=== PATIENT | female | born 1955 | race Caucasian/White ===

== ENCOUNTER 2022-01-01 12:28 | Emergency (ER) | payer BC, SELFPAY ==
[2022-01-01] VITALS (7 sets, daily range): BP systolic 96–123; BP diastolic 46–67; PULSE 62–87; RESP 16–20; TEMP 36.2–36.6; O2SAT 92–96; BMI 31.9
--- NOTE | 2022-01-01 13:24 | ED.GENADULT ---
HPI - General Adult General Time Seen by Provider: 13:15 Date Seen: 01/01/22 Chief complaint: Arrhythmia/Palpitations Stated complaint: Heart issues Time Seen by Provider: 01/01/22 12:40 Source: patient and RN notes reviewed Mode of arrival: ambulatory Limitations: no limitations History of Present Illness HPI narrative: Patient is a very pleasant 66-year-old female coming in with concern of underlying aneurysm with new shortness of breath. On Saturday she just started to become quite winded. They went to take pictures and they had to come pick her up with a 4 edmonds if she could not even get up a hill she was so winded. She states it felt like her heart would be real fast and then almost stop. When asked her if it felt like it paused she very well endorsed that. She had COVID in September for the 2nd time, mild illness as she is vaccinated. No associated cough or cold symptoms. She is worried if she does have an underlying aneurysm. Prior to going in and seen her I did see that she has a known fusiform thoracic aneurysm, we had seen it on imaging in 2012. She does not think she has had imaging for some time now, feels that it may be got behind during COVID. She does not have any chest pain. She notes with activity it feels her pulse does go up some. She states she is only on metoprolol and then a water pill. No new cough or cold symptoms. No calf pain, no edema. She has had no trauma, no recent surgeries, no travel, no known ill contacts. She was sent over from clinic. Related Data Home Medications Medication Instructions Recorded Confirmed aspirin 81 mg tablet,delayed 81 mg PO DAILY 01/01/22 01/01/22 release (Adult Aspirin Regimen) calcium carbonate 600 mg calcium 600 mg PO DAILY 01/01/22 01/01/22 (1,500 mg) tablet (Calcium) cholecalciferol (vitamin D3) 25 25 mcg PO BID 01/01/22 01/01/22 mcg (1,000 unit) capsule cyanocobalamin (vitamin B-12) 1,000 mcg PO DAILY 01/01/22 01/01/22 1,000 mcg capsule flaxseed oil 1,000 mg capsule 1,000 mg PO BID 01/01/22 01/01/22 gabapentin 300 mg capsule mg 01/01/22 hydrochlorothiazide 25 mg tablet mg 01/01/22 ipratropium bromide 21 mcg (0.03 2 spray intranasal TID 01/01/22 01/01/22 %) nasal spray metoprolol succinate 25 mg mg PO 01/01/22 tablet,extended release 24 hr potassium 99 mg tablet mg 01/01/22 sertraline 50 mg tablet 50 mg PO DAILY 01/01/22 01/01/22 Allergies Allergy/AdvReac Type Severity Reaction Status Date / Time naproxen [From Aleve] Allergy Severe Anaphylaxis Verified 01/01/22 12:58 bupropion [From Wellbutrin] Allergy Mild Unknown Verified 01/01/22 12:58 Review of Systems Status of ROS: Reports: 10 or more systems reviewed and unremarkable except as noted in History and below [facility] Medical History (Updated 01/01/22 @ 18:43 by Shakira Dewey MD) Thoracic aortic aneurysm without rupture Social History Smoking Status: Former smoker Do you use any of these nicotine containing products: None Second hand tobacco smoke exposure: No How often do you have a drink containing alcohol: never AUDIT-C Alcohol total score: 0 Non-prescribed substance use: denies use Exam Const: Vital Signs, click to edit/add: Vital Signs - 24 hr 01/01/22 12:44 01/01/22 13:00 01/01/22 13:00 Temperature 97.8 F Pulse Rate [Left P ulse Oximeter] 75 76 Respiratory Rate 16 16 Blood Pressure [Le ft Upper Arm] 98/46 L Blood Pressure [Ri ght Upper Arm] 96/50 L 98/46 L Pulse Oximetry 94 94 95 Oxygen Delivery Me thod Room Air Room Air 01/01/22 13:30 01/01/22 14:00 Temperature Pulse Rate [Left P ulse Oximeter] 87 69 Respiratory Rate 16 18 Blood Pressure [Le ft Upper Arm] 120/65 118/66 Blood Pressure [Ri ght Upper Arm] Pulse Oximetry 96 92 Oxygen Delivery Me thod Room Air Room Air Documenting provider has reviewed patient's vital signs: yes Common normals: no apparent distress, oriented x3, no limitations, healthy appearing, alert and well nourished General appearance: cooperative, comfortable and well kempt Nutritional appearance: overweight HENMT: Common normals: normocephalic, head/scalp atraumatic, hearing grossly normal bilaterally, external nose normal, nasal mucous membranes and turbinates normal, moist oral mucous membranes, oropharynx normal, dentition normal and gingiva normal Head and scalp: normocephalic and atraumatic Nose: external nose normal and nasal mucous membranes and turbinates normal Eye: Common normals: PERRL, EOMs intact bilaterally, conjunctivae normal and no scleral icterus Conjunctiva: conjunctiva(e) normal Pupil: PERRL Neck & C-Spine: Common normals: full ROM, no lymphadenopathy, supple, no meningeal signs, no JVD and thyroid normal Thyroid: thyroid normal Lymph: Lymphatic: no lymphadenopathy noted and no lymphedema noted Chest: Common normals: palpation of chest normal Resp: Common normals: normal respiratory effort, no retractions, no use of accessory muscles and clear to auscultation bilaterally Auscultation: clear to auscultation bilaterally Cardio: Common normals: no JVD, regular rate, regular rhythm, S1 normal heart sound, S2 normal heart sound, no gallops, no clicks, no murmurs, no rub and peripheral pulses 2+ throughout Rate: regular rate Rhythm: regular rhythm Heart sounds: S1 normal and S2 normal Peripheral pulses: pulses 2+ throughout GI: Common normals: Normal to inspection, nondistended, normoactive bowel sounds present, soft to palpation, non-tender, no hepatosplenomegaly and no masses Palpation: soft and no hepatosplenomegaly Extremity: Common normals: normal to inspection, full ROM, normal capillary refill, no joint enlargement, no clubbing, cyanosis or edema, no calf tenderness and no pedal edema Neuro: Common normals: oriented x3 and moves all extremities Sensorium/orientation: alert Meningeal signs: no meningeal signs Speech: speech normal Gait (neuro): normal gait Psych: Appearance: well kempt Course Course Hospital Course: We will have her on cardiac monitoring and pulse oximetry, obtain EKG. We will most certainly needs some imaging and I will need to figure out if we need to consider doing PET imaging versus the dissection/aneurysm protocol. We will await the D-dimer. I did look in her old records and her blood pressures have been more in the 120s in prior years. The lowest systolic I had seen prior was 102. She does not seem symptomatic but reviewed with them that lower blood pressures tend to go with presentation of pulmonary emboli. People who have dissections with a low blood pressure are usually quite ill and in critical shape. Reviewed with her that typically dissections are seen with hypertension. There can be other pathology causing shortness of breath including cardiac such as ischemia. Does not appear to be an arrhythmia at this time but will have her on monitoring. Infectious etiology such as pneumonia could also be a consideration. Reevaluation(s) Reevaluation #1: Reviewed with patient that her hemoglobin is currently 9.4. The last hemoglobin in the [facility] records is from 2009 and was 15.2. She is not been having any heartburn, no blood in stools, no dark tarry stools. She states her colonoscopies are up-to-date. No postmenopausal bleeding. Her D-dimer is elevated. We will be proceeding with chest CT PE protocol. She understands that this is not a dedicated imaging of the known aneurysm. We will also carried imaging through the abdomen pelvis given the undocumented anemia. Blood pressures come up a bit without any intervention. Time: 14:46 Reevaluation #2: Have sat down with patient's family and her and went over the results. The CT had many incidental findings but nothing acute. Would appear that she still maybe has some changes from her prior COVID, no active COVID as her antigen is negative. Her anemia needs further workup. I would recommend EGD and colonoscopy, peripheral smear and have written it down for her. At this point, I do not think I would have her start iron as she really I believe has to be off that for 1 week prior to having scopes done. Hopefully she can get in and have this done quickly. She plans on doing it through her clinic. I have offered here but she has declined. For the shortness of breath she was feeling, coronary calcifications seen incidentally on her CT, do recommend considering an echo and once the anemia is worked up considering further cardiac workup/cardiac stress testing versus coronary CTA, cardiology can further advise. The radiologist did not comment on her thoracic aneurysm, will contact them to see if they can compare the size. Again, this was not a dedicated study and she may need this done in the need to discuss that with her primary. Time: 18:19 Vital Signs Vital signs: Initial Vital Signs Temperature 97.8 F 01/01/22 12:44 Temperature Source Temporal Artery Scan 01/01/22 12:44 Pulse Rate 75 10/03/22 12:44 Respiratory Rate 16 01/01/22 12:44 Blood Pressure 96/50 L 01/01/22 12:44 Blood Pressure Mean 65 01/01/22 12:44 Blood Pressure Position Supine 01/01/22 12:44 Pulse Oximetry 94 01/01/22 12:44 Oxygen Delivery Method 01/01/22 12:44 Vital Signs Temperature 97.8 F 01/01/22 12:44 Pulse Rate 75 01/01/22 12:44 Respiratory Rate 16 01/01/22 12:44 Blood Pressure 96/50 L 01/01/22 12:44 Pulse Oximetry 94 01/01/22 12:44 Oxygen Delivery Method 01/01/22 12:44 Temperature 97.8 F 01/01/22 12:44 Pulse Rate 69 01/01/22 14:00 Respiratory Rate 18 01/01/22 14:00 Blood Pressure 118/66 01/01/22 14:00 Pulse Oximetry 92 01/01/22 14:00 Oxygen Delivery Method 01/01/22 14:00 Medical Decision Making Lab Data Lab results reviewed: Yes I reviewed the patient's lab results Labs: Lab Results 01/01/22 01/01/22 01/01/22 Range/Units 13:05 13:05 13:05 WBC 6.27 (4.50-11.00) K/uL RBC 3.57 L (4.00-5.20) m/uL Hgb 9.4 L (12.0-16.0) gm/dL Hct 30.0 L (33.0-51.0) % MCV 84 (80-100) fL MCH 26 (26-34) pg MCHC 31 L (32-36) gm/dL RDW Coeff of Susana 17.2 H (11.5-15.5) % Plt Count 258 (140-440) K/uL Neut % (Auto) 56.6 (42.0-72.0) % Lymph % (Auto) 33.5 (20-44) % Shackelford % (Auto) 6.7 (0.0-11.0) % Eos % (Auto) 2.4 (0.0-7.0) % Baso % (Auto) 0.6 (0.0-3.0) % Neut # (Auto) 3.55 (1.7-7.0) K/uL Lymph # (Auto) 2.10 (0.90-2.90) K/uL Shackelford # (Auto) 0.40 (0.00-0.90) K/UL Eos # (Auto) 0.15 (0.00-0.50) K/uL Baso # (Auto) 0.04 (0.00-0.30) K/uL Abs Immat Gran (auto) 0.01 (0.00-0.30) K/uL Absolute Retic 0.07 (0.03-0.08) # Percent Retic 1.9 (0.5-2.0) % Immature Retic Fraction 22.9 H (3.0-15.9) % Retic Hgb Equivalent 23.1 L (29.0-35.0) pg D-Dimer Quant (PE/DVT) 0.81 H (0.00-0.50) ug/ml VBG pH (7.32-7.43) VBG pCO2 (40-50) mmHG VBG pO2 (25-47) mmHG VBG HCO3 (21-28) mmol/L Sodium 135 (135-149) mmol/L Potassium 3.5 L (3.6-5.1) mmol/L Chloride 96 (96-114) mmol/L Carbon Dioxide 28 (20-32) mmol/L BUN 21 (7-30) mg/dL Creatinine 1.1 (0.5-1.5) mg/dL Estimated Creat Clear 42.18 Estimated GFR 56 ml/min Glucose 146 H (60-115) mg/dL Lactate (0.5-1.9) mmol/L Calcium 10.9 H (8.4-10.6) mg/dL Magnesium 1.4 L (1.5-2.6) mg/dL Iron (37-170) ug/dL TIBC (265-497) ug/dL % Saturation (20-50) % Ferritin (11.1-264.0) ng/mL Total Bilirubin 0.4 (0.1-1.5) mg/dL AST 38 H (12-35) U/L ALT 25 (4-35) U/L Alkaline Phosphatase 94 (40-150) U/L C-Reactive Protein < 0.5 L (0.5-1.0) mg/dL NT-Pro-B Natriuret Pep 82 (0-125) PG/mL Total Protein 7.3 (6.0-8.3) g/dL Albumin 4.5 (3.3-5.0) g/dL SARS-CoV-2 Ag (Rapid) (Negative) POC Troponin I (0.01-0.04) ng/ml 01/01/22 01/01/22 01/01/22 Range/Units 13:05 13:05 13:05 WBC (4.50-11.00) K/uL RBC (4.00-5.20) m/uL Hgb (12.0-16.0) gm/dL Hct (33.0-51.0) % MCV (80-100) fL MCH (26-34) pg MCHC (32-36) gm/dL RDW Coeff of Susana (11.5-15.5) % Plt Count (140-440) K/uL Neut % (Auto) (42.0-72.0) % Lymph % (Auto) (20-44) % Shackelford % (Auto) (0.0-11.0) % Eos % (Auto) (0.0-7.0) % Baso % (Auto) (0.0-3.0) % Neut # (Auto) (1.7-7.0) K/uL Lymph # (Auto) (0.90-2.90) K/uL Shackelford # (Auto) (0.00-0.90) K/UL Eos # (Auto) (0.00-0.50) K/uL Baso # (Auto) (0.00-0.30) K/uL Abs Immat Gran (auto) (0.00-0.30) K/uL Absolute Retic (0.03-0.08) # Percent Retic (0.5-2.0) % Immature Retic Fraction (3.0-15.9) % Retic Hgb Equivalent (29.0-35.0) pg D-Dimer Quant (PE/DVT) (0.00-0.50) ug/ml VBG pH 7.404 (7.32-7.43) VBG pCO2 50 (40-50) mmHG VBG pO2 28.5 (25-47) mmHG VBG HCO3 31 H (21-28) mmol/L Sodium (135-149) mmol/L Potassium (3.6-5.1) mmol/L Chloride (96-114) mmol/L Carbon Dioxide (20-32) mmol/L BUN (7-30) mg/dL Creatinine (0.5-1.5) mg/dL Estimated Creat Clear Estimated GFR ml/min Glucose (60-115) mg/dL Lactate 1.6 (0.5-1.9) mmol/L Calcium (8.4-10.6) mg/dL Magnesium Cancelled (1.5-2.6) mg/dL Iron (37-170) ug/dL TIBC (265-497) ug/dL % Saturation (20-50) % Ferritin (11.1-264.0) ng/mL Total Bilirubin (0.1-1.5) mg/dL AST (12-35) U/L ALT (4-35) U/L Alkaline Phosphatase (40-150) U/L C-Reactive Protein (0.5-1.0) mg/dL NT-Pro-B Natriuret Pep Cancelled (0-125) PG/mL Total Protein (6.0-8.3) g/dL Albumin (3.3-5.0) g/dL SARS-CoV-2 Ag (Rapid) (Negative) POC Troponin I 0.00 L (0.01-0.04) ng/ml 01/01/22 01/01/22 01/01/22 Range/Units 13:05 13:05 13:31 WBC (4.50-11.00) K/uL RBC (4.00-5.20) m/uL Hgb (12.0-16.0) gm/dL Hct (33.0-51.0) % MCV (80-100) fL MCH (26-34) pg MCHC (32-36) gm/dL RDW Coeff of Susana (11.5-15.5) % Plt Count (140-440) K/uL Neut % (Auto) (42.0-72.0) % Lymph % (Auto) (20-44) % Shackelford % (Auto) (0.0-11.0) % Eos % (Auto) (0.0-7.0) % Baso % (Auto) (0.0-3.0) % Neut # (Auto) (1.7-7.0) K/uL Lymph # (Auto) (0.90-2.90) K/uL Shackelford # (Auto) (0.00-0.90) K/UL Eos # (Auto) (0.00-0.50) K/uL Baso # (Auto) (0.00-0.30) K/uL Abs Immat Gran (auto) (0.00-0.30) K/uL Absolute Retic (0.03-0.08) # Percent Retic (0.5-2.0) % Immature Retic Fraction (3.0-15.9) % Retic Hgb Equivalent (29.0-35.0) pg D-Dimer Quant (PE/DVT) (0.00-0.50) ug/ml VBG pH (7.32-7.43) VBG pCO2 (40-50) mmHG VBG pO2 (25-47) mmHG VBG HCO3 (21-28) mmol/L Sodium (135-149) mmol/L Potassium (3.6-5.1) mmol/L Chloride (96-114) mmol/L Carbon Dioxide (20-32) mmol/L BUN (7-30) mg/dL Creatinine (0.5-1.5) mg/dL Estimated Creat Clear Estimated GFR ml/min Glucose (60-115) mg/dL Lactate (0.5-1.9) mmol/L Calcium (8.4-10.6) mg/dL Magnesium (1.5-2.6) mg/dL Iron 47 (37-170) ug/dL TIBC 540 H (265-497) ug/dL % Saturation 9 L (20-50) % Ferritin 9.2 L (11.1-264.0) ng/mL Total Bilirubin (0.1-1.5) mg/dL AST (12-35) U/L ALT (4-35) U/L Alkaline Phosphatase (40-150) U/L C-Reactive Protein (0.5-1.0) mg/dL NT-Pro-B Natriuret Pep (0-125) PG/mL Total Protein (6.0-8.3) g/dL Albumin (3.3-5.0) g/dL SARS-CoV-2 Ag (Rapid) Negative (Negative) POC Troponin I (0.01-0.04) ng/ml Imaging Data CT Chest/Ab/Pelvis: Attestation: I have reviewed the pertinent imaging results. Radiologist's impression: Patient: KARLA STEVENS Facility:?[facility] Patient ID:?[id number] Site Patient ID:?[id number]. Site :?[id number] Study:?CT Chest/Abd/Pelvis PE W/ISOVUE 370 95CC-01/01/2022 4:25:46 PM Ordering Physician:Juli Rosenberg Final Report: INDICATION: Shortness of breath, dyspnea on exertion, elevated D-dimer. Anemia. TECHNIQUE: CT PE chest, CT abdomen and pelvis acquired with 95 mL Isovue 370 contrast. COMPARISON: PET-CT dated 09/29/2012, CT chest dated 09/14/2012. FINDINGS: CHEST: Lungs and pleura: Few scattered subpleural reticulation/ground-glass opacities predominantly in the bilateral lower lobes and right middle lobe, which may reflect focal subpleural scarring versus infectious process including COVID pneumonia. No large focal consolidation. Few punctate subpleural pulmonary nodules, majority of which appear stable and are likely infectious/inflammatory in etiology. Heart and vessels: No cardiomegaly, no pericardial effusion. Atherosclerotic coronary artery calcifications. No filling defects identified within the main, lobar, and contrast opacified portions of the segmental pulmonary arteries. Thyroid and lower neck: No suspicious thyroid nodule. Mediastinum/cresencio: There is a stable 1.5 x 2.0 cm lymph node or nodule in the anterior upper mediastinum (Series 6, image 46), likely benign given long-term stability. No new lymphadenopathy. Chest wall: No axillary lymphadenopathy. ABDOMEN/PELVIS: Liver: Too small to characterize hypodense hepatic lesions, likely benign in the absence of a known malignancy. 1.6 cm hypervascular lesion in segment 6/7 (series 10, image 38), favored to reflect a hemangioma. Gallbladder and bile ducts: No calcified gallstones. Trace intrahepatic biliary ductal dilation. Common bile duct is within normal limits, with no choledocholithiasis identified. Pancreas: Unremarkable. Spleen: Unremarkable. Adrenal glands: Unremarkable. Kidneys: Kidneys enhance symmetrically, without hydronephrosis. Simple appearing 3.5 cm left renal cyst. Too small to characterize hypodense right renal lesion noted. Retroperitoneum: No lymphadenopathy. Bowel and mesentery: Bowel is not obstructed. Scattered colonic diverticulosis, without evidence of acute diverticulitis. No significant ascites. No pneumoperitoneum. Bladder: Mild circumferential wall thickening and pericystic inflammatory changes. Reproductive organs: Unremarkable. Pelvic lymph nodes: No lymphadenopathy. Vessels: Atherosclerotic calcifications. Prominent left periuterine vessels, nonspecific, can be seen in setting of pelvic congestion syndrome. Abdominal wall: No acute abdominal wall abnormality. Bones: Multilevel degenerative changes of the spine. Bones are diffusely osteopenic. IMPRESSION: 1. Few scattered subpleural reticulation/ground-glass opacities throughout the lungs, which may reflect focal subpleural scarring versus infectious process such as COVID pneumonia. No evidence of pulmonary infarct. 2. No evidence of acute pulmonary embolus. 3. Stable 1.5 x 2.0 cm lymph node or nodule in the anterior upper mediastinum, likely benign. 4. 1.6 cm hypervascular lesion in segment 6/7 of the liver, favored to reflect a hemangioma. This could be further evaluated with liver MRI on a nonemergent basis. 5. Trace intrahepatic biliary duct dilation, without cholelithiasis or choledocholithiasis identified. Recommend correlation with serum alkaline phosphatase. 6. Mild circumferential wall thickening of the urinary bladder, and pericystic inflammatory changes, concerning for cystitis. Recommend correlation with urinalysis. 7. Additional incidental findings as above. Please note that all CT scans at this facility use dose modulation, iterative reconstruction, and/or weight-based dosing when appropriate to reduce radiation dose to as low as reasonably achievable. Dictated by Ole Mulligan MD @ 01/01/2022 5:55:10 PM (Electronic Signature) ECG Data Attestation: I personally reviewed and interpreted this ECG as follows: (Normal sinus rhythm, 79 beats per minute. Poor R-wave progression in the anterior precordial leads. No acute ischemia, QT corrected 440 milliseconds) Prior ECG tracings: not available for review Critical Care Time Critical Care Time Critical Care Time: No Discharge Plan Discharge Clinical Impression: Aneurysm of thoracic aorta, JACOBSON (dyspnea on exertion), Anemia Condition: Stable Instructions: Thoracic Aortic Aneurysm (ED), Dyspnea (ED), Anemia (ED) Additional Instructions: You need to follow up in clinic as soon as possible, would prefer within days rather than weeks. Need your anemia further worked up, recommend getting a peripheral smear, having EGD and colonoscopy ordered. You can discuss supplementation with your primary care provider about iron but would hold off in preparation for colonoscopy at this point. For the incidental coronary calcifications seen on the CT, considering your dyspnea on exertion which could be contributed by the low hemoglobin, would consider an echo at some point if you have ongoing symptoms. The coronary calcifications could be further looked at with a coronary CTA, stress testing down the road once the anemia is settled, cardiology evaluation/referral could be considered as well if your primary care provider feels warranted. The thoracic aneurysm will need updated image Juma if I a am not able to get this adequately reviewed based off your CT scan tonight. In the interim, if you notice edis bleeding from the intestines, have severe abdominal pain, have any significant worsening of your shortness of breath, develops any chest pain, do need to return to the ER for further evaluation. Would not stress yourself with activity, light activity to not induce any difficulty breathing. Activity Level: Activity as Tolerated Prescriptions: No Action gabapentin 300 mg capsule Label Comments: TAKE 1 CAPSULE BY MOUTH TWICE DAILY hydrochlorothiazide 25 mg tablet Label Comments: TAKE 1 TABLET BY MOUTH EVERY DAY metoprolol succinate 25 mg tablet extended release 24 hr PO Label Comments: TAKE 1 TABLET BY MOUTH EVERY DAY aspirin [Adult Aspirin Regimen] 81 mg tablet,delayed release (DR/EC) 81 mg PO DAILY calcium carbonate [Calcium 600] 600 mg calcium (1,500 mg) tablet 600 mg PO DAILY cholecalciferol (vitamin D3) 25 mcg (1,000 unit) capsule 25 mcg PO BID cyanocobalamin (vitamin B-12) 1,000 mcg capsule 1,000 mcg PO DAILY flaxseed oil 1,000 mg capsule 1,000 mg PO BID ipratropium bromide 21 mcg (0.03 %) spray,non-aerosol 2 spray intranasal TID Rx Instructions: administer into each nostril potassium 99 mg tablet sertraline 50 mg tablet 50 mg PO DAILY Follow Up/Referrals: Cookie Deras MD [Primary Care Provider] - Stand Alone Forms: [employer] Info Instructions
[2022-01-01 13:30] LABS: HCO3 VBG 31 mmol/L (21-28); Lactate* 1.6 mmol/L (0.5-1.9); PCO2 VBG 50 mmHG (40-50); PO2 VBG 28.5 mmHG (25-47); pH VBG 7.404 (7.32-7.43)
[2022-01-01 13:50] LABS: Basophils Absolute Auto 0.04 K/uL (0.00-0.30); Basophils Percent Auto 0.6 % (0.0-3.0); Eosinophils Absolute Auto 0.15 K/uL (0.00-0.50); Eosinophils Percent Auto 2.4 % (0.0-7.0); Hemoglobin* 9.4 gm/dL (12.0-16.0); Immature Granulocytes Abs Auto 0.01 K/uL (0.00-0.30); Lymphocytes Percent Auto 33.5 % (20-44); Mean Corpuscular HGB Conc 31 gm/dL (32-36); Mean Corpuscular Hemoglobin 26 pg (26-34); Mean Corpuscular Volume 84 fL (80-100); Monocytes Percent Auto 6.7 % (0.0-11.0); Neutrophils Absolute Auto 3.55 K/uL (1.7-7.0); Neutrophils Percent Auto 56.6 % (42.0-72.0); Platelet Count* 258 K/uL (140-440); RDW Coefficient of Variation % 17.2 % (11.5-15.5); Red Blood Count 3.57 m/uL (4.00-5.20); White Blood Count* 6.27 K/uL (4.50-11.00)
[2022-01-01 13:56] LABS: Slide Review Reflex No
[2022-01-01 14:09] LABS: Albumin* 4.5 g/dL (3.3-5.0); Chloride* 96 mmol/L (96-114); Potassium* 3.5 mmol/L (3.6-5.1); Sodium* 135 mmol/L (135-149)
[2022-01-01 14:11] LABS: Bilirubin Total* 0.4 mg/dL (0.1-1.5); Creatinine* 1.1 mg/dL (0.5-1.5); Est. Creatinine Clearance* 42.18; Estimated Glomerular Filt Rate 56 ml/min
[2022-01-01 14:12] LABS: Alanine Aminotransferase* 25 U/L (4-35); Alkaline Phosphatase* 94 U/L (40-150); Aspartate Amino Transferase* 38 U/L (12-35); Blood Urea Nitrogen* 21 mg/dL (7-30); Carbon Dioxide* 28 mmol/L (20-32); Total Protein* 7.3 g/dL (6.0-8.3)
[2022-01-01 14:13] LABS: Calcium* 10.9 mg/dL (8.4-10.6); Glucose* 146 mg/dL (60-115); Magnesium* 1.4 mg/dL (1.5-2.6)
[2022-01-01 14:20] LABS: D Dimer Quantitative* 0.81 ug/ml (0.00-0.50)
[2022-01-01 14:21] LABS: NT Pro B Type NatriureticPept* 82 PG/mL (0-125)
[2022-01-01 14:31] LABS: C Reactive Protein* < 0.5 mg/dL (0.5-1.0)
--- NOTE | 2022-01-01 14:43 | CRLHL7_ITS ---
For Patients: As a result of the Century Cures Act, medical imaging exams and procedure reports are released immediately into your electronic medical record. You may view this report before your referring provider. If you have questions, please contact your health care provider. INDICATION: Shortness of breath, dyspnea on exertion, elevated D-dimer. Anemia. TECHNIQUE: CT PE chest, CT abdomen and pelvis acquired with 95 mL Isovue 370 contrast. COMPARISON: PET-CT dated 09/29/2012, CT chest dated 09/14/2012. FINDINGS: CHEST: Lungs and pleura: Few scattered subpleural reticulation/ground-glass opacities predominantly in the bilateral lower lobes and right middle lobe, which may reflect focal subpleural scarring versus infectious process including COVID pneumonia. No large focal consolidation. Few punctate subpleural pulmonary nodules, majority of which appear stable and are likely infectious/inflammatory in etiology. Heart and vessels: No cardiomegaly, no pericardial effusion. Atherosclerotic coronary artery calcifications. No filling defects identified within the main, lobar, and contrast opacified portions of the segmental pulmonary arteries. Thyroid and lower neck: No suspicious thyroid nodule. Mediastinum/cresencio: There is a stable 1.5 x 2.0 cm lymph node or nodule in the anterior upper mediastinum (Series 6, image 46), likely benign given long-term stability. No new lymphadenopathy. Chest wall: No axillary lymphadenopathy. ABDOMEN/PELVIS: Liver: Too small to characterize hypodense hepatic lesions, likely benign in the absence of a known malignancy. 1.6 cm hypervascular lesion in segment 6/7 (series 10, image 38), favored to reflect a hemangioma. Gallbladder and bile ducts: No calcified gallstones. Trace intrahepatic biliary ductal dilation. Common bile duct is within normal limits, with no choledocholithiasis identified. Pancreas: Unremarkable. Spleen: Unremarkable. Adrenal glands: Unremarkable. Kidneys: Kidneys enhance symmetrically, without hydronephrosis. Simple appearing 3.5 cm left renal cyst. Too small to characterize hypodense right renal lesion noted. Retroperitoneum: No lymphadenopathy. Bowel and mesentery: Bowel is not obstructed. Scattered colonic diverticulosis, without evidence of acute diverticulitis. No significant ascites. No pneumoperitoneum. Bladder: Mild circumferential wall thickening and pericystic inflammatory changes. Reproductive organs: Unremarkable. Pelvic lymph nodes: No lymphadenopathy. Vessels: Atherosclerotic calcifications. Prominent left periuterine vessels, nonspecific, can be seen in setting of pelvic congestion syndrome. Abdominal wall: No acute abdominal wall abnormality. Bones: Multilevel degenerative changes of the spine. Bones are diffusely osteopenic. IMPRESSION: 1. Few scattered subpleural reticulation/ground-glass opacities throughout the lungs, which may reflect focal subpleural scarring versus infectious process such as COVID pneumonia. No evidence of pulmonary infarct. 2. No evidence of acute pulmonary embolus. 3. Stable 1.5 x 2.0 cm lymph node or nodule in the anterior upper mediastinum, likely benign. 4. 1.6 cm hypervascular lesion in segment 6/7 of the liver, favored to reflect a hemangioma. This could be further evaluated with liver MRI on a nonemergent basis. 5. Trace intrahepatic biliary duct dilation, without cholelithiasis or choledocholithiasis identified. Recommend correlation with serum alkaline phosphatase. 6. Mild circumferential wall thickening of the urinary bladder, and pericystic inflammatory changes, concerning for cystitis. Recommend correlation with urinalysis. 7. Additional incidental findings as above. Please note that all CT scans at this facility use dose modulation, iterative reconstruction, and/or weight-based dosing when appropriate to reduce radiation dose to as low as reasonably achievable. Dictated by Ole Mulligan MD @ 01/01/2022 5:55:10 PM (Electronically Signed)
[2022-01-01 15:07] LABS: SARS Antigen* Negative (Negative)
[2022-01-01 15:37] LABS: Immature Reticulocyte Fraction 22.9 % (3.0-15.9); Reticulocyte Hemoglobin Equivi 23.1 pg (29.0-35.0); Reticulocyte Percent 1.9 % (0.5-2.0); Reticulocytes Absolute 0.07 # (0.03-0.08)
[2022-01-01 15:47] LABS: Iron* 47 ug/dL (37-170)
[2022-01-01 15:56] LABS: Percent Iron Saturation 9 % (20-50); Total Iron Binding Capacity 540 ug/dL (265-497)
[2022-01-01 16:22] LABS: Ferritin* 9.2 ng/mL (11.1-264.0)
== END 2022-01-01 19:05 | disposition home or self-care (01) ==
PROVIDERS: Emergency Provider Family Medicine; PCP Family Medicine
DX: I71.20 Thoracic aortic aneurysm, without rupture, unspecified (principal); R06.00 Dyspnea, unspecified; D64.9 Anemia, unspecified
CPT/HCPCS: 36415; 71260; 74177; 80053; 82728; 82803; 83540; 83550; 83605; 83735; 83880; 84484; 85025; 85045; 85379; 86140; 87426; 93005; 94761; 99284; Q9967

== ENCOUNTER 2022-01-08 09:13 | Outpatient (CLI) | payer BC, SELFPAY ==
--- NOTE | 2022-01-08 10:26 | W.ANESCHARGE ---
Anesthesia Charges Start Date/Time Anesthesia Start Date: 01/08/22 Anesthesia Start Time: 10:00 Stop Date/Time Anesthesia Stop Date: 01/08/22 Anesthesia Stop Time: 10:25 Summary Emergency: No
--- NOTE | 2022-01-08 10:29 | W.ANESCHARGE ---
Anesthesia Charges Start Date/Time Anesthesia Start Date: 01/08/22 Anesthesia Start Time: 10:00 Stop Date/Time Anesthesia Stop Date: 01/08/22 Anesthesia Stop Time: 10:25 Summary Emergency: No
== END 2022-01-08 09:14 | disposition home or self-care (01) ==
LOC: OP CLINIC 09:14
PROVIDERS: PCP Family Medicine; Visit Provider Internal Medicine Gastroenterology
DX: D50.9 Iron deficiency anemia, unspecified (principal); K92.2 Gastrointestinal hemorrhage, unspecified; K31.89 Other diseases of stomach and duodenum
CPT/HCPCS: 00731; 43239; 88305

== ENCOUNTER 2022-07-15 09:45 | Inpatient (IN) | payer BC, MEDICARE, SELFPAY ==
[2022-07-15] VITALS (21 sets, daily range): BP systolic 112–146; BP diastolic 59–80; PULSE 65–77; RESP 18; TEMP 36.2–36.7; O2SAT 87–95; BMI 28.3; BMI 31.5
--- NOTE | 2022-07-15 11:48 | CRLHL7_ITS ---
For Patients: As a result of the Century Cures Act, medical imaging exams and procedure reports are released immediately into your electronic medical record. You may view this report before your referring provider. If you have questions, please contact your health care provider. Indication: Chest pain Technique: Portable chest Comparison: No comparison Findings: Low lung volumes. Mildly enlarged cardiac silhouette. No acute airspace or interstitial process. No effusion or pneumothorax. Impression: No acute pulmonary findings. Dictated by Carito Yeager MD @ 07/15/2022 1:50:45 PM (Electronically Signed)
[2022-07-15] MEDS: 0.9 % SODIUM CHLORIDE 1000 ml 1,000 ML IV ×2 (12:18→13:34)
[2022-07-15 12:29] LABS: Troponin, Point-of-Care* 0.01 ng/ml (0.01-0.04)
[2022-07-15] MEDS: MORPHINE 4 MG/ML INJ IVP (12:29)
[2022-07-15 12:34] LABS: Ionized Calcium* 1.78 mmol/L (1.11-1.30)
[2022-07-15 12:35] LABS: Basophils Absolute Auto 0.02 K/uL (0.00-0.30); Basophils Percent Auto 0.2 % (0.0-3.0); Eosinophils Absolute Auto 0.16 K/uL (0.00-0.50); Eosinophils Percent Auto 1.9 % (0.0-7.0); Hematocrit 27.5 % (33.0-51.0); Hemoglobin* 9.2 gm/dL (12.0-16.0); Immature Granulocytes Abs Auto 0.02 K/uL (0.00-0.30); Immature Granulocytes Pct Auto 0.2 %; Lymphocytes Absolute Auto 2.04 K/uL (0.90-2.90); Lymphocytes Percent Auto 24.1 % (20-44); Mean Corpuscular HGB Conc 34 gm/dL (32-36); Mean Corpuscular Hemoglobin 31 pg (26-34); Mean Corpuscular Volume 91 fL (80-100); Monocytes Percent Auto 6.6 % (0.0-11.0); Neutrophils Absolute Auto 5.65 K/uL (1.7-7.0); Platelet Count* 258 K/uL (140-440); RDW Coefficient of Variation % 14.3 % (11.5-15.5); Red Blood Count 3.02 m/uL (4.00-5.20); White Blood Count* 8.45 K/uL (4.50-11.00)
[2022-07-15 12:46] LABS: Slide Review Reflex No
[2022-07-15 12:49] LABS: Chloride* 95 mmol/L (96-114); Potassium* 3.5 mmol/L (3.6-5.1); Sodium* 134 mmol/L (135-149)
[2022-07-15 12:52] LABS: Blood Urea Nitrogen* 22 mg/dL (7-30); Carbon Dioxide* 32 mmol/L (20-32); Creatinine* 1.3 mg/dL (0.5-1.5); Est. Creatinine Clearance* 35.69; Estimated Glomerular Filt Rate 46 ml/min
[2022-07-15 12:53] LABS: Glucose* 99 mg/dL (60-115)
[2022-07-15 12:54] LABS: D Dimer Quantitative* 0.84 ug/ml (0.00-0.50)
[2022-07-15 12:55] LABS: C Reactive Protein* 0.6 mg/dL (0.5-1.0)
[2022-07-15 13:04] LABS: Calcium* 14.6 mg/dL (8.4-10.6)
[2022-07-15 13:21] LABS: Appearance Urine Clear (Clear); Bilirubin Urine Negative (Negative); Blood Urine Negative (Negative); Color Urine Yellow (Yellow); Glucose Urine Negative (Negative); Ketones Urine Negative (Negative); Leukocyte Esterase Urine Negative (Negative); Nitrite Urine Negative (Negative); Protein Urine 2+ (Negative); Specific Gravity Urine 1.015 (1.000-1.030); Urobilinogen Urine 0.2 (0.2-1.0); pH Urine 6.5 (5.0-8.5)
[2022-07-15] MEDS: FUROSEMIDE 10 MG/ML inj 40 MG IVP (13:35)
[2022-07-15 13:37] LABS: RBC Urine 0-2 (0-2)
[2022-07-15 13:38] LABS: Bacteria Urine Moderate; Squamous Epithelial Cell Urine Few (None-Few)
--- NOTE | 2022-07-15 14:04 | ED_ITS ---
HPI - General Adult General Date Seen: 07/15/22 Chief complaint: Back Injury/Pain Stated complaint: Pain control Time Seen by Provider: 07/15/22 10:52 Source: patient and family Mode of arrival: ambulatory Limitations: no limitations History of Present Illness HPI narrative: Patient is a 66-year-old female who has been struggling with hypercalcemia for the past few months, she has a history of compression fractures of her thoracic spine, and wears a TLSO. She was in the [facility], recently with hypercalcemia she was diuresed, at that point and sent home. She saw her primary here in the last week, and was found to have elevated calcium, she has had increased pain from her fractures in the last 2-3 days, and thinks this is related to her hypercalcemia she comes in with her family, she also group report some fatigue and weakness associated with this she has had no fevers or chills or sweats no recent or falls that she knows about, initial compression fractures with thought to be due to episodes of vomiting. She has been worked up at the [facility], with a resection of a thyoma. Followed by [facility] team also. Related Data Home Medications Medication Instructions Recorded Confirmed aspirin 81 mg tablet,delayed 81 mg PO DAILY 01/01/22 07/15/22 release (Adult Aspirin Regimen) calcium carbonate 600 mg calcium 600 mg PO DAILY 01/01/22 07/15/22 (1,500 mg) tablet (Calcium) cholecalciferol (vitamin D3) 25 25 mcg PO BID 01/01/22 07/15/22 mcg (1,000 unit) capsule cyanocobalamin (vitamin B-12) 1,000 mcg PO DAILY 01/01/22 07/15/22 1,000 mcg capsule flaxseed oil 1,000 mg capsule 1,000 mg PO BID 01/01/22 07/15/22 gabapentin 300 mg capsule 300 mg PO DAILY 01/01/22 07/15/22 hydrochlorothiazide 25 mg tablet 25 mg PO DAILY 01/01/22 07/15/22 ipratropium bromide 21 mcg (0.03 2 spray intranasal TID 01/01/22 01/01/22 %) nasal spray metoprolol succinate 25 mg 25 mg PO 01/01/22 tablet,extended release 24 hr potassium 99 mg tablet mg 01/01/22 sertraline 50 mg tablet 50 mg PO DAILY 01/01/22 07/15/22 lorazepam 0.5 mg tablet 0.5 mg PO DAILY PRN 07/15/22 07/15/22 methocarbamol 500 mg tablet mg PO 07/15/22 oxycodone 5 mg tablet PO 07/15/22 tramadol 50 mg tablet 50 mg PO Q6H PRN 07/15/22 07/15/22 Allergies Allergy/AdvReac Type Severity Reaction Status Date / Time naproxen [From Aleve] Allergy Severe Anaphylaxis Verified 01/01/22 12:58 bupropion [From Wellbutrin] Allergy Mild Unknown Verified 01/01/22 12:58 Review of Systems Status of ROS: Reports: 10 or more systems reviewed and unremarkable except as noted in History and below [facility] Medical History Thoracic aortic aneurysm without rupture ?I71.20 - Thoracic aortic aneurysm, without rupture, unspecified (ICD-10) Social History Smoking Status: Former smoker Do you use any of these nicotine containing products: None Second hand tobacco smoke exposure: No How often do you have a drink containing alcohol: never AUDIT-C Alcohol total score: 0 Non-prescribed substance use: denies use Exam Narrative: Exam Narrative: Patient is seen and stabilization room 2 she is pleasant alert she is seen with the 2 family members present, her pupils are equal round reactive to light there is no scleral icterus redness TMs are normal oropharynx normal neck is supple, thyroid is normal midline, not enlarged, but no tenderness, cranial nerves 3-12 are normal, chest is clear bilaterally with no wheezing crackles noted heart sounds are normal, her abdomen is soft there is no guarding no organomegaly she has pot belly, she is wearing her TLSO. Her extremities are all normal she moves extremities independently and well, there is no tremors, no weakness noted she is symmetrically strong, with no evidence of abnormality hydration status seems normal. Const: Vital Signs, click to edit/add: Vital Signs - 24 hr 07/15/22 09:58 07/15/22 12:29 07/15/22 12:30 Temperature 97.2 F L Pulse Rate 70 70 Pulse Rate [Right Pulse Oximeter] 77 Respiratory Rate 18 Blood Pressure 144/68 H Blood Pressure [Ri ght Upper Arm] 117/80 Pulse Oximetry 92 89 91 Oxygen Delivery Me thod Room Air 07/15/22 12:32 07/15/22 12:55 07/15/22 13:02 Temperature Pulse Rate 69 68 67 Pulse Rate [Right Pulse Oximeter] Respiratory Rate Blood Pressure 137/65 137/68 Blood Pressure [Ri ght Upper Arm] Pulse Oximetry 87 L 93 92 Oxygen Delivery Me thod 07/15/22 13:03 07/15/22 13:15 07/15/22 13:30 Temperature Pulse Rate 67 70 70 Pulse Rate [Right Pulse Oximeter] Respiratory Rate Blood Pressure Blood Pressure [Ri ght Upper Arm] Pulse Oximetry 92 93 91 Oxygen Delivery Me thod 07/15/22 13:32 07/15/22 13:45 07/15/22 14:00 Temperature Pulse Rate 70 68 68 Pulse Rate [Right Pulse Oximeter] Respiratory Rate Blood Pressure 146/74 H Blood Pressure [Ri ght Upper Arm] Pulse Oximetry 92 89 92 Oxygen Delivery Me thod 07/15/22 14:02 Temperature Pulse Rate 67 Pulse Rate [Right Pulse Oximeter] Respiratory Rate Blood Pressure 134/66 Blood Pressure [Ri ght Upper Arm] Pulse Oximetry 91 Oxygen Delivery Me thod Documenting provider has reviewed patient's vital signs: yes Course Course Hospital Course: Patient is seen and assessed, we started a fluid bolus, once her laboratory work came back we give her 2nd fluid bolus, of normal saline, for 2 L total I gave her some Lasix also, to help her hypercalcemia, I discussed the case with the hospitalist Dr. Coles. He agreed to admit the patient with the above diagnosis. For ongoing care and treatment. Vital Signs Vital signs: Initial Vital Signs Temperature 97.2 F L 07/15/22 09:58 Temperature Source Temporal Artery Scan 07/15/22 09:58 Pulse Rate 77 07/15/22 09:58 Respiratory Rate 18 07/15/22 09:58 Blood Pressure 117/80 07/15/22 09:58 Blood Pressure Mean 92 07/15/22 09:58 Blood Pressure Position Sitting 07/15/22 09:58 Pulse Oximetry 92 07/15/22 09:58 Oxygen Delivery Method Room Air 07/15/22 09:58 Vital Signs Temperature 97.2 F L 07/15/22 09:58 Pulse Rate 77 07/15/22 09:58 Respiratory Rate 18 07/15/22 09:58 Blood Pressure 117/80 07/15/22 09:58 Pulse Oximetry 92 07/15/22 09:58 Oxygen Delivery Method Room Air 07/15/22 09:58 Temperature 97.2 F L 07/15/22 09:58 Pulse Rate 67 07/15/22 14:02 Respiratory Rate 18 07/15/22 09:58 Blood Pressure 134/66 07/15/22 14:02 Pulse Oximetry 91 07/15/22 14:02 Oxygen Delivery Method Room Air 07/15/22 09:58 Medical Decision Making MDM Narrative Medical decision making narrative: Life-threatening differential diagnosis considered include stroke, coronary artery disease, pneumonia, and heart failure. Other differential diagnosis include but are not limited to electrolyte imbalances, anemia, medication reactions, and urinary tract infection Medical Records Medical records reviewed: Yes I reviewed the patient's medical records Medical records narrative: Some medical records from her [facility] chart are noted Lab Data Lab results reviewed: Yes I reviewed the patient's lab results Labs: Lab Results 07/15/22 07/15/22 07/15/22 Range/Units 11:50 12:20 12:40 WBC 8.45 (4.50-11.00) K/uL RBC 3.02 L (4.00-5.20) m/uL Hgb 9.2 L (12.0-16.0) gm/dL Hct 27.5 L (33.0-51.0) % MCV 91 (80-100) fL MCH 31 (26-34) pg MCHC 34 (32-36) gm/dL RDW Coeff of Susana 14.3 (11.5-15.5) % Plt Count 258 (140-440) K/uL Neut % (Auto) 67.0 (42.0-72.0) % Lymph % (Auto) 24.1 (20-44) % [place] % (Auto) 6.6 (0.0-11.0) % Eos % (Auto) 1.9 (0.0-7.0) % Baso % (Auto) 0.2 (0.0-3.0) % Neut # (Auto) 5.65 (1.7-7.0) K/uL Lymph # (Auto) 2.04 (0.90-2.90) K/uL [place] # (Auto) 0.60 (0.00-0.90) K/UL Eos # (Auto) 0.16 (0.00-0.50) K/uL Baso # (Auto) 0.02 (0.00-0.30) K/uL D-Dimer Quant (PE/DVT) 0.84 H (0.00-0.50) ug/ml Sodium 134 L (135-149) mmol/L Potassium 3.5 L (3.6-5.1) mmol/L Chloride 95 L (96-114) mmol/L Carbon Dioxide 32 (20-32) mmol/L BUN 22 (7-30) mg/dL Creatinine 1.3 (0.5-1.5) mg/dL Estimated Creat Clear 35.69 Estimated GFR 46 ml/min Glucose 99 (60-115) mg/dL Calcium 14.6 H* (8.4-10.6) mg/dL Ionized Calcium Dom 1.78 H (1.11-1.30) mmol/L C-Reactive Protein 0.6 (0.5-1.0) mg/dL Urine Color Yellow (Yellow) Urine Appearance Clear (Clear) Urine pH 6.5 (5.0-8.5) Ur Specific Tower 1.015 (1.000-1.030) Urine Protein 2+ A (Negative) Urine Glucose (UA) Negative (Negative) Urine Ketones Negative (Negative) Urine Blood Negative (Negative) Urine Nitrite Negative (Negative) Urine Bilirubin Negative (Negative) Urine Urobilinogen 0.2 (0.2-1.0) Ur Leukocyte Esterase Negative (Negative) Urine RBC 0-2 (0-2) Urine WBC 2-5 (0-5) Ur Squamous Epith Cells Few (None-Few) Urine Bacteria Moderate A (None) SARS-CoV-2 (PCR) (Negative) POC Troponin I 0.01 (0.01-0.04) ng/ml 07/15/22 Range/Units 13:39 WBC (4.50-11.00) K/uL RBC (4.00-5.20) m/uL Hgb (12.0-16.0) gm/dL Hct (33.0-51.0) % MCV (80-100) fL MCH (26-34) pg MCHC (32-36) gm/dL RDW Coeff of Susana (11.5-15.5) % Plt Count (140-440) K/uL Neut % (Auto) (42.0-72.0) % Lymph % (Auto) (20-44) % [place] % (Auto) (0.0-11.0) % Eos % (Auto) (0.0-7.0) % Baso % (Auto) (0.0-3.0) % Neut # (Auto) (1.7-7.0) K/uL Lymph # (Auto) (0.90-2.90) K/uL [place] # (Auto) (0.00-0.90) K/UL Eos # (Auto) (0.00-0.50) K/uL Baso # (Auto) (0.00-0.30) K/uL D-Dimer Quant (PE/DVT) (0.00-0.50) ug/ml Sodium (135-149) mmol/L Potassium (3.6-5.1) mmol/L Chloride (96-114) mmol/L Carbon Dioxide (20-32) mmol/L BUN (7-30) mg/dL Creatinine (0.5-1.5) mg/dL Estimated Creat Clear Estimated GFR ml/min Glucose (60-115) mg/dL Calcium (8.4-10.6) mg/dL Ionized Calcium Dom (1.11-1.30) mmol/L C-Reactive Protein (0.5-1.0) mg/dL Urine Color (Yellow) Urine Appearance (Clear) Urine pH (5.0-8.5) Ur Specific Tower (1.000-1.030) Urine Protein (Negative) Urine Glucose (UA) (Negative) Urine Ketones (Negative) Urine Blood (Negative) Urine Nitrite (Negative) Urine Bilirubin (Negative) Urine Urobilinogen (0.2-1.0) Ur Leukocyte Esterase (Negative) Urine RBC (0-2) Urine WBC (0-5) Ur Squamous Epith Cells (None-Few) Urine Bacteria (None) SARS-CoV-2 (PCR) Negative SARS-CoV-2 (Negative) POC Troponin I (0.01-0.04) ng/ml Imaging Data Chest x-ray: My impression: No acute findings Radiologist's impression: Patient: KARLA STEVENS Facility: [facility] Site . Site : [id number] Study: XRay Chest Portable 1v-07/15/2022 1:06:26 PM Ordering Physician: Neno Campoverde Final Report: Indication: Chest pain Technique: Portable chest Comparison: No comparison Findings: Low lung volumes. Mildly enlarged cardiac silhouette. No acute airspace or interstitial process. No effusion or pneumothorax. Impression: No acute pulmonary findings. Dictated by Carito Yeager MD @ 07/15/2022 1:50:45 PM (Electronic Signature) ECG Data Attestation: I personally reviewed and interpreted this ECG as follows: Interpretation: EKG shows normal sinus rhythm, no acute ST wave changes, ventricular rate is 69, QRS 80, QT QTC and HI intervals are normal Discharge Plan Discharge Clinical Impression: Encounter for chronic pain management, Compression fx, thoracic spine, Hypercalcemia Patient Disposition: Admitted As Inpatient Condition: Stable Prescriptions: No Action gabapentin 300 mg capsule 300 mg PO DAILY Patient Comments: TAKE 1 CAPSULE BY MOUTH TWICE DAILY hydrochlorothiazide 25 mg tablet 25 mg PO DAILY Patient Comments: TAKE 1 TABLET BY MOUTH EVERY DAY metoprolol succinate 25 mg tablet extended release 24 hr 25 mg PO Patient Comments: TAKE 1 TABLET BY MOUTH EVERY DAY aspirin [Adult Aspirin Regimen] 81 mg tablet,delayed release (DR/EC) 81 mg PO DAILY calcium carbonate [Calcium 600] 600 mg calcium (1,500 mg) tablet 600 mg PO DAILY cholecalciferol (vitamin D3) 25 mcg (1,000 unit) capsule 25 mcg PO BID cyanocobalamin (vitamin B-12) 1,000 mcg capsule 1,000 mcg PO DAILY flaxseed oil 1,000 mg capsule 1,000 mg PO BID ipratropium bromide 21 mcg (0.03 %) spray,non-aerosol 2 spray intranasal TID Rx Instructions: administer into each nostril potassium 99 mg tablet sertraline 50 mg tablet 50 mg PO DAILY methocarbamol 500 mg tablet PO tramadol 50 mg tablet 50 mg PO Q6H PRN oxycodone 5 mg tablet PO lorazepam 0.5 mg tablet 0.5 mg PO DAILY PRN Follow Up/Referrals: Cookie Deras MD [Primary Care Provider] -
--- NOTE | 2022-07-15 14:04 | W.PC.EDHO ---
Primary Language: Bengali Preferred Language: Orientation Status: [x] Alert & Oriented [] Slight Confusion [] Known Dx Dementia Transfers By: [x] Assist of 1 [] Assist of 2 [] Lift Active Medications Generic Name Dose Route Start Last Admin Trade Name Freq PRN Reason Stop Dose Admin Sodium Chloride 1,000 mls @ 1,000 mls/hr 07/15/22 13:30 07/15/22 13:34 0.9 % Sodium Chloride 1000 Ml IV 07/15/22 14:29 1,000 mls/hr .Q1H TRUE Administration Discontinued Medications Generic Name Dose Route Start Last Admin Trade Name Freq PRN Reason Stop Dose Admin Furosemide 40 mg 07/15/22 13:25 07/15/22 13:35 Furosemide 10 Mg/Ml Inj IVP 07/15/22 13:26 40 mg ONCE ONE Administration Sodium Chloride 1,000 mls @ 1,000 mls/hr 07/15/22 12:00 07/15/22 13:28 0.9 % Sodium Chloride 1000 Ml IV 07/15/22 12:59 Infused .Q1H TRUE Infusion Morphine Sulfate 4 mg 07/15/22 12:21 07/15/22 12:29 Morphine 4 Mg/Ml Inj IVP 07/15/22 12:22 4 mg ONCE ONE Administration Description of Symptoms ED Triage Present Problem history of compression fractures. last Description hospitalized in May at [facility] for pain control and calcium levels. states her pain is bad again and is wondering if her calcium levels are too high again Female History Patient No Pain Pain Description [Posterior Radiating Back] Pain Intensity [Posterior Back 9 ] Pain Intensity 0 Pain Intensity 9 Pain Scale Used [Posterior Numeric (1 - 10) Back] Pain Scale Used Numeric (1 - 10) Pain Scale Used Numeric (1 - 10) IV Insertion/Site Date of IV Line Insertion [ 07/15/22 Antecubital] Oxygen Administration Pulse Oximetry 91 Pulse Oximetry 92 Pulse Oximetry 89 Pulse Oximetry 92 Pulse Oximetry 91 Pulse Oximetry 93 Pulse Oximetry 92 Pulse Oximetry 92 Pulse Oximetry 93 Pulse Oximetry 87 Pulse Oximetry 91 Pulse Oximetry 89 Pulse Oximetry 92 Oxygen Delivery Method Room Air Cardiac Monitoring EKG Method 12 Lead
[2022-07-15 14:24] LABS: SARS PCR* Negative SARS-CoV-2 (Negative)
--- NOTE | 2022-07-15 14:30 | ED.NURSE ---
Pt voided ~650mLs into commode. Noted output in I&Os.
[2022-07-15] MEDS: MORPHINE 2 MG/ML inj 4 MG IVP (15:44)
[2022-07-15] MEDS: OXYCODONE 5 MG TABLET PO ×2 (15:57→20:14)
--- NOTE | 2022-07-15 16:32 | P.IMHP_ITS ---
Hospitalist- H&P: HPI History of Present Illness Time Seen by Provider: 16:15 Date Seen: 07/15/22 Chief complaint: Pain control Narrative: Cecy Pina is a 66 year old female Review of Systems Status of ROS: Reports: 10 or more systems reviewed and unremarkable except as noted in History and below [facility] Medical History (Updated 07/15/22 @ 21:22 by Alice Dalton MD) Adenomatous colon polyp ?D12.6 - Benign neoplasm of colon, unspecified (ICD-10) Alcohol use disorder in remission ?F10.91 - Alcohol use, unspecified, in remission (ICD-10) Allergic rhinitis ?J30.9 - Allergic rhinitis, unspecified (ICD-10) Anemia ?D64.9 - Anemia, unspecified (ICD-10) Carpal tunnel syndrome, bilateral ?G56.03 - Carpal tunnel syndrome, bilateral upper limbs (ICD-10) Compression fracture of L1 lumbar vertebra (~06/19/22) ?S32.010A - Wedge compression fracture of first lumbar vertebra, initial encounter for closed fracture (ICD-10) Compression fracture of L2 (~06/19/22) ?S32.020A - Wedge compression fracture of second lumbar vertebra, initial encounter for closed fracture (ICD-10) Compression fracture of L4 vertebra (~06/19/22) ?S32.040A - Wedge compression fracture of fourth lumbar vertebra, initial encounter for closed fracture (ICD-10) Compression fracture of T11 vertebra (~06/19/22) ?S22.080A - Wedge compression fracture of T11-T12 vertebra, initial encounter for closed fracture (ICD-10) Compression fracture of T12 vertebra (~06/19/22) ?S22.080A - Wedge compression fracture of T11-T12 vertebra, initial encounter for closed fracture (ICD-10) Depression with anxiety ?F41.8 - Other specified anxiety disorders (ICD-10) Essential hypertension ?I10 - Essential (primary) hypertension (ICD-10) Hypercalcemia ?E83.52 - Hypercalcemia (ICD-10) Osteoarthritis ?M19.90 - Unspecified osteoarthritis, unspecified site (ICD-10) Polyp of duodenum ?K31.7 - Polyp of stomach and duodenum (ICD-10) Primary osteoarthritis of right knee ?M17.11 - Unilateral primary osteoarthritis, right knee (ICD-10) Pulmonary nodule ?R91.1 - Solitary pulmonary nodule (ICD-10) Shingles ?B02.9 - Zoster without complications (ICD-10) Sleep apnea ?G47.30 - Sleep apnea, unspecified (ICD-10) Thoracic aortic aneurysm without rupture ?I71.20 - Thoracic aortic aneurysm, without rupture, unspecified (ICD-10) Trigger finger of right thumb ?M65.311 - Trigger thumb, right thumb (ICD-10) Surgical History (Updated 07/15/22 @ 18:04 by Alice Dalton MD) H/O colonoscopy ?Z98.890 - Other specified postprocedural states (ICD-10) H/O esophagogastroduodenoscopy (~01/11/22) ?Z98.890 - Other specified postprocedural states (ICD-10) History of intestinal surgery ?Z98.890 - Other specified postprocedural states (ICD-10) History of refractive surgery ?Z98.890 - Other specified postprocedural states (ICD-10) History of thoracic surgery (~05/28/22) ?Z98.890 - Other specified postprocedural states (ICD-10) Hx of appendectomy ?Z90.49 - Acquired absence of other specified parts of digestive tract (ICD- 10) S/P carpal tunnel release (~09/20/21) ?Z98.890 - Other specified postprocedural states (ICD-10) Family History (Updated 07/15/22 @ 16:05 by Alice Dalton MD) Mother Colon cancer Heart disease Sister Pancreatic cancer Heart disease High blood pressure Father Prostate cancer Brother Diabetes Daughter Meningioma Social History Highest level of school completed/degree received: some college, no degree Smoking Status: Former smoker Do you use any of these nicotine containing products: None Second hand tobacco smoke exposure: No How often do you have a drink containing alcohol: never AUDIT-C Alcohol total score: 0 Non-prescribed substance use: denies use Caffeine: Yes service: No Meds Home Medications and Allergies Home Medications Medication Instructions Recorded Confirmed Type aspirin 81 mg tablet,delayed 81 mg PO DAILY 01/01/22 07/15/22 History release (Adult Aspirin Regimen) gabapentin 300 mg capsule 300 mg PO BID 01/01/22 07/15/22 History hydrochlorothiazide 25 mg tablet 25 mg PO DAILY 01/01/22 07/15/22 History metoprolol succinate 25 mg 25 mg PO DAILY 01/01/22 07/15/22 History tablet,extended release 24 hr sertraline 50 mg tablet 50 mg PO DAILY 01/01/22 07/15/22 History acetaminophen 500 mg tablet 1,000 mg PO Q6H PRN 07/15/22 07/15/22 History (Acetaminophen Extra Strength) calcitonin (salmon) 200 1 spray intranasal (ALT) DAILY 07/15/22 07/15/22 History unit/actuation nasal spray lidocaine 4 % topical patch 1 patch topical DAILY 07/15/22 07/15/22 History lorazepam 0.5 mg tablet 0.5 mg PO DAILY PRN 07/15/22 07/15/22 History methocarbamol 500 mg tablet 250 mg PO Q6H 07/15/22 07/15/22 History methyl salicylate 15 %-menthol 10 1 applic topical TID 07/15/22 07/15/22 History % topical cream oxycodone 5 mg tablet 5 mg PO Q4H PRN 07/15/22 07/15/22 History polyethylene glycol 3350 17 17 g PO DAILY PRN 07/15/22 07/15/22 History gram/dose oral powder tramadol 50 mg tablet 50 mg PO Q6H PRN 07/15/22 07/15/22 History Allergies Allergy/AdvReac Type Severity Reaction Status Date / Time naproxen [From Aleve] Allergy Severe Anaphylaxis Verified 01/01/22 12:58 bupropion [From Wellbutrin] Allergy Mild Unknown Verified 01/01/22 12:58 Exam Narrative: Exam Narrative: General: [No acute distress.] [Awake alert oriented x3.] HEENT: [Normocephalic atraumatic], [pupils equally round and reactive to light and accommodation]. Oropharynx [clear]. Mucous membranes are [moist]. [No cervical lymphadenopathy, thyromegaly or carotid bruits]. No JVD. Cardiovascular: [Regular rate and rhythm]. [No murmurs, gallops, or rubs]. Chest: No increased work of breathing. [Clear to auscultation bilaterally. No crackles or wheezes]. Abdomen: Bowel sounds [present]. [Soft, nondistended, nontender.] [No hepatosplenomegaly or masses]. Extremities: [No] edema, [no cyanosis or clubbing]. Skin: [No jaundice,] [no pallor,] [no rashes]. Neuro: [Grossly intact. No focal deficits]. Const: Vital Signs, click to edit/add: Vital Signs - 24 hr 07/15/22 09:58 07/15/22 12:29 07/15/22 12:30 Temperature 97.2 F L Pulse Rate 70 70 Pulse Rate [Right Pulse Oximeter] 77 Respiratory Rate 18 Blood Pressure 144/68 H Blood Pressure [Ri ght Upper Arm] 117/80 Pulse Oximetry 92 89 91 [facility] 07/15/22 12:32 07/15/22 12:55 07/15/22 13:02 Temperature Pulse Rate 69 68 67 Pulse Rate [Right Pulse Oximeter] Respiratory Rate Blood Pressure 137/65 137/68 Blood Pressure [Ri ght Upper Arm] Pulse Oximetry 87 L 93 92 [facility] 07/15/22 13:03 07/15/22 13:15 07/15/22 13:30 Temperature Pulse Rate 67 70 70 Pulse Rate [Right Pulse Oximeter] Respiratory Rate Blood Pressure Blood Pressure [Ri ght Upper Arm] Pulse Oximetry 92 93 91 [facility] 07/15/22 13:32 07/15/22 13:45 07/15/22 14:00 Temperature Pulse Rate 70 68 68 Pulse Rate [Right Pulse Oximeter] Respiratory Rate Blood Pressure 146/74 H Blood Pressure [Ri ght Upper Arm] Pulse Oximetry 92 89 92 [facility] 07/15/22 14:02 07/15/22 14:03 07/15/22 14:28 Temperature Pulse Rate 67 67 70 Pulse Rate [Right Pulse Oximeter] Respiratory Rate Blood Pressure 134/66 Blood Pressure [Ri ght Upper Arm] Pulse Oximetry 91 91 94 [facility] 07/15/22 14:30 07/15/22 14:33 Temperature Pulse Rate 66 65 Pulse Rate [Right Pulse Oximeter] Respiratory Rate Blood Pressure 138/72 Blood Pressure [Ri ght Upper Arm] Pulse Oximetry 93 94 [facility] Hospitalist - H&P: Result Labs Labs: Short CBC 07/15/22 Range/Units 12:20 WBC 8.45 (4.50-11.00) K/uL Hgb 9.2 L (12.0-16.0) gm/dL Hct 27.5 L (33.0-51.0) % Plt Count 258 (140-440) K/uL BMP 07/15/22 12:20 Sodium 134 L Potassium 3.5 L Chloride 95 L Carbon Dioxide 32 BUN 22 Creatinine 1.3 Glucose 99 Calcium 14.6 H* Urine 07/15/22 Range/Units 12:40 Urine Color Yellow (Yellow) Urine Appearance Clear (Clear) Urine pH 6.5 (5.0-8.5) Ur Specific Curtis 1.015 (1.000-1.030) Urine Protein 2+ A (Negative) Urine Glucose (UA) Negative (Negative) Ordering Physician: Gilles Lazcano M.D. Date of Service: 07/15/22 Procedure(s): XR chest 1V portable Accession Number(s): [id number] cc: Cookie Deras M.D.; Gilles Lazcano M.D.~ For Patients: As a result of the Century Cures Act, medical imaging exams and procedure reports are released immediately into your electronic medical record. You may view this report before your referring provider. If you have questions, please contact your health care provider. Indication: Chest pain Technique: Portable chest Comparison: No comparison Findings: Low lung volumes. Mildly enlarged cardiac silhouette. No acute airspace or interstitial process. No effusion or pneumothorax. Impression: No acute pulmonary findings. Dictated by Carito Yeager MD @ 07/15/2022 1:50:45 PM (Electronically Signed) Assessment and Plan Assessment and plan (1) Hypercalcemia: Problem comment: Diagnosis: Recurrent, severe associated with 5 recent spontaneous vertebral fractures. Was recently treated at [facility] for same. Unknown which medications were given while she was there. She has been taking calcitonin nasal spray since then. Lab w/u done at [facility] over the past month shows low PTH, PTHrP <2, and low 25-hydroxyvitamin D. Therefore this is not primary hyperparathyroidism, less likely lymphoma or granulomatous disease or vitamin D toxicity. Most likely diagnosis is Multiple Myeloma. I have ordered SPEP, UPEP and serum FLC assay. Treatment: Give 4mg IV zoledronic acid, 300 units calcitonin subcut and NS @ 200 cc/h to try to achieve UO of 100-150 cc/h. Monitor I/Os. Status: Acute (2) Compression fx, thoracic spine: Problem comment: Start oxycodone po prn for pain. Consult PT/OT. Consult SW as she may need home services upon discharge. Status: Acute (3) Anemia: Problem comment: Normocytic, stable. Likely related to cause of hypercalcemia (suspect MM). Status: Acute (4) Sleep apnea: Problem comment: AHI-21 09/24/2007 wears mouth guard Status: Acute (5) Essential hypertension: Problem comment: Stop HCTZ due to hypercalcemia. Continue other home meds. Status: Acute Assessment and Plan: VTE prophylaxis: Low-dose nightly enoxaparin.
[2022-07-15] MEDS: CALCITONIN,SALMON,SYNTHETIC 200 UNIT/ML inj 300 UNIT SUBCUT (17:19)
[2022-07-15] MEDS: 0.9 % SODIUM CHLORIDE 1000 ml 1,000 ML 200 ML IV ×2 (17:20→23:28)
--- NOTE | 2022-07-15 19:30 | PC.NURSE ---
Nursing Care Hours: [id number] Pt this shift arrived from ED on stretcher. Unable to get standing scale weight d/t pain with standing. Per pt, bed scale weight not accurate. Reported to NOC nurse for new weight in morning once pain controlled. Tele shows NSR. VSS. Pain 5/10 with rest, 10/10 with movement. Appetite poor, 25% of meal eaten. Voiding large amounts with BSC. IV patent. Alert and oriented. Family at bedside.
[2022-07-15] MEDS: ACETAMINOPHEN 500 MG TABLET 1000 MG PO (20:14)
[2022-07-15] MEDS: GABAPENTIN 300 MG CAPSULE PO (20:14)
[2022-07-15] MEDS: ENOXAPARIN 40 MG/0.4 ML INJ SUBCUT (20:15)
[2022-07-15] MEDS: LORazepam 0.5 MG TABLET PO (22:23)
[2022-07-16] MEDS: OXYCODONE 5 MG TABLET PO ×8 (00:13→20:51)
[2022-07-16] MEDS: 0.9 % SODIUM CHLORIDE 1000 ml 1,000 ML 200 ML IV ×4 (04:27→20:58)
[2022-07-16 04:28] VITALS: BP 125/58; PULSE 71; RESP 18; TEMP 36.7; O2SAT 91
--- NOTE | 2022-07-16 06:12 | PC.NURSE ---
[id number]: Patient pleasant and cooperative. 10/10 back pain w/movement, 5/10 at rest. PRN Oxycodone administered for relief. Pivot to [facility]. Declined ice and AquaK pad.
[2022-07-16 07:00] VITALS: BP 128/65; PULSE 77; RESP 18; TEMP 36.9; O2SAT 94
[2022-07-16] MEDS: ACETAMINOPHEN 500 MG TABLET 1000 MG PO ×2 (08:25→16:19)
[2022-07-16] MEDS: METOPROLOL SUCCINATE (XL) 25 MG TAB PO (08:44)
[2022-07-16] MEDS: GABAPENTIN 300 MG CAPSULE PO ×2 (08:44→20:51)
[2022-07-16] MEDS: SERTRALINE 50 MG TABLET PO (08:45)
[2022-07-16] MEDS: LIDOCAINE 5% PATCH 1 PATCH TRANSDERMA (08:45)
[2022-07-16] MEDS: ASPIRIN 81 MG TABLET EC PO (08:45)
[2022-07-16] MEDS: CALCITONIN SALMON NASAL SPRAY 200 UNIT 1 SPRAY NOSTRIL-B (09:33)
[2022-07-16] MEDS: HYDROmorphone 0.5 mg/0.5 ml inj IVP ×2 (11:34→18:34)
[2022-07-16] MEDS: SODIUM CHLORIDE 0.9 % (FLUSH) 10 ML SYRINGE 5 ML IVF ×2 (11:35→18:34)
[2022-07-16 11:36] LABS: Chloride* 105 mmol/L (96-114); Potassium* 3.4 mmol/L (3.6-5.1); Sodium* 139 mmol/L (135-149)
[2022-07-16 11:39] LABS: Blood Urea Nitrogen* 14 mg/dL (7-30); Carbon Dioxide* 30 mmol/L (20-32); Est. Creatinine Clearance* 44.36; Estimated Glomerular Filt Rate 63 ml/min; Glucose* 94 mg/dL (60-115)
[2022-07-16 11:40] LABS: Calcium* 10.7 mg/dL (8.4-10.6)
[2022-07-16] MEDS: ONDANSETRON ODT 4 MG TAB PO ×2 (11:58→17:47)
[2022-07-16 12:03] VITALS: BP 90/49; PULSE 76; RESP 16; TEMP 36.7; O2SAT 92
[2022-07-16] MEDS: polyethylene glycoL 3350 17 GM PACK 25.5 GM PO (12:24)
--- NOTE | 2022-07-16 13:08 | PM.IMPN1 ---
Progress Note: A&P Assessment and plan (1) Hypercalcemia: Problem details: Diagnosis: Recurrent, severe associated with 5 recent spontaneous vertebral fractures. Was recently treated at [facility] for same. Unknown which medications were given while she was there. She has been taking calcitonin nasal spray since then. Lab w/u done at [facility] over the past month shows low PTH, PTHrP <2, and low 25-hydroxyvitamin D. Therefore this is not primary hyperparathyroidism, less likely lymphoma or granulomatous disease or vitamin D toxicity. Most likely diagnosis is Multiple Myeloma. I have ordered SPEP, UPEP and serum FLC assay. Treatment: Give 4mg IV zoledronic acid, 300 units calcitonin subcut and NS @ 200 cc/h to try to achieve UO of 100-150 cc/h. Monitor I/Os. Status: Acute (2) Compression fx, thoracic spine: Problem details: Start oxycodone po prn for pain. Consult PT/OT. Consult SW as she may need home services upon discharge. Increased oxycodone for pain control and Miralax for potential constipation. Status: Acute (3) Encounter for chronic pain management: Problem details: They report her pain has flared up with her elevated Calcium. Her compression fracture pain was partially controlled with Tramadol Status: Acute (4) Anemia: Problem details: Normocytic, stable. Likely related to cause of hypercalcemia (suspect MM). Status: Acute (5) Essential hypertension: Problem details: Stop HCTZ due to hypercalcemia. Continue other home meds. Blood pressure still well controlled. Status: Acute Time Spent With Patient Total time spent: 45 minutes Subjective Time Seen by Provider: 13:08 Date Seen: 07/16/22 Interval history: Subjective: Adalgisa reports that she is in a lot of pain today. She has not been wearing her TLSO brace continue like she is supposed to. Her spine surgeon told her she can take it off when she is lying still in bed at night only. She has had off a lot more than that and currently has an off in the middle of the day. I strongly encouraged her to remain in her TLSO brace to help with pain control and also fracture healing. Her daughter Fidelia reports that she thinks she is in a lot of pain because her calcium is up. Last time her calcium was up she was in lot of pain. They would like her to have some IV pain medicines to take. I informed them that I would prefer we mainly stick with oral pain medicines because it would transition better after managing her pain at home which hopefully will be the case in the next day or so. Her urine output has been good she had 500 mL out in the most recent shift that is recorded in the nursing records. Her calcium on admission was very high and she has had low or normal parathyroid hormone testing recently. This suggests that her hypercalcemia may be due to cancer. Possibly multiple myeloma. She did report that if she is diagnosed with cancer that she would like to see [facility]. Exam Const: Vital Signs, click to edit/add: Vital Signs - 24 hr 07/15/22 13:15 07/15/22 13:30 07/15/22 13:32 Temperature Pulse Rate 70 70 70 Pulse Rate [Left P ulse Oximeter] Respiratory Rate Blood Pressure 146/74 H Blood Pressure [Le ft Arm] Pulse Oximetry 93 91 92 Oxygen Delivery Me thod 07/15/22 13:45 07/15/22 14:00 07/15/22 14:02 Temperature Pulse Rate 68 68 67 Pulse Rate [Left P ulse Oximeter] Respiratory Rate Blood Pressure 134/66 Blood Pressure [Le ft Arm] Pulse Oximetry 89 92 91 Oxygen Delivery Me thod 07/15/22 14:03 07/15/22 14:28 07/15/22 14:30 Temperature Pulse Rate 67 70 66 Pulse Rate [Left P ulse Oximeter] Respiratory Rate Blood Pressure Blood Pressure [Le ft Arm] Pulse Oximetry 91 94 93 Oxygen Delivery Me thod 07/15/22 14:33 07/15/22 14:53 07/15/22 16:12 Temperature Pulse Rate 65 Pulse Rate [Left P ulse Oximeter] Respiratory Rate 18 Blood Pressure 138/72 Blood Pressure [Le ft Arm] Pulse Oximetry 94 94 95 Oxygen Delivery Me thod Room Air 07/15/22 19:53 07/15/22 22:27 07/16/22 04:28 Temperature 97.8 F 98.1 F 98.1 F Pulse Rate Pulse Rate [Left P ulse Oximeter] 67 74 71 Respiratory Rate 18 18 18 Blood Pressure Blood Pressure [Le ft Arm] 112/74 113/59 L 125/58 L Pulse Oximetry 94 90 91 Oxygen Delivery Me thod Room Air Room Air Room Air 07/16/22 07:00 07/16/22 07:00 07/16/22 12:03 Temperature 98.5 F 98.1 F Pulse Rate Pulse Rate [Left P ulse Oximeter] 77 77 76 Respiratory Rate 18 18 16 Blood Pressure Blood Pressure [Le ft Arm] 128/65 90/49 L Pulse Oximetry 94 92 Oxygen Delivery Me thod Room Air Room Air HEENT is within normal limits. Cardiovascular regular rate and rhythm. Lungs clear to auscultation bilaterally. Abdomen positive bowel sounds soft nontender. There is exquisite tenderness over her back. Labs Labs: Laboratory Results - last 24 hr 07/15/22 07/15/22 07/16/22 12:40 13:39 11:00 Sodium 139 Potassium 3.4 L Chloride 105 Carbon Dioxide 30 BUN 14 Creatinine 1.0 Estimated Creat Clear 44.36 Estimated GFR 63 Glucose 94 Calcium 10.7 H Urine Color Yellow Urine Appearance Clear Urine pH 6.5 Ur Specific Wolsey 1.015 Urine Protein 2+ A Urine Glucose (UA) Negative Urine Ketones Negative Urine Blood Negative Urine Nitrite Negative Urine Bilirubin Negative Urine Urobilinogen 0.2 Ur Leukocyte Esterase Negative Urine RBC 0-2 Urine WBC 2-5 Ur Squamous Epith Cells Few Urine Bacteria Moderate A SARS-CoV-2 (PCR) Negative SARS-CoV-2 Imaging Chest x-ray: Radiologist's impression: Indication: ?Chest pain Technique: ?Portable chest Comparison: ?No comparison Findings: ?Low lung volumes. Mildly enlarged cardiac silhouette. No acute airspace or interstitial process. No effusion or pneumothorax. Impression: ?No acute pulmonary findings. Dictated by Carito Yeager MD @ 07/15/2022 1:50:45 PM (Electronically Signed)
--- NOTE | 2022-07-16 13:36 | REH.PT ---
PT eval & treat orders received, chart reviewed. Pt declined Eval X 2 secondary to back pain. Would like PT to try her again tomorrow.
[2022-07-16 15:00] VITALS: BP 104/46; PULSE 83; RESP 12; TEMP 36.8; O2SAT 90
--- NOTE | 2022-07-16 15:49 | REH.OT ---
Attempted OT eval 2X today. Pt. refused both times d/t pain.
[2022-07-16 16:12] VITALS: O2SAT 90
--- NOTE | 2022-07-16 19:30 | PC.NURSE ---
End of Shift: Patient pleasant and cooperative. Patient vitally stable, lungs clear, BS WNL, IV running NS at 200. Patient has rated pain at most 10/10, oxycodone give x6 this shift and dilauded 0.5 given x2, along with prn tylenol. Patient has lidocaine patch on right lower back. Patient SBA with walker. Patient is urinating but does not have much of an appetite, zophran given x2 for nausea. Patient has back brace applied but does no always wear or use it appropriatly.
[2022-07-16 19:40] VITALS: BP 105/69; PULSE 82; RESP 16; TEMP 36.8; O2SAT 92
[2022-07-16] MEDS: ENOXAPARIN 40 MG/0.4 ML INJ SUBCUT (20:51)
--- NOTE | 2022-07-16 22:41 | PC.NURSE ---
Pt calm and cooperative during shift. Pt is assist of 1-2 with walker. Pt uses bedside commode. Pt has had pain ranging from 4-5 see EMAR for intervention. Pt had low oxygen saturations at beginning of shift (19-23) chief underwriter obtained oxygen order Pt has been tolerating well with 1 Liter and has maintained in low 90's.
[2022-07-17] VITALS (13 sets, daily range): BP systolic 88–112; BP diastolic 41–67; PULSE 73–88; RESP 16–20; TEMP 36.8–39.2; O2SAT 90–95
[2022-07-17] MEDS: OXYCODONE 5 MG TABLET PO ×8 (00:41→21:12)
[2022-07-17] MEDS: ACETAMINOPHEN 500 MG TABLET 1000 MG PO ×4 (00:42→20:32)
[2022-07-17] MEDS: 0.9 % SODIUM CHLORIDE 1000 ml 1,000 ML 200 ML IV ×3 (01:25→11:39)
--- NOTE | 2022-07-17 06:35 | PC.NURSE ---
Shift note 23-07: Pt up to BSC w/ SBA, states able to move a little bit easier this am. Rating back pain 8-10, taking PRN Oxycodone/muscle relaxer/Tylenol, wears a back brace, was actually able to rest for a 4 hour straight period. 24 hour urine on ice in BR, due to complete @ 1130.
[2022-07-17 07:11] LABS: Chloride* 107 mmol/L (96-114)
[2022-07-17 07:12] LABS: Sodium* 137 mmol/L (135-149)
[2022-07-17 07:14] LABS: Creatinine* 0.9 mg/dL (0.5-1.5); Est. Creatinine Clearance* 44.36; Estimated Glomerular Filt Rate 71 ml/min
[2022-07-17 07:15] LABS: Blood Urea Nitrogen* 8 mg/dL (7-30); Calcium* 9.6 mg/dL (8.4-10.6); Carbon Dioxide* 27 mmol/L (20-32); Glucose* 86 mg/dL (60-115)
[2022-07-17] MEDS: ONDANSETRON ODT 4 MG TAB PO (08:22)
[2022-07-17] MEDS: polyethylene glycoL 3350 17 GM PACK 25.5 GM PO (09:22)
[2022-07-17] MEDS: LIDOCAINE 5% PATCH 1 PATCH TRANSDERMA (09:23)
[2022-07-17] MEDS: CALCITONIN SALMON NASAL SPRAY 200 UNIT 1 SPRAY NOSTRIL-B (09:23)
[2022-07-17] MEDS: SERTRALINE 50 MG TABLET PO (09:23)
[2022-07-17] MEDS: ASPIRIN 81 MG TABLET EC PO (09:23)
[2022-07-17] MEDS: METOPROLOL SUCCINATE (XL) 25 MG TAB PO (09:23)
[2022-07-17] MEDS: GABAPENTIN 300 MG CAPSULE PO ×2 (09:23→19:59)
[2022-07-17] MEDS: HYDROmorphone 0.5 mg/0.5 ml inj IVP ×2 (09:35→19:59)
--- NOTE | 2022-07-17 11:07 | CRLHL7_ITS ---
For Patients: As a result of the Cures Act, medical imaging exams and procedure reports are released immediately into your electronic medical record. You may view this report before your referring provider. If you have questions, please contact your health care provider. INDICATION: Right rib pain, evaluate for rib fracture. TECHNIQUE: Chest 1 view(s), two views of the right ribs. COMPARISON: Chest radiograph dated 07/15/2022. FINDINGS: Cardiomediastinal silhouette and pulmonary vasculature are normal. Streaky left basilar opacities, likely atelectasis. No focal consolidation. No significant pleural effusion, no pneumothorax. No acute displaced right rib fracture identified. IMPRESSION: 1. No acute displaced right rib fracture identified. 2. Streaky left basilar opacities, likely atelectasis. No focal consolidation. Dictated by Ole Mulligan MD @ 07/17/2022 3:23:48 PM (Electronically Signed)
--- NOTE | 2022-07-17 11:15 | NUTR.NU ---
RDN with nutrition screen related to diet education for diabetes and low sodium. Patient has a history of CHF and new dx of DMT2, diet controlled. RDN visited with patient whom reported her diet has been going well at home. She declined diet education at this time. RDN encouraged patient to let staff know if she has any questions or would like diet education before discharge. RDN will continue to monitor.
--- NOTE | 2022-07-17 12:39 | P.IMPN_ITS ---
Progress Note: A&P Assessment and plan (1) Compression fx, thoracic spine: Problem details: Start oxycodone po prn for pain. Consult PT/OT. Consult SW as she may need home services upon discharge. Increased oxycodone for pain control and Miralax for potential constipation. OxyContin 10 mg every 12 hours was started today for better around the clock pain control. If she does not turn around soon she may need go to snf facility. Status: Acute (2) Encounter for chronic pain management: Problem details: They report her pain has flared up with her elevated Calcium. Her compression f racture pain was partially controlled with Tramadol. BusPar her pain is not coming down with getting her calcium under control. Status: Acute (3) Hypercalcemia: Problem details: Diagnosis: Recurrent, severe associated with 5 recent spontaneous vertebral fractures. Was recently treated at [facility] for same. Unknown which medications were given while she was there. She has been taking calcitonin nasal spray since then. Lab w/u done at [facility] over the past month shows low PTH, PTHrP <2, and low 25-hydroxyvitamin D. Therefore this is not primary hyperparathyroidism, less likely lymphoma or granulomatous disease or vitamin D toxicity. Most likely diagnosis is Multiple Myeloma. I have ordered SPEP, UPEP and serum FLC assay. Treatment: Gave 4mg IV zoledronic acid, 300 units calcitonin subcut and NS @ 200 cc/h to try to achieve UO of 100-150 cc/h. Monitor I/Os. Calcium is now in the normal range she has good brisk urine output and her renal function is normal. Will discontinue IV fluids. Status: Acute (4) Anemia: Problem details: Normocytic, stable. Likely related to cause of hypercalcemia (suspect MM). Status: Acute (5) Essential hypertension: Problem details: Stop HCTZ due to hypercalcemia. Continue other home meds. Blood pressure still well controlled. Status: Acute (6) Hypokalemia: Problem details: The hypokalemia is likely due to her brisk hydration because of her zoledronic acid. Will replace her potassium and follow her labs. We have saline locked her IV fluid. Status: Acute Time Spent With Patient Total time spent: 50 minutes over half that time was spent counseling coordinating care. Subjective Time Seen by Provider: 12:39 Date Seen: 07/17/22 Interval history: Subjective: Adalgisa continues to have problems with pain control with both her compression fractures and now some right-sided posterior rib pain that is relatively new here just the last few days. She has not had any trauma to that area that they know of her compression fractures occurred with just vomiting. She has pain with moving. She is now wearing her TLSO brace. Exam Const: Vital Signs, click to edit/add: Vital Signs - 24 hr 07/16/22 15:00 07/16/22 15:00 07/16/22 16:12 Temperature 98.2 F Pulse Rate [Left P ulse Oximeter] 83 83 Respiratory Rate 12 12 Blood Pressure [Le ft Arm] 104/46 L Pulse Oximetry 90 90 Oxygen Delivery Me thod Room Air Oxygen Flow Rate 07/16/22 19:40 07/17/22 00:30 07/17/22 00:30 Temperature 98.3 F Pulse Rate [Left P ulse Oximeter] 82 Respiratory Rate 16 18 18 Blood Pressure [Le ft Arm] 105/69 Pulse Oximetry 92 92 Oxygen Delivery Me thod Room Air Room Air Nasal Can nula Oxygen Flow Rate 1 07/17/22 00:30 07/17/22 03:00 07/17/22 07:00 Temperature 98.4 F Pulse Rate [Left P ulse Oximeter] 82 80 74 Respiratory Rate 18 16 20 Blood Pressure [Le ft Arm] 111/67 Pulse Oximetry 92 94 Oxygen Delivery Me thod Room Air Nasal Can nula Nasal Cannula Oxygen Flow Rate 1 1 07/17/22 07:00 07/17/22 07:00 Temperature 98.3 F Pulse Rate [Left P ulse Oximeter] 74 Respiratory Rate 20 20 Blood Pressure [Le ft Arm] 112/62 Pulse Oximetry 93 93 Oxygen Delivery Me thod Nasal Cannula Nasal Cannula Oxygen Flow Rate 1 1 Cardiovascular regular rate and rhythm. Lungs clear to auscultation bilaterally. There is some tenderness over her right posterior ribs but no step-offs. Abdomen positive bowel sounds soft nontender. Extremities she moves all extremities equally there is no significant edema. Labs Labs: Laboratory Results - last 24 hr 07/15/22 07/17/22 12:10 06:33 Sodium 137 Potassium 3.0 L Chloride 107 Carbon Dioxide 27 BUN 8 Creatinine 0.9 Estimated Creat Clear 44.36 Estimated GFR 71 Glucose 86 Calcium 9.6 Prot Electrophor EER Cancelled Albumin % (PEP) Cancelled Ser Monoclonl Protein Cancelled Serum PEP Cancelled [id number] MICHAEL Cancelled [id number] MICHAEL Cancelled Beta-Globulins (MICHAEL) Cancelled Gamma Globulins (MICHAEL) Cancelled Serum MICHAEL Interpret Cancelled Free Convent LC, Quant Cancelled Free Lambda LC, Quant Cancelled Free Convent/Lambda Ratio Cancelled
[2022-07-17] MEDS: OXYCODONE (CR) 10 MG TAB.ER.12H PO ×2 (13:01→23:40)
[2022-07-17] MEDS: POTASSIUM BICARB 25 MEQ EFFERVESCENT TAB PO (13:02)
--- NOTE | 2022-07-17 15:23 | PC.SOCIAL ---
Discharge planning: Attempted to meet with pt but she was asleep. Dtr, Fidelia, met with case management social worker and stated that she and her brother are planning to provide any needed assistance at pt's home for her at discharge. They are not interested in a jail stay. Dtr is aware case management social worker is available to assist with placement or resources if these plans change.
[2022-07-17 16:54] LABS: Basophils Percent Auto 1.2 % (0.0-3.0); Eosinophils Percent Auto 1.4 % (0.0-7.0); Hematocrit 21.2 % (33.0-51.0); Immature Granulocytes Pct Auto 0.3 %; Immature Reticulocyte Fraction 12.8 % (3.0-15.9); Lymphocytes Percent Auto 26.1 % (20-44); Mean Corpuscular HGB Conc 33 gm/dL (32-36); Mean Corpuscular Hemoglobin 31 pg (26-34); Mean Corpuscular Volume 95 fL (80-100); Monocytes Percent Auto 8.1 % (0.0-11.0); Neutrophils Percent Auto 62.9 % (42.0-72.0); Platelet Count* 169 K/uL (140-440); RDW Coefficient of Variation % 14.8 % (11.5-15.5); Red Blood Count 2.24 m/uL (4.00-5.20); Reticulocyte Hemoglobin Equivi 27.1 pg (29.0-35.0); Reticulocyte Percent 1.4 % (0.5-2.0); Reticulocytes Absolute 0.03 # (0.03-0.08); White Blood Count* 3.45 K/uL (4.50-11.00)
[2022-07-17 16:59] LABS: Hemoglobin* 6.9 gm/dL (12.0-16.0)
[2022-07-17 17:56] LABS: Hemoglobin* 6.7 gm/dL (12.0-16.0)
--- NOTE | 2022-07-17 19:11 | CRLHL7_ITS ---
For Patients: As a result of the Cures Act, medical imaging exams and procedure reports are released immediately into your electronic medical record. You may view this report before your referring provider. If you have questions, please contact your health care provider. HISTORY: Fever. COMPARISON: 07/15/2022. FINDINGS: Portable frontal view of the chest. Expiratory film. No evidence for pneumonia. Heart size and pulmonary vascularity are within normal for technique. No pleural effusion. Dictated by Magui Munguia MD @ 07/17/2022 9:05:25 PM (Electronically Signed)
--- NOTE | 2022-07-17 19:37 | PC.NURSE ---
Nursing Care Hours: [id number] Pt this shift calm and cooperative, alert and oriented. C/o pain 7-10/10, located in mid back and new site of pain R lateral chest. Treated per eMAR. Chest x-ray done, see note. Pt encouraged to take deep breaths as tolerated, focusing on when pain medication takes effect, to avoid complications. Skin pale. Requiring 1.5L O2 NC to keep sats above 88%. No BM. Up to BSC with assist of adult children. Department Head and PT witnessed transfers, controlled and tolerated by pt. 24 urine collection finished and delivered to lab this morning. Pt has low appetite and not eating. Was able to eat 75% of small salad for dinner. Sat at edge of bed to look out window.
[2022-07-17 19:58] LABS: Lactate* 0.8 mmol/L (0.5-1.9)
[2022-07-17] MEDS: SODIUM CHLORIDE 0.9 % (FLUSH) 10 ML SYRINGE 5 ML IVF (19:59)
[2022-07-17 20:36] LABS: Appearance Urine Cloudy (Clear); Bilirubin Urine Negative (Negative); Blood Urine Trace-intact (Negative); Color Urine Yellow (Yellow); Glucose Urine Negative (Negative); Ketones Urine Negative (Negative); Leukocyte Esterase Urine Trace (Negative); Nitrite Urine Negative (Negative); Protein Urine 2+ (Negative); Specific Gravity Urine 1.015 (1.000-1.030); Urobilinogen Urine 0.2 (0.2-1.0); pH Urine 5.5 (5.0-8.5)
[2022-07-17 20:58] LABS: Bacteria Urine Few; RBC Urine 0-2 (0-2); Squamous Epithelial Cell Urine Few (None-Few); WBC Urine 0-2 (0-5)
--- NOTE | 2022-07-17 22:37 | PM.IMPN1 ---
Progress Note: A&P Assessment and plan (1) Fever: Problem details: Blood cultures x2 drawn, lactate within normal limits. WBCs low. Check procalcitonin. Overall picture is concerning. I am going to start her on ceftriaxone. Monitor overnight. If she does well, is afebrile after tonight, and nothing is found, ceftriaxone can be discontinued. May need to consider MRI back to look for abscess. Status: Acute (2) Anemia: Problem details: Normocytic, stable. Likely related to cause of hypercalcemia (suspect MM). Stop enoxaparin for VTE prophylaxis. I discussed the risks and benefits of blood products with the patient and her daughter. The risks include transmission of blood borne illnesses including HIV and hepatitis. Additionally the risks include blood reaction or allergic reaction. They both agree to her getting blood. Give 1 unit and recheck hemoglobin in the morning. Status: Acute Subjective Time Seen by Provider: 18:15 Date Seen: 07/17/22 Interval history: Adalgisa feels better today. Her daughter was there with her and they both note that her pain was better today. For unclear reasons the blood that was drawn early this morning resulted this afternoon with a hemoglobin of 6.9. I repeated the draw and her hemoglobin was 6.7. She is feeling a little fatigue today. Additionally after I was in there, and before she got a blood transfusion, her temperature spiked to 102. Exam Const: Vital Signs, click to edit/add: Vital Signs - 24 hr 07/17/22 00:30 07/17/22 00:30 07/17/22 00:30 Temperature 98.4 F Pulse Rate Pulse Rate [Left P ulse Oximeter] 82 Respiratory Rate 18 18 18 Blood Pressure Blood Pressure [Le ft Arm] 111/67 Blood Pressure [Ri ght Arm] Pulse Oximetry 92 92 Oxygen Delivery Me thod Room Air Nasal Can nula Room Air Nasal Can nula Oxygen Flow Rate 1 1 07/17/22 03:00 07/17/22 07:00 07/17/22 07:00 Temperature Pulse Rate Pulse Rate [Left P ulse Oximeter] 80 74 Respiratory Rate 16 20 20 Blood Pressure Blood Pressure [Le ft Arm] Blood Pressure [Ri ght Arm] Pulse Oximetry 94 93 Oxygen Delivery Me thod Nasal Cannula Nasal Cannula Oxygen Flow Rate 1 1 07/17/22 07:00 07/17/22 11:00 07/17/22 15:00 Temperature 98.3 F Pulse Rate Pulse Rate [Left P ulse Oximeter] 74 87 76 Respiratory Rate 20 18 18 Blood Pressure Blood Pressure [Le ft Arm] 112/62 108/63 Blood Pressure [Ri ght Arm] Pulse Oximetry 93 90 Oxygen Delivery Me thod Nasal Cannula Nasal Cannula Oxygen Flow Rate 1 1 07/17/22 15:00 07/17/22 15:00 07/17/22 16:00 Temperature Pulse Rate Pulse Rate [Left P ulse Oximeter] 76 Respiratory Rate 18 18 Blood Pressure Blood Pressure [Le ft Arm] Blood Pressure [Ri ght Arm] 106/63 Pulse Oximetry 93 93 93 Oxygen Delivery Me thod Nasal Cannula Nasal Cannula Oxygen Flow Rate 1.5 1.5 07/17/22 20:32 07/17/22 19:00 07/17/22 21:33 Temperature 102.6 F H 102.6 F H 100.8 F H Pulse Rate 83 Pulse Rate [Left P ulse Oximeter] 88 Respiratory Rate 18 18 Blood Pressure 102/54 L Blood Pressure [Le ft Arm] Blood Pressure [Ri ght Arm] 95/59 L Pulse Oximetry 91 90 Oxygen Delivery Me thod Nasal Cannula Oxygen Flow Rate 2 07/17/22 21:53 Temperature 99.5 F Pulse Rate 77 Pulse Rate [Left P ulse Oximeter] Respiratory Rate 18 Blood Pressure 105/46 L Blood Pressure [Le ft Arm] Blood Pressure [Ri ght Arm] Pulse Oximetry 95 Oxygen Delivery Me thod Oxygen Flow Rate Labs Labs: Laboratory Results - last 24 hr 07/17/22 07/17/22 07/17/22 06:33 17:12 17:21 WBC 3.45 L RBC 2.24 L Hgb 6.9 L* 6.7 L* Hct 21.2 L MCV 95 MCH 31 MCHC 33 RDW Coeff of Susana 14.8 Plt Count 169 Neut % (Auto) 62.9 Lymph % (Auto) 26.1 [place] % (Auto) 8.1 Eos % (Auto) 1.4 Baso % (Auto) 1.2 Neut # (Auto) 2.20 Lymph # (Auto) 0.90 [place] # (Auto) 0.30 Eos # (Auto) 0.00 Baso # (Auto) 0.00 Absolute Retic 0.03 Percent Retic 1.4 Immature Retic Fraction 12.8 Retic Hgb Equivalent 27.1 L Sodium 137 Potassium 3.0 L Chloride 107 Carbon Dioxide 27 BUN 8 Creatinine 0.9 Estimated Creat Clear 44.36 Estimated GFR 71 Glucose 86 Lactate Calcium 9.6 Urine Color Urine Appearance Urine pH Ur Specific Rowe Urine Protein Urine Glucose (UA) Urine Ketones Urine Blood Urine Nitrite Urine Bilirubin Urine Urobilinogen Ur Leukocyte Esterase Urine RBC Urine WBC Ur Squamous Epith Cells Urine Bacteria Blood Type O Positive Antibody Screen NEGATIVE Crossmatch ([facility]) See Detail 07/17/22 07/17/22 19:11 19:51 WBC RBC Hgb Hct MCV MCH MCHC RDW Coeff of Susana Plt Count Neut % (Auto) Lymph % (Auto) [place] % (Auto) Eos % (Auto) Baso % (Auto) Neut # (Auto) Lymph # (Auto) [place] # (Auto) Eos # (Auto) Baso # (Auto) Absolute Retic Percent Retic Immature Retic Fraction Retic Hgb Equivalent Sodium Potassium Chloride Carbon Dioxide BUN Creatinine Estimated Creat Clear Estimated GFR Glucose Lactate 0.8 Calcium Urine Color Yellow Urine Appearance Cloudy A Urine pH 5.5 Ur Specific Rowe 1.015 Urine Protein 2+ A Urine Glucose (UA) Negative Urine Ketones Negative Urine Blood Trace-intact A Urine Nitrite Negative Urine Bilirubin Negative Urine Urobilinogen 0.2 Ur Leukocyte Esterase Trace A Urine RBC 0-2 Urine WBC 0-2 Ur Squamous Epith Cells Few Urine Bacteria Few A Blood Type Antibody Screen Crossmatch ([facility]) Ordering Physician: Alice Dalton M.D. Date of Service: 07/17/22 Procedure(s): XR chest 1V portable Accession Number(s): [id number] cc: Alice Dalton M.D.; Cookie Deras M.D.~ For Patients: As a result of the Century Cures Act, medical imaging exams and procedure reports are released immediately into your electronic medical record. You may view this report before your referring provider. If you have questions, please contact your health care provider. HISTORY: Fever. COMPARISON: 07/15/2022. FINDINGS: Portable frontal view of the chest. Expiratory film. No evidence for pneumonia. Heart size and pulmonary vascularity are within normal for technique. No pleural effusion. Dictated by Magui Munguia MD @ 07/17/2022 9:05:25 PM (Electronically Signed)
[2022-07-17 23:14] LABS: Procalcitonin* 0.09 ng/mL (<0.50)
[2022-07-17] MEDS: cefTRIAXone 1 GM in 0.9 % SODIUM CHLORIDE Mini-bag 100 ML IVPB (23:39)
--- NOTE | 2022-07-18 | CRLHL7_ITS ---
For Patients: As a result of the Century Cures Act, medical imaging exams and procedure reports are released immediately into your electronic medical record. You may view this report before your referring provider. If you have questions, please contact your health care provider. INDICATION: Evaluate for cancer, bone lesion or PE TECHNIQUE: CT chest PE, abdomen and pelvis acquired with 95 milliliters of Isovue 370 contrast administered intravenously. COMPARISON: CT scan of the chest, abdomen and pelvis 01/01/2022 FINDINGS: CHEST: Cardiovascular structures: Mild cardiomegaly. Mild coronary artery and aortic calcification. No thoracic aortic aneurysm or dissection. No sign of pulmonary embolism. Mediastinum and cresencio: No mass or adenopathy. Lungs and pleura: Bilateral lower lobe atelectasis/consolidation. Small bilateral pleural effusions. Diffuse bronchial wall thickening. No pulmonary mass. Chest wall and axilla: No mass or adenopathy. Bones: Degenerative spondylosis throughout the thoracic spine. Anterior wedge fracture deformities of the superior endplates of T11 and T12, new. Diffuse mottled appearance of the bones throughout the thoracic spine and thorax. Old incompletely healed fracture of the left 4th rib and new incompletely healed nondisplaced fracture of the left 5th rib. ABDOMEN AND PELVIS: Liver: Right hepatic lobe hemangioma, unchanged. Minimal intrahepatic duct dilatation, slightly more prominent. Gallbladder and bile ducts: Status post cholecystectomy. Mild dilatation of the common bile duct, likely secondary to the post cholecystectomy state. Correlate with signs and symptoms of biliary obstruction. Pancreas: Unremarkable. Spleen: Unremarkable. Adrenal glands: Unremarkable. Kidneys: Stable left renal cyst. The kidneys are otherwise unremarkable. No hydronephrosis. GI tract: The stomach, small bowel and colon are unremarkable. Vascular structures: Moderate atherosclerosis of the abdominal aorta and branch vessels. No aneurysm. Lymph nodes: Unremarkable. Miscellaneous: Unremarkable. No free air or significant free fluid. Pelvic Organs: Unremarkable. Bones: Superior endplate compression deformities of T11, T12, L1, L2, L3 and L4, new. There is diffuse osteopenia and diffuse mottled appearance to throughout the visualized bones. There are numerous tiny lucent/lytic lesions scattered throughout the right and left iliac bones. IMPRESSION: 1. No pulmonary arterial embolism. 2. Bilateral lower lobe atelectasis/consolidation and bilateral pleural effusions. 3. Diffuse osteopenia and mottled appearance throughout the axial skeleton with numerous lucent/lytic lesions within the pelvis and multiple fractures within the lower thoracic and lumbar spine. Differential diagnosis includes metastatic disease, myeloma as well as other malignancy such as lymphoma and leukemia. Please note that all CT scans at this facility use dose modulation, iterative reconstruction, and/or weight-based dosing when appropriate to reduce radiation dose to as low as reasonably achievable. Dictated by Vel Suresh MD @ 07/18/2022 3:34:43 PM (Electronically Signed)
[2022-07-18 00:45] VITALS: BP 111/58; PULSE 77; RESP 18; TEMP 36.9; O2SAT 96
[2022-07-18] MEDS: ACETAMINOPHEN 500 MG TABLET 1000 MG PO ×2 (02:48→23:57)
[2022-07-18] MEDS: LORazepam 0.5 MG TABLET PO ×2 (02:49→11:01)
[2022-07-18] MEDS: OXYCODONE 5 MG TABLET PO ×8 (02:49→19:42)
[2022-07-18 03:00] VITALS: BP 138/88; PULSE 81; RESP 18; TEMP 37.3; O2SAT 94
[2022-07-18] MEDS: HYDROmorphone 0.5 mg/0.5 ml inj IVP ×6 (04:13→22:49)
--- NOTE | 2022-07-18 06:43 | PC.NURSE ---
19-07: pleasant and cooperative. A x 2 to pivot to BSC, tolerating fair. Rating pain 7-12/10, see eMAR, offered minimal relief. Pt states the pain comes and goes like a rollercoaster. Lidocaine patch removed from lower back. 1 unit blood given. BPs were soft, MD aware, new IV site obtained, will cont to monitor, last BP 138/88. Fever came down to 99.2, prn Tylenol given x 2. Highest temp 102.6 oral. Pt remains on 2L O2, sats in mid 90s, on RA pt desats to mid 70s, encouraging deep breathing exercises. PRN nasal spray ordered for dry nares from [place]. Standing order senna placed, no BM since 07/13.
[2022-07-18 06:49] LABS: Basophils Percent Auto 0.5 % (0.0-3.0); Eosinophils Percent Auto 1.4 % (0.0-7.0); Hematocrit 25.8 % (33.0-51.0); Hemoglobin* 8.6 gm/dL (12.0-16.0); Immature Granulocytes Pct Auto 0.7 %; Lymphocytes Percent Auto 26.1 % (20-44); Mean Corpuscular HGB Conc 33 gm/dL (32-36); Mean Corpuscular Hemoglobin 31 pg (26-34); Mean Corpuscular Volume 93 fL (80-100); Monocytes Percent Auto 9.4 % (0.0-11.0); Neutrophils Percent Auto 61.9 % (42.0-72.0); Platelet Count* 164 K/uL (140-440); RDW Coefficient of Variation % 15.1 % (11.5-15.5); Red Blood Count 2.77 m/uL (4.00-5.20); White Blood Count* 4.37 K/uL (4.50-11.00)
[2022-07-18 07:04] LABS: Slide Review Reflex No
[2022-07-18 07:09] LABS: Chloride* 104 mmol/L (96-114); Potassium* 3.2 mmol/L (3.6-5.1); Sodium* 136 mmol/L (135-149)
[2022-07-18 07:11] LABS: Creatinine* 0.9 mg/dL (0.5-1.5); Est. Creatinine Clearance* 44.36; Estimated Glomerular Filt Rate 71 ml/min
[2022-07-18 07:13] LABS: Blood Urea Nitrogen* 9 mg/dL (7-30); Calcium* 8.6 mg/dL (8.4-10.6); Carbon Dioxide* 26 mmol/L (20-32); Glucose* 84 mg/dL (60-115)
[2022-07-18 08:30] VITALS: BP 90/64; PULSE 85; RESP 18; TEMP 36.8; O2SAT 96
[2022-07-18] MEDS: SODIUM CHLORIDE 0.9 % (FLUSH) 10 ML SYRINGE 5 ML IVF ×3 (08:32→21:35)
[2022-07-18] MEDS: SERTRALINE 50 MG TABLET PO (08:33)
[2022-07-18] MEDS: polyethylene glycoL 3350 17 GM PACK 25.5 GM PO (08:33)
[2022-07-18] MEDS: GABAPENTIN 300 MG CAPSULE PO ×2 (08:33→21:02)
[2022-07-18] MEDS: ASPIRIN 81 MG TABLET EC PO (08:33)
[2022-07-18] MEDS: CALCITONIN SALMON NASAL SPRAY 200 UNIT 1 SPRAY NOSTRIL-B (08:33)
[2022-07-18] MEDS: LIDOCAINE 5% PATCH 1 PATCH TRANSDERMA (08:34)
--- NOTE | 2022-07-18 09:49 | CRLHL7_ITS ---
For Patients: As a result of the Century Cures Act, medical imaging exams and procedure reports are released immediately into your electronic medical record. You may view this report before your referring provider. If you have questions, please contact your health care provider. INDICATION: Evaluate for abscess. TECHNIQUE: Thoracic and lumbar spine MRI with contrast. The following sequences were obtained. Sagittal T1, T2 weighted and STIR sequences. Axial T2 weighted sequences. Axial and Sagittal T1 weighted post-contrast sequences. 15 cc of Dotarem gadolinium based intravenous contrast agent was used. COMPARISON: Chest/abdomen/pelvis CT from 01/01/2022. FINDINGS: Mild straightening of the typical thoracic kyphosis. T8 inferior endplate fracture with mild vertebral body height loss and diffuse bone marrow edema. T9 superior endplate fracture with mild vertebral body height loss and mild subchondral bone marrow edema. T11 wedge compression fracture with moderate vertebral body height loss and mild subchondral bone marrow edema. T12 superior endplate fracture with moderate vertebral body height loss, diffuse bone marrow edema and retropulsion of cortex into the spinal canal. L1 superior endplate fracture with mild height loss and subchondral bone marrow edema. Slight retropulsion of posterior cortex into the spinal canal. L2 superior endplate fracture minimal vertebral body height loss. L4 superior endplate fracture with prominent Schmorl`s node deformity to the left of midline with associated mild subchondral bone marrow edema. The bone marrow is diffusely heterogenous in signal with a salt and pepper appearance. This is most prominent within the sacrum and iliac wings, former discrete low T1 signal foci are noted no cord signal abnormality. No intraspinal mass or pathologic intraspinal enhancement. Bibasilar pleural effusions and associated atelectasis. Large partially exophytic left renal cyst. No retroperitoneal mass. Thoracic spine: Moderate to advanced disc height loss, disc desiccation and endplate remodeling throughout the thoracic spine. Multilevel disc protrusions throughout the thoracic spine at T1 to through T9-10 flatten the thecal sac or at most minimally contact the cord without deforming it. At T11-12, disc and retropulsed bone very slightly flatten the ventral cord and contributes to moderate AP spinal canal stenosis. No neural foraminal stenosis. Foraminal height loss/facet arthrosis with scattered sites of low-grade thoracic neural foraminal stenosis. Lumbar spine moderate to advanced disc degeneration throughout the lumbar spine, with height loss most prominent at L2-3 on the right and L5-S1. Blunting of the interspaces at the levels where there are compression fractures. Stir hyperintensity within the discs at L2-3 and L5-S1 reflecting vacuum phenomenon and/or annular disruption. Minimal posterior bulging without high-grade spinal canal stenosis. Mild spinal canal stenosis at L2-3 and L4-5. When combined with facet arthrosis there are scattered sites of low-grade neural foraminal stenosis. IMPRESSION: 1. Active/healing compression fractures at T8, T9, T11,, T12 and L1. Moderate height loss at T11 and T12, with T12 retropulsed cortex and overlying disc protrusion contributing to moderate spinal canal stenosis. There are also more chronic appearing superior endplate fractures at L2/L4. Notably, all of these fractures are new when compared to the CT chest/abdomen/pelvis from 01/01/2022. 2. Diffuse abnormal heterogenous bone marrow signal, with salt and pepper type appearance suggestive of an infiltrative process such as multiple myeloma or lymphoma. Clinical correlation recommended. 3. Widespread thoracic and lumbar spondylosis. Besides the T11-12 level, no high-grade spinal canal stenosis or extrinsic cord deformity. Scattered sites of low-grade neural foraminal stenosis within the thoracic and lumbar spine. 4. No pathology involving these cord/conus or cauda equina nerve roots. Dictated by Phillip Haque MD @ 07/18/2022 1:41:44 PM (Electronically Signed)
--- NOTE | 2022-07-18 09:51 | CRLHL7_ITS ---
For Patients: As a result of the Cures Act, medical imaging exams and procedure reports are released immediately into your electronic medical record. You may view this report before your referring provider. If you have questions, please contact your health care provider. Dictation for this exam included within the thoracic spine MRI report from the same date. Dictated by Phillip Haque MD @ 07/18/2022 1:43:06 PM (Electronically Signed)
[2022-07-18] MEDS: OXYCODONE (CR) 10 MG TAB.ER.12H PO (11:01)
[2022-07-18 12:31] LABS: Slide Review Reflex Yes
--- NOTE | 2022-07-18 13:19 | P.IMPN_ITS ---
Progress Note: A&P Assessment and plan (1) Fever: Problem details: Blood cultures x2 drawn, lactate within normal limits. WBCs low. Procalcitonin is reassuring. Stopped the ceftriaxone due to no source of infection. Ordered a MRI back to look for abscess and/or cause of hypercalcemia. Encouraged aggressive pulmonary toilet with incentive spirometer etc.. The fever could be due to atelectasis Status: Acute (2) Hypercalcemia: Problem details: Diagnosis: Recurrent, severe associated with 5 recent spontaneous vertebral fractures. Was recently treated at [facility] for same. Unknown which medications were given while she was there. She has been taking calcitonin nasal spray since then. Lab w/u done at [facility] over the past month shows low PTH, PTHrP <2, and low 25-hydroxyvitamin D. Therefore this is not primary hyperparathyroidism, less likely lymphoma or granulomatous disease or vitamin D toxicity. Most likely diagnosis is Multiple Myeloma. I have ordered SPEP, UPEP a nd serum FLC assay. Treatment: Gave 4mg IV zoledronic acid, 300 units calcitonin subcut and NS @ 200 cc/h to try to achieve UO of 100-150 cc/h. Monitor I/Os. Calcium is now in the normal range she has good brisk urine output and her renal function is normal. Will discontinue IV fluids. Will continue to monitor calcium. We will continue the malignancy workup underway with imaging test discussed in the subjective section above. Status: Acute (3) Compression fx, thoracic spine: Problem details: On OxyContin scheduled and p.r.n. oxycodone with reasonably good pain control. Continue MiraLax. Proceeding with imaging. Status: Acute (4) Hypokalemia: Problem details: The hypokalemia is likely due to her brisk hydration because of her zoledronic acid. Will replace her potassium and follow her labs. We have saline locked her IV fluid. Scheduled potassium was ordered today will recheck labs tomorrow. Status: Acute (5) Anemia: Problem details: Normocytic, stable. Likely related to cause of hypercalcemia (suspect MM). Stop enoxaparin for VTE prophylaxis. I discussed the risks and benefits of blood products with the patient and her daughter. The risks include transmission of blood borne illnesses including HIV and hepatitis. Additionally the risks include blood reaction or allergic reaction. They both agree to her getting blood. Give 1 unit and recheck hemoglobin in the morning. Hemoglobin came up to 8.6 with a transfusion. Status: Acute (6) Essential hypertension: Problem details: Stop HCTZ due to hypercalcemia. Continue other home meds. Blood pressure still well controlled. Status: Acute (7) Encounter for chronic pain management: Problem details: They report her pain has flared up with her elevated Calcium. Her compression fracture pain was partially controlled with Tramadol. But her pain is not coming down with getting her calcium under control. They would prefer to take her home when she is stable with home care services then have her go to a [place] [facility] facility. Status: Acute Time Spent With Patient Total time spent: 55 minutes over half that time was spent in counseling and coordinating care. Subjective Time Seen by Provider: 13:19 Date Seen: 07/18/22 Interval history: Subjective Cecy had a difficult night last night she spiked a fever up to 102 and had a workup for sepsis sepsis labs including procalcitonin reassuring of she was placed on Rocephin after a normal UA and chest x-ray. She also had some confusion it sounds like her daughter reports that she saw people dancing at the foot of the bed when she was having the fever she was also found to have some profound anemia with a hemoglobin of 6.7 and was transfused 1 unit of packed red cells. The anemia may have been up in part due to hemodilution as she got a lot of IV fluids to 100 mL an hour for over 2 days because of her Zoledronate made to treat her hypercalcemia. Discussed her case with Dr. Funes of Radiology and he recommends CT of chest abdomen and pelvis (I did PE protocol due to her mildly elevated D dimer) and MRI of Thoracic and Lumbar spine. Discussed her case with Dr. Grover of Oncology and she agrees with CT of the chest abdomen and pelvis. She also recommends a PET scan if that does not reveal the cause of the probable cancer and that will have to be done as an outpatient. Review of her chart shows that she has not had a screening mammogram since 2020, this will also need to be done as an outpatient. She reports that she is feeling a little better today her pain is under better control with the long-acting oxycontin. Exam Const: Vital Signs, click to edit/add: Vital Signs - 24 hr 07/17/22 15:00 07/17/22 15:00 07/17/22 15:00 Temperature Pulse Rate Pulse Rate [Left P ulse Oximeter] 76 76 Respiratory Rate 18 18 18 Blood Pressure Blood Pressure [Ri ght Arm] 106/63 Pulse Oximetry 93 93 Oxygen Delivery Me thod Nasal Cannula Nasal Cannula Oxygen Flow Rate 1.5 1.5 07/17/22 16:00 07/17/22 20:32 07/17/22 19:00 Temperature 102.6 F H 102.6 F H Pulse Rate Pulse Rate [Left P ulse Oximeter] 88 Respiratory Rate 18 Blood Pressure Blood Pressure [Ri ght Arm] 95/59 L Pulse Oximetry 93 91 Oxygen Delivery Me thod Nasal Cannula Oxygen Flow Rate 2 07/17/22 21:33 07/17/22 21:53 07/17/22 22:38 Temperature 100.8 F H 99.5 F 99.4 F Pulse Rate 83 77 77 Pulse Rate [Left P ulse Oximeter] Respiratory Rate 18 18 18 Blood Pressure 102/54 L 105/46 L 88/41 L Blood Pressure [Ri ght Arm] Pulse Oximetry 90 95 95 Oxygen Delivery Me thod Oxygen Flow Rate 07/17/22 23:03 07/17/22 23:00 07/17/22 23:00 Temperature Pulse Rate Pulse Rate [Left P ulse Oximeter] 73 73 Respiratory Rate 18 18 18 Blood Pressure Blood Pressure [Ri ght Arm] 101/55 L Pulse Oximetry 95 95 Oxygen Delivery Me thod Nasal Cannula Nasal Cannula Oxygen Flow Rate 2 2 07/18/22 00:45 07/18/22 03:00 07/18/22 08:30 Temperature 98.5 F 99.2 F Pulse Rate 77 Pulse Rate [Left P ulse Oximeter] 81 Respiratory Rate 18 18 Blood Pressure 111/58 L Blood Pressure [Ri ght Arm] 138/88 Pulse Oximetry 96 94 96 Oxygen Delivery Me thod Nasal Cannula Oxygen Flow Rate 2 07/18/22 08:30 07/18/22 08:30 Temperature 98.2 F Pulse Rate Pulse Rate [Left P ulse Oximeter] 85 Respiratory Rate 18 Blood Pressure Blood Pressure [Ri ght Arm] 90/64 Pulse Oximetry 96 96 Oxygen Delivery Me thod Nasal Cannula Nasal Cannula Oxygen Flow Rate 2 2 Cardiovascular regular rate and rhythm. Lungs clear to auscultation bilaterally. Abdomen positive bowel sounds soft nontender. Extremity she moves all extremities equally trace peripheral edema is noted. Skin is without rashes. There is some mild tenderness over her right lower ribs posteriorly. There is no tenderness over her lumbar thoracic spine. There is also no tenderness over long bones. Documenting provider has reviewed patient's vital signs: yes Labs Labs: Laboratory Results - last 24 hr 07/17/22 07/17/22 07/17/22 06:33 17:12 17:21 WBC 3.45 L RBC 2.24 L Hgb 6.9 L* 6.7 L* Hct 21.2 L MCV 95 MCH 31 MCHC 33 RDW Coeff of Susana 14.8 Plt Count 169 Neut % (Auto) 62.9 Lymph % (Auto) 26.1 Wells % (Auto) 8.1 Eos % (Auto) 1.4 Baso % (Auto) 1.2 Neut # (Auto) 2.20 Lymph # (Auto) 0.90 Wells # (Auto) 0.30 Eos # (Auto) 0.00 Baso # (Auto) 0.00 Diff Slide Review Absolute Retic 0.03 Percent Retic 1.4 Immature Retic Fraction 12.8 Retic Hgb Equivalent 27.1 L Sodium Potassium Chloride Carbon Dioxide BUN Creatinine Estimated Creat Clear Estimated GFR Glucose Lactate Calcium C-Reactive Protein Procalcitonin Urine Color Urine Appearance Urine pH Ur Specific [place]on Urine Protein Urine Glucose (UA) Urine Ketones Urine Blood Urine Nitrite Urine Bilirubin Urine Urobilinogen Ur Leukocyte Esterase Urine RBC Urine WBC Ur Squamous Epith Cells Urine Bacteria Blood Type O Positive Antibody Screen NEGATIVE Crossmatch (AHG) See Detail 07/17/22 07/17/22 07/18/22 19:11 19:51 06:22 WBC 4.37 L RBC 2.77 L Hgb 8.6 L Hct 25.8 L MCV 93 MCH 31 MCHC 33 RDW Coeff of Susana 15.1 Plt Count 164 Neut % (Auto) 61.9 Lymph % (Auto) 26.1 Wells % (Auto) 9.4 Eos % (Auto) 1.4 Baso % (Auto) 0.5 Neut # (Auto) 2.70 Lymph # (Auto) 1.10 Wells # (Auto) 0.40 Eos # (Auto) 0.10 Baso # (Auto) 0.00 Diff Slide Review Absolute Retic Percent Retic Immature Retic Fraction Retic Hgb Equivalent Sodium 136 Potassium 3.2 L Chloride 104 Carbon Dioxide 26 BUN 9 Creatinine 0.9 Estimated Creat Clear 44.36 Estimated GFR 71 Glucose 84 Lactate 0.8 Calcium 8.6 C-Reactive Protein 1.0 Procalcitonin 0.09 Urine Color Yellow Urine Appearance Cloudy A Urine pH 5.5 Ur Specific Weston 1.015 Urine Protein 2+ A Urine Glucose (UA) Negative Urine Ketones Negative Urine Blood Trace-intact A Urine Nitrite Negative Urine Bilirubin Negative Urine Urobilinogen 0.2 Ur Leukocyte Esterase Trace A Urine RBC 0-2 Urine WBC 0-2 Ur Squamous Epith Cells Few Urine Bacteria Few A Blood Type Antibody Screen Crossmatch (AHG)
[2022-07-18] MEDS: POTASSIUM CHLORIDE 10 MEQ CAPSULE ER 20 MEQ PO ×2 (14:16→17:32)
[2022-07-18 15:00] VITALS: BP 114/77; PULSE 89; RESP 18; TEMP 37.1; O2SAT 93
--- NOTE | 2022-07-18 16:27 | W.PM.CROSSCO ---
Subjective Subjective Time Seen by Provider: 16:27 Date Seen: 07/18/22 Principal diagnosis: Probable Malignancy Interval history: Patient underwent workup for possible malignancy including CT the chest abdomen and pelvis and MRI of the thoracic and lumbar spine Objective Objective Data Details: INDICATION: Evaluate for abscess. TECHNIQUE: Thoracic and lumbar spine MRI with contrast. The following sequences were obtained. Sagittal T1, T2 weighted and STIR sequences. Axial T2 weighted sequences. Axial and Sagittal T1 weighted post-contrast sequences. 15 cc of Dotarem gadolinium based intravenous contrast agent was used. COMPARISON: Chest/abdomen/pelvis CT from 01/01/2022. FINDINGS: Mild straightening of the typical thoracic kyphosis. T8 inferior endplate fracture with mild vertebral body height loss and diffuse bone marrow edema. T9 superior endplate fracture with mild vertebral body height loss and mild subchondral bone marrow edema. T11 wedge compression fracture with moderate vertebral body height loss and mild subchondral bone marrow edema. T12 superior endplate fracture with moderate vertebral body height loss, diffuse bone marrow edema and retropulsion of cortex into the spinal canal. L1 superior endplate fracture with mild height loss and subchondral bone marrow edema. Slight retropulsion of posterior cortex into the spinal canal. L2 superior endplate fracture minimal vertebral body height loss. L4 superior endplate fracture with prominent Schmorl`s node deformity to the left of midline with associated mild subchondral bone marrow edema. The bone marrow is diffusely heterogenous in signal with a salt and pepper appearance. This is most prominent within the sacrum and iliac wings, former discrete low T1 signal foci are noted no cord signal abnormality. No intraspinal mass or pathologic intraspinal enhancement. Bibasilar pleural effusions and associated atelectasis. Large partially exophytic left renal cyst. No retroperitoneal mass. Thoracic spine: Moderate to advanced disc height loss, disc desiccation and endplate remodeling throughout the thoracic spine. Multilevel disc protrusions throughout the thoracic spine at T1 to through T9-10 flatten the thecal sac or at most minimally contact the cord without deforming it. At T11-12, disc and retropulsed bone very slightly flatten the ventral cord and contributes to moderate AP spinal canal stenosis. No neural foraminal stenosis. Foraminal height loss/facet arthrosis with scattered sites of low-grade thoracic neural foraminal stenosis. Lumbar spine moderate to advanced disc degeneration throughout the lumbar spine, with height loss most prominent at L2-3 on the right and L5-S1. Blunting of the interspaces at the levels where there are compression fractures. Stir hyperintensity within the discs at L2-3 and L5-S1 reflecting vacuum phenomenon and/or annular disruption. Minimal posterior bulging without high-grade spinal canal stenosis. Mild spinal canal stenosis at L2-3 and L4-5. When combined with facet arthrosis there are scattered sites of low-grade neural foraminal stenosis. IMPRESSION: 1. Active/healing compression fractures at T8, T9, T11,, T12 and L1. Moderate height loss at T11 and T12, with T12 retropulsed cortex and overlying disc protrusion contributing to moderate spinal canal stenosis. There are also more chronic appearing superior endplate fractures at L2/L4. Notably, all of these fractures are new when compared to the CT chest/abdomen/pelvis from 01/01/2022. 2. Diffuse abnormal heterogenous bone marrow signal, with salt and pepper type appearance suggestive of an infiltrative process such as multiple myeloma or lymphoma. Clinical correlation recommended. 3. Widespread thoracic and lumbar spondylosis. Besides the T11-12 level, no high-grade spinal canal stenosis or extrinsic cord deformity. Scattered sites of low-grade neural foraminal stenosis within the thoracic and lumbar spine. 4. No pathology involving these cord/conus or cauda equina nerve roots. Dictated by Phillip Haque MD @ 07/18/2022 1:41:44 PM INDICATION: Evaluate for cancer, bone lesion or PE TECHNIQUE: CT chest PE, abdomen and pelvis acquired with 95 milliliters of Isovue 370 contrast administered intravenously. COMPARISON: CT scan of the chest, abdomen and pelvis 01/01/2022 FINDINGS: CHEST: Cardiovascular structures: Mild cardiomegaly. Mild coronary artery and aortic calcification. No thoracic aortic aneurysm or dissection. No sign of pulmonary embolism. Mediastinum and cresencio: No mass or adenopathy.? Lungs and pleura: Bilateral lower lobe atelectasis/consolidation. Small bilateral pleural effusions. Diffuse bronchial wall thickening. No pulmonary mass. Chest wall and axilla: No mass or adenopathy.? Bones: Degenerative spondylosis throughout the thoracic spine. Anterior wedge fracture deformities of the superior endplates of T11 and T12, new. Diffuse mottled appearance of the bones throughout the thoracic spine and thorax. Old incompletely healed fracture of the left 4th rib and new incompletely healed nondisplaced fracture of the left 5th rib. ABDOMEN AND PELVIS: Liver: Right hepatic lobe hemangioma, unchanged. Minimal intrahepatic duct dilatation, slightly more prominent. Gallbladder and bile ducts: Status post cholecystectomy. Mild dilatation of the common bile duct, likely secondary to the post cholecystectomy state. Correlate with signs and symptoms of biliary obstruction. Pancreas: Unremarkable.? Spleen: Unremarkable.? Adrenal glands: Unremarkable.? Kidneys: Stable left renal cyst. The kidneys are otherwise unremarkable. No hydronephrosis. GI tract: The stomach, small bowel and colon are unremarkable. Vascular structures: Moderate atherosclerosis of the abdominal aorta and branch vessels. No aneurysm. Lymph nodes: Unremarkable.? Miscellaneous: Unremarkable.? No free air or significant free fluid.? Pelvic Organs: Unremarkable.? Bones: Superior endplate compression deformities of T11, T12, L1, L2, L3 and L4, new. There is diffuse osteopenia and diffuse mottled appearance to throughout the visualized bones. There are numerous tiny lucent/lytic lesions scattered throughout the right and left iliac bones. IMPRESSION: 1. No pulmonary arterial embolism. 2. Bilateral lower lobe atelectasis/consolidation and bilateral pleural effusions. 3. Diffuse osteopenia and mottled appearance throughout the axial skeleton with numerous lucent/lytic lesions within the pelvis and multiple fractures within the lower thoracic and lumbar spine. Differential diagnosis includes metastatic disease, myeloma as well as other malignancy such as lymphoma and leukemia. Please note that all CT scans at this facility use dose modulation, iterative reconstruction, and/or weight-based dosing when appropriate to reduce radiation dose to as low as reasonably achievable. Dictated by Vel Suresh MD @ 07/18/2022 3:34:43 PM (Electronically Signed) Assessment and Plan Assessment and plan (1) Lytic bone lesions on xray: Problem comment: will consult w radiology and oncology about proceeding with a biopsy. Status: Acute (2) Pneumonia: Status: Acute Plan Will start ceftriaxone and azithromycin. We will check a EKG to make sure that she does not have a prolonged QT interval so she can get her Zofran.
[2022-07-18] MEDS: AZITHROMYCIN 250 MG TABLET 500 MG PO (16:29)
[2022-07-18] MEDS: cefTRIAXone 1 GM in 0.9 % SODIUM CHLORIDE Mini-bag 100 ML IVPB (16:36)
[2022-07-18 19:00] VITALS: BP 125/88; PULSE 103; RESP 18; TEMP 37.1; O2SAT 93
[2022-07-18 23:00] VITALS: PULSE 99; RESP 18; TEMP 37.4; O2SAT 94
[2022-07-18] MEDS: OXYCODONE (CR) 10 MG TAB.ER.12H 20 MG PO (23:09)
--- NOTE | 2022-07-18 23:20 | PC.NURSE ---
Addendum entered by Destinee Block RN 07/18/22 23:49: Charles catheter placed at 2300, patent and draining Original Note: End of shift: pleasant and cooperative. A x 2 to pivot to C. Rating pain 7-14/10, see eMAR, patient states she is getting minimal relief from pain med. Pt states the pain comes and goes, sharp and stabbing pain in back. Lidocaine patch removed from lower back during previous shift. Patient on 2L O2, sats in mid 90s, on RA pt desats to mid 70s, encouraging deep breathing exercises.
[2022-07-19] VITALS (7 sets, daily range): BP systolic 118–122; BP diastolic 71–95; PULSE 85–96; RESP 18–20; TEMP 36.3–37.4; O2SAT 94–98; BMI 31.4
[2022-07-19] MEDS: HYDROmorphone 0.5 mg/0.5 ml inj IVP ×5 (03:04→21:02)
[2022-07-19] MEDS: SODIUM CHLORIDE 0.9 % (FLUSH) 10 ML SYRINGE 5 ML IVF ×5 (03:04→20:48)
--- NOTE | 2022-07-19 04:59 | PC.NURSE ---
[id number] Pt appears comfortable during night, able to sleep between cares. daughter at bedside, loving and supportive. Pt declining repositioning due to substantial increase in pain. PRN medications administered with some relief. wolfe in place, patent and draining.
[2022-07-19] MEDS: OXYCODONE 5 MG TABLET PO ×4 (05:50→20:48)
[2022-07-19] MEDS: ACETAMINOPHEN 500 MG TABLET 1000 MG PO ×2 (05:51→18:01)
[2022-07-19 06:55] LABS: Basophils Absolute Auto 0.03 K/uL (0.00-0.30); Basophils Percent Auto 0.6 % (0.0-3.0); Eosinophils Absolute Auto 0.04 K/uL (0.00-0.50); Eosinophils Percent Auto 0.8 % (0.0-7.0); Hemoglobin* 8.7 gm/dL (12.0-16.0); Immature Granulocytes Abs Auto 0.05 K/uL (0.00-0.30); Lymphocytes Percent Auto 29.3 % (20-44); Mean Corpuscular HGB Conc 34 gm/dL (32-36); Mean Corpuscular Hemoglobin 31 pg (26-34); Mean Corpuscular Volume 94 fL (80-100); Monocytes Percent Auto 12.8 % (0.0-11.0); Neutrophils Absolute Auto 2.65 K/uL (1.7-7.0); Neutrophils Percent Auto 55.5 % (42.0-72.0); Platelet Count* 162 K/uL (140-440); RDW Coefficient of Variation % 15.2 % (11.5-15.5); Red Blood Count 2.78 m/uL (4.00-5.20); White Blood Count* 4.78 K/uL (4.50-11.00)
[2022-07-19 06:59] LABS: Slide Review Reflex No
[2022-07-19 07:14] LABS: Chloride* 104 mmol/L (96-114); Potassium* 3.3 mmol/L (3.6-5.1); Sodium* 137 mmol/L (135-149)
[2022-07-19 07:17] LABS: Creatinine* 0.9 mg/dL (0.5-1.5); Est. Creatinine Clearance* 44.36; Estimated Glomerular Filt Rate 71 ml/min
[2022-07-19 07:18] LABS: Blood Urea Nitrogen* 9 mg/dL (7-30); Calcium* 8.4 mg/dL (8.4-10.6); Carbon Dioxide* 29 mmol/L (20-32); Glucose* 86 mg/dL (60-115)
[2022-07-19] MEDS: POTASSIUM CHLORIDE 10 MEQ CAPSULE ER 20 MEQ PO (08:33)
[2022-07-19] MEDS: CALCITONIN SALMON NASAL SPRAY 200 UNIT 1 SPRAY NOSTRIL-B (08:34)
[2022-07-19] MEDS: ASPIRIN 81 MG TABLET EC PO (08:34)
[2022-07-19] MEDS: polyethylene glycoL 3350 17 GM PACK 25.5 GM PO (08:35)
[2022-07-19] MEDS: GABAPENTIN 300 MG CAPSULE PO ×2 (08:35→20:48)
[2022-07-19] MEDS: SERTRALINE 50 MG TABLET PO (08:35)
[2022-07-19] MEDS: OXYCODONE (CR) 10 MG TAB.ER.12H 20 MG PO ×2 (11:04→22:29)
[2022-07-19] MEDS: ENOXAPARIN 40 MG/0.4 ML INJ SUBCUT (11:46)
--- NOTE | 2022-07-19 12:13 | PM.IMPN1 ---
Progress Note: A&P Assessment and plan (1) Lytic bone lesions on xray: Problem details: Will keep trying to get her transferred to [facility] for a biopsy and further care. Status: Acute (2) Pneumonia: Problem details: Continue ceftriaxone and azithromycin. Status: Acute (3) Hypokalemia: Problem details: The hypokalemia is likely due to her brisk hydration because of her zoledronic acid. Will replace her potassium and follow her labs. We have saline locked her IV fluid. Scheduled potassium was ordered today will recheck labs tomorrow. Potassium is still low today will increase scheduled potassium. Status: Acute (4) Essential hypertension: Problem details: Stop HCTZ due to hypercalcemia. Continue other home meds. Blood pressure still well controlled. Status: Acute (5) Hypercalcemia: Problem details: Diagnosis: Recurrent, severe associated with 5 recent spontaneous vertebral fractures. Was recently treated at [facility] for same. Unknown which medications were given while she was there. She has been taking calcitonin nasal spray since then. Lab w/u done at [facility] over the past month shows low PTH, PTHrP <2, and low 25-hydroxyvitamin D. Therefore this is not primary hyperparathyroidism, less likely lymphoma or granulomatous disease or vitamin D toxicity. Most likely diagnosis is Multiple Myeloma. I have ordered SPEP, UPEP and serum FLC assay. Treatment: Gave 4mg IV zoledronic acid, 300 units calcitonin subcut and NS @ 200 cc/h to try to achieve UO of 100-150 cc/h. Monitor I/Os. Calcium is now in the normal range she has good brisk urine output and her renal function is normal. Will discontinue IV fluids. Will continue to monitor calcium. We will continue the malignancy workup underway with imaging test discussed in the subjective section above. Consulted with Dr. Grover about her hypercalcemia as well and she just recommended continuing with the calcitonin and using the zoledronic acid as needed. Status: Acute (6) Compression fx, thoracic spine: Problem details: On OxyContin scheduled and p.r.n. oxycodone with reasonably good pain control. Continue MiraLax. Status: Acute (7) Encounter for chronic pain management: Problem details: They report her pain has flared up with her elevated Calcium. Her compression fracture pain was partially controlled with Tramadol. But her pain is not coming down with getting her calcium under control. They would prefer to take her home when she is stable with home care services then have her go to a assisted facility. Status: Acute (8) Weakness: Problem details: Will have her continue to work with physical therapy. Status: Acute Time Spent With Patient Total time spent: 50 minutes over half the time was spent counseling coordinating care Subjective Time Seen by Provider: 12:15 Date Seen: 07/19/22 Interval history: Adalgisa had increased pain last night and her long-acting acting OxyContin was increased in dose. She is more comfortable today. She did have a large bowel movement yesterday. Discussed her case with Dr. Funes again to see if there was any lesion that he could biopsy from her CT scan and there is not a lesion that can be biopsied in [place]. Discussed her case with Dr. Grover of Oncology and she recommended that we try to transfer Cecy to [facility] in [place] to get a definitive diagnosis and possibly initiate treatment. I then called [facility] in [place] and unfortunately do not have any beds and they advised me to call back tomorrow. Exam Const: Vital Signs, click to edit/add: Vital Signs - 24 hr 07/18/22 15:00 07/18/22 15:00 07/18/22 15:00 Temperature 98.7 F Pulse Rate [Left P ulse Oximeter] 89 89 Respiratory Rate 18 18 18 Blood Pressure [Ri t Arm] 114/77 Pulse Oximetry 93 93 Oxygen Delivery Me thod Nasal Cannula Nasal Cannula Oxygen Flow Rate 1.5 1.5 07/18/22 19:00 07/18/22 23:00 07/18/22 23:00 Temperature 98.7 F 99.4 F Pulse Rate [Left P ulse Oximeter] 103 H 99 Respiratory Rate 18 18 18 Blood Pressure [Ri ght Arm] 125/88 Pulse Oximetry 93 94 94 Oxygen Delivery Me thod Nasal Cannula Nasal Cannula Nasal Cannula Oxygen Flow Rate 1.5 2.5 2.5 07/19/22 03:00 07/19/22 07:00 07/19/22 07:00 Temperature 98.3 F 98.0 F Pulse Rate [Left P ulse Oximeter] 94 91 Respiratory Rate 18 20 Blood Pressure [Ri ght Arm] 121/74 Pulse Oximetry 96 94 94 Oxygen Delivery Me thod Nasal Cannula Nasal Cannula Nasal Cannula Oxygen Flow Rate 2.5 2 2 07/19/22 08:00 07/19/22 11:00 Temperature 98.1 F Pulse Rate [Left P ulse Oximeter] 85 Respiratory Rate 18 Blood Pressure [Ri ght Arm] 118/81 Pulse Oximetry 94 96 Oxygen Delivery Me thod Nasal Cannula Oxygen Flow Rate 2 Cardiovascular regular rate and rhythm. Lungs clear to auscultation bilaterally. Abdomen positive bowel sounds soft nontender. Extremities have no edema and no calf tenderness. Skin is warm and dry without rashes. Documenting provider has reviewed patient's vital signs: yes Labs Labs: Laboratory Results - last 24 hr 07/17/22 07/19/22 06:33 05:46 WBC 4.78 RBC 2.78 L Hgb 8.7 L Hct 26.0 L MCV 94 MCH 31 MCHC 34 RDW Coeff of Susana 15.2 Plt Count 162 Neut % (Auto) 55.5 Lymph % (Auto) 29.3 [place] % (Auto) 12.8 H Eos % (Auto) 0.8 Baso % (Auto) 0.6 Neut # (Auto) 2.65 Lymph # (Auto) 1.40 [place] # (Auto) 0.60 Eos # (Auto) 0.04 Baso # (Auto) 0.03 Diff Slide Review Peripher Smr Path Cons See Scanned Report Sodium 137 Potassium 3.3 L Chloride 104 Carbon Dioxide 29 BUN 9 Creatinine 0.9 Estimated Creat Clear 44.36 Estimated GFR 71 Glucose 86 Calcium 8.4
--- NOTE | 2022-07-19 14:15 | PC.SOCIAL ---
Discharge plan: Late entry note: On 07/18/22, met at length with multiple family members to answer questions and provide information on discharge options. Family is considering discharge to home with home care or discharge to intermediate facility. Dtr also brought up questions about hospice care. Ansered questions and provided family with resource lists. Family will be discussing options and contact director of social work with decision on plan. dental laboratory worker to follow up as needed.
--- NOTE | 2022-07-19 14:17 | PC.SOCIAL ---
Discharge plan: Met with family members regarding discharge plan. Family is requesting discharge to a senior care facility from the hospital. Their nursing home plan of being able to take pt out of a facility and home with 24 hour care after a [facility] stay at the [facility]. Family hopes pt will get stronger and be able to be cared for at home after rehab. Family requested placement in a facility in [place] as first choice, [place] as second choice and [place] as third choice. Called and faxed information to [facility] for evaluation for admit on Saturday. 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
[2022-07-19 15:02] LABS: Free Urinary Lambda Excr/Day 26.08 mg/d; Free Urine LAmbda Light Chains 10.33 mg/L (0.00-3.79); Hours Collected 24 hr; Total Volume 2525 mL
[2022-07-19 15:07] LABS: Albumin 4.16 g/dL (3.75-5.01); Alpha 1 Globulin 0.53 g/dL (0.19-0.46); Alpha 2 Globulin 1.34 g/dL (0.48-1.05); Immunofixation IFE Done; Immunoglobulin A 8 mg/dL (68-408); Immunoglobulin G 400 mg/dL (768-1632); Immunoglobulin M 55 mg/dL (35-263); Kappa/Lambda Light Chain Ratio 730.61 (0.26-1.65); Lambda Qnt Free Light Chains 8.11 mg/L (5.71-26.30); Total Protein, Serum 7.3 g/dL (6.3-8.2)
[2022-07-19] MEDS: AZITHROMYCIN 250 MG TABLET 500 MG PO (16:24)
[2022-07-19] MEDS: cefTRIAXone 1 GM in 0.9 % SODIUM CHLORIDE Mini-bag 100 ML IVPB (16:24)
[2022-07-19] MEDS: POTASSIUM CHLORIDE 10 MEQ CAPSULE ER 40 MEQ PO (18:02)
[2022-07-19] MEDS: hydrOXYzine pamoate 25 MG CAPSULE PO (18:02)
--- NOTE | 2022-07-19 19:32 | PC.NURSE ---
Patient oriented x 3, sleeping intermittently through the shift. Pain to back 7/10 at 0800, oxy 10mg given at 0815 with effective results. Lung sounds clear and bowel sounds active x 4 quadrants. Charles catheter patent, draining clear, pale yellow urine. Patient transferred with Ax 1 with gait belt into chair, tolerated sitting up for 45 minutes. IV to right hand discontinued, catheter tip intact. Appetite MD billie wrote new order for Ensure clear TID to assist with calorie intake. Pain appears to be well managed with PRN pain medications.
[2022-07-20 02:28] VITALS: PULSE 89; RESP 16; O2SAT 97
--- NOTE | 2022-07-20 05:13 | PC.NURSE ---
[id number] Pt slept well during night, pain managed with prn pain medications rating pain 3/10. family at bedside, loving and supportive. wolfe patent and draining. Pt tolerated repositioning fair x1 this shift.
[2022-07-20] MEDS: HYDROmorphone 0.5 mg/0.5 ml inj IVP ×4 (06:20→12:28)
[2022-07-20] MEDS: SODIUM CHLORIDE 0.9 % (FLUSH) 10 ML SYRINGE 5 ML IVF ×4 (06:21→10:56)
[2022-07-20 07:00] VITALS: BP 129/75; PULSE 82; RESP 16; TEMP 36.6; O2SAT 97
[2022-07-20 08:00] VITALS: O2SAT 97
[2022-07-20 08:18] LABS: Blood Urea Nitrogen* 8 mg/dL (7-30); Calcium* 7.9 mg/dL (8.4-10.6); Carbon Dioxide* 33 mmol/L (20-32); Chloride* 106 mmol/L (96-114); Creatinine* 0.8 mg/dL (0.5-1.5); Est. Creatinine Clearance* 44.36; Estimated Glomerular Filt Rate 82 ml/min; Potassium* 3.7 mmol/L (3.6-5.1); Sodium* 140 mmol/L (135-149)
[2022-07-20 08:19] LABS: Glucose* 96 mg/dL (60-115)
[2022-07-20 08:20] LABS: Hematocrit 25.6 % (33.0-51.0); Hemoglobin* 8.3 gm/dL (12.0-16.0); Lymphocytes Percent Auto 33.3 % (20-44); Mean Corpuscular HGB Conc 32 gm/dL (32-36); Mean Corpuscular Hemoglobin 31 pg (26-34); Mean Corpuscular Volume 94 fL (80-100); Monocytes Percent Auto 8.9 % (0.0-11.0); Neutrophils Percent Auto 54.6 % (42.0-72.0); Platelet Count* 156 K/uL (140-440); RDW Coefficient of Variation % 15.3 % (11.5-15.5); Red Blood Count 2.72 m/uL (4.00-5.20); White Blood Count* 4.38 K/uL (4.50-11.00)
[2022-07-20 08:21] LABS: Basophils Percent Auto 0.5 % (0.0-3.0); Eosinophils Percent Auto 1.8 % (0.0-7.0); Immature Granulocytes Pct Auto 0.9 %
[2022-07-20 08:22] LABS: Slide Review Reflex No
[2022-07-20] MEDS: ASPIRIN 81 MG TABLET EC PO (08:31)
[2022-07-20] MEDS: METOPROLOL SUCCINATE (XL) 25 MG TAB PO (08:31)
[2022-07-20] MEDS: SERTRALINE 50 MG TABLET PO (08:31)
[2022-07-20] MEDS: GABAPENTIN 300 MG CAPSULE PO (08:31)
[2022-07-20] MEDS: POTASSIUM CHLORIDE 10 MEQ CAPSULE ER 40 MEQ PO (08:31)
[2022-07-20] MEDS: CALCITONIN SALMON NASAL SPRAY 200 UNIT 1 SPRAY NOSTRIL-B (08:31)
[2022-07-20] MEDS: ENOXAPARIN 40 MG/0.4 ML INJ SUBCUT (10:29)
[2022-07-20] MEDS: OXYCODONE (CR) 10 MG TAB.ER.12H 20 MG PO (10:29)
--- NOTE | 2022-07-20 10:43 | P.DS_ITS ---
DS: Providers Provider Time Seen by Provider: 10:44 Date Seen: 07/20/22 Date of admission: 07/15/22 16:10 Primary care physician: Cookie Deras MD Admitting Clinician: Kevin Coles MD Consults: 07/15/22 16:10 Consult to Physical Therapy [CONS] Routine Comment: Reason(s) for PT Consult:: Evaluate and Treat Any Restrictions?:: No Restrictions 07/15/22 16:12 Consult to Occupational Therapy [CONS] Routine Comment: Reason(s) for OT Consult:: Evaluate and Treat Any Restrictions?:: No Restrictions 07/15/22 18:52 Consult to Occupational Therapy [CONS] Routine Comment: Reason(s) for OT Consult:: Evaluate and Treat Any Restrictions?:: Unknown Comment: pain with movement Attending Physician on discharge: Kevin Coles MD Date of Discharge: 07/20/22 DS: Diagnosis Discharge Diagnosis (1) Lytic bone lesions on xray: Status: Acute Problem details: Adalgisa will be transferred to [facility] today for biopsy of her bone lesions. Hopefully they will be able to initiate treatment if she is diagnosed with cancer. (2) Weakness: Status: Acute Problem details: Would recommend she continue to work with physical therapy to get stronger so she can go home. (3) Hypercalcemia: Status: Acute Problem details: Diagnosis: Recurrent, severe associated with 5 recent spontaneous vertebral fractures. Was recently treated at [facility] for same. Unknown which medications were given while she was there. She has been taking calcitonin nasal spray since then. Lab w/u done at [facility] over the past month shows low PTH, PTHrP <2, and low 25-hydroxyvitamin D. Therefore this is not primary hyperparathyroidism, less likely lymphoma or granulomatous disease or vitamin D toxicity. Most likely diagnosis is Multiple Myeloma. I have ordered SPEP, UPEP and serum FLC assay. Treatment: Gave 4mg IV zoledronic acid, 300 units calcitonin subcut and NS @ 200 cc/h to try to achieve UO of 100-150 cc/h. This was initiated on Calcium is now in the normal range she has good brisk urine output and her renal function is normal. Will continue to monitor calcium. We will continue the malignancy workup underway with imaging test discussed in the subjective section above. Consulted with Dr. Grover about her hypercalcemia as well and she just recommended continuing with the calcitonin and using the zoledronic acid as needed. (4) Pneumonia: Status: Acute Problem details: She completed 3 days of Ceftriaxone and Zithromax today. It was a mild pneumonia diagnosed on CT scan. (5) Hypokalemia: Status: Acute Problem details: This has normalized. (6) Essential hypertension: Status: Acute Problem details: Stop HCTZ due to hypercalcemia. Continue other home meds. Blood pressure still well controlled. (7) Sleep apnea: Status: Acute Problem details: AHI-21 09/24/2007 wears mouth guard (8) Anemia: Status: Acute Problem details: Normocytic, stable. Likely related to cause of hypercalcemia (suspect MM). She received 1 unit of blood a few days ago and Hemoglobin came up to 8.6 with a transfusion. (9) Encounter for chronic pain management: Status: Acute Problem details: They report her pain has flared up with her elevated Calcium. Her compression fracture pain was partially controlled with Tramadol as an outpatient. During this admission we got her pain controlled with a combination of oxycontin and oxycodone. (10) Compression fx, thoracic spine: Status: Acute Problem details: On OxyContin scheduled and p.r.n. oxycodone with reasonably good pain control. Continue MiraLax. DS: Summary Hospital Course Hospital Course: Patient was admitted with hypercalcemia and bone pain. We quickly got the hypercalcemia under control with zoledronate and calcitonin. The pain control was more process but eventually got that under control with a combination of long-acting OxyContin and short-acting oxycodone. A lot of the pain was coming from her compression fractures but a fair amount of the pain which is coming from her bones is probably due to the infiltrative process. Patient was also diagnosed with pneumonia on CT scan 3 days ago and treated with Zithromax and ceftriaxone for that. Patient's anemia has been stable since she was transfused a few days ago. Her hemoglobin has been in the 8 range. Status at Discharge Cognitive/behavioral status at discharge: She is alert and oriented. Overall status at discharge: patient is not back to baseline Time Spent with Patient Time attestation: Total time spent providing and/or coordinating discharge services: Time spent: Greater than 30 minutes Specific discharge activities: She is being transferred to [facility] for bone biopsy and hopefully treatment. Exam Const: Vital Signs, click to edit/add: Vital Signs - 24 hr 07/19/22 11:00 07/19/22 15:00 07/19/22 15:00 Temperature 98.1 F 97.4 F L Pulse Rate [Left P ulse Oximeter] 85 96 Respiratory Rate 18 20 Blood Pressure [Le ft Arm] Blood Pressure [Ri ght Arm] 118/81 118/71 Pulse Oximetry 96 98 98 Oxygen Delivery Me thod Nasal Cannula Nasal Cannula Nasal Cannula Oxygen Flow Rate 2 2 2 07/19/22 19:00 07/19/22 22:46 07/19/22 22:46 Temperature 99.4 F 98.2 F Pulse Rate [Left P ulse Oximeter] 94 96 Respiratory Rate 18 18 18 Blood Pressure [Le ft Arm] 122/95 H Blood Pressure [Ri ght Arm] Pulse Oximetry 96 96 96 Oxygen Delivery Me thod Nasal Cannula Nasal Cannula Nasal Cannula Oxygen Flow Rate 2 2 2 07/20/22 02:28 07/20/22 07:00 07/20/22 07:00 Temperature 97.9 F Pulse Rate [Left P ulse Oximeter] 89 82 Respiratory Rate 16 16 Blood Pressure [Le ft Arm] Blood Pressure [Ri ght Arm] 129/75 Pulse Oximetry 97 97 97 Oxygen Delivery Me thod Nasal Cannula Nasal Cannula Nasal Cannula Oxygen Flow Rate 2 2 2 07/20/22 08:00 07/20/22 07:00 Temperature Pulse Rate [Left P ulse Oximeter] 82 Respiratory Rate 16 Blood Pressure [Le ft Arm] Blood Pressure [Ri ght Arm] Pulse Oximetry 97 Oxygen Delivery Me thod Oxygen Flow Rate Cardiovascular regular rate and rhythm. Lungs clear to auscultation bilaterally. Abdomen positive bowel sounds soft and nontender. Skin is warm and dry without rashes. Musculoskeletal she does have some tenderness over her spine and ribs. Documenting provider has reviewed patient's vital signs: yes DS: Data Data Completed and Pending Completed studies during hospitalization: SPEP Pending studies at discharge: UPEP Labs on day of discharge: Labs from last 24 hours 07/20/22 07/19/22 07/16/22 06:10 06:10 11:19 WBC 4.38 L 4.38 L RBC 2.72 L 2.72 L Hgb 8.3 L 8.3 L Hct 25.6 L 25.6 L MCV 94 94 MCH 31 31 MCHC 32 32 RDW Coeff of Susana 15.3 15.3 Plt Count 156 156 Neut % (Auto) 54.6 54.6 Lymph % (Auto) 33.3 33.3 Leslie % (Auto) 8.9 8.9 Eos % (Auto) 1.8 1.8 Baso % (Auto) 0.5 0.5 Neut # (Auto) 2.40 2.40 Lymph # (Auto) 1.50 1.50 Leslie # (Auto) 0.40 0.40 Eos # (Auto) 0.10 0.10 Baso # (Auto) 0.00 0.00 Sodium 140 140 Potassium 3.7 3.7 Chloride 106 106 Carbon Dioxide 33 H 33 H BUN 8 8 Creatinine 0.8 0.8 Estimated Creat Clear 44.36 44.36 Estimated GFR 82 82 Glucose 96 96 Calcium 7.9 L 7.9 L Serum Total Protein 7.3 Albumin (Immunoassay) 4.16 Jrvlz-1-Jtivixoml 0.53 H Mlhaj-1-Wzhjeczzp 1.34 H Beta Globulins 0.83 Gamma Globulins 0.45 L Monoclonal and FLC EER See Note Ser Monoclonl Protein Not Applicable Immunoglobulin A 8 L Immunoglobulin G 400 L Immunoglobulin M 55 Ur Collection Duration Urine Total Volume Urine Total Protein U Free [place] Light Ch U Free [place] Excretion U Free Lambda Light Ch Free Lambda Excret 24 U B-J (MICHAEL) Interp MICHAEL & SPEP Interp See Note Immunofixation Screen MICHAEL Done Tot [place]/Lambda Ratio 730.61 H Free [place] Light Chains 5925.24 H Free Lambda LC, Quant 8.11 07/16/22 10:52 WBC RBC Hgb Hct MCV MCH MCHC RDW Coeff of Susana Plt Count Neut % (Auto) Lymph % (Auto) Leslie % (Auto) Eos % (Auto) Baso % (Auto) Neut # (Auto) Lymph # (Auto) Leslie # (Auto) Eos # (Auto) Baso # (Auto) Sodium Potassium Chloride Carbon Dioxide BUN Creatinine Estimated Creat Clear Estimated GFR Glucose Calcium Serum Total Protein Albumin (Immunoassay) Udfah-8-Ikfkxpzuu Cuupi-7-Owwysiunj Beta Globulins Gamma Globulins Monoclonal and FLC EER Ser Monoclonl Protein Immunoglobulin A Immunoglobulin G Immunoglobulin M Ur Collection Duration 24 Urine Total Volume 2525 Urine Total Protein 57769 H U Free [place] Light Ch 17603.61 H U Free [place] Excretion 21003.22 U Free Lambda Light Ch 10.33 H Free Lambda Excret 24 26.08 U B-J (MICHAEL) Interp See Note MICHAEL & SPEP Interp Immunofixation Screen Tot [place]/Lambda Ratio Free [place] Light Chains Free Lambda LC, Quant Preliminary micro results at discharge 07/17/22 19:52 Blood Culture - Preliminary Blood NO GROWTH AFTER 48 HOURS 07/17/22 19:51 Blood Culture - Preliminary Blood NO GROWTH AFTER 48 HOURS Additional Comments Additional comments: All imaging is in CRL Discharge Plan Discharge Disposition: [facility] Discharge Location: [facility] Date of Admission: 07/15/22 16:10 Attending Provider on Discharge: Romie Vidales Primary Care Provider: Cookie Deras Condition: Stable Services not available here: Interventional Radiology to do a biopsy. Oncology to initiate treatment if cancer is found.
[2022-07-20] MEDS: AZITHROMYCIN 250 MG TABLET 500 MG PO (10:55)
[2022-07-20] MEDS: cefTRIAXone 1 GM in 0.9 % SODIUM CHLORIDE Mini-bag 100 ML IVPB (10:56)
[2022-07-20] MEDS: LORazepam 0.5 MG TABLET PO (12:29)
--- NOTE | 2022-07-20 12:48 | PC.NURSE ---
Transfer Note: Patient transferred to [facility] for further work up of her hypercalcemia and back pain. She currently has compression fractures of her back and is in a brace. Charles cath in place and is patent. Patient has two IV sites on the left arm which both were patent. Report given and called to notify them of when patient left our facility to the number [phone]. Family is taking all of her belongings with them.
[2022-07-21 10:35] LABS: Vitamin D, 1,25-Dihydroxy <5.0 pg/mL (19.9-79.3)
== END 2022-07-20 12:51 | disposition short-term general hospital (02) | DRG 347 ==
LOC: ED 14:31 → MEDSURG 14:44
PROVIDERS: Family Medicine; Admitting Provider Family Medicine; Emergency Provider Family Medicine; PCP Family Medicine; Visit Provider Family Medicine
DX: M48.54XA Collapsed vertebra, not elsewhere classified, thoracic region, initial encounter for fracture (principal); E87.6 Hypokalemia; J18.9 Pneumonia, unspecified organism; R53.1 Weakness; M89.9 Disorder of bone, unspecified; M89.8X8 Other specified disorders of bone, other site; E83.52 Hypercalcemia; R50.9 Fever, unspecified; D64.9 Anemia, unspecified; M54.9 Dorsalgia, unspecified; G89.29 Other chronic pain; I71.20 Thoracic aortic aneurysm, without rupture, unspecified; I10 Essential (primary) hypertension; F41.8 Other specified anxiety disorders; G47.30 Sleep apnea, unspecified; Z87.891 Personal history of nicotine dependence
CPT/HCPCS: 36415; 36430; 71045; 71101; 71260; 72157; 72158; 74177; 80048; 81001; 82330; 82652; 82784; 82945; 83520; 83605; 84145; 84155; 84156; 84157; 84165; 84484; 85018; 85025; 85045; 85379; 86140; 86334; 86335; 86850; 86900; 86901; 86922; 87040; 87070; 87086; 87186; 87635; 89051; 93005; 94761; 97161; 97165; 97530; 99284; 99285; A9270; A9575; J0630; J0696; J1170; J1650; J1940; J2270; J3489; J7030; P9016; Q9967

== ENCOUNTER 2022-07-20 12:26 | Outpatient (CLI) | payer BC, SELFPAY | END 2022-07-20 12:27 | disposition home or self-care (01) | LOC: AMB 07-21 18:04 | PROVIDERS: PCP Family Medicine; Visit Provider Family Medicine | DX: M54.9 Dorsalgia, unspecified (principal); R53.1 Weakness | CPT/HCPCS: A0425; A0426 ==

== ENCOUNTER 2022-08-12 08:08 | Observation (INO) | payer BC, SELFPAY ==
[2022-08-12] VITALS (40 sets, daily range): BP systolic 127–170; BP diastolic 71–118; PULSE 82–106; RESP 16–22; TEMP 36.1–36.8; O2SAT 87–99; BMI 30.8; BMI 30.7
--- NOTE | 2022-08-12 08:48 | CRLHL7_ITS ---
For Patients: As a result of the Cures Act, medical imaging exams and procedure reports are released immediately into your electronic medical record. You may view this report before your referring provider. If you have questions, please contact your health care provider. Indication: Right-sided rib pain Technique: Two views of the ribs. Comparison: Same day chest radiograph Findings: No pneumothorax or hemothorax. No displaced rib fracture. Heterogeneous osseous structures consistent with history of multiple myeloma. Impression: 1. No displaced rib fracture. 2. No pneumothorax or hemothorax. Dictated by Ascencion Huang MD @ 08/12/2022 10:20:18 AM (Electronically Signed)
--- NOTE | 2022-08-12 08:48 | CRLHL7_ITS ---
For Patients: As a result of the Century Cures Act, medical imaging exams and procedure reports are released immediately into your electronic medical record. You may view this report before your referring provider. If you have questions, please contact your health care provider. Indication: Multiple myeloma with increased pain Technique: Two views of the chest Comparison: Right rib radiograph on August 12, 2022. CT chest, abdomen and pelvis on July 18, 2022. chest radiograph on July 15, 2022 Findings and Impression: Lungs are clear. No pleural effusion or pneumothorax. Heart and mediastinum are stable. Aortic out is calcified, indicating atherosclerosis. No acute fracture. Heterogenous osseous structures no consistent with history of multiple myeloma. Calcification of the abdominal aorta. Cholecystectomy clips. Dictated by Ascencion Huang MD @ 08/12/2022 10:12:04 AM (Electronically Signed)
[2022-08-12] MEDS: HYDROmorphone 0.5 mg/0.5 ml inj IVP (09:14)
--- NOTE | 2022-08-12 09:24 | ED.NURSE ---
Pt O2 sats decreased to ~76% on RA shortly after dilaudid administration. Pt encouraged to take deep breaths and placed on 2L O2 NC. O2 sats up to ~95% on 2L.
--- NOTE | 2022-08-12 09:48 | ED.NURSE ---
pt c/o sudden onset of severe chest pain. Placed on manager cardiac cath, EKG done, MD notified. MD in RM to speak with pt.
[2022-08-12 10:17] LABS: Chloride* 97 mmol/L (96-114); Potassium* 3.7 mmol/L (3.6-5.1); Sodium* 133 mmol/L (135-149)
[2022-08-12 10:20] LABS: Blood Urea Nitrogen* 10 mg/dL (7-30); Calcium* 8.1 mg/dL (8.4-10.6); Carbon Dioxide* 29 mmol/L (20-32); Creatinine* 0.6 mg/dL (0.5-1.5); Estimated Glomerular Filt Rate 100 ml/min; Glucose* 88 mg/dL (60-115)
--- NOTE | 2022-08-12 10:32 | CRLHL7_ITS ---
For Patients: As a result of the Century Cures Act, medical imaging exams and procedure reports are released immediately into your electronic medical record. You may view this report before your referring provider. If you have questions, please contact your health care provider. INDICATION: Chest pain. History of multiple myeloma. Rule out pulmonary embolism. TECHNIQUE: Volumetric helical scanning of the thorax was performed during infusion of 95 cc of Isovue 370 contrast material IV, timing optimized for pulmonary arterial opacification. Coronal and sagittal reconstructions were obtained. COMPARISON: Chest/abdomen/pelvis CT of 07/18/2022. FINDINGS: The images are of acceptable quality and demonstrate uniform vascular enhancement within the pulmonary arteries. No pulmonary arterial filling defect is identified. Mild cardiomegaly is again noted. Calcified coronary arterial plaque is again demonstrated. Fusiform enlargement of the ascending aorta to 4.0 cm in diameter is again noted. The lungs are clear. There is no significant airway abnormality. Tiny pleural effusions are again demonstrated bilaterally. There is no mediastinal or hilar adenopathy. The bony structures are diffusely abnormal, consistent with known multiple myeloma. A number of healing/healed rib fractures are noted bilaterally. No obvious acute rib fracture is demonstrated. An unchanged moderate T11 compression fracture is demonstrated. Images of the upper abdomen are unremarkable. IMPRESSION: 1. Negative for pulmonary embolism. 2. Mild cardiomegaly, coronary artery disease and stable fusiform enlargement of the ascending aorta to 4.0 cm in diameter. 3. Diffusely abnormal bony structures, consistent with known multiple myeloma. Healing/healed rib fractures bilaterally. No obvious acute rib fracture demonstrated. Unchanged moderate T11 compression fracture. 4. Tiny pleural effusions bilaterally, as before. Please note that all CT scans at this facility use dose modulation, iterative reconstruction, and/or weight-based dosing when appropriate to reduce radiation dose to as low as reasonably achievable. Dictated by Kevin Sagastume MD @ 08/12/2022 11:52:30 AM (Electronically Signed)
[2022-08-12] MEDS: METHYLPREDNISOLONE SOD SUCC 62.5 MG/ML (125) 125 MG IVP (11:42)
[2022-08-12] MEDS: 0.9 % SODIUM CHLORIDE 1000 ml 1,000 ML IV (11:43)
--- NOTE | 2022-08-12 11:47 | ED.NURSE ---
Supplemental O2 HEIDI'fidencio.
--- NOTE | 2022-08-12 12:09 | ED.NURSE ---
Pt O2 continues to desat to ~80's%. notified. Supplemental O2 @2L NC restarted.
--- NOTE | 2022-08-12 12:25 | ED.NURSE ---
O2 titrated down to 1L NC.
[2022-08-12] MEDS: OXYCODONE 5 MG TABLET 10 MG PO (12:30)
--- NOTE | 2022-08-12 13:30 | ED.NURSE ---
Pt titrated down off O2 to room air.
[2022-08-12] MEDS: hydrOXYzine pamoate 25 MG CAPSULE PO (13:38)
--- NOTE | 2022-08-12 13:40 | ED.NURSE ---
Pt continues to desat to mid-low 80's% when on RA. notified. Pt placed back on 1L O2 NC.
--- NOTE | 2022-08-12 13:56 | W.PC.EDHO ---
Primary Language: Kazakh Preferred Language: Orientation Status: [x] Alert & Oriented [] Slight Confusion [] Known Dx Dementia Transfers By: [] Assist of 1 [x] Assist of 2 [] Lift Active Medications Discontinued Medications Generic Name Dose Route Start Last Admin Trade Name Isela PRN Reason Stop Dose Admin Hydromorphone HCl 0.5 mg 08/12/22 08:48 08/12/22 09:14 Hydromorphone 0.5 Mg/0.5 Ml Inj IVP 08/12/22 08:49 0.5 mg ONCE ONE Administration Hydroxyzine Pamoate 25 mg 08/12/22 13:28 08/12/22 13:38 Hydroxyzine Pamoate 25 Mg Capsule PO 08/12/22 13:29 25 mg ONCE ONE Administration Sodium Chloride 1,000 mls @ 1,000 mls/hr 08/12/22 10:45 08/12/22 13:05 0.9 % Sodium Chloride 1000 Ml IV 08/12/22 11:44 Infused .Q1H TRUE Infusion Methylprednisolone Sodium Succinate 125 mg 08/12/22 10:32 08/12/22 11:42 Methylprednisolone Sod Succ 62.5 Mg/Ml (125) IVP 08/12/22 10:33 125 mg ONCE ONE Administration Oxycodone HCl 10 mg 08/12/22 12:19 08/12/22 12:30 Oxycodone 5 Mg Tablet PO 08/12/22 12:20 10 mg ONCE ONE Administration Description of Symptoms ED Triage Present Problem Pt recent dx of multiple myeloma. Has been Description receiving radiation to spine and hips, also on chemo. Over last several days, pain no longer controlled, unable to sleep. Nausea/diarrhea as well, states she is unable to eat. Is on morphine 45mg BID and Oxycodone 10mg Q4H for baseline pain control. Does also have hx of hypercalcemia. Female History Patient Pain Pain Intensity [Back] 10 Pain Intensity 5 Pain Intensity 7 Pain Intensity 5 Pain Intensity 4 Pain Intensity 5 Pain Intensity 4 Pain Intensity 4 Pain Intensity 10 Pain Intensity 10 Pain Scale Used [Back] Numeric (1 - 10) Pain Scale Used Numeric (1 - 10) Pain Scale Used Numeric (1 - 10) Pain Scale Used Numeric (1 - 10) Pain Scale Used Numeric (1 - 10) Pain Scale Used Numeric (1 - 10) Pain Scale Used Numeric (1 - 10) Pain Scale Used Numeric (1 - 10) Pain Scale Used Numeric (1 - 10) Pain Scale Used Numeric (1 - 10) IV Insertion/Site Date of IV Line Insertion [ 08/12/22 Left Wrist] Oxygen Administration Pulse Oximetry 96 Pulse Oximetry 97 Pulse Oximetry 96 Pulse Oximetry 94 Pulse Oximetry 96 Pulse Oximetry 95 Pulse Oximetry 95 Pulse Oximetry 91 Pulse Oximetry 99 Pulse Oximetry 97 Pulse Oximetry 92 Pulse Oximetry 96 Pulse Oximetry 93 Pulse Oximetry 96 Pulse Oximetry 96 Pulse Oximetry 97 Pulse Oximetry 96 Pulse Oximetry 87 Pulse Oximetry 91 Pulse Oximetry 97 Pulse Oximetry 97 Pulse Oximetry 97 Pulse Oximetry 90 Pulse Oximetry 93 Pulse Oximetry 94 Pulse Oximetry 99 Pulse Oximetry 99 Pulse Oximetry 96 Pulse Oximetry 94 Pulse Oximetry 95 Oxygen Delivery Method Room Air Oxygen Delivery Method Room Air Oxygen Delivery Method Nasal Cannula Oxygen Delivery Method Nasal Cannula Oxygen Delivery Method Nasal Cannula Oxygen Delivery Method Nasal Cannula Oxygen Delivery Method Nasal Cannula Oxygen Delivery Method Nasal Cannula Oxygen Delivery Method Nasal Cannula Oxygen Delivery Method Nasal Cannula Oxygen Delivery Method Nasal Cannula Oxygen Delivery Method Nasal Cannula Oxygen Delivery Method Nasal Cannula Oxygen Delivery Method Nasal Cannula Oxygen Delivery Method Nasal Cannula Oxygen Delivery Method Nasal Cannula Oxygen Delivery Method Nasal Cannula Oxygen Delivery Method Nasal Cannula Oxygen Delivery Method Nasal Cannula Oxygen Delivery Method Nasal Cannula Oxygen Delivery Method Nasal Cannula Oxygen Delivery Method Nasal Cannula Oxygen Delivery Method Nasal Cannula Oxygen Delivery Method Nasal Cannula Oxygen Delivery Method Nasal Cannula Oxygen Delivery Method Nasal Cannula Oxygen Delivery Method Nasal Cannula Oxygen Delivery Method Nasal Cannula Oxygen Delivery Method Nasal Cannula Oxygen Delivery Method Nasal Cannula Oxygen Delivery Method Nasal Cannula Oxygen Delivery Method Room Air Oxygen Flow Rate 1 Oxygen Flow Rate 1 Oxygen Flow Rate 1 Oxygen Flow Rate 1 Oxygen Flow Rate 1 Oxygen Flow Rate 1 Oxygen Flow Rate 2 Oxygen Flow Rate 2 Oxygen Flow Rate 2 Oxygen Flow Rate 2 Oxygen Flow Rate 2 Oxygen Flow Rate 2 Oxygen Flow Rate 2 Oxygen Flow Rate 2 Oxygen Flow Rate 2 Oxygen Flow Rate 2 Oxygen Flow Rate 2 Oxygen Flow Rate 2 Oxygen Flow Rate 2 Oxygen Flow Rate 2 Oxygen Flow Rate 2 Oxygen Flow Rate 2 Oxygen Flow Rate 2 Oxygen Flow Rate 2 Oxygen Flow Rate 2 Oxygen Flow Rate 2 Oxygen Flow Rate 2 Oxygen Flow Rate 2 Oxygen Flow Rate 2 Cardiac Monitoring EKG Method 12 Lead EKG Method 12 Lead
--- NOTE | 2022-08-12 14:05 | ED.BACK ---
HPI - Back Pain/Injury General Chief Complaint: Back Injury/Pain Stated Complaint: Pain, nauseous Time Seen by Provider: 08/12/22 08:25 Source: patient Mode of arrival: ambulatory Limitations: no limitations History of Present Illness HPI Narrative: Patient is a very nice 66-year-old lady who presents here with right-sided back discomfort, she has no multiple myeloma has undergone radiation this week, and was on some steroids early on in the week but these of all been stopped, her pain is been very escalating over the course of the week, she finds it really hard to make any movement around. Is brought in by her family to see if there is anything else to be done, she is on cytotoxic chemotherapy for this also. Is followed by oncology. She does not have any pleuritic pain, there has been no nausea vomiting, she has been a bit sedated, but still has pain with this. Her family has done a good record of taking track of what is going on with her discomfort. And writing it down. She denies any fevers chills or sweats nausea vomiting she has been eating although less. Related Data Home Medications Medication Instructions Recorded Confirmed gabapentin 300 mg capsule 300 mg PO BID 01/01/22 08/12/22 metoprolol succinate 25 mg 25 mg PO DAILY 01/01/22 08/12/22 tablet,extended release 24 hr sertraline 50 mg tablet 50 mg PO DAILY 01/01/22 08/12/22 acetaminophen 500 mg tablet 1,000 mg PO Q6H PRN 07/15/22 08/12/22 (Acetaminophen Extra Strength) calcitonin (salmon) 200 1 spray intranasal (ALT) DAILY 07/15/22 08/12/22 unit/actuation nasal spray lidocaine 4 % topical patch 1 patch topical DAILY 07/15/22 08/02/22 methocarbamol 500 mg tablet 250 mg PO Q6H 07/15/22 08/12/22 methyl salicylate 15 %-menthol 10 1 applic topical TID 07/15/22 08/02/22 % topical cream polyethylene glycol 3350 17 17 g PO DAILY PRN 07/15/22 08/02/22 gram/dose oral powder acyclovir 400 mg tablet 400 mg PO BID 08/02/22 08/12/22 dexamethasone 20 mg tablet 40 mg PO QDAY 08/02/22 08/02/22 furosemide 20 mg tablet (Lasix) 40 mg PO QAM 08/02/22 08/12/22 lorazepam 0.5 mg tablet 0.5 mg PO QHS PRN 08/02/22 08/12/22 ondansetron HCl 4 mg tablet 4 mg PO Q6H 08/02/22 08/02/22 pantoprazole 40 mg tablet,delayed 40 mg PO QDAY 08/02/22 08/12/22 release (Protonix) sennosides 8.6 mg capsule (senna) 8.6 mg PO QDAY 08/02/22 08/12/22 sulfamethoxazole 800 1 tab PO .Sat-Sat-Sat08/02/22 08/12/22 mg-trimethoprim 160 mg tablet (Bactrim DS) allopurinol 300 mg tablet 300 mg PO DAILY 08/12/22 08/12/22 morphine 30 mg tablet,extended 45 mg PO Q12H 08/12/22 08/12/22 release oxycodone 20 mg tablet,crush 20 mg PO BID 08/12/22 08/12/22 resistant,extended release 12 hr sertraline 100 mg tablet 100 mg PO DAILY 08/12/22 08/12/22 Previous Rx's Medication Instructions Recorded calcium carbonate 600 mg-vitamin 1 cap PO DAILY #120 caps 08/02/22 D3 10 mcg (400 unit) capsule cyclophosphamide 50 mg capsule 50 mg PO QDAY #30 caps 08/02/22 oxycodone 5 mg tablet 5 mg PO Q4H PRN pain #60 tabs 08/02/22 Allergies Allergy/AdvReac Type Severity Reaction Status Date / Time naproxen [From Aleve] Allergy Severe Anaphylaxis Verified 08/02/22 09:14 bupropion [From Wellbutrin] Allergy Mild Unknown Verified 08/02/22 09:14 Review of Systems Status of ROS: Reports: 10 or more systems reviewed and unremarkable except as noted in History and below [facility] Medical History Polyp of duodenum ?K31.7 - Polyp of stomach and duodenum (ICD-10) Osteoarthritis ?M19.90 - Unspecified osteoarthritis, unspecified site (ICD-10) Compression fracture of L4 vertebra (~06/19/22) ?S32.040A - Wedge compression fracture of fourth lumbar vertebra, initial encounter for closed fracture (ICD-10) Compression fracture of L2 (~06/19/22) ?S32.020A - Wedge compression fracture of second lumbar vertebra, initial encounter for closed fracture (ICD-10) Compression fracture of T12 vertebra (~06/19/22) ?S22.080A - Wedge compression fracture of T11-T12 vertebra, initial encounter for closed fracture (ICD-10) Compression fracture of L1 lumbar vertebra (~06/19/22) ?S32.010A - Wedge compression fracture of first lumbar vertebra, initial encounter for closed fracture (ICD-10) Compression fracture of T11 vertebra (~06/19/22) ?S22.080A - Wedge compression fracture of T11-T12 vertebra, initial encounter for closed fracture (ICD-10) Primary osteoarthritis of right knee ?M17.11 - Unilateral primary osteoarthritis, right knee (ICD-10) Carpal tunnel syndrome, bilateral ?G56.03 - Carpal tunnel syndrome, bilateral upper limbs (ICD-10) Trigger finger of right thumb ?M65.311 - Trigger thumb, right thumb (ICD-10) Alcohol use disorder in remission ?F10.91 - Alcohol use, unspecified, in remission (ICD-10) Pulmonary nodule ?R91.1 - Solitary pulmonary nodule (ICD-10) Adenomatous colon polyp ?D12.6 - Benign neoplasm of colon, unspecified (ICD-10) Shingles ?B02.9 - Zoster without complications (ICD-10) Depression with anxiety ?F41.8 - Other specified anxiety disorders (ICD-10) Allergic rhinitis ?J30.9 - Allergic rhinitis, unspecified (ICD-10) Sleep apnea ?G47.30 - Sleep apnea, unspecified (ICD-10) Essential hypertension ?I10 - Essential (primary) hypertension (ICD-10) Hypercalcemia ?E83.52 - Hypercalcemia (ICD-10) Anemia ?D64.9 - Anemia, unspecified (ICD-10) Thoracic aortic aneurysm without rupture ?I71.20 - Thoracic aortic aneurysm, without rupture, unspecified (ICD-10) Surgical History History of intestinal surgery ?Z98.890 - Other specified postprocedural states (ICD-10) History of thoracic surgery (~05/28/22) ?Z98.890 - Other specified postprocedural states (ICD-10) History of refractive surgery ?Z98.890 - Other specified postprocedural states (ICD-10) H/O esophagogastroduodenoscopy (~01/11/22) ?Z98.890 - Other specified postprocedural states (ICD-10) Hx of appendectomy ?Z90.49 - Acquired absence of other specified parts of digestive tract (ICD-10) S/P carpal tunnel release (~09/20/21) ?Z98.890 - Other specified postprocedural states (ICD-10) H/O colonoscopy ?Z98.890 - Other specified postprocedural states (ICD-10) Family History Mother Colon cancer Heart disease Sister Pancreatic cancer Heart disease High blood pressure Father Prostate cancer Brother Diabetes Daughter Meningioma Social History Highest level of school completed/degree received: some college, no degree Smoking Status: Former smoker Do you use any of these nicotine containing products: None Second hand tobacco smoke exposure: No How often do you have a drink containing alcohol: never AUDIT-C Alcohol total score: 0 Non-prescribed substance use: denies use Caffeine: Yes service: No Exam Narrative: Exam Narrative: She is seen in room 3, very of sweet lady in no apparent distress she is tender to palpation over the right scapular and infra scapular area, she is not tender along the thoracic area, palpation percussion she is able to pull her hands overhead, she has good air entry bilaterally with no wheezing crackles noted heart sounds are normal her abdomen is soft there is no guarding no pedal splenomegaly. She moves all extremities independently well, there is increased edema in her lower extremities, but equal bilaterally Const: Vital Signs, click to edit/add: Vital Signs - 24 hr 08/12/22 08:17 08/12/22 09:25 08/12/22 09:26 Temperature 98.2 F Pulse Rate 87 Pulse Rate [Pulse Oximeter] 98 Respiratory Rate 16 Blood Pressure Blood Pressure [Ri ght Upper Arm] 152/100 H Pulse Oximetry 95 94 96 Oxygen Delivery Me thod Room Air Nasal Cannula Nasal Cannula Oxygen Flow Rate 2 2 08/12/22 09:30 08/12/22 09:31 08/12/22 09:42 Temperature Pulse Rate 106 H 86 Pulse Rate [Pulse Oximeter] Respiratory Rate Blood Pressure 170/106 H 159/80 H Blood Pressure [Ri ght Upper Arm] Pulse Oximetry 99 99 Oxygen Delivery Me thod Nasal Cannula Nasal Cannula Nasal Cannula Oxygen Flow Rate 2 2 2 08/12/22 09:45 08/12/22 09:54 08/12/22 10:06 Temperature Pulse Rate 83 94 Pulse Rate [Pulse Oximeter] Respiratory Rate Blood Pressure 131/101 H Blood Pressure [Ri ght Upper Arm] Pulse Oximetry 94 93 Oxygen Delivery Me thod Nasal Cannula Nasal Cannula Nasal Cannula Oxygen Flow Rate 2 2 2 08/12/22 10:09 08/12/22 10:15 08/12/22 10:25 Temperature Pulse Rate 91 90 87 Pulse Rate [Pulse Oximeter] Respiratory Rate Blood Pressure 132/118 H 127/78 Blood Pressure [Ri ght Upper Arm] Pulse Oximetry 90 97 97 Oxygen Delivery Me thod Nasal Cannula Nasal Cannula Nasal Cannula Oxygen Flow Rate 2 2 2 08/12/22 10:30 08/12/22 11:00 08/12/22 11:01 Temperature Pulse Rate 93 93 91 Pulse Rate [Pulse Oximeter] Respiratory Rate Blood Pressure 139/83 Blood Pressure [Ri ght Upper Arm] Pulse Oximetry 97 91 87 L Oxygen Delivery Me thod Nasal Cannula Nasal Cannula Nasal Cannula Oxygen Flow Rate 2 2 2 08/12/22 11:15 08/12/22 11:30 08/12/22 11:31 Temperature Pulse Rate 87 89 89 Pulse Rate [Pulse Oximeter] Respiratory Rate Blood Pressure 143/78 H Blood Pressure [Ri ght Upper Arm] Pulse Oximetry 96 97 96 Oxygen Delivery Me thod Nasal Cannula Nasal Cannula Nasal Cannula Oxygen Flow Rate 2 2 2 08/12/22 11:45 08/12/22 11:46 08/12/22 12:00 Temperature Pulse Rate 94 90 88 Pulse Rate [Pulse Oximeter] Respiratory Rate Blood Pressure 127/88 Blood Pressure [Ri ght Upper Arm] Pulse Oximetry 96 93 96 Oxygen Delivery Me thod Nasal Cannula Nasal Cannula Nasal Cannula Oxygen Flow Rate 2 2 2 08/12/22 12:01 08/12/22 12:02 08/12/22 12:15 Temperature Pulse Rate 85 89 98 Pulse Rate [Pulse Oximeter] Respiratory Rate Blood Pressure 139/71 Blood Pressure [Ri ght Upper Arm] Pulse Oximetry 92 97 99 Oxygen Delivery Me thod Nasal Cannula Nasal Cannula Nasal Cannula Oxygen Flow Rate 2 2 2 08/12/22 12:33 08/12/22 12:36 08/12/22 12:45 Temperature Pulse Rate 97 84 85 Pulse Rate [Pulse Oximeter] Respiratory Rate Blood Pressure 168/87 H Blood Pressure [Ri ght Upper Arm] Pulse Oximetry 91 95 95 Oxygen Delivery Me thod Nasal Cannula Nasal Cannula Nasal Cannula Oxygen Flow Rate 1 1 1 08/12/22 13:00 08/12/22 13:21 08/12/22 13:23 Temperature Pulse Rate 91 102 H 92 Pulse Rate [Pulse Oximeter] Respiratory Rate Blood Pressure 153/85 H Blood Pressure [Ri ght Upper Arm] Pulse Oximetry 96 94 96 Oxygen Delivery Me thod Nasal Cannula Nasal Cannula Nasal Cannula Oxygen Flow Rate 1 1 1 08/12/22 13:24 08/12/22 13:30 08/12/22 13:45 Temperature Pulse Rate 91 88 82 Pulse Rate [Pulse Oximeter] Respiratory Rate Blood Pressure Blood Pressure [Ri ght Upper Arm] Pulse Oximetry 97 96 94 Oxygen Delivery Me thod Room Air Room Air Nasal Cannula Oxygen Flow Rate 1 Course Course Hospital Course: Patient is the given some Dilaudid here, 0.5 mg, unfortunately this did cause her some chest discomfort, she became sedated with this also. I am not sure her pain improved, she took her normal I MS Contin, with with a breakthrough oxycodone. Did we gave her here. X-rays did not show any new findings suggestive of rib fracture, overt findings are noted. We did do a CT of her chest with IV contrast to rule out PE, this also was supportive of chronicity of her issues. Unfortunately we were unable to get her saturations above 90% consistently, she was in the low 80s here, and necessitated use of oxygen. At this point I would suggest that we bring her into the hospital for oxygen, along with the further treatment. I think the treatment should be at this point steroids, on top of her normal oral pain medication along with adding in some Vistaril. Which we did for her in the emergency department. I suspect that she will be able to go home tomorrow with this regime . I have explained this to the family. Patient is in agreement with hospitalization along his family. Troponins x2 are negative. I was able to secured admission for her to the hospital in our observation status with the hospitalist, Dr. Coles Vital Signs Vital signs: Initial Vital Signs Temperature 98.2 F 08/12/22 08:17 Temperature Source Temporal Artery Scan 08/12/22 08:17 Pulse Rate 98 08/12/22 08:17 Respiratory Rate 16 08/12/22 08:17 Blood Pressure 152/100 H 08/12/22 08:17 Blood Pressure Mean 117 H 08/12/22 08:17 Blood Pressure Position Sitting 08/12/22 08:17 Pulse Oximetry 95 08/12/22 08:17 Oxygen Delivery Method Room Air 08/12/22 08:17 Vital Signs Temperature 98.2 F 08/12/22 08:17 Pulse Rate 98 08/12/22 08:17 Respiratory Rate 16 08/12/22 08:17 Blood Pressure 152/100 H 08/12/22 08:17 Pulse Oximetry 95 08/12/22 08:17 Oxygen Delivery Method Room Air 08/12/22 08:17 Temperature 98.2 F 08/12/22 08:17 Pulse Rate 82 08/12/22 13:45 Respiratory Rate 16 08/12/22 08:17 Blood Pressure 153/85 H 08/12/22 13:23 Pulse Oximetry 94 08/12/22 13:45 Oxygen Delivery Method Nasal Cannula 08/12/22 13:45 Oxygen Flow Rate 1 08/12/22 13:45 MDM - Back Pain/Injury MDM Narrative Medical decision making narrative: Life-threatening differential diagnosis includes occluded COPD exacerbation, pulmonary edema, acute coronary syndromes, pulmonary embolism, pneumonia, and pneumothorax. Other differential diagnosis considerations include asthma, bronchitis as well as other etiologies Life-threatening differential diagnosis considered include: Cauda equina an epidural abscess, other differential diagnosis considered includes sprain, contusion, nerve root entrapment, radiculopathy, muscle spasm, urolithiasis, lumbar fracture, pyelonephritis, appendicitis, biliary colic, as well as other etiologies. The patient denies saddle anesthesia bowel or bladder incontinence or lower extremity weakness, recent weight loss, or history of malignancy. Medical Records Attestation: I reviewed the patient's medical records. Lab Data Attestation: I reviewed the patient's lab results. Labs: Lab Results 08/12/22 08/12/22 Range/Units 09:12 12:50 Sodium 133 L (135-149) mmol/L Potassium 3.7 (3.6-5.1) mmol/L Chloride 97 (96-114) mmol/L Carbon Dioxide 29 (20-32) mmol/L BUN 10 (7-30) mg/dL Creatinine 0.6 (0.5-1.5) mg/dL Estimated Creat Clear 46.40 Estimated GFR 100 ml/min Glucose 88 (60-115) mg/dL Calcium 8.1 L (8.4-10.6) mg/dL POC Troponin I 0.00 L (0.01-0.04) ng/ml Imaging Data CT scan - chest: Attestation: I have reviewed the pertinent imaging results. My impression: No evidence of pulmonary embolism Radiologist's impression: Patient: KARLA STEVENS Facility:?[facility] Patient ID:?[id number] Site Patient ID:?[id number]. Site :?[id number] Study:?CT Chest Angio PE W/ISOVUE 370 95CC-08/12/2022 11:01:42 AM Ordering Physician:Gibran Campoverde Final Report: INDICATION: Chest pain. History of multiple myeloma. Rule out pulmonary embolism. TECHNIQUE: Volumetric helical scanning of the thorax was performed during infusion of 95 cc of Isovue 370 contrast material IV, timing optimized for pulmonary arterial opacification. Coronal and sagittal reconstructions were obtained. COMPARISON: Chest/abdomen/pelvis CT of 07/18/2022. FINDINGS: The images are of acceptable quality and demonstrate uniform vascular enhancement within the pulmonary arteries. No pulmonary arterial filling defect is identified. Mild cardiomegaly is again noted. Calcified coronary arterial plaque is again demonstrated. Fusiform enlargement of the ascending aorta to 4.0 cm in diameter is again noted. The lungs are clear. There is no significant airway abnormality. Tiny pleural effusions are again demonstrated bilaterally. There is no mediastinal or hilar adenopathy. The bony structures are diffusely abnormal, consistent with known multiple myeloma. A number of healing/healed rib fractures are noted bilaterally. No obvious acute rib fracture is demonstrated. An unchanged moderate T11 compression fracture is demonstrated. Images of the upper abdomen are unremarkable. IMPRESSION: 1. Negative for pulmonary embolism. 2. Mild cardiomegaly, coronary artery disease and stable fusiform enlargement of the ascending aorta to 4.0 cm in diameter. 3. Diffusely abnormal bony structures, consistent with known multiple myeloma. Healing/healed rib fractures bilaterally. No obvious acute rib fracture demonstrated. Unchanged moderate T11 compression fracture. 4. Tiny pleural effusions bilaterally, as before. Please note that all CT scans at this facility use dose modulation, iterative reconstruction, and/or weight-based dosing when appropriate to reduce radiation dose to as low as reasonably achievable. Dictated by Kevin Sagastume MD @ 08/12/2022 11:52:30 AM (Electronic Signature) Patient: [facility] Facility:?[facility] Patient ID:?[id number] Site Patient ID:?[id number]. Site :?1955 Study:?XRay Chest W/ RT RIBS-08/12/2022 10:09:11 AM Ordering Physician:?Neno Campoverde Final Report: Indication: Right-sided rib pain Technique: Two views of the ribs. Comparison: Same day chest radiograph Findings: No pneumothorax or hemothorax. No displaced rib fracture. Heterogeneous osseous structures consistent with history of multiple myeloma. Impression: 1. No displaced rib fracture. 2. No pneumothorax or hemothorax. Dictated by Ascencion Huang MD @ 08/12/2022 10:20:18 AM (Electronic Signature) Patient: [facility] Facility:?[facility] Patient ID:?[id number] Site Patient ID:?[id number]. Site :?1955 Study:?XRay Chest 2 VIEW-08/12/2022 10:08:03 AM Ordering Physician:?Neno Campoverde Final Report: Indication: Multiple myeloma with increased pain Technique: Two views of the chest Comparison: Right rib radiograph on August 12, 2022. CT chest, abdomen and pelvis on July 18, 2022. chest radiograph on July 15, 2022 Findings and Impression: Lungs are clear. No pleural effusion or pneumothorax. Heart and mediastinum are stable. Aortic out is calcified, indicating atherosclerosis. No acute fracture. Heterogenous osseous structures no consistent with history of multiple myeloma. Calcification of the abdominal aorta. Cholecystectomy clips. Dictated by Ascencion Huang MD @ 08/12/2022 10:12:04 AM (Electronic Signature) ECG Data Attestation: I personally reviewed and interpreted this ECG as follows: Prior ECG tracings: available for review Interpretation: EKG done x2 shows normal sinus rhythm, with no acute changes, rhythm appears to be sinus, there is no tachycardia, some diffuse ST wave changes more prominent inferiorly are noted, No acute changes seen on a EKG to suggest ischemia. Discharge Plan Discharge Clinical Impression: Hypoxia, Pneumonia, Encounter for chronic pain management, Compression fx, thoracic spine, Multiple myeloma Patient Disposition: Admitted As Inpatient Prescriptions: No Action calcium carbonate-vitamin D3 600 mg-10 mcg (400 unit) capsule 1 cap PO DAILY Qty: 120 3RF cyclophosphamide 50 mg capsule 50 mg PO QDAY Qty: 30 1RF acyclovir 400 mg tablet 400 mg PO BID pantoprazole [Protonix] 40 mg tablet,delayed release (DR/EC) 40 mg PO QDAY furosemide [Lasix] 20 mg tablet 40 mg PO QAM senna 8.6 mg capsule 8.6 mg PO QDAY sulfamethoxazole-trimethoprim [Bactrim DS] 800-160 mg tablet 1 tab PO .Mon-Wed-FRI dexamethasone 20 mg tablet 40 mg PO QDAY Patient Comments: Takes 40mg Day 1-2-3-4 of treatment every 21 days ondansetron HCl 4 mg tablet 4 mg PO Q6H oxycodone 5 mg tablet 5 mg PO Q4H PRN (Reason: pain) Qty: 60 0RF gabapentin 300 mg capsule 300 mg PO BID Patient Comments: TAKE 1 CAPSULE BY MOUTH TWICE DAILY metoprolol succinate 25 mg tablet extended release 24 hr 25 mg PO DAILY Patient Comments: TAKE 1 TABLET BY MOUTH EVERY DAY sertraline 50 mg tablet 50 mg PO DAILY methocarbamol 500 mg tablet 250 mg PO Q6H Patient Comments: PRN MUSCLE SPASM polyethylene glycol 3350 17 gram/dose powder 17 g PO DAILY PRN lidocaine 4 % adhesive patch,medicated 1 patch topical DAILY Patient Comments: ON FOR 12HRS TO MOST PAINFUL AREA Rx Instructions: may leave on for up to 12 hrs acetaminophen [Acetaminophen Extra Strength] 500 mg tablet 1,000 mg PO Q6H PRN methyl salicylate-menthol 15-10 % cream 1 applic topical TID Patient Comments: BENGAY calcitonin (salmon) 200 unit/actuation spray,non-aerosol 1 spray intranasal (ALT) DAILY lorazepam 0.5 mg tablet 0.5 mg PO QHS PRN morphine 30 mg tablet extended release 45 mg PO Q12H sertraline 100 mg tablet 100 mg PO DAILY allopurinol 300 mg tablet 300 mg PO DAILY oxycodone 20 mg tablet,oral only,ext.rel.12 hr 20 mg PO BID Follow Up/Referrals: Cookie Deras MD [Primary Care Provider] -
--- NOTE | 2022-08-12 14:25 | ED.NURSE ---
Report called to M/S RN.
--- NOTE | 2022-08-12 14:52 | PM.IMHP1 ---
Hospitalist- H&P: ZEYAD History of Present Illness Time Seen by Provider: 14:53 Date Seen: 08/12/22 Chief complaint: Pain, nauseous Narrative: This is a 66-year-old female known to me from a recent admission for hypercalcemia secondary to multiple myeloma who came in through the emergency department today for uncontrollable right-sided pain. For the last few months she has had some right-sided back and chest wall pain from multiple bony lesions and a T11 vertebral fracture. She had her 2nd round of chemotherapy 2 weeks ago and just finished steroids associated with that last week. She also had radiation last week. Since she got radiation she has been experiencing worsening pain in her right ribcage, especially at night. It is pleuritic in nature and gets worse with deep breaths or movement. She tells me a tolerable level of pain for her is about 5-6 out of 10, but in the last 2-3 nights it has been 7 to 8/10. She was too uncomfortable to sleep and is feeling exhausted this well. In the emergency department she was given oral oxycodone and some Dilaudid IV. After the Dilaudid she experienced shortness of breath and chest pain. This is similar to the experience she had with getting Dilaudid during her previous hospitalization as well. In the ER she was noted to be hypoxic for which further workup was done and she was advised admission for oxygen supplementation. At home she has been taking MS Contin twice a day, p.r.n. oxycodone, and acetaminophen. Even though the oxycodone is as needed, she ends up taking it every time she would be due for the next dose and that just barely keeps her pain at a tolerable level. Her is in the room with her during this interview and we discussed goals of care. Adalgisa is hoping to continue to undergo treatment for multiple myeloma to the [facility] and if it should become a choice between comfort and having to back off on pain medications due to the risk of respiratory depression, she said she does not want to give up yet and would rather be in pain. She also got steroids and Vistaril in the emergency department and was feeling more comfortable when she got to the floor although her pain is starting to ramp up again and she says it is now is 7/10. Additionally she notes her lower extremity edema has been somewhat worse recently although she had to stop hydrochlorothiazide due to hypercalcemia. She was placed on furosemide instead, but the dose was low at 1st and she did not have any urine output from that. This was recently increased to 40 mg a day and she now notes the increase in urine output after taking it. She has a rash on her left lateral abdomen that was noted by the radiation oncologist and was marked with a marker. She tells me that it is thought not to be related to radiation and she has been putting a little bit of Vanicream on it. The rash is starting to improve on its own. Review of Systems Status of ROS: Reports: 10 or more systems reviewed and unremarkable except as noted in History and below [facility] Medical History (Updated 08/12/22 @ 20:46 by Alice Dalton MD) Multiple myeloma ?C90.00 - Multiple myeloma not having achieved remission (ICD-10) Polyp of duodenum ?K31.7 - Polyp of stomach and duodenum (ICD-10) Osteoarthritis ?M19.90 - Unspecified osteoarthritis, unspecified site (ICD-10) Compression fracture of L4 vertebra (~06/19/22) ?S32.040A - Wedge compression fracture of fourth lumbar vertebra, initial encounter for closed fracture (ICD-10) Compression fracture of L2 (~06/19/22) ?S32.020A - Wedge compression fracture of second lumbar vertebra, initial encounter for closed fracture (ICD-10) Compression fracture of T12 vertebra (~06/19/22) ?S22.080A - Wedge compression fracture of T11-T12 vertebra, initial encounter for closed fracture (ICD-10) Compression fracture of L1 lumbar vertebra (~06/19/22) ?S32.010A - Wedge compression fracture of first lumbar vertebra, initial encounter for closed fracture (ICD-10) Compression fracture of T11 vertebra (~06/19/22) ?S22.080A - Wedge compression fracture of T11-T12 vertebra, initial encounter for closed fracture (ICD-10) Primary osteoarthritis of right knee ?M17.11 - Unilateral primary osteoarthritis, right knee (ICD-10) Carpal tunnel syndrome, bilateral ?G56.03 - Carpal tunnel syndrome, bilateral upper limbs (ICD-10) Trigger finger of right thumb ?M65.311 - Trigger thumb, right thumb (ICD-10) Alcohol use disorder in remission ?F10.91 - Alcohol use, unspecified, in remission (ICD-10) Pulmonary nodule ?R91.1 - Solitary pulmonary nodule (ICD-10) Adenomatous colon polyp ?D12.6 - Benign neoplasm of colon, unspecified (ICD-10) Shingles ?B02.9 - Zoster without complications (ICD-10) Depression with anxiety ?F41.8 - Other specified anxiety disorders (ICD-10) Allergic rhinitis ?J30.9 - Allergic rhinitis, unspecified (ICD-10) Sleep apnea ?G47.30 - Sleep apnea, unspecified (ICD-10) Essential hypertension ?I10 - Essential (primary) hypertension (ICD-10) Hypercalcemia ?E83.52 - Hypercalcemia (ICD-10) Anemia ?D64.9 - Anemia, unspecified (ICD-10) Thoracic aortic aneurysm without rupture ?I71.20 - Thoracic aortic aneurysm, without rupture, unspecified (ICD-10) Surgical History History of intestinal surgery ?Z98.890 - Other specified postprocedural states (ICD-10) History of thoracic surgery (~05/28/22) ?Z98.890 - Other specified postprocedural states (ICD-10) History of refractive surgery ?Z98.890 - Other specified postprocedural states (ICD-10) H/O esophagogastroduodenoscopy (~01/11/22) ?Z98.890 - Other specified postprocedural states (ICD-10) Hx of appendectomy ?Z90.49 - Acquired absence of other specified parts of digestive tract (ICD-10) S/P carpal tunnel release (~09/20/21) ?Z98.890 - Other specified postprocedural states (ICD-10) H/O colonoscopy ?Z98.890 - Other specified postprocedural states (ICD-10) Family History Mother Colon cancer Heart disease Sister Pancreatic cancer Heart disease High blood pressure Father Prostate cancer Brother Diabetes Daughter Meningioma Social History (Updated 08/12/22 @ 17:46 by Alice Dalton MD) Narrative: . Living with daughter, Fidelia, since diagnosis of MM. Fidelia is a nurse and is helping set up and administer Adalgisa's many medications. Highest level of school completed/degree received: some college, no degree Smoking Status: Former smoker Do you use any of these nicotine containing products: None Second hand tobacco smoke exposure: No How often do you have a drink containing alcohol: never AUDIT-C Alcohol total score: 0 Non-prescribed substance use: denies use Caffeine: Yes service: No Meds Home Medications and Allergies Home Medications Medication Instructions Recorded Confirmed Type gabapentin 300 mg capsule 300 mg PO BID 01/01/22 08/12/22 History metoprolol succinate 25 mg 25 mg PO DAILY 01/01/22 08/12/22 History tablet,extended release 24 hr sertraline 50 mg tablet 50 mg PO DAILY 01/01/22 08/12/22 History acetaminophen 500 mg tablet 1,000 mg PO TID PRN 07/15/22 08/12/22 History (Acetaminophen Extra Strength) calcitonin (salmon) 200 1 spray intranasal (ALT) DAILY 07/15/22 08/12/22 History unit/actuation nasal spray lidocaine 4 % topical patch 1 patch topical DAILY 07/15/22 08/02/22 History methocarbamol 500 mg tablet 250 mg PO TID 07/15/22 08/12/22 History methyl salicylate 15 %-menthol 10 1 applic topical TID 07/15/22 08/02/22 History % topical cream polyethylene glycol 3350 17 17 g PO DAILY 07/15/22 08/12/22 History gram/dose oral powder acyclovir 400 mg tablet 400 mg PO BID 08/02/22 08/12/22 History dexamethasone 20 mg tablet 40 mg PO DAILY 08/02/22 08/12/22 History furosemide 20 mg tablet (Lasix) 40 mg PO QAM 08/02/22 08/12/22 History lorazepam 0.5 mg tablet 0.5 mg PO QHS PRN 08/02/22 08/12/22 History ondansetron HCl 4 mg tablet 4 mg PO Q6H 08/02/22 08/02/22 History pantoprazole 40 mg tablet,delayed 40 mg PO BID 08/02/22 08/12/22 History release (Protonix) sennosides 8.6 mg capsule (senna) 8.6 mg PO QDAY 08/02/22 08/12/22 History sulfamethoxazole 800 1 tab PO MOWEFR 08/02/22 08/12/22 History mg-trimethoprim 160 mg tablet (Bactrim DS) allopurinol 300 mg tablet 300 mg PO DAILY 08/12/22 08/12/22 History cyclophosphamide 50 mg capsule 50 mg PO DAILY 08/12/22 08/12/22 History morphine 30 mg tablet,extended 45 mg PO Q12H 08/12/22 08/12/22 History release naloxone 4 mg/actuation nasal spray 1 spray intranasal .UD PRN 08/12/22 08/12/22 History oxycodone 20 mg tablet,crush 20 mg PO BID 08/12/22 08/12/22 History resistant,extended release 12 hr sertraline 100 mg tablet 100 mg PO DAILY 08/12/22 08/12/22 History Home Medication Comments: Not taking oxycodone extended release. Allergies Allergy/AdvReac Type Severity Reaction Status Date / Time naproxen [From Aleve] Allergy Severe Anaphylaxis Verified 08/02/22 09:14 bupropion [From Wellbutrin] Allergy Mild Unknown Verified 08/02/22 09:14 Exam Narrative: Exam Narrative: General: No acute distress. Awake alert oriented x3. HEENT: Normocephalic atraumatic, pupils equally round and reactive to light and accommodation. Oropharynx clear. Mucous membranes are moist. No cervical lymphadenopathy, thyromegaly or carotid bruits. No JVD. Cardiovascular: Regular rate and rhythm. No murmurs, gallops, or rubs. Chest: No increased work of breathing. Nontender to palpation of rib cage. No overlying skin changes in area of pain/right anterolateral chest. Clear to auscultation bilaterally. No crackles or wheezes. Abdomen: Bowel sounds present. Soft, nondistended, nontender. No hepatosplenomegaly or masses. Extremities: 2 to 3+ pitting edema to the knees bilaterally, no cyanosis or clubbing. Skin: Vascular-type rash on left abdomen that was previously outlined. It has not extended past pen line. No jaundice, no pallor. Neuro: Grossly intact. No focal deficits. Const: Vital Signs, click to edit/add: Vital Signs - 24 hr 08/12/22 08:17 08/12/22 09:25 08/12/22 09:26 Temperature 98.2 F Pulse Rate 87 Pulse Rate [Pulse Oximeter] 98 Respiratory Rate 16 Blood Pressure Blood Pressure [Ri ght Upper Arm] 152/100 H Pulse Oximetry 95 94 96 Oxygen Delivery Me thod Room Air Nasal Cannula Nasal Cannula Oxygen Flow Rate 2 2 08/12/22 09:30 08/12/22 09:31 08/12/22 09:42 Temperature Pulse Rate 106 H 86 Pulse Rate [Pulse Oximeter] Respiratory Rate Blood Pressure 170/106 H 159/80 H Blood Pressure [Ri ght Upper Arm] Pulse Oximetry 99 99 Oxygen Delivery Me thod Nasal Cannula Nasal Cannula Nasal Cannula Oxygen Flow Rate 2 2 2 08/12/22 09:45 08/12/22 09:54 08/12/22 10:00 Temperature Pulse Rate 83 Pulse Rate [Pulse Oximeter] Respiratory Rate Blood Pressure 131/101 H Blood Pressure [Ri ght Upper Arm] Pulse Oximetry 94 94 Oxygen Delivery Me thod Nasal Cannula Nasal Cannula Oxygen Flow Rate 2 2 08/12/22 10:06 08/12/22 10:09 08/12/22 10:15 Temperature Pulse Rate 94 91 90 Pulse Rate [Pulse Oximeter] Respiratory Rate Blood Pressure 132/118 H Blood Pressure [Ri ght Upper Arm] Pulse Oximetry 93 90 97 Oxygen Delivery Me thod Nasal Cannula Nasal Cannula Nasal Cannula Oxygen Flow Rate 2 2 2 08/12/22 10:25 08/12/22 10:30 08/12/22 11:00 Temperature Pulse Rate 87 93 93 Pulse Rate [Pulse Oximeter] Respiratory Rate Blood Pressure 127/78 Blood Pressure [Ri ght Upper Arm] Pulse Oximetry 97 97 91 Oxygen Delivery Me thod Nasal Cannula Nasal Cannula Nasal Cannula Oxygen Flow Rate 2 2 2 08/12/22 11:01 08/12/22 11:15 08/12/22 11:30 Temperature Pulse Rate 91 87 89 Pulse Rate [Pulse Oximeter] Respiratory Rate Blood Pressure 139/83 Blood Pressure [Ri ght Upper Arm] Pulse Oximetry 87 L 96 97 Oxygen Delivery Me thod Nasal Cannula Nasal Cannula Nasal Cannula Oxygen Flow Rate 2 2 2 08/12/22 11:31 08/12/22 11:45 08/12/22 11:46 Temperature Pulse Rate 89 94 90 Pulse Rate [Pulse Oximeter] Respiratory Rate Blood Pressure 143/78 H 127/88 Blood Pressure [Ri ght Upper Arm] Pulse Oximetry 96 96 93 Oxygen Delivery Me thod Nasal Cannula Nasal Cannula Nasal Cannula Oxygen Flow Rate 2 2 2 08/12/22 12:00 08/12/22 12:01 08/12/22 12:02 Temperature Pulse Rate 88 85 89 Pulse Rate [Pulse Oximeter] Respiratory Rate Blood Pressure 139/71 Blood Pressure [Ri ght Upper Arm] Pulse Oximetry 96 92 97 Oxygen Delivery Me thod Nasal Cannula Nasal Cannula Nasal Cannula Oxygen Flow Rate 2 2 2 08/12/22 12:15 08/12/22 12:33 08/12/22 12:36 Temperature Pulse Rate 98 97 84 Pulse Rate [Pulse Oximeter] Respiratory Rate Blood Pressure 168/87 H Blood Pressure [Ri ght Upper Arm] Pulse Oximetry 99 91 95 Oxygen Delivery Me thod Nasal Cannula Nasal Cannula Nasal Cannula Oxygen Flow Rate 2 1 1 08/12/22 12:45 08/12/22 13:00 08/12/22 13:21 Temperature Pulse Rate 85 91 102 H Pulse Rate [Pulse Oximeter] Respiratory Rate Blood Pressure Blood Pressure [Ri ght Upper Arm] Pulse Oximetry 95 96 94 Oxygen Delivery Me thod Nasal Cannula Nasal Cannula Nasal Cannula Oxygen Flow Rate 1 1 1 08/12/22 13:23 08/12/22 13:24 08/12/22 13:30 Temperature Pulse Rate 92 91 88 Pulse Rate [Pulse Oximeter] Respiratory Rate Blood Pressure 153/85 H Blood Pressure [Ri ght Upper Arm] Pulse Oximetry 96 97 96 Oxygen Delivery Me thod Nasal Cannula Room Air Room Air Oxygen Flow Rate 1 08/12/22 13:45 08/12/22 14:00 08/12/22 14:16 Temperature Pulse Rate 82 87 92 Pulse Rate [Pulse Oximeter] Respiratory Rate Blood Pressure Blood Pressure [Ri ght Upper Arm] Pulse Oximetry 94 95 95 Oxygen Delivery Me thod Nasal Cannula Nasal Cannula Nasal Cannula Oxygen Flow Rate 1 1 1 Documenting provider has reviewed patient's vital signs: yes Hospitalist - H&P: Result Labs Labs: BMP 08/12/22 09:12 Sodium 133 L Potassium 3.7 Chloride 97 Carbon Dioxide 29 BUN 10 Creatinine 0.6 Glucose 88 Calcium 8.1 L Ordering Physician: Gilles Lazcano M.D. Date of Service: 08/12/22 Procedure(s): XR chest 2V Accession Number(s): [id number] cc: Cookie Deras M.D.; Gilles Lazcano M.D.~ For Patients: As a result of the Cures Act, medical imaging exams and procedure reports are released immediately into your electronic medical record. You may view this report before your referring provider. If you have questions, please contact your health care provider. Indication: Multiple myeloma with increased pain Technique: Two views of the chest Comparison: Right rib radiograph on August 12, 2022. CT chest, abdomen and pelvis on July 18, 2022. chest radiograph on July 15, 2022 Findings and Impression: Lungs are clear. No pleural effusion or pneumothorax. Heart and mediastinum are stable. Aortic out is calcified, indicating atherosclerosis. No acute fracture. Heterogenous osseous structures no consistent with history of multiple myeloma. Calcification of the abdominal aorta. Cholecystectomy clips. Dictated by Ascencion Huang MD @ 08/12/2022 10:12:04 AM (Electronically Signed) Ordering Physician: Gilles Lazcano M.D. Date of Service: 08/12/22 Procedure(s): XR ribs RT 2V Accession Number(s): [id number] cc: Cookie Deras M.D.; Gilles Lazcano M.D.~ For Patients: As a result of the Cures Act, medical imaging exams and procedure reports are released immediately into your electronic medical record. You may view this report before your referring provider. If you have questions, please contact your health care provider. Indication: Right-sided rib pain Technique: Two views of the ribs. Comparison: Same day chest radiograph Findings: No pneumothorax or hemothorax. No displaced rib fracture. Heterogeneous osseous structures consistent with history of multiple myeloma. Impression: 1. No displaced rib fracture. 2. No pneumothorax or hemothorax. Dictated by Ascencion Huang MD @ 08/12/2022 10:20:18 AM (Electronically Signed) Ordering Physician: Gilles Lazcano M.D. Date of Service: 08/12/22 Procedure(s): CT angio chest PE protocol Accession Number(s): [id number] cc: Cookie Dears M.D.; Gilles Lazcano M.D.~ For Patients: As a result of the Cures Act, medical imaging exams and procedure reports are released immediately into your electronic medical record. You may view this report before your referring provider. If you have questions, please contact your health care provider. INDICATION: Chest pain. History of multiple myeloma. Rule out pulmonary embolism. TECHNIQUE: Volumetric helical scanning of the thorax was performed during infusion of 95 cc of Isovue 370 contrast material IV, timing optimized for pulmonary arterial opacification. Coronal and sagittal reconstructions were obtained. COMPARISON: Chest/abdomen/pelvis CT of 07/18/2022. FINDINGS: The images are of acceptable quality and demonstrate uniform vascular enhancement within the pulmonary arteries. No pulmonary arterial filling defect is identified. Mild cardiomegaly is again noted. Calcified coronary arterial plaque is again demonstrated. Fusiform enlargement of the ascending aorta to 4.0 cm in diameter is again noted. The lungs are clear. There is no significant airway abnormality. Tiny pleural effusions are again demonstrated bilaterally. There is no mediastinal or hilar adenopathy. The bony structures are diffusely abnormal, consistent with known multiple myeloma. A number of healing/healed rib fractures are noted bilaterally. No obvious acute rib fracture is demonstrated. An unchanged moderate T11 compression fracture is demonstrated. Images of the upper abdomen are unremarkable. IMPRESSION: 1. Negative for pulmonary embolism. 2. Mild cardiomegaly, coronary artery disease and stable fusiform enlargement of the ascending aorta to 4.0 cm in diameter. 3. Diffusely abnormal bony structures, consistent with known multiple myeloma. Healing/healed rib fractures bilaterally. No obvious acute rib fracture demonstrated. Unchanged moderate T11 compression fracture. 4. Tiny pleural effusions bilaterally, as before. Please note that all CT scans at this facility use dose modulation, iterative reconstruction, and/or weight-based dosing when appropriate to reduce radiation dose to as low as reasonably achievable. Dictated by Kevin Sagastume MD @ 08/12/2022 11:52:30 AM (Electronically Signed) 08/12/2022 1:23 p.m. EKG: Sinus rhythm with occasional premature ventricular complexes and premature atrial complexes. Heart rate 92 beats per minute. Possible left atrial enlargement. Inferior infarct, age undetermined. Possible anterolateral infarct age undetermined. With the exception of occasional premature ventricular complexes and premature atrial complexes, unchanged from prior EKG. Assessment and Plan Assessment and plan (1) Right-sided chest wall pain: Problem comment: - Suspect chest wall pain due to lytic lesions. PE ruled out by CT chest. Increase oxycodone and monitor on continuous pulse ox. Continue MS Contin at current dosing for now. Status: Acute (2) Hypoxia: Problem comment: results of CT chest, rib film, CXR, and EKG reviewed. Suspect multifactorial: high doses of narcotic medications and sleep apnea. Continue supplemental oxygen and wean as able. I discussed narcotic use, risk of respiratory depression, goals of care, and risk of use of other sedating medications with narcotics with Adalgisa and her . Status: Acute (3) Sleep apnea: Problem comment: AHI-21 09/24/2007 wears mouth guard Status: Acute (4) Plasma cell neoplasm: Problem comment: multiple myeloma, multiple lytic bony lesions, getting cycles of cytotoxic chemo and radiation Status: Chronic (5) Essential hypertension: Problem comment: Continue home meds. Status: Chronic (6) Compression fx, thoracic spine: Problem comment: On OxyContin scheduled and p.r.n. oxycodone with reasonably good pain control. Continue MiraLax. Status: Acute
[2022-08-12] MEDS: predniSONE 20 MG TABLET 40 MG PO (16:08)
[2022-08-12] MEDS: OXYCODONE 5 MG TABLET PO ×2 (16:09→20:42)
--- NOTE | 2022-08-12 18:34 | PC.NURSE ---
shift note: pt to rm via bed @ approx 1500. pt stated pain in lower back 5/. Pt denies nausea. Pt ambulated to bathroom with SBA. IV intact to lt hand.
[2022-08-12] MEDS: ACYCLOVIR 200 MG CAPSULE 400 MG PO (20:41)
[2022-08-12] MEDS: OMEPRAZOLE 20 MG CAPSULE DR 40 MG PO (20:41)
[2022-08-12] MEDS: GABAPENTIN 300 MG CAPSULE PO (20:42)
[2022-08-12] MEDS: SENNOSIDES 1 TAB TABLET PO (20:46)
[2022-08-12] MEDS: SODIUM CHLORIDE 0.9 % (FLUSH) 10 ML SYRINGE 5 ML IVF (20:47)
[2022-08-13] MEDS: OXYCODONE 5 MG TABLET PO ×3 (00:19→10:52)
[2022-08-13] MEDS: hydrOXYzine pamoate 25 MG CAPSULE PO ×2 (00:19→10:52)
[2022-08-13 04:00] VITALS: BP 146/88; PULSE 95; RESP 20; TEMP 36.7; O2SAT 95
[2022-08-13 07:03] LABS: Chloride* 97 mmol/L (96-114); Potassium* 3.1 mmol/L (3.6-5.1); Sodium* 133 mmol/L (135-149)
--- NOTE | 2022-08-13 07:03 | PC.NURSE ---
[id number]: Patient had no acute events overnight. Patient pain was well controlled. Patient slept well. slept overnight with patient. Patient with no c/o n/v. Ambulates with x1 assist.
[2022-08-13 07:06] LABS: Blood Urea Nitrogen* 11 mg/dL (7-30); Calcium* 7.6 mg/dL (8.4-10.6); Carbon Dioxide* 32 mmol/L (20-32); Creatinine* 0.6 mg/dL (0.5-1.5); Estimated Glomerular Filt Rate 100 ml/min; Glucose* 139 mg/dL (60-115)
[2022-08-13 08:00] VITALS: BP 136/81; PULSE 93; RESP 18; TEMP 36.7; O2SAT 94
[2022-08-13] MEDS: predniSONE 20 MG TABLET 40 MG PO (08:19)
[2022-08-13] MEDS: FUROSEMIDE 20 MG TABLET 40 MG PO (08:19)
[2022-08-13 09:00] VITALS: RESP 18; O2SAT 94
[2022-08-13] MEDS: GABAPENTIN 300 MG CAPSULE PO (09:18)
[2022-08-13] MEDS: METOPROLOL SUCCINATE (XL) 25 MG TAB PO (09:18)
[2022-08-13] MEDS: OMEPRAZOLE 20 MG CAPSULE DR 40 MG PO (09:18)
[2022-08-13] MEDS: ACYCLOVIR 200 MG CAPSULE 400 MG PO (09:18)
[2022-08-13] MEDS: allopurinoL 300 MG TABLET PO (09:19)
[2022-08-13] MEDS: SENNOSIDES 1 TAB TABLET PO (09:19)
[2022-08-13] MEDS: SERTRALINE 100 MG TABLET PO (09:19)
[2022-08-13] MEDS: LIDOCAINE 5% PATCH 1 PATCH TRANSDERMA (09:20)
[2022-08-13] MEDS: polyethylene glycoL 3350 17 GM PACK PO (09:21)
[2022-08-13] MEDS: SODIUM CHLORIDE 0.9 % (FLUSH) 10 ML SYRINGE 5 ML IVF (09:21)
[2022-08-13] MEDS: CALCITONIN SALMON NASAL SPRAY 200 UNIT 1 SPRAY NOSTRIL-B (10:36)
[2022-08-13 10:53] VITALS: BP 136/77; PULSE 88; RESP 18; TEMP 36.5; O2SAT 93
--- NOTE | 2022-08-13 11:23 | P.DS_ITS ---
DS: Providers Provider Date Seen: 08/13/22 Date of admission: 08/12/22 14:31 Primary care physician: Cookie Deras MD Admitting Clinician: Kevin Coles MD Attending Physician on discharge: Kristie Ellison MD [place] [facility] Date of Discharge: 08/13/22 DS: Diagnosis Discharge Diagnosis (1) Multiple myeloma: Status: Acute Problem details: -has close follow-up with Dr. Grover. Discharging on prednisone burst and taper, 40 mg p.o. q.day x5 days, 20 mg p.o. q.day x5 days, 10 mg p.o. q.day x5 days 5 mg p.o. q.day x5 days. (2) Pain crisis: Status: Acute Problem details: -keeping opioid schedule the same -adding hydroxyzine 30 minutes prior to opioid dose -discussed palliative care consult which can be arranged through heme Onc and/or radiation oncology (3) Hypoxia: Status: Acute Problem details: results of CT chest, rib film, CXR, and EKG reviewed. Suspect multifactorial: high doses of narcotic medications and sleep apnea. -resolved overnight. Patient is ambulating on room air. (4) Hypokalemia: Status: Acute Problem details: -continue to monitor. (5) Sleep apnea: Status: Acute Problem details: AHI-21 09/24/2007 wears mouth guard -discussed with primary care regarding CPAP prescription and or if a new sleep study is warranted. -continue use of aroma cotton ISP at home. DS: Summary Hospital Course Hospital Course: HOSPITALIST DISCHARGE SUMMARY ATTENDING PHYSICIAN: Kristie Ellison MD FINAL DIAGNOSIS: Pain crisis related to multiple myeloma treatment Hypoxia related to multifactorial respiratory depression and obstructive sleep apnea Obstructive sleep apnea HOSPITAL FOLLOWUP ISSUES: 1. Palliative care, pain management. We kept the opioid doses the same. We initiated a prednisone burst and taper. We added hydroxyzine 25 mg 30 minutes before opioid dosing. Education regarding pain management expectations. 2. Hypokalemia, mild to moderate. Likely related to diuretic dosing. Continue to monitor and supplement. 3. Multiple myeloma -continue current cares with treatment team 4. JAE - continue ISP, aerobika, and consider CPAP rx from PCP. REFERRALS WHILE ADMITTED: None REFERRALS AFTER DISCHARGE: None BRIEF HOSPITAL COURSE: Cecy presented in acute pain crisis related to her multiple myeloma treatment. Her home opioid plan was simply not cutting it. She was also found to be hypoxic. Treated this mild hypoxia to opioid medications and obstructive sleep apnea. We added Solu-Medrol at admission and then p.o. prednisone the day after in combination with Atarax and achieved much better pain control and prior to admission. I have advised Cecy to continue on a prednisone burst and taper until she can see her oncologist. I have advised incentive spirometry, Aerobika, hydroxyzine before opioids to help with pain management and for venting hypoxia. I have asked her to see her primary care doctor and arranges sleep study and or CPAP prescription. SUBSTANTIVE NOTATIONS ON IMAGING, LAB, MICROBIOLOGY/PATHOLOGY STUDIES: 136/77, pulse 88, resp is 18, afebrile. O2 sats are 93% on room air Sodium is 133 Potassium 3.[address] chest 1. Negative for pulmonary embolism. 2. Mild cardiomegaly, coronary artery disease and stable fusiform enlargement of the ascending aorta to 4.0 cm in diameter. 3. Diffusely abnormal bony structures, consistent with known multiple myeloma. Healing/healed rib fractures bilaterally. No obvious acute rib fracture demonstrated. Unchanged moderate T11 compression fracture. 4. Tiny pleural effusions bilaterally, as before. DISCHARGE MEDICATIONS: See Reconciled list - SIGNIFICANT CHANGES: Prednisone burst and taper Hydroxyzine Continued opioids at admission doses potassium supplement REVIEW OF SYSTEMS No new chest pain or dyspnea Pain controlled No voiding difficulties Tolerating diet challenge PHYSICAL EXAM: CONSTITUTIONAL: VITAL SIGNS: see record. HEENT: Normocephalic, atraumatic. PERRL, EOMI, conjunctivae pink, no scleral icterus. Ears and nose externally normal. Pharynx normal. NECK: No JVD. No carotid bruit, no thyromegaly, no adenopathy. CHEST: Clear to auscultation bilaterally. HEART: S1 and S2 normal. Edema ABDOMEN: Soft, nontender. Normal bowel sounds. MUSCULOSKELETAL: No gross joint deformity or swelling. NEURO: Cranial nerves intact. Grossly intact. No asymmetric findings. SKIN: No rashes, petechiae, concerning changes PSYCHIATRIC: Mood euthymic. DISPOSITION: Home with family Time spent on discharge 37 minutes. Status at Discharge Functional status at discharge: independent ambulation Overall status at discharge: patient is progressing back to baseline Time Spent with Patient Time attestation: Total time spent providing and/or coordinating discharge services: Time spent: Greater than 30 minutes Exam Const: Vital Signs, click to edit/add: Vital Signs - 24 hr 08/12/22 11:30 08/12/22 11:31 08/12/22 11:45 Temperature Pulse Rate 89 89 94 Pulse Rate [Pulse Oximeter] Pulse Rate [Right Brachial] Respiratory Rate Blood Pressure 143/78 H 127/88 Blood Pressure [Ri ght Arm] Pulse Oximetry 97 96 96 Oxygen Delivery Me thod Nasal Cannula Nasal Cannula Nasal Cannula Oxygen Flow Rate 2 2 2 08/12/22 11:46 08/12/22 12:00 08/12/22 12:01 Temperature Pulse Rate 90 88 85 Pulse Rate [Pulse Oximeter] Pulse Rate [Right Brachial] Respiratory Rate Blood Pressure 139/71 Blood Pressure [Ri ght Arm] Pulse Oximetry 93 96 92 Oxygen Delivery Me thod Nasal Cannula Nasal Cannula Nasal Cannula Oxygen Flow Rate 2 2 2 08/12/22 12:02 08/12/22 12:15 08/12/22 12:33 Temperature Pulse Rate 89 98 97 Pulse Rate [Pulse Oximeter] Pulse Rate [Right Brachial] Respiratory Rate Blood Pressure Blood Pressure [Ri ght Arm] Pulse Oximetry 97 99 91 Oxygen Delivery Me thod Nasal Cannula Nasal Cannula Nasal Cannula Oxygen Flow Rate 2 2 1 08/12/22 12:36 08/12/22 12:45 08/12/22 13:00 Temperature Pulse Rate 84 85 91 Pulse Rate [Pulse Oximeter] Pulse Rate [Right Brachial] Respiratory Rate Blood Pressure 168/87 H Blood Pressure [Ri ght Arm] Pulse Oximetry 95 95 96 Oxygen Delivery Me thod Nasal Cannula Nasal Cannula Nasal Cannula Oxygen Flow Rate 1 1 1 08/12/22 13:21 08/12/22 13:23 08/12/22 13:24 Temperature Pulse Rate 102 H 92 91 Pulse Rate [Pulse Oximeter] Pulse Rate [Right Brachial] Respiratory Rate Blood Pressure 153/85 H Blood Pressure [Ri ght Arm] Pulse Oximetry 94 96 97 Oxygen Delivery Me thod Nasal Cannula Nasal Cannula Room Air Oxygen Flow Rate 1 1 08/12/22 13:30 08/12/22 13:45 08/12/22 14:00 Temperature Pulse Rate 88 82 87 Pulse Rate [Pulse Oximeter] Pulse Rate [Right Brachial] Respiratory Rate Blood Pressure Blood Pressure [Ri ght Arm] Pulse Oximetry 96 94 95 Oxygen Delivery Me thod Room Air Nasal Cannula Nasal Cannula Oxygen Flow Rate 1 1 08/12/22 14:16 08/12/22 15:22 08/12/22 16:11 Temperature 97.8 F Pulse Rate 92 Pulse Rate [Pulse Oximeter] Pulse Rate [Right Brachial] 92 Respiratory Rate 22 Blood Pressure Blood Pressure [Ri ght Arm] 164/86 H Pulse Oximetry 95 97 91 Oxygen Delivery Me thod Nasal Cannula Room Air Oxygen Flow Rate 1 08/12/22 16:11 08/12/22 19:00 08/12/22 23:00 Temperature 97.0 F L Pulse Rate Pulse Rate [Pulse Oximeter] Pulse Rate [Right Brachial] 92 Respiratory Rate 20 20 Blood Pressure Blood Pressure [Ri ght Arm] 167/88 H Pulse Oximetry 91 95 Oxygen Delivery Me thod Room Air Nasal Cannula Oxygen Flow Rate 1 08/12/22 23:00 08/12/22 23:00 08/13/22 04:00 Temperature 98.1 F 98.1 F Pulse Rate Pulse Rate [Pulse Oximeter] Pulse Rate [Right Brachial] 97 95 Respiratory Rate 20 20 20 Blood Pressure Blood Pressure [Ri ght Arm] 155/91 H 146/88 H Pulse Oximetry 95 95 95 Oxygen Delivery Me thod Room Air Nasal Cannula Room Air Oxygen Flow Rate 1 1 08/13/22 08:00 08/13/22 09:00 08/13/22 10:53 Temperature 98.0 F 97.7 F Pulse Rate Pulse Rate [Pulse Oximeter] 88 Pulse Rate [Right Brachial] 93 Respiratory Rate 18 18 18 Blood Pressure Blood Pressure [Ri ght Arm] 136/81 136/77 Pulse Oximetry 94 94 93 Oxygen Delivery Me thod Room Air Room Air Room Air Oxygen Flow Rate DS: Data Data Completed and Pending Completed studies during hospitalization: Procedures Transfusion of Nonautologous Red Blood Cells into Peripheral Vein, Percutaneous Approach (07/15/22) Labs on day of discharge: Labs from last 24 hours 08/13/22 08/12/22 06:32 12:50 Sodium 133 L Potassium 3.1 L Chloride 97 Carbon Dioxide 32 BUN 11 Creatinine 0.6 Estimated Creat Clear 46.40 Estimated GFR 100 Glucose 139 H Calcium 7.6 L POC Troponin I 0.00 L Discharge Plan Discharge Disposition: Home w/ Parent or Adult Date of Admission: 08/12/22 14:31 Attending Provider on Discharge: Kristie Ellison Primary Care Provider: Cookie Deras Anticipated Discharge Date/Time: 08/13/22 10:29 Discharge Medications: New sertraline 100 mg Tablet 100 mg PO DAILY Qty: 30 0RF sulfamethoxazole-trimethoprim 800-160 mg Tablet 1 tab PO MOWEFR Qty: 30 0RF omeprazole 20 mg Capsule,Delayed Release(Dr/Ec) 40 mg PO BID Qty: 60 0RF acyclovir 200 mg Capsule 400 mg PO BID Qty: 60 0RF oxycodone 5 mg Tablet 5 - 10 mg PO Q4H PRN (Reason: pain) Qty: 60 0RF methocarbamol 500 mg Tablet 500 mg PO TID Qty: 30 0RF prednisone 20 mg Tablet 40 mg PO DAILYWM Qty: 17 0RF Rx Instructions: take 2 tabs (40mg) for the next five days, 1 tab (20mg) for five days, 1/2 tab (10mg) for four days, then use the other bottle of 10mg for 4 days of 1/2 tab (5mg) lidocaine 5 % Adhesive Patch,Medicated 1 patch transdermal DAILY Qty: 30 0RF gabapentin 300 mg Capsule 300 mg PO BID Qty: 60 0RF morphine 15 mg Tablet Extended Release 45 mg PO Q12H Qty: 60 0RF allopurinol 300 mg Tablet 300 mg PO DAILY Qty: 30 0RF furosemide 20 mg Tablet 40 mg PO BID@0800,1400 Qty: 120 0RF metoprolol succinate 25 mg Tablet Extended Release 24 Hr 25 mg PO DAILY Qty: 30 0RF hydroxyzine pamoate 25 mg Capsule 25 mg PO TID Qty: 90 0RF prednisone 10 mg tablet 5 mg PO DAILY Qty: 2 0RF Rx Instructions: take 1/2 tab (5mg) for four days after previous taper calcitonin (salmon) 200 unit/actuation [place],Non-Aerosol 1 spray intranasal DAILY Qty: 3.7 0RF potassium chloride 20 mEq tablet extended release 20 meq PO DAILY Qty: 30 0RF Continued acyclovir 400 mg tablet 400 mg PO BID pantoprazole [Protonix] 40 mg tablet,delayed release (DR/EC) 40 mg PO BID furosemide [Lasix] 20 mg tablet 40 mg PO QAM senna 8.6 mg capsule 8.6 mg PO QDAY sulfamethoxazole-trimethoprim [Bactrim DS] 800-160 mg tablet 1 tab PO MOWEFR oxycodone 5 mg tablet 5 mg PO Q4H PRN (Reason: pain) Qty: 60 0RF gabapentin 300 mg capsule 300 mg PO BID Patient Comments: TAKE 1 CAPSULE BY MOUTH TWICE DAILY metoprolol succinate 25 mg tablet extended release 24 hr 25 mg PO DAILY Patient Comments: TAKE 1 TABLET BY MOUTH EVERY DAY methocarbamol 500 mg tablet 250 mg PO TID Patient Comments: PRN MUSCLE SPASM polyethylene glycol 3350 17 gram/dose powder 17 g PO DAILY lidocaine 4 % adhesive patch,medicated 1 patch topical DAILY Patient Comments: ON FOR 12HRS TO MOST PAINFUL AREA Rx Instructions: may leave on for up to 12 hrs acetaminophen [Acetaminophen Extra Strength] 500 mg tablet 1,000 mg PO TID PRN methyl salicylate-menthol 15-10 % cream 1 applic topical TID Patient Comments: JAMES morphine 30 mg tablet extended release 45 mg PO Q12H sertraline 100 mg tablet 100 mg PO DAILY allopurinol 300 mg tablet 300 mg PO DAILY oxycodone 20 mg tablet,oral only,ext.rel.12 hr 20 mg PO BID naloxone 4 mg/actuation spray,non-aerosol 1 spray INTRANASAL .UD PRN Patient Comments: 1 SPRAY INTO ONE NOSTRIL FOR REVERSAL. USE 1 SPRAY IN 1 NOSTRIL. REPEAT WITH SECOND DEVICE IN OTHER NOSTRIL AFTER 2-3 MINUTES IF NO RESPONSE ondansetron HCl 4 mg tablet 4 mg PO Q6H Qty: 30 0RF lorazepam 0.5 mg tablet 0.5 mg PO QHS PRNQty: 30 0RF calcitonin (salmon) 200 unit/actuation spray,non-aerosol 1 spray intranasal (ALT) DAILY Qty: 1 0RF sertraline 50 mg tablet 50 mg PO DAILY Qty: 30 0RF Changed cyclophosphamide 50 mg capsule 50 mg PO DAILY Qty: 30 0RF Held dexamethasone 20 mg tablet 40 mg PO DAILY Hold Instructions: Resume on 08/20/22. take only as directed with next cycle. Patient Comments: Takes 40mg Day 1-2-3-4 of treatment every 21 days Discharge Orders: Discharge Order (Routine); Ordered 08/13/22 Ordered By: Kristie Ellison Patient Education: Prednisone (By mouth), Pain Management (DC), Hypoxia (GEN) Activity Level: Activity as Tolerated Discharge Diet: Regular Follow Up Appointments: Elena Grover MD [Staff Physician] - 08/14/22 (confirm that she has an appt this week with heme/onc) Cookie Deras MD [Primary Care Provider] - 08/21/22 2:40 pm ([facility] f/u on zoloft, CPAP renewal, med refills.) Forms: [facility] Info Instructions
--- NOTE | 2022-08-13 13:54 | RESP.RT ---
PEP Therapy with Aerobika to Patient and Family. Information, instruction, and demonstration on using, cleaning Aerobika. Patient return demonstration with exhalation with good chest shake. Had Patient and Family feel chest shake to help understand use of Aerobika. Both stated verbally they understood use and cleaning of Aerobika. Patient will self administer treatments, Family will encourage patient to use.
--- NOTE | 2022-08-13 18:16 | PC.NURSE ---
D/c: A&O. SBA w/ walker. VSS. Denies n/v. Complained of 5/10 pain, PRN oxycodone and Vistaril given w/ relief. IV removed w/ tip intact. D/c instructions given verbally to pt and . Written copy sent home w/ pt. All questions answered. D/c around 1400 w/ .
== END 2022-08-13 13:51 | disposition home or self-care (01) ==
LOC: ED 14:14 → MEDSURG 14:32
PROVIDERS: Family Medicine; Admitting Provider Family Medicine; Emergency Provider Family Medicine; PCP Family Medicine; Visit Provider Family Medicine
DX: C90.00 Multiple myeloma not having achieved remission (principal); R09.02 Hypoxemia; R07.89 Other chest pain; G47.33 Obstructive sleep apnea (adult) (pediatric); E87.6 Hypokalemia; J90 Pleural effusion, not elsewhere classified; S22.000A Wedge compression fracture of unspecified thoracic vertebra, initial encounter for closed fracture; I25.10 Atherosclerotic heart disease of native coronary artery without angina pectoris; I11.9 Hypertensive heart disease without heart failure; E83.52 Hypercalcemia; D49.89 Neoplasm of unspecified behavior of other specified sites; R60.0 Localized edema; M54.9 Dorsalgia, unspecified; R53.83 Other fatigue; R21 Rash and other nonspecific skin eruption; B02.9 Zoster without complications; Z79.891 Long term (current) use of opiate analgesic; Z79.899 Other long term (current) drug therapy; Z98.890 Other specified postprocedural states; Z90.49 Acquired absence of other specified parts of digestive tract; Z87.891 Personal history of nicotine dependence; Z87.81 Personal history of (healed) traumatic fracture
CPT/HCPCS: 36415; 71046; 71100; 71260; 80048; 84484; 93005; 94664; 94761; 96361; 96374; 96375; 99284; 99285; A9270; G0378; J1170; J2930; J7030; J7512; Q9967

== ENCOUNTER 2022-11-10 20:19 | Inpatient (IN) | payer MEDICARE, BC, SELFPAY ==
[2022-11-10] VITALS (23 sets, daily range): BP systolic 134–170; BP diastolic 70–112; PULSE 85–110; RESP 18–20; TEMP 37.4; O2SAT 68–97; BMI 28.3
--- NOTE | 2022-11-10 20:41 | CRLHL7_ITS ---
For Patients: As a result of the Cures Act, medical imaging exams and procedure reports are released immediately into your electronic medical record. You may view this report before your referring provider. If you have questions, please contact your health care provider. INDICATION: COVID positive, shortness of breath TECHNIQUE: CT chest pulmonary PE protocol acquired with 95 cc Isovue 370 IV contrast. COMPARISON: September 04, 2022 FINDINGS: Cardiovascular structures: Normal vascular enhancement of the pulmonary arteries, no sign of pulmonary embolism. The ascending aorta measures 4.2 cm cardiomegaly with coronary artery calcifications. Mediastinum and cresencio: No mass or adenopathy. Lungs: Clear. Pleura and pericardium: No effusions. Chest wall and axilla: No mass or adenopathy. Upper abdomen: Status post cholecystectomy. Bones: Osteopenia. There is an acute, minimally displaced fracture of the right posterior 10th rib. There are healed fractures of the right 2nd, 3rd, 6th 7th, and 8th ribs. Healed fractures of the left 4th, 5th, 7th and 8th ribs. Old compression fractures of the 7th through 9th and T11 through L1 vertebrae. IMPRESSION: No pulmonary embolism, pneumonia, or acute intrathoracic abnormality. Acute right posterior 10th rib fracture. No pneumothorax. Osteopenia. Multiple bilateral healed rib fractures. Multiple old compression fractures in the thoracic spine. Dilatation of the ascending aorta. Cardiomegaly with coronary artery disease. Status post cholecystectomy. Please note that all CT scans at this facility use dose modulation, iterative reconstruction, and/or weight-based dosing when appropriate to reduce radiation dose to as low as reasonably achievable. Dictated by Luda Bonner MD @ 11/11/2022 12:27:19 AM (Electronically Signed)
--- OUTSIDE RECORDS SUMMARY | 2022-11-10 20:52 | XMS_ITS | Continuity of Care Document ---
Author Name Unknown Organization [facility] Address [address] [place] [address] Phone Care Team Providers Care Senior Materials Planner Name Role Phone Miguel Angel Chin Unavailable Unavailable Allergies, Adverse Reactions, Alerts Substance Reaction Status Criticality PROCAINE HCL Active No Information NAPROXEN SODIUM Active No Informati on Medications Medication Instructions Dosage Effective Dates (start - stop) Status Comments lorazepam (bulk) 100 % powder - Active METOPROLOL TARTRATE (unknown strength) Not Available - Active SERTRALINE HCL (unknown strength) Not Available - Active VALACYCLOVIR HCL (unknown strength) Not Available - Active HYDROCHLOROTHIAZIDE (unknown strength) Not Available - Active MUPIROCIN (unknown strength) Not Available - Active POTASSIUM (unknown strength) Not Available - Active VITAMIN B-12 (unknown strength) Not Available - Active ATORVASTATIN CALCIUM (unknown strength) Not Available - Active COENZYME Q10 (unknown strength) Not Available - Active FLAXSEED OIL (unknown strength) Not Available - Active OMEGA-3 FISH OIL (unknown strength) Not Available - Active VITAMIN D3 (unknown strength) Not Available - Active DURLAZA (unknown strength) Not Available - Active Procedures Procedure Date Office/Outpatient Visit,New, Mod 2022 Office/Outpatient Visit,Est, Mod 2019 Office/Outpatient Visit,Est, Mod 2018 Office/Outpatient Visit,Est, Mod 2018 Office/Outpatient Visit,New, Mod 2016 Advance Directives Directive Yes / No Effective Date File Name No Information Encounters Encounter Description Practice Location Reason(s) For Visit Diagnoses Date Provider Providers Copied on Encounter Office/Outpati ent Visit,New, Mod [facility], [address], [place], [place], [id number], [place] tel:[phone] [facility] Pain in thoracic spine Atul Miguel Angel. [facility], [address], [place], [place], [id number], [place]. tel:[phone] Referring Provider: Cookie Deras [facility] [address] [facility], [place], [address]. tel:[phone] Office/Outpati ent Visit,Est, Mod [facility], [address], [place], [place], [id number], [place] tel:[phone] [facility] [place] Spinal stenosis, cervical region Atul Michelle. [facility], [address], [place], [place], [id number], [place]. tel:[phone] Referring Provider: Cookie Deras [facility] [address] [facility], [place], [address]. tel:[phone] Office/Outpati ent Visit,Est, Mod [facility], [address], [place], [place], [id number], [place] tel:[phone] [facility] [place] Spinal stenosis, cervical region Atul Michelle. [facility], [address], [place], [place], [id number], [place]. tel:[phone] Referring Provider: [facility] [address] [facility], [place], [address]. tel:[phone] Office/Outpati ent Visit,Est, Mod [facility], [address], [place], [place], [id number], [place] tel:[phone] [facility] [place] [facility] Spinal stenosis, cervical region Atul Bush [facility], [address], [place], [place], [id number], [place]. tel:[phone] Referring Provider: [facility] [address] [facility], [place], [address]. tel:[phone] Office/Outpati ent Visit,[facility], [address], [place], [place], [id number], [place] tel:[phone] [facility] [place] [facility] Spinal stenosis, cervical region Atul Michelle. [facility], [address], [place], [place], [id number], [place]. tel:[phone] Referring Provider: [facility] [address] [facility], [place], [address]. tel:[phone] [facility], [address], [place], [place], [id number], [place] tel:[phone] [facility] Spinal stenosis, cervical region Javier Hinkle. [facility], [address], [place], [address], [place]. tel:[phone] Family History Family Member Type Diagnosis Age At Onset No Information Payers Payer name Insurance type Covered green party [place] joe([place] [id number] [facility] [id number] Social History Type Description Quantity Date Captured Comments Alcohol Use Details Unknown Caffeine Use Details Unknown Tobacco Use Status Ex-cigarette smoker 023 Smoking Status Former smoker Smoking Tobacco Use Details Cigarette: No Details Available Cigarette: No Details Available Sex Female Vital Signs Date / Time: Height Weight BMI Pulse Rate Blood Pressure Temperature Respiratory Rate Body Surface Area Head Circumference Head Circ. Percentile Wt./Cesar. Percentile BMI percentile Pulse Ox Inhaled Ox 11:07 AM 63.00 in 73.482 kg (162.00 lbs) 28.7 0 kg/m eter (2) Chief Complaint And Reason For Visit No Information Reason For Referral Reason For Referral No Information History Of Present Illness Encounter Date Complaint History Of Prese nt Illness No Information Functional Status Date Functional Assessmen t No Information Instructions Date Instruction Additional Infor mation Weight Management Education Rela emil to Overweight Weight management: I nstructed to return to General Practitioner timeframe: 1 Month. Related to Overweight Assessments Type Assessment Date assessment Pain in thoracic spine 23 Patient Care Teams Name Effective Dates (start - stop) Status Members No Information
--- NOTE | 2022-11-10 20:53 | ED_ITS ---
HPI - General Adult General Date Seen: 11/10/22 Chief complaint: Shortness of Breath/Dyspnea Stated complaint: Covid+, fever Time Seen by Provider: 11/10/22 20:32 Source: patient Mode of arrival: ambulatory Limitations: no limitations History of Present Illness HPI narrative: Patient is a 66-year-old female with a history of Plasma cell myeloma presenting to the emergency department for fatigue. She has been having fatigue for the past couple days. She states her whole family has been sick at home. She tested positive today for COVID. She is here with her states they have been checking her oxygen at home and has been gradually declining and has been sitting about 85% on room air. She does not wear oxygen at home at baseline. She denies chest pain, shortness of breath, diarrhea, constipation, vision changes. Does states she has a mild headache similar to headaches he has had before. She is also states she has abdominal pain but states this is chronic is not any different than normal. Most recent round of chemotherapy was this past Saturday. Denies any fevers. Related Data Home Medications Medication Instructions Recorded Confirmed acetaminophen 500 mg tablet 1,000 mg PO TID PRN 07/15/22 11/11/22 (Acetaminophen Extra Strength) polyethylene glycol 3350 17 17 g PO DAILY 07/15/22 11/10/22 gram/dose oral powder sennosides 8.6 mg capsule (senna) 8.6 mg PO BID 08/02/22 11/10/22 naloxone 4 mg/actuation nasal spray 1 spray intranasal .UD PRN 08/12/22 11/10/22 sertraline 100 mg tablet 150 mg PO DAILY 08/12/22 11/10/22 morphine 30 mg tablet,extended 60 mg PO BID 08/14/22 11/10/22 release (MS Contin) omeprazole 40 mg capsule,delayed 40 mg PO DAILY 08/14/22 11/10/22 release aspirin 81 mg tablet,delayed 81 mg PO DAILY 09/04/22 11/10/22 release (Enteric Coated Aspirin) bortezomib 3.5 mg injection powder 2.3 mg subcut QWEEK 09/04/22 11/10/22 for solution (Velcade) calcium carbonate 600 mg-vitamin 1 tab PO BID 09/04/22 11/10/22 D3 10 mcg (400 unit) tablet ondansetron HCl 4 mg tablet 4 mg PO Q6H PRN nausea and vomiting 09/04/22 oxycodone 5 mg tablet 10 mg PO Q4H PRN pain 09/04/22 11/10/22 dexamethasone 4 mg tablet 20 mg PO QWEEK 10/03/22 11/10/22 calcium carbonate 300 mg (750 mg) 300 mg PO QID 10/23/22 11/10/22 chewable tablet (Tums) trazodone 50 mg tablet 50 mg PO QHS PRN 10/23/22 11/10/22 daratumumab 1,800 15 ml subcut Q2W 11/11/22 11/11/22 [id number] 30,000 unit/15 mL subcut soln (Darzalex Faspro) Previous Rx's Medication Instructions Recorded lorazepam 0.5 mg tablet 0.5 mg PO QHS PRN #30 tabs 08/13/22 methocarbamol 500 mg tablet 500 mg PO TID #30 tabs 08/13/22 metoprolol succinate 25 mg 25 mg PO DAILY #30 tabs 08/13/22 tablet,extended release 24 hr potassium chloride 20 mEq 20 meq PO DAILY #30 tabs 08/13/22 tablet,extended release acyclovir 400 mg tablet 400 mg PO BID #60 tabs 08/14/22 morphine 30 mg tablet,extended 30 mg PO DAILY@1200 30 days #30 09/06/22 release tabs sodium chloride 1,000 mg soluble 1,000 mg PO QDAY electrolyte 10/10/22 tablet replenishment #60 tabs cyclophosphamide 50 mg capsule 50 mg PO DAILY #30 caps 11/02/22 sulfamethoxazole 800 1 tab PO MOWEFR #30 tabs 11/02/22 mg-trimethoprim 160 mg tablet (Bactrim DS) dronabinol 5 mg capsule (Marinol) 5 mg PO BID #60 caps 11/06/22 Allergies Allergy/AdvReac Type Severity Reaction Status Date / Time naproxen [From Aleve] Allergy Severe Anaphylaxis Verified 11/11/22 05:10 bupropion [From Wellbutrin] Allergy Mild Unknown Verified 11/11/22 05:10 Review of Systems Status of ROS: Reports: 10 or more systems reviewed and unremarkable except as noted in History and below [facility] Medical History Acute respiratory failure with hypoxia ?J96.01 - Acute respiratory failure with hypoxia (ICD-10) Community acquired pneumonia ?J18.9 - Pneumonia, unspecified organism (ICD-10) Hypoxia ?R09.02 - Hypoxemia (ICD-10) Fever ?R50.9 - Fever, unspecified (ICD-10) Pain crisis ?R52 - Pain, unspecified (ICD-10) Lytic bone lesions on xray ?M89.9 - Disorder of bone, unspecified (ICD-10) Hypokalemia ?E87.6 - Hypokalemia (ICD-10) Pneumonia ?J18.9 - Pneumonia, unspecified organism (ICD-10) Multiple myeloma ?C90.00 - Multiple myeloma not having achieved remission (ICD-10) Polyp of duodenum ?K31.7 - Polyp of stomach and duodenum (ICD-10) Osteoarthritis ?M19.90 - Unspecified osteoarthritis, unspecified site (ICD-10) Compression fracture of L4 vertebra (~06/19/22) ?S32.040A - Wedge compression fracture of fourth lumbar vertebra, initial encounter for closed fracture (ICD-10) Compression fracture of L2 (~06/19/22) ?S32.020A - Wedge compression fracture of second lumbar vertebra, initial encounter for closed fracture (ICD-10) Compression fracture of T12 vertebra (~06/19/22) ?S22.080A - Wedge compression fracture of T11-T12 vertebra, initial encounter for closed fracture (ICD-10) Compression fracture of L1 lumbar vertebra (~06/19/22) ?S32.010A - Wedge compression fracture of first lumbar vertebra, initial encounter for closed fracture (ICD-10) Compression fracture of T11 vertebra (~06/19/22) ?S22.080A - Wedge compression fracture of T11-T12 vertebra, initial encounter for closed fracture (ICD-10) Primary osteoarthritis of right knee ?M17.11 - Unilateral primary osteoarthritis, right knee (ICD-10) Carpal tunnel syndrome, bilateral ?G56.03 - Carpal tunnel syndrome, bilateral upper limbs (ICD-10) Trigger finger of right thumb ?M65.311 - Trigger thumb, right thumb (ICD-10) Alcohol use disorder in remission ?F10.91 - Alcohol use, unspecified, in remission (ICD-10) Pulmonary nodule ?R91.1 - Solitary pulmonary nodule (ICD-10) Adenomatous colon polyp ?D12.6 - Benign neoplasm of colon, unspecified (ICD-10) Shingles ?B02.9 - Zoster without complications (ICD-10) Depression with anxiety ?F41.8 - Other specified anxiety disorders (ICD-10) Allergic rhinitis ?J30.9 - Allergic rhinitis, unspecified (ICD-10) Sleep apnea ?G47.30 - Sleep apnea, unspecified (ICD-10) Essential hypertension ?I10 - Essential (primary) hypertension (ICD-10) Hypercalcemia ?E83.52 - Hypercalcemia (ICD-10) Anemia ?D64.9 - Anemia, unspecified (ICD-10) Thoracic aortic aneurysm without rupture ?I71.20 - Thoracic aortic aneurysm, without rupture, unspecified (ICD-10) Surgical History History of intestinal surgery ?Z98.890 - Other specified postprocedural states (ICD-10) History of thoracic surgery (~05/28/22) ?Z98.890 - Other specified postprocedural states (ICD-10) History of refractive surgery ?Z98.890 - Other specified postprocedural states (ICD-10) H/O esophagogastroduodenoscopy (~01/11/22) ?Z98.890 - Other specified postprocedural states (ICD-10) Hx of appendectomy ?Z90.49 - Acquired absence of other specified parts of digestive tract (ICD- 10) S/P carpal tunnel release (~09/20/21) ?Z98.890 - Other specified postprocedural states (ICD-10) H/O colonoscopy ?Z98.890 - Other specified postprocedural states (ICD-10) Family History Mother Colon cancer Heart disease Sister Pancreatic cancer Heart disease High blood pressure Father Prostate cancer Brother Diabetes Daughter Meningioma Social History Narrative: . Living with daughter, Fidelia, since diagnosis of MM. Fidelia is a nurse and is helping set up and administer Adalgisa's many medications. What is your current living situation?: I presently have a place to live Problems where you live: no known problems Problems where you live details: n/a In the past 12 months, utilities in danger of being shut off: no In the past 12 mos, have been you worried that your food would run out before you had money to buy more?: never true In the past 12 mos, the food you bought just didn't last and you didn't have money to buy more?: never true Highest level of school completed/degree received: 12th grade, no diploma Smoking Status: Former smoker What tobacco products do you use: cigarettes Smoking quit date/years: >15 years ago Do you use any of these nicotine containing products: None Second hand tobacco smoke exposure: No How often do you have a drink containing alcohol: never How often do you have six or more drinks on one occasion: Never AUDIT-C Alcohol total score: 0 Non-prescribed substance use: denies use Caffeine: No How often does anyone, including family, friends and others, physically hurt you : never How often does anyone, including family, friends and others, insult or talk down to you: never How often does anyone, including family, friends and others, threaten you with harm: never How often does anyone, including family, friends and others, scream or curse at you: never service: No Exam Narrative: Exam Narrative: Const: Well-nourished, Well-developed, in mild distress Eyes: PERRL, no conjunctival injection, and symmetrical lids ENMT: Atraumatic external nose and ears. Moist mucous membranes. Neck: Symmetric, trachea midline, No thyromegaly. CVS: RRR, No murmurs or gallops. Peripheral pulses 2+ and equal in all extremities RESP: Unlabored respiratory effort. Clear to auscultation bilaterally. GI: Nontender/Nondistended, No rebound or guarding. MSK:Extremities w/o deformity, Normal Active ROM Skin: Warm, Dry. No rashes or lesions. Neuro: Normal Muscle tone, No focal neurological deficits. Psych: Awake, Alert, & Oriented x3. Appropriate mood and affect. Const: Vital Signs, click to edit/add: Vital Signs - 24 hr 11/12/22 03:00 11/12/22 07:49 11/12/22 08:00 Temperature 98.1 F 99.3 F Pulse Rate [Pulse Oximeter] 80 Respiratory Rate 18 20 20 Blood Pressure [Ri ght Arm] 143/62 H 148/77 H Pulse Oximetry 94 92 92 Oxygen Delivery Me thod Room Air Room Air Room Air Course Vital Signs Vital signs: Initial Vital Signs Pulse Oximetry 68 L 11/10/22 20:25 Oxygen Delivery Method Room Air 11/10/22 20:25 Vital Signs Pulse Oximetry 68 L 11/10/22 20:25 Oxygen Delivery Method Room Air 11/10/22 20:25 Temperature 99 F 11/12/22 11:22 Pulse Rate 71 11/12/22 11:22 Respiratory Rate 18 11/12/22 11:22 Blood Pressure 141/88 H 11/12/22 11:22 Pulse Oximetry 91 11/12/22 11:22 Oxygen Delivery Method Room Air 11/12/22 11:22 Oxygen Flow Rate 0.5 11/11/22 22:24 Medical Decision Making MDM Narrative Medical decision making narrative: Patient is a 66-year-old female with a history of plasma cell myeloma presents to the emergency department for fatigue. She has been having symptoms for the past day or 2. She states she test positive for COVID today. Denies any chest pain or shortness of breath. In triage states she was and 68% room air and face are non-rebreather and she quickly came back up to 100%. She is now on 2 L nasal cannula satting 92%. We tried to bring it down a 1 L she dropped down 89% she was put back up to 2 L. her states that she has also been dropping down to the 80s on room air at home. CBC, CMP, COVID/flu/RSV, troponin were all ordered. Lactate is 1.3. Also a CT of the chest to rule out blood clots. CBC shows no concerning abnormalities. Hemoglobin appears to be at baseline, CMP shows sodium 131 no clear concerning abnormalities. Troponin is less than 0.01. She is COVID positive. CTA results returned showing no signs of pu lmonary embolism or other signs of pneumonia. There does appear to be a right posterior 10th rib fracture and multiple old healed fractures. I asked her if she fell but but before even told her about the rib fractures she estimates she had another 1 because she gets told multiple times she has rib fractures from the multiple myeloma. Patient is still requiring oxygen to be admitted to the hospitalist service. She was accepted. They did request an ABG. Lab Data Labs: Lab Results 11/10/22 11/10/22 11/11/22 Range/Units 20:35 20:55 07:39 WBC 6.22 3.23 L (4.50-11.00) K/uL RBC 3.74 L 3.58 L (4.00-5.20) m/uL Hgb 10.2 L 9.7 L (12.0-16.0) gm/dL Hct 32.2 L 31.0 L (33.0-51.0) % MCV 86 87 (80-100) fL MCH 27 27 (26-34) pg MCHC 32 31 L (32-36) gm/dL RDW Coeff of Susana 14.1 14.3 (11.5-15.5) % Plt Count 200 117 L (140-440) K/uL Neut % (Auto) 74.4 H 81.5 H (42.0-72.0) % Lymph % (Auto) 9.6 L 10.5 L (20-44) % [place] % (Auto) 14.8 H 7.1 (0.0-11.0) % Eos % (Auto) 0.3 0.0 (0.0-7.0) % Baso % (Auto) 0.6 0.6 (0.0-3.0) % Neut # (Auto) 4.60 2.60 (1.7-7.0) K/uL Lymph # (Auto) 0.60 L 0.30 L (0.90-2.90) K/uL [place] # (Auto) 0.90 0.20 (0.00-0.90) K/UL Eos # (Auto) 0.02 0.00 (0.00-0.50) K/uL Baso # (Auto) 0.04 0.00 (0.00-0.30) K/uL Abs Immat Gran (auto) 0.02 0.00 (0.00-0.30) K/uL Imm/Tot Granulo (auto) 0.3 0.3 % Diff Slide Review Acceptable Review (Acceptable) VBG pH (7.32-7.43) VBG pCO2 (40-50) mmHG VBG pO2 (25-47) mmHG VBG HCO3 (21-28) mmol/L Sodium 131 L 134 L (135-149) mmol/L Potassium 4.1 4.0 (3.6-5.1) mmol/L Chloride 91 L 98 (96-114) mmol/L Carbon Dioxide 31 32 (20-32) mmol/L BUN 14 10 (7-30) mg/dL Creatinine 0.6 0.5 (0.5-1.5) mg/dL Estimated Creat Clear 44.36 44.36 Estimated GFR 100 104 ml/min Glucose 92 103 (60-115) mg/dL Lactate 1.3 (0.5-1.9) mmol/L Calcium 8.2 L 8.0 L (8.4-10.6) mg/dL Phosphorus (2.5-4.5) mg/dL Magnesium (1.5-2.6) mg/dL Total Bilirubin 0.2 (0.1-1.5) mg/dL AST 36 H (12-35) U/L ALT 21 (4-35) U/L Alkaline Phosphatase 77 (40-150) U/L Troponin I < 0.01 L (0.01-0.04) ng/mL C-Reactive Protein (0.5-1.0) mg/dL NT-Pro-B Natriuret Pep 646 pg/mL Total Protein 6.4 (6.0-8.3) g/dL Albumin 3.9 (3.3-5.0) g/dL SARS-CoV-2 (PCR) POSITIVE SARS-CoV-2 A (Negative) Influenza Type A (PCR) Negative PCR FLU A (Negative) Influenza Type B (PCR) Negative PCR FLU B (Negative) RSV (PCR) Negative PCR RSV (Negative) 11/12/22 Range/Units 06:43 WBC 2.80 L (4.50-11.00) K/uL RBC 3.31 L (4.00-5.20) m/uL Hgb 9.1 L (12.0-16.0) gm/dL Hct 28.7 L (33.0-51.0) % MCV 87 (80-100) fL MCH 28 (26-34) pg MCHC 32 (32-36) gm/dL RDW Coeff of Susana 14.4 (11.5-15.5) % Plt Count 149 (140-440) K/uL Neut % (Auto) 73.9 H (42.0-72.0) % Lymph % (Auto) 13.9 L (20-44) % [place] % (Auto) 10.0 (0.0-11.0) % Eos % (Auto) 0.7 (0.0-7.0) % Baso % (Auto) 1.1 (0.0-3.0) % Neut # (Auto) 2.10 (1.7-7.0) K/uL Lymph # (Auto) 0.40 L (0.90-2.90) K/uL [place] # (Auto) 0.30 (0.00-0.90) K/UL Eos # (Auto) 0.00 (0.00-0.50) K/uL Baso # (Auto) 0.00 (0.00-0.30) K/uL Abs Immat Gran (auto) 0.00 (0.00-0.30) K/uL Imm/Tot Granulo (auto) 0.4 % Diff Slide Review Acceptable Review (Acceptable) VBG pH 7.346 (7.32-7.43) VBG pCO2 54 H (40-50) mmHG VBG pO2 30.2 (25-47) mmHG VBG HCO3 30 H (21-28) mmol/L Sodium 135 (135-149) mmol/L Potassium 3.8 (3.6-5.1) mmol/L Chloride 100 (96-114) mmol/L Carbon Dioxide 30 (20-32) mmol/L BUN 8 (7-30) mg/dL Creatinine 0.5 (0.5-1.5) mg/dL Estimated Creat Clear 44.36 Estimated GFR 104 ml/min Glucose 96 (60-115) mg/dL Lactate 0.5 (0.5-1.9) mmol/L Calcium 7.5 L (8.4-10.6) mg/dL Phosphorus 2.2 L (2.5-4.5) mg/dL Magnesium 1.8 (1.5-2.6) mg/dL Total Bilirubin 0.2 (0.1-1.5) mg/dL AST 34 (12-35) U/L ALT 20 (4-35) U/L Alkaline Phosphatase 77 (40-150) U/L Troponin I (0.01-0.04) ng/mL C-Reactive Protein 0.9 (0.5-1.0) mg/dL NT-Pro-B Natriuret Pep pg/mL Total Protein 5.6 L (6.0-8.3) g/dL Albumin 3.4 (3.3-5.0) g/dL SARS-CoV-2 (PCR) (Negative) Influenza Type A (PCR) (Negative) Influenza Type B (PCR) (Negative) RSV (PCR) (Negative) Imaging Data CTA-chest: Radiologist's impression: INDICATION: COVID positive, shortness of breath TECHNIQUE: CT chest pulmonary PE protocol acquired with 95 cc Isovue 370 IV contrast. COMPARISON: September 04, 2022 FINDINGS: Cardiovascular structures: Normal vascular enhancement of the pulmonary arteries, no sign of pulmonary embolism. The ascending aorta measures 4.2 cm cardiomegaly with coronary artery calcifications. Mediastinum and cresencio: No mass or adenopathy. Lungs: Clear. Pleura and pericardium: No effusions. Chest wall and axilla: No mass or adenopathy. Upper abdomen: Status post cholecystectomy. Bones: Osteopenia. There is an acute, minimally displaced fracture of the right posterior 10th rib. There are healed fractures of the right 2nd, 3rd, 6th 7th, and 8th ribs. Healed fractures of the left 4th, 5th, 7th and 8th ribs. Old compression fractures of the 7th through 9th and T11 through L1 vertebrae. IMPRESSION: No pulmonary embolism, pneumonia, or acute intrathoracic abnormality. Acute right posterior 10th rib fracture. No pneumothorax. Osteopenia. Multiple bilateral healed rib fractures. Multiple old compression fractures in the thoracic spine. Dilatation of the ascending aorta. Cardiomegaly with coronary artery disease. Status post cholecystectomy. Please note that all CT scans at this facility use dose modulation, iterative reconstruction, and/or weight-based dosing when appropriate to reduce radiation dose to as low as reasonably achievable. Dictated by Luda Bonner MD @ 11/11/2022 12:27:19 AM ECG Data Attestation: I personally reviewed and interpreted this ECG as follows: (Shows normal sinus rhythm with a rate of 84 beats per minute, normal intervals, normal axis, no ST or T-wave abnormalities. Appears similar to previous EKGs) Prior ECG tracings: available for review Discharge Plan Discharge Clinical Impression: COVID, Hypoxia Patient Disposition: Admitted As Observation Condition: Stable Activity Level: Activity as Tolerated Discharge Diet: Regular
[2022-11-10 20:58] LABS: Lactate* 1.3 mmol/L (0.5-1.9)
[2022-11-10 21:00] LABS: Basophils Absolute Auto 0.04 K/uL (0.00-0.30); Basophils Percent Auto 0.6 % (0.0-3.0); Eosinophils Absolute Auto 0.02 K/uL (0.00-0.50); Eosinophils Percent Auto 0.3 % (0.0-7.0); Hematocrit 32.2 % (33.0-51.0); Hemoglobin* 10.2 gm/dL (12.0-16.0); Immature Granulocytes Abs Auto 0.02 K/uL (0.00-0.30); Immature Granulocytes Pct Auto 0.3 %; Lymphocytes Percent Auto 9.6 % (20-44); Mean Corpuscular HGB Conc 32 gm/dL (32-36); Mean Corpuscular Hemoglobin 27 pg (26-34); Mean Corpuscular Volume 86 fL (80-100); Monocytes Percent Auto 14.8 % (0.0-11.0); Neutrophils Percent Auto 74.4 % (42.0-72.0); RDW Coefficient of Variation % 14.1 % (11.5-15.5); Red Blood Count 3.74 m/uL (4.00-5.20); White Blood Count* 6.22 K/uL (4.50-11.00)
[2022-11-10 21:26] LABS: Platelet Count* 200 K/uL (140-440); Slide Review Reflex No
[2022-11-10 21:33] LABS: Albumin* 3.9 g/dL (3.3-5.0); Chloride* 91 mmol/L (96-114); Potassium* 4.1 mmol/L (3.6-5.1); Sodium* 131 mmol/L (135-149)
[2022-11-10 21:35] LABS: Creatinine* 0.6 mg/dL (0.5-1.5); Est. Creatinine Clearance* 44.36; Estimated Glomerular Filt Rate 100 ml/min
[2022-11-10 21:36] LABS: Alanine Aminotransferase* 21 U/L (4-35); Alkaline Phosphatase* 77 U/L (40-150); Aspartate Amino Transferase* 36 U/L (12-35); Bilirubin Total* 0.2 mg/dL (0.1-1.5); Blood Urea Nitrogen* 14 mg/dL (7-30); Carbon Dioxide* 31 mmol/L (20-32); Glucose* 92 mg/dL (60-115); Total Protein* 6.4 g/dL (6.0-8.3)
[2022-11-10 21:37] LABS: Calcium* 8.2 mg/dL (8.4-10.6)
[2022-11-10] MEDS: MORPHINE 4 MG/ML INJ IVP (21:37)
[2022-11-10] MEDS: ONDANSETRON 2 MG/ML inj 4 MG IVP (21:37)
[2022-11-10 21:51] LABS: Troponin I* < 0.01 ng/mL (0.01-0.04)
[2022-11-10 22:14] LABS: PCR FLU A Negative PCR FLU A (Negative); PCR FLU B Negative PCR FLU B (Negative); PCR RSV Negative PCR RSV (Negative)
[2022-11-10 22:15] LABS: SARS PCR* POSITIVE SARS-CoV-2 (Negative)
[2022-11-11] VITALS (15 sets, daily range): BP systolic 107–137; BP diastolic 6–78; PULSE 78–88; RESP 18–20; TEMP 36.7–37.3; O2SAT 91–97; BMI 27.8
--- NOTE | 2022-11-11 04:58 | P.IMCN_ITS ---
Date of Consult Consult date: 11/11/22 Primary Care Provider: Cookie Deras MD Consult Narrative Reason for consult: Admission support Narrative: Cecy Pina is a 66 year old female 66-year-old lady with past medical history of multiple myeloma, was brought into the emergency department with 3 days history of progressive weakness and dyspnea was noted to have hypoxia reportedly down to the 70s was initially on nonrebreather mask currently on 2 L nasal cannula. She does report a positive recent sick contact with COVID 19. Reports recent cough. She underwent an extensive evaluation in the ED with CT chest, labs and nasal swabs. Her nasal swab came back positive for COVID. Labs were essentially unremarkable except for mild hyponatremia and hypochloremia, CT chest unremarkable Review of Systems Status of ROS: Reports: 10 or more systems reviewed and unremarkable except as noted in History and below [facility] Medical History (Updated 11/11/22 @ 00:59 by Billy Gonzales, ) Acute respiratory failure with hypoxia ?J96.01 - Acute respiratory failure with hypoxia (ICD-10) Community acquired pneumonia ?J18.9 - Pneumonia, unspecified organism (ICD-10) Hypoxia ?R09.02 - Hypoxemia (ICD-10) Fever ?R50.9 - Fever, unspecified (ICD-10) Pain crisis ?R52 - Pain, unspecified (ICD-10) Lytic bone lesions on xray ?M89.9 - Disorder of bone, unspecified (ICD-10) Hypokalemia ?E87.6 - Hypokalemia (ICD-10) Pneumonia ?J18.9 - Pneumonia, unspecified organism (ICD-10) Multiple myeloma ?C90.00 - Multiple myeloma not having achieved remission (ICD-10) Polyp of duodenum ?K31.7 - Polyp of stomach and duodenum (ICD-10) Osteoarthritis ?M19.90 - Unspecified osteoarthritis, unspecified site (ICD-10) Compression fracture of L4 vertebra (~06/19/22) ?S32.040A - Wedge compression fracture of fourth lumbar vertebra, initial encounter for closed fracture (ICD-10) Compression fracture of L2 (~06/19/22) ?S32.020A - Wedge compression fracture of second lumbar vertebra, initial encounter for closed fracture (ICD-10) Compression fracture of T12 vertebra (~06/19/22) ?S22.080A - Wedge compression fracture of T11-T12 vertebra, initial encounter for closed fracture (ICD-10) Compression fracture of L1 lumbar vertebra (~06/19/22) ?S32.010A - Wedge compression fracture of first lumbar vertebra, initial encounter for closed fracture (ICD-10) Compression fracture of T11 vertebra (~06/19/22) ?S22.080A - Wedge compression fracture of T11-T12 vertebra, initial encounter for closed fracture (ICD-10) Primary osteoarthritis of right knee ?M17.11 - Unilateral primary osteoarthritis, right knee (ICD-10) Carpal tunnel syndrome, bilateral ?G56.03 - Carpal tunnel syndrome, bilateral upper limbs (ICD-10) Trigger finger of right thumb ?M65.311 - Trigger thumb, right thumb (ICD-10) Alcohol use disorder in remission ?F10.91 - Alcohol use, unspecified, in remission (ICD-10) Pulmonary nodule ?R91.1 - Solitary pulmonary nodule (ICD-10) Adenomatous colon polyp ?D12.6 - Benign neoplasm of colon, unspecified (ICD-10) Shingles ?B02.9 - Zoster without complications (ICD-10) Depression with anxiety ?F41.8 - Other specified anxiety disorders (ICD-10) Allergic rhinitis ?J30.9 - Allergic rhinitis, unspecified (ICD-10) Sleep apnea ?G47.30 - Sleep apnea, unspecified (ICD-10) Essential hypertension ?I10 - Essential (primary) hypertension (ICD-10) Hypercalcemia ?E83.52 - Hypercalcemia (ICD-10) Anemia ?D64.9 - Anemia, unspecified (ICD-10) Thoracic aortic aneurysm without rupture ?I71.20 - Thoracic aortic aneurysm, without rupture, unspecified (ICD-10) Surgical History History of intestinal surgery ?Z98.890 - Other specified postprocedural states (ICD-10) History of thoracic surgery (~05/28/22) ?Z98.890 - Other specified postprocedural states (ICD-10) History of refractive surgery ?Z98.890 - Other specified postprocedural states (ICD-10) H/O esophagogastroduodenoscopy (~01/11/22) ?Z98.890 - Other specified postprocedural states (ICD-10) Hx of appendectomy ?Z90.49 - Acquired absence of other specified parts of digestive tract (ICD- 10) S/P carpal tunnel release (~09/20/21) ?Z98.890 - Other specified postprocedural states (ICD-10) H/O colonoscopy ?Z98.890 - Other specified postprocedural states (ICD-10) Family History Mother Colon cancer Heart disease Sister Pancreatic cancer Heart disease High blood pressure Father Prostate cancer Brother Diabetes Daughter Meningioma Social History Narrative: . Living with daughter, Fidelia, since diagnosis of MM. Fidelia is a nurse and is helping set up and administer Daalgisa's many medications. What is your current living situation?: I presently have a place to live Problems where you live: no known problems Problems where you live details: n/a In the past 12 months, utilities in danger of being shut off: no In the past 12 mos, have been you worried that your food would run out before you had money to buy more?: never true In the past 12 mos, the food you bought just didn't last and you didn't have money to buy more?: never true Highest level of school completed/degree received: 12th grade, no diploma Smoking Status: Former smoker What tobacco products do you use: cigarettes Smoking quit date/years: >15 years ago Do you use any of these nicotine containing products: None Second hand tobacco smoke exposure: No How often do you have a drink containing alcohol: never How often do you have six or more drinks on one occasion: Never AUDIT-C Alcohol total score: 0 Non-prescribed substance use: denies use Caffeine: No How often does anyone, including family, friends and others, physically hurt you : never How often does anyone, including family, friends and others, insult or talk down to you: never How often does anyone, including family, friends and others, threaten you with harm: never How often does anyone, including family, friends and others, scream or curse at you: never service: No Meds Home Medications and Allergies Home Medications Medication Instructions Recorded Confirmed Type acetaminophen 500 mg tablet 1,000 mg PO TID 07/15/22 11/06/22 History (Acetaminophen Extra Strength) polyethylene glycol 3350 17 17 g PO DAILY 07/15/22 11/10/22 History gram/dose oral powder sennosides 8.6 mg capsule (senna) 8.6 mg PO BID 08/02/22 11/10/22 History naloxone 4 mg/actuation nasal spray 1 spray intranasal .UD PRN 08/12/22 11/10/22 History sertraline 100 mg tablet 150 mg PO DAILY 08/12/22 11/10/22 History morphine 30 mg tablet,extended 60 mg PO BID 08/14/22 11/10/22 History release (MS Contin) omeprazole 40 mg capsule,delayed 40 mg PO DAILY 08/14/22 11/10/22 History release aspirin 81 mg tablet,delayed 81 mg PO DAILY 09/04/22 11/10/22 History release (Enteric Coated Aspirin) bortezomib 3.5 mg injection powder 2.3 mg subcut QWEEK 09/04/22 11/10/22 History for solution (Velcade) calcium carbonate 600 mg-vitamin 1 tab PO BID 09/04/22 11/10/22 History D3 10 mcg (400 unit) tablet ondansetron HCl 4 mg tablet 4 mg PO Q6H PRN nausea and vomiting 09/04/22 11/10/22 History oxycodone 5 mg tablet 10 mg PO Q4H PRN pain 09/04/22 11/10/22 History dexamethasone 4 mg tablet 20 mg PO QWEEK 10/03/22 11/10/22 History calcium carbonate 300 mg (750 mg) 300 mg PO QID 10/23/22 11/10/22 History chewable tablet (Tums) trazodone 50 mg tablet 50 mg PO QHS PRN 10/23/22 11/10/22 History nirmatrelvir 300 mg (150 mg 0 ea PO 11/10/22 History x2)-ritonavir 100 mg tablet,dose pack (Paxlovid) Allergies Allergy/AdvReac Type Severity Reaction Status Date / Time naproxen [From Aleve] Allergy Severe Anaphylaxis Verified 11/10/22 21:23 bupropion [From Wellbutrin] Allergy Mild Unknown Verified 11/10/22 21:23 Exam Narrative: Exam Narrative: Exam (performed via interactive video with assistance of bedside nurse): General: alert, cooperative, no acute distress HEENT: Pupils reported ERRL, oral mucosa pink and moist without erythema Lungs: clear to auscultation bilaterally without crackle or wheeze CV: regular rate and rhythm without loud murmur rub or gallop Abd: bowel sounds present, denies tenderness and does not exhibit signs of pain with palpation done by bedside nurse Ext: no pitting edema noted Skin: no rashes, bruises or lesions appreciated on gross visualization of exposed skin Neuro: alert, oriented x 3. CN III -VII, XI, XII grossly intact, moves all extremities without any significant focal deficit appreciated by nurse Const: Vital Signs, click to edit/add: Vital Signs - 24 hr 11/10/22 21:00 11/10/22 21:14 11/10/22 21:14 Temperature 99.4 F Pulse Rate 99 Pulse Rate [Pulse Oximeter] 101 H 103 H Respiratory Rate 18 20 Blood Pressure Blood Pressure [Ri ght Arm] Blood Pressure [Ri ght Upper Arm] 168/94 H 145/109 H Pulse Oximetry 89 68 L 93 Oxygen Delivery Me thod Nasal Cannula Room Air Oxygen Flow Rate 1 11/10/22 21:15 11/10/22 21:18 11/10/22 21:19 Temperature Pulse Rate 101 H 101 H 98 Pulse Rate [Pulse Oximeter] Respiratory Rate Blood Pressure 166/85 H Blood Pressure [Ri ght Arm] Blood Pressure [Ri ght Upper Arm] Pulse Oximetry 93 94 94 Oxygen Delivery Me thod Nasal Cannula Nasal Cannula Oxygen Flow Rate 2 2 11/10/22 21:25 11/10/22 21:30 11/10/22 21:32 Temperature Pulse Rate 110 H 106 H Pulse Rate [Pulse Oximeter] 104 H Respiratory Rate 20 Blood Pressure 170/90 H Blood Pressure [Ri ght Arm] Blood Pressure [Ri ght Upper Arm] 166/85 H Pulse Oximetry 95 94 93 Oxygen Delivery Me thod Nasal Cannula Nasal Cannula Nasal Cannula Oxygen Flow Rate 2 2 2 11/10/22 21:45 11/10/22 22:00 11/10/22 22:02 Temperature Pulse Rate 101 H 91 89 Pulse Rate [Pulse Oximeter] Respiratory Rate Blood Pressure 142/70 H Blood Pressure [Ri ght Arm] Blood Pressure [Ri ght Upper Arm] Pulse Oximetry 94 94 95 Oxygen Delivery Me thod Nasal Cannula Nasal Cannula Nasal Cannula Oxygen Flow Rate 2 2 2 11/10/22 22:03 11/10/22 22:15 11/10/22 22:41 Temperature Pulse Rate 92 99 101 H Pulse Rate [Pulse Oximeter] Respiratory Rate Blood Pressure Blood Pressure [Ri ght Arm] Blood Pressure [Ri ght Upper Arm] Pulse Oximetry 95 95 92 Oxygen Delivery Me thod Nasal Cannula Nasal Cannula Nasal Cannula Oxygen Flow Rate 2 2 2 11/10/22 22:53 11/10/22 23:00 11/10/22 23:02 Temperature Pulse Rate 101 H 92 90 Pulse Rate [Pulse Oximeter] Respiratory Rate Blood Pressure 142/71 H Blood Pressure [Ri ght Arm] Blood Pressure [Ri ght Upper Arm] Pulse Oximetry 97 95 97 Oxygen Delivery Me thod Nasal Cannula Nasal Cannula Nasal Cannula Oxygen Flow Rate 2 2 2 11/10/22 23:15 11/10/22 23:30 11/10/22 23:32 Temperature Pulse Rate 88 89 89 Pulse Rate [Pulse Oximeter] Respiratory Rate Blood Pressure 134/112 H Blood Pressure [Ri ght Arm] Blood Pressure [Ri ght Upper Arm] Pulse Oximetry 94 95 93 Oxygen Delivery Me thod Nasal Cannula Nasal Cannula Nasal Cannula Oxygen Flow Rate 2 2 2 11/10/22 23:33 11/10/22 23:45 11/11/22 00:00 Temperature Pulse Rate 86 85 82 Pulse Rate [Pulse Oximeter] Respiratory Rate Blood Pressure Blood Pressure [Ri ght Arm] Blood Pressure [Ri ght Upper Arm] Pulse Oximetry 94 95 95 Oxygen Delivery Me thod Nasal Cannula Nasal Cannula Nasal Cannula Oxygen Flow Rate 2 2 2 11/11/22 00:01 11/11/22 00:15 11/11/22 00:30 Temperature Pulse Rate 84 86 88 Pulse Rate [Pulse Oximeter] Respiratory Rate Blood Pressure 137/78 Blood Pressure [Ri ght Arm] Blood Pressure [Ri ght Upper Arm] Pulse Oximetry 95 95 94 Oxygen Delivery Me thod Nasal Cannula Nasal Cannula Nasal Cannula Oxygen Flow Rate 2 2 2 11/11/22 00:32 11/11/22 00:33 11/11/22 00:45 Temperature Pulse Rate 84 83 82 Pulse Rate [Pulse Oximeter] Respiratory Rate Blood Pressure 132/72 Blood Pressure [Ri ght Arm] Blood Pressure [Ri ght Upper Arm] Pulse Oximetry 92 94 92 Oxygen Delivery Me thod Nasal Cannula Nasal Cannula Nasal Cannula Oxygen Flow Rate 2 2 2 11/11/22 02:00 11/11/22 04:39 Temperature 99.1 F Pulse Rate Pulse Rate [Pulse Oximeter] 83 Respiratory Rate 20 20 Blood Pressure Blood Pressure [Ri ght Arm] 137/63 Blood Pressure [Ri ght Upper Arm] Pulse Oximetry 97 97 Oxygen Delivery Me thod Nasal Cannula Nasal Cannula Oxygen Flow Rate 2 2 Labs Labs: Short CBC 11/10/22 Range/Units 20:35 WBC 6.22 (4.50-11.00) K/uL Hgb 10.2 L (12.0-16.0) gm/dL Hct 32.2 L (33.0-51.0) % Plt Count 200 (140-440) K/uL BMP 11/10/22 20:35 Sodium 131 L Potassium 4.1 Chloride 91 L Carbon Dioxide 31 BUN 14 Creatinine 0.6 Glucose 92 Calcium 8.2 L Cardiac Enzymes 11/10/22 Range/Units 20:35 Troponin I < 0.01 L (0.01-0.04) ng/mL Liver Function 11/10/22 Range/Units 20:35 Total Bilirubin 0.2 (0.1-1.5) mg/dL AST 36 H (12-35) U/L ALT 21 (4-35) U/L Alkaline Phosphatase 77 (40-150) U/L Albumin 3.9 (3.3-5.0) g/dL Assessment and Plan Assessment and plan (1) Hypoxia: Status: Acute (2) COVID: Status: Acute (3) Fatigue: Status: Acute (4) Plasma cell neoplasm: Problem comment: multiple myeloma, multiple lytic bony lesions, getting cycles of cytotoxic chemo. Radiation completed Status: Chronic Plan 1. Acute hypoxic respiratory failure: very likely secondary to hypoventilation from narcotic pain medications although denies abuse or overdose (on Morphine long and short acting along with Oxy), CT chest is negative for PE, on my pe rsonal review her lung parenchyma is unremarkable without any significant signs of covid related inflammation. Doubt she has COVID-related hypoxia. We will obtain an ABG to assess if this is a true hypoxia or component of hypercapnia, check NT proBNP, wean oxygen for saturation goal 88 to 92%. 2. COVID-19 infection: Start remdesivir, Decadron, airborne precaution 3. Hyponatremia: Secondary to hypovolemia, start NS at 100 cc/h, monitor sodium levels 4. History of Multiple Myloma: Hold cyclophosphamide in a setting of infection . 5. Chronic pain: restartin SR morphine and holding short acting, can use oxycodone only instead for breakthrough pain. Needs med reconciliation. Prophylaxis: Heparin SQ Code Status: full Thank you for including [facility] Hospitalist in the patients care. This service is available for further assistance as requested by your care team by calling [phone].
[2022-11-11] MEDS: 0.9 % SODIUM CHLORIDE 1000 ml 1,000 ML 75 ML IV ×2 (06:27→20:24)
[2022-11-11] MEDS: HEPARIN 5,000 UNIT/0.5 ML INJ 5000 UNIT SUBCUT ×2 (06:28→18:50)
--- NOTE | 2022-11-11 07:34 | PC.NURSE ---
pt to floor at 0140 accompanied by Alfredo. Indep ambulation. pleasant and cooperative. no c/o pain.
[2022-11-11 07:56] LABS: Basophils Percent Auto 0.6 % (0.0-3.0); Hemoglobin* 9.7 gm/dL (12.0-16.0); Immature Granulocytes Pct Auto 0.3 %; Lymphocytes Percent Auto 10.5 % (20-44); Mean Corpuscular HGB Conc 31 gm/dL (32-36); Mean Corpuscular Hemoglobin 27 pg (26-34); Mean Corpuscular Volume 87 fL (80-100); Monocytes Percent Auto 7.1 % (0.0-11.0); Neutrophils Percent Auto 81.5 % (42.0-72.0); Platelet Count* 117 K/uL (140-440); RDW Coefficient of Variation % 14.3 % (11.5-15.5); Red Blood Count 3.58 m/uL (4.00-5.20); White Blood Count* 3.23 K/uL (4.50-11.00)
[2022-11-11 08:08] LABS: Chloride* 98 mmol/L (96-114); Sodium* 134 mmol/L (135-149)
[2022-11-11 08:11] LABS: Blood Urea Nitrogen* 10 mg/dL (7-30); Carbon Dioxide* 32 mmol/L (20-32); Creatinine* 0.5 mg/dL (0.5-1.5); Est. Creatinine Clearance* 44.36; Estimated Glomerular Filt Rate 104 ml/min; Glucose* 103 mg/dL (60-115)
[2022-11-11 08:12] LABS: Slide Review Reflex Yes
[2022-11-11 08:15] LABS: Slide Review Acceptable Review (Acceptable)
[2022-11-11 08:26] LABS: NT Pro B Type NatriureticPept* 646 pg/mL
[2022-11-11] MEDS: OXYCODONE 5 MG TABLET 10 MG PO ×2 (08:30→14:12)
[2022-11-11] MEDS: ACYCLOVIR 200 MG CAPSULE 400 MG PO ×2 (09:32→20:25)
[2022-11-11] MEDS: METOPROLOL SUCCINATE (XL) 25 MG TAB PO (09:33)
[2022-11-11] MEDS: MORPHINE 30 MG TABLET.ER 60 MG PO ×2 (09:33→20:24)
[2022-11-11] MEDS: ASPIRIN 81 MG TABLET EC PO (09:33)
[2022-11-11] MEDS: SERTRALINE 100 MG TABLET 150 MG PO (09:34)
[2022-11-11] MEDS: ACETAMINOPHEN 325 MG TABLET 650 MG PO (12:26)
--- NOTE | 2022-11-11 17:27 | P.IMHP_ITS ---
Hospitalist- H&P: HPI History of Present Illness Time Seen by Provider: 12:30 Date Seen: 11/11/22 Chief complaint: Covid+, fever Narrative: Cecy Pina is a 66 year old woman who presents with 3 days of increasing weakness and cough. On presentation is found to be tachypneic and hypoxic with saturations in the 70s initially. In the process of receiving treatments for multiple myeloma. As such has been living with her daughter and son-in-law in [place]. Son-in-law recently was found to be COVID positive. Daughter immediately moved her back to her home. Within a few days the patient developed symptoms as specified in then tested positive and then was brought in because her symptoms seem to evolving progress. Since then the patient's has developed COVID, and the patient's daughter has also developed COVID. Feeling better now that she is in the hospital receiving oxygen supplementation in the remdesivir has been started. Was also started on dexamethasone. CT scan of chest does not demonstrate pulmonary embolism nor does not demonstrate COVID pneumonia. Review of Systems Status of ROS: Reports: 10 or more systems reviewed and unremarkable except as noted in History and below [facility] Medical History Acute respiratory failure with hypoxia ?J96.01 - Acute respiratory failure with hypoxia (ICD-10) Community acquired pneumonia ?J18.9 - Pneumonia, unspecified organism (ICD-10) Hypoxia ?R09.02 - Hypoxemia (ICD-10) Fever ?R50.9 - Fever, unspecified (ICD-10) Pain crisis ?R52 - Pain, unspecified (ICD-10) Lytic bone lesions on xray ?M89.9 - Disorder of bone, unspecified (ICD-10) Hypokalemia ?E87.6 - Hypokalemia (ICD-10) Pneumonia ?J18.9 - Pneumonia, unspecified organism (ICD-10) Multiple myeloma ?C90.00 - Multiple myeloma not having achieved remission (ICD-10) Polyp of duodenum ?K31.7 - Polyp of stomach and duodenum (ICD-10) Osteoarthritis ?M19.90 - Unspecified osteoarthritis, unspecified site (ICD-10) Compression fracture of L4 vertebra (~06/19/22) ?S32.040A - Wedge compression fracture of fourth lumbar vertebra, initial encounter for closed fracture (ICD-10) Compression fracture of L2 (~06/19/22) ?S32.020A - Wedge compression fracture of second lumbar vertebra, initial encounter for closed fracture (ICD-10) Compression fracture of T12 vertebra (~06/19/22) ?S22.080A - Wedge compression fracture of T11-T12 vertebra, initial encounter for closed fracture (ICD-10) Compression fracture of L1 lumbar vertebra (~06/19/22) ?S32.010A - Wedge compression fracture of first lumbar vertebra, initial encounter for closed fracture (ICD-10) Compression fracture of T11 vertebra (~06/19/22) ?S22.080A - Wedge compression fracture of T11-T12 vertebra, initial encounter for closed fracture (ICD-10) Primary osteoarthritis of right knee ?M17.11 - Unilateral primary osteoarthritis, right knee (ICD-10) Carpal tunnel syndrome, bilateral ?G56.03 - Carpal tunnel syndrome, bilateral upper limbs (ICD-10) Trigger finger of right thumb ?M65.311 - Trigger thumb, right thumb (ICD-10) Alcohol use disorder in remission ?F10.91 - Alcohol use, unspecified, in remission (ICD-10) Pulmonary nodule ?R91.1 - Solitary pulmonary nodule (ICD-10) Adenomatous colon polyp ?D12.6 - Benign neoplasm of colon, unspecified (ICD-10) Shingles ?B02.9 - Zoster without complications (ICD-10) Depression with anxiety ?F41.8 - Other specified anxiety disorders (ICD-10) Allergic rhinitis ?J30.9 - Allergic rhinitis, unspecified (ICD-10) Sleep apnea ?G47.30 - Sleep apnea, unspecified (ICD-10) Essential hypertension ?I10 - Essential (primary) hypertension (ICD-10) Hypercalcemia ?E83.52 - Hypercalcemia (ICD-10) Anemia ?D64.9 - Anemia, unspecified (ICD-10) Thoracic aortic aneurysm without rupture ?I71.20 - Thoracic aortic aneurysm, without rupture, unspecified (ICD-10) Surgical History History of intestinal surgery ?Z98.890 - Other specified postprocedural states (ICD-10) History of thoracic surgery (~05/28/22) ?Z98.890 - Other specified postprocedural states (ICD-10) History of refractive surgery ?Z98.890 - Other specified postprocedural states (ICD-10) H/O esophagogastroduodenoscopy (~01/11/22) ?Z98.890 - Other specified postprocedural states (ICD-10) Hx of appendectomy ?Z90.49 - Acquired absence of other specified parts of digestive tract (ICD- 10) S/P carpal tunnel release (~09/20/21) ?Z98.890 - Other specified postprocedural states (ICD-10) H/O colonoscopy ?Z98.890 - Other specified postprocedural states (ICD-10) Family History Mother Colon cancer Heart disease Sister Pancreatic cancer Heart disease High blood pressure Father Prostate cancer Brother Diabetes Daughter Meningioma Social History Narrative: . Living with daughter, Fidelia, since diagnosis of MM. Fidelia is a nurse and is helping set up and administer Adalgisa's many medications. What is your current living situation?: I presently have a place to live Problems where you live: no known problems Problems where you live details: n/a In the past 12 months, utilities in danger of being shut off: no In the past 12 mos, have been you worried that your food would run out before you had money to buy more?: never true In the past 12 mos, the food you bought just didn't last and you didn't have money to buy more?: never true Highest level of school completed/degree received: 12th grade, no diploma Smoking Status: Former smoker What tobacco products do you use: cigarettes Smoking quit date/years: >15 years ago Do you use any of these nicotine containing products: None Second hand tobacco smoke exposure: No How often do you have a drink containing alcohol: never How often do you have six or more drinks on one occasion: Never AUDIT-C Alcohol total score: 0 Non-prescribed substance use: denies use Caffeine: No How often does anyone, including family, friends and others, physically hurt you : never How often does anyone, including family, friends and others, insult or talk down to you: never How often does anyone, including family, friends and others, threaten you with harm: never How often does anyone, including family, friends and others, scream or curse at you: never service: No Meds Home Medications and Allergies Home Medications Medication Instructions Recorded Confirmed Type acetaminophen 500 mg tablet 1,000 mg PO TID PRN 07/15/22 11/11/22 History (Acetaminophen Extra Strength) polyethylene glycol 3350 17 17 g PO DAILY 07/15/22 11/10/22 History gram/dose oral powder sennosides 8.6 mg capsule (senna) 8.6 mg PO BID 08/02/22 11/10/22 History naloxone 4 mg/actuation nasal spray 1 spray intranasal .UD PRN 08/12/22 11/10/22 History sertraline 100 mg tablet 150 mg PO DAILY 08/12/22 11/10/22 History morphine 30 mg tablet,extended 60 mg PO BID 08/14/22 11/10/22 History release (MS Contin) omeprazole 40 mg capsule,delayed 40 mg PO DAILY 08/14/22 11/10/22 History release aspirin 81 mg tablet,delayed 81 mg PO DAILY 09/04/22 11/10/22 History release (Enteric Coated Aspirin) bortezomib 3.5 mg injection powder 2.3 mg subcut QWEEK 09/04/22 11/10/22 History for solution (Velcade) calcium carbonate 600 mg-vitamin 1 tab PO BID 09/04/22 11/10/22 History D3 10 mcg (400 unit) tablet ondansetron HCl 4 mg tablet 4 mg PO Q6H PRN nausea and vomiting 09/04/22 11/10/22 History oxycodone 5 mg tablet 10 mg PO Q4H PRN pain 09/04/22 11/10/22 History dexamethasone 4 mg tablet 20 mg PO QWEEK 10/03/22 11/10/22 History calcium carbonate 300 mg (750 mg) 300 mg PO QID 10/23/22 11/10/22 History chewable tablet (Tums) trazodone 50 mg tablet 50 mg PO QHS PRN 10/23/22 11/10/22 History nirmatrelvir 300 mg (150 mg 3 ea PO BID 11/10/22 11/11/22 History x2)-ritonavir 100 mg tablet,dose pack (Paxlovid) daratumumab 1,800 15 ml subcut Q2W 11/11/22 11/11/22 History zp-fhqpaxtlhbndx-odxa 30,000 unit/15 mL subcut soln (Darzalex Faspro) Allergies Allergy/AdvReac Type Severity Reaction Status Date / Time naproxen [From Aleve] Allergy Severe Anaphylaxis Verified 11/11/22 05:10 bupropion [From Wellbutrin] Allergy Mild Unknown Verified 11/11/22 05:10 Exam Narrative: Exam Narrative: Examined the patient in her hospital room. Appears comfortable and in no acute distress with oxygen via nasal cannula at 0.5 liters/minute, saturations low to mid 90s. Alert, oriented to self, place, time, situation. Friendly, articulate, cooperative. Mood and affect are congruent. Tympanic membranes are normal. Midline nasal septum. Buccal mucosa is moist. No icterus or conjunctival injection. Pupils equally round and reactive to light and accommodation. Extraocular muscles are intact. Neck is supple. Midline trachea. No JVD or hepatojugular reflux. No carotid bruits. No head or neck lymphadenopathy. Lungs are clear to auscultation without wheezing, rhonchi, or rales. No CVA tenderness. Heart tones with regular rhythm, normal S1-S2, without murmur, gallop, or rub. Abdomen with active bowel sounds, soft, nontender. No organomegaly masses. No rebound or guarding. Extremities without edema. Independent in all transfers, station, and gait. No focal motor neurologic deficits. Skin is warm, dry, intact. Const: Vital Signs, click to edit/add: Vital Signs - 24 hr 11/10/22 20:25 11/10/22 21:00 11/10/22 21:14 Temperature 99.4 F Pulse Rate Pulse Rate [Pulse Oximeter] 101 H 103 H Respiratory Rate 18 20 Blood Pressure Blood Pressure [Ri ght Arm] Blood Pressure [Ri ght Upper Arm] 168/94 H 145/109 H Pulse Oximetry 68 L 89 68 L Oxygen Delivery Me thod Room Air Nasal Cannula Room Air Oxygen Flow Rate 1 11/10/22 21:14 11/10/22 21:15 11/10/22 21:18 Temperature Pulse Rate 99 101 H 101 H Pulse Rate [Pulse Oximeter] Respiratory Rate Blood Pressure 166/85 H Blood Pressure [Ri ght Arm] Blood Pressure [Ri ght Upper Arm] Pulse Oximetry 93 93 94 Oxygen Delivery Me thod Nasal Cannula Oxygen Flow Rate 2 11/10/22 21:19 11/10/22 21:25 11/10/22 21:30 Temperature Pulse Rate 98 110 H Pulse Rate [Pulse Oximeter] 104 H Respiratory Rate 20 Blood Pressure Blood Pressure [Ri ght Arm] Blood Pressure [Ri ght Upper Arm] 166/85 H Pulse Oximetry 94 95 94 Oxygen Delivery Me thod Nasal Cannula Nasal Cannula Nasal Cannula Oxygen Flow Rate 2 2 2 11/10/22 21:32 11/10/22 21:45 11/10/22 22:00 Temperature Pulse Rate 106 H 101 H 91 Pulse Rate [Pulse Oximeter] Respiratory Rate Blood Pressure 170/90 H Blood Pressure [Ri ght Arm] Blood Pressure [Ri ght Upper Arm] Pulse Oximetry 93 94 94 Oxygen Delivery Me thod Nasal Cannula Nasal Cannula Nasal Cannula Oxygen Flow Rate 2 2 2 11/10/22 22:02 11/10/22 22:03 11/10/22 22:15 Temperature Pulse Rate 89 92 99 Pulse Rate [Pulse Oximeter] Respiratory Rate Blood Pressure 142/70 H Blood Pressure [Ri ght Arm] Blood Pressure [Ri ght Upper Arm] Pulse Oximetry 95 95 95 Oxygen Delivery Me thod Nasal Cannula Nasal Cannula Nasal Cannula Oxygen Flow Rate 2 2 2 11/10/22 22:41 11/10/22 22:53 11/10/22 23:00 Temperature Pulse Rate 101 H 101 H 92 Pulse Rate [Pulse Oximeter] Respiratory Rate Blood Pressure Blood Pressure [Ri ght Arm] Blood Pressure [Ri ght Upper Arm] Pulse Oximetry 92 97 95 Oxygen Delivery Me thod Nasal Cannula Nasal Cannula Nasal Cannula Oxygen Flow Rate 2 2 2 11/10/22 23:02 11/10/22 23:15 11/10/22 23:30 Temperature Pulse Rate 90 88 89 Pulse Rate [Pulse Oximeter] Respiratory Rate Blood Pressure 142/71 H Blood Pressure [Ri ght Arm] Blood Pressure [Ri ght Upper Arm] Pulse Oximetry 97 94 95 Oxygen Delivery Me thod Nasal Cannula Nasal Cannula Nasal Cannula Oxygen Flow Rate 2 2 2 11/10/22 23:32 11/10/22 23:33 11/10/22 23:45 Temperature Pulse Rate 89 86 85 Pulse Rate [Pulse Oximeter] Respiratory Rate Blood Pressure 134/112 H Blood Pressure [Ri ght Arm] Blood Pressure [Ri ght Upper Arm] Pulse Oximetry 93 94 95 Oxygen Delivery Me thod Nasal Cannula Nasal Cannula Nasal Cannula Oxygen Flow Rate 2 2 2 11/11/22 00:00 11/11/22 00:01 11/11/22 00:15 Temperature Pulse Rate 82 84 86 Pulse Rate [Pulse Oximeter] Respiratory Rate Blood Pressure 137/78 Blood Pressure [Ri ght Arm] Blood Pressure [Ri ght Upper Arm] Pulse Oximetry 95 95 95 Oxygen Delivery Me thod Nasal Cannula Nasal Cannula Nasal Cannula Oxygen Flow Rate 2 2 2 11/11/22 00:30 11/11/22 00:32 11/11/22 00:33 Temperature Pulse Rate 88 84 83 Pulse Rate [Pulse Oximeter] Respiratory Rate Blood Pressure 132/72 Blood Pressure [Ri ght Arm] Blood Pressure [Ri ght Upper Arm] Pulse Oximetry 94 92 94 Oxygen Delivery Me thod Nasal Cannula Nasal Cannula Nasal Cannula Oxygen Flow Rate 2 2 2 11/11/22 00:45 11/11/22 02:00 11/11/22 04:39 Temperature 99.1 F Pulse Rate 82 Pulse Rate [Pulse Oximeter] 83 Respiratory Rate 20 20 Blood Pressure Blood Pressure [Ri ght Arm] 137/63 Blood Pressure [Ri ght Upper Arm] Pulse Oximetry 92 97 97 Oxygen Delivery Me thod Nasal Cannula Nasal Cannula Nasal Cannula Oxygen Flow Rate 2 2 2 11/11/22 07:00 11/11/22 07:00 11/11/22 07:00 Temperature 98.1 F Pulse Rate Pulse Rate [Pulse Oximeter] 78 Respiratory Rate 18 18 18 Blood Pressure Blood Pressure [Ri ght Arm] 125/71 Blood Pressure [Ri ght Upper Arm] Pulse Oximetry 93 93 Oxygen Delivery Me thod Nasal Cannula Nasal Cannula Oxygen Flow Rate 0.5 0.5 11/11/22 15:00 11/11/22 15:00 Temperature Pulse Rate Pulse Rate [Pulse Oximeter] 78 Respiratory Rate 20 20 Blood Pressure Blood Pressure [Ri ght Arm] Blood Pressure [Ri ght Upper Arm] Pulse Oximetry 92 Oxygen Delivery Me thod Nasal Cannula Oxygen Flow Rate 0.5 Documenting provider has reviewed patient's vital signs: yes Hospitalist - H&P: Result Labs Labs: Short CBC 11/10/22 11/11/22 Range/Units 20:35 07:39 WBC 6.22 3.23 L (4.50-11.00) K/uL Hgb 10.2 L 9.7 L (12.0-16.0) gm/dL Hct 32.2 L 31.0 L (33.0-51.0) % Plt Count 200 117 L (140-440) K/uL BMP 11/10/22 11/11/22 20:35 07:39 Sodium 131 L 134 L Potassium 4.1 4.0 Chloride 91 L 98 Carbon Dioxide 31 32 BUN 14 10 Creatinine 0.6 0.5 Glucose 92 103 Calcium 8.2 L 8.0 L Cardiac Enzymes 11/10/22 Range/Units 20:35 Troponin I < 0.01 L (0.01-0.04) ng/mL Liver Function 11/10/22 Range/Units 20:35 Total Bilirubin 0.2 (0.1-1.5) mg/dL AST 36 H (12-35) U/L ALT 21 (4-35) U/L Alkaline Phosphatase 77 (40-150) U/L Albumin 3.9 (3.3-5.0) g/dL Imaging CT scan - chest: Attestation: I have reviewed the pertinent imaging results. Radiologist's impression: IMPRESSION: No pulmonary embolism, pneumonia, or acute intrathoracic abnormality. Acute right posterior 10th rib fracture. No pneumothorax. Osteopenia. Multiple bilateral healed rib fractures. Multiple old compression fractures in the thoracic spine. Dilatation of the ascending aorta. Cardiomegaly with coronary artery disease. Status post cholecystectomy. Assessment and Plan Assessment and plan (1) COVID: Status: Acute (2) Hypoxia: Status: Acute (3) Multiple myeloma: Status: Acute (4) Plasma cell neoplasm: Problem comment: multiple myeloma, multiple lytic bony lesions, getting cycles of cytotoxic chemo. Radiation completed Status: Chronic (5) Essential hypertension: Status: Chronic (6) Sleep apnea: Problem comment: AHI-21 09/24/2007 wears mouth guard -discussed with primary care regarding CPAP prescription and or if a new sleep study is warranted. -continue use of aroma cotton ISP at home. Status: Acute (7) Pancytopenia: Status: Acute (8) Cancer related pain: Status: Acute Plan 1. Continue with remdesivir as presently instituted. 2. Continue with dexamethasone for now even though she does not have COVID pneumonia. 3. Continue with other supportive efforts. 4. Reviewed impression with patient. Answered her questions. She is agreeable.
--- NOTE | 2022-11-11 20:17 | PC.NURSE ---
Nursing Care Hours: [id number] Pt this shift calm and cooperative with cares. Independent in room unless needing help with IV and O2 tubing. VSS with 0.5L NC. Attempted RA but spO2 dropped to low 80's. No cough, denies SOB or chest pain. Using IS up to 1500. Pain in R side ribs rated 4-5/10, treated per eMAR. Showered today with assist in set up. Eating about 50% of meals which pt states is her normal.
[2022-11-11] MEDS: TRAZODONE HCL 50 MG TABLET PO (20:43)
[2022-11-12] MEDS: ACETAMINOPHEN 325 MG TABLET 650 MG PO (01:44)
[2022-11-12] MEDS: OXYCODONE 5 MG TABLET 10 MG PO ×2 (01:44→07:47)
[2022-11-12 03:00] VITALS: BP 143/62; PULSE 80; RESP 18; TEMP 36.7; O2SAT 94
[2022-11-12] MEDS: dexAMETHasone 4 MG/ML VIAL 6 MG IV (04:27)
[2022-11-12] MEDS: HEPARIN 5,000 UNIT/0.5 ML INJ 5000 UNIT SUBCUT (05:42)
--- NOTE | 2022-11-12 06:43 | PC.NURSE ---
19-: pleasant and cooperative. Indep in room. C/o pain in her right rib, active ice applied, prn meds given ? see eMar. Titrated pt to RA, O2 sats maintaining in the low 90s, encouraging IS use. LS Clear, dim in RLL.
[2022-11-12 06:58] LABS: HCO3 VBG 30 mmol/L (21-28); Lactate* 0.5 mmol/L (0.5-1.9); PCO2 VBG 54 mmHG (40-50); PO2 VBG 30.2 mmHG (25-47); pH VBG 7.346 (7.32-7.43)
[2022-11-12 07:01] LABS: Basophils Percent Auto 1.1 % (0.0-3.0); Eosinophils Percent Auto 0.7 % (0.0-7.0); Hematocrit 28.7 % (33.0-51.0); Hemoglobin* 9.1 gm/dL (12.0-16.0); Immature Granulocytes Pct Auto 0.4 %; Lymphocytes Percent Auto 13.9 % (20-44); Mean Corpuscular HGB Conc 32 gm/dL (32-36); Mean Corpuscular Hemoglobin 28 pg (26-34); Mean Corpuscular Volume 87 fL (80-100); Neutrophils Percent Auto 73.9 % (42.0-72.0); Platelet Count* 149 K/uL (140-440); RDW Coefficient of Variation % 14.4 % (11.5-15.5); Red Blood Count 3.31 m/uL (4.00-5.20)
[2022-11-12 07:08] LABS: Albumin* 3.4 g/dL (3.3-5.0); Chloride* 100 mmol/L (96-114); Sodium* 135 mmol/L (135-149)
[2022-11-12 07:09] LABS: Potassium* 3.8 mmol/L (3.6-5.1)
[2022-11-12 07:10] LABS: Creatinine* 0.5 mg/dL (0.5-1.5); Est. Creatinine Clearance* 44.36; Estimated Glomerular Filt Rate 104 ml/min
[2022-11-12 07:11] LABS: Alanine Aminotransferase* 20 U/L (4-35); Alkaline Phosphatase* 77 U/L (40-150); Aspartate Amino Transferase* 34 U/L (12-35); Bilirubin Total* 0.2 mg/dL (0.1-1.5); Blood Urea Nitrogen* 8 mg/dL (7-30); Carbon Dioxide* 30 mmol/L (20-32); Glucose* 96 mg/dL (60-115); Total Protein* 5.6 g/dL (6.0-8.3)
[2022-11-12 07:12] LABS: Calcium* 7.5 mg/dL (8.4-10.6); Magnesium* 1.8 mg/dL (1.5-2.6); Phosphorus* 2.2 mg/dL (2.5-4.5)
[2022-11-12 07:14] LABS: C Reactive Protein* 0.9 mg/dL (0.5-1.0)
[2022-11-12 07:35] LABS: Slide Review Reflex Yes
[2022-11-12] MEDS: OMEPRAZOLE 20 MG CAPSULE DR 40 MG PO (07:46)
[2022-11-12 07:49] VITALS: BP 148/77; RESP 20; TEMP 37.4; O2SAT 92
[2022-11-12 07:59] LABS: Slide Review Acceptable Review (Acceptable)
[2022-11-12 08:00] VITALS: RESP 20; O2SAT 92
[2022-11-12] MEDS: SERTRALINE 100 MG TABLET 150 MG PO (08:20)
[2022-11-12] MEDS: ASPIRIN 81 MG TABLET EC PO (08:20)
[2022-11-12] MEDS: ACYCLOVIR 200 MG CAPSULE 400 MG PO (08:20)
[2022-11-12] MEDS: METOPROLOL SUCCINATE (XL) 25 MG TAB PO (08:21)
[2022-11-12] MEDS: ONDANSETRON ODT 4 MG TAB PO (08:50)
[2022-11-12 09:12] VITALS: BMI 27.8
[2022-11-12] MEDS: 0.9 % SODIUM CHLORIDE 1000 ml 1,000 ML 75 ML IV (09:28)
[2022-11-12] MEDS: MORPHINE 30 MG TABLET.ER 60 MG PO (09:28)
[2022-11-12 11:22] VITALS: BP 141/88; PULSE 71; RESP 18; TEMP 37.2; O2SAT 91
--- NOTE | 2022-11-12 16:08 | PC.NURSE ---
Discharge: Patient vitals stable and WNL, continues to maintain o2 sat >90% on RA. Up independently in room, tolerating regular diet well. Patient informed to call oncology following discharge today to inform them of medication changes so that she knows when to restart medications that have been held here. IV removed with catheter intact. patient discharged via wheelchair, met at entrance to bring home.
--- NOTE | 2022-11-20 11:04 | P.DS_ITS ---
DS: Providers Provider Time Seen by Provider: 10:00 Date Seen: 11/12/22 Date of admission: 11/12/22 09:02 Primary care physician: Cookie Deras MD Admitting Clinician: Billy Gonzales DO Attending Physician on discharge: Fernando Mike MD Date of Discharge: 11/12/22 DS: Diagnosis Discharge Diagnosis (1) COVID: Status: Acute (2) Hypoxia: Status: Acute (3) Pancytopenia: Status: Acute (4) Fatigue: Status: Acute (5) Cancer related pain: Status: Acute (6) Hyponatremia: Status: Acute (7) Multiple myeloma: Status: Acute (8) Essential hypertension: Status: Chronic (9) Sleep apnea: Status: Acute Problem details: AHI-21 09/24/2007 wears mouth guard -discussed with primary care regarding CPAP prescription and or if a new sleep study is warranted. -continue use of aroma cotton ISP at home. DS: Summary Hospital Course Hospital Course: Cecy Pina is a 66 year old woman who presents with 3 days of increasing weakness and cough. On presentation is found to be tachypneic and hypoxic with saturations in the 70s initially. In the process of receiving treatments for multiple myeloma. As such has been living with her daughter and son-in-law in [place]. Son-in-law recently was found to be COVID positive. Daughter immediately moved her back to her home. Within a few days the patient developed symptoms as specified in then tested positive and then was brought in because her symptoms seem to evolving progress. Since then the patient's has developed COVID, and the patient's daughter has also developed COVID. In-hospital she received oxygen supplementation for short period of time, was started on dexamethasone, and received a total of [address] scan of the chest obtained did not demonstrating pulmonary embolism nor COVID pneumonia or infiltrate. On date of discharge she had been off of supplemental oxygen and on room air only for greater than 24 hours maintaining oxygen saturations greater than 90%. Status at Discharge Functional status at discharge: independent ambulation Overall status at discharge: patient is back to baseline Time Spent with Patient Time attestation: Total time spent providing and/or coordinating discharge services: Time spent: Less than 30 minutes Exam Narrative: Exam Narrative: Examined the patient in her hospital room. Appears comfortable and in no acute distress with oxygen via nasal cannula at 0.5 liters/minute, saturations low to mid 90s. Alert, oriented to self, place, time, situation. Friendly, articulate, cooperative. Mood and affect are congruent. Tympanic membranes are normal. Midline nasal septum. Buccal mucosa is moist. No icterus or conjunctival injection. Pupils equally round and reactive to light and accommodation. Extraocular muscles are intact. Neck is supple. Midline trachea. No JVD or hepatojugular reflux. No carotid bruits. No head or neck lymphadenopathy. Lungs are clear to auscultation without wheezing, rhonchi, or rales. No CVA tenderness. Heart tones with regular rhythm, normal S1-S2, without murmur, gallop, or rub. Abdomen with active bowel sounds, soft, nontender. No organomegaly masses. No rebound or guarding. Extremities without edema. Independent in all transfers, station, and gait. No focal motor neurologic deficits. Skin is warm, dry, intact. DS: Data Data Completed and Pending Completed studies during hospitalization: Procedures Introduction of Other Gas into Respiratory Tract, Via Natural or Artificial Opening (09/04/22) Transfusion of Nonautologous Red Blood Cells into Peripheral Vein, Percutaneous Approach (07/15/22) Imaging CT scan - chest: Attestation: I have reviewed the pertinent imaging results. Radiologist's impression: CT scan of chest with PE protocol: IMPRESSION: No pulmonary embolism, pneumonia, or acute intrathoracic abnormality. Acute right posterior 10th rib fracture. No pneumothorax. Osteopenia. Multiple bilateral healed rib fractures. Multiple old compression fractures in the thoracic spine. Dilatation of the ascending aorta. Cardiomegaly with coronary artery disease. Status post cholecystectomy. Discharge Plan Discharge Disposition: Home, Self-Care Date of Admission: 11/12/22 09:02 Attending Provider on Discharge: Fernando Mike Primary Care Provider: Cookie Deras Condition: Stable Anticipated Discharge Date/Time: 11/12/22 14:30 Discharge Medications: Continued omeprazole 40 mg capsule,delayed release(DR/EC) 40 mg PO DAILY morphine [MS Contin] 30 mg tablet extended release 60 mg PO BID acyclovir 400 mg tablet 400 mg PO BID Qty: 60 4RF sodium chloride 1,000 mg tablet,soluble 1,000 mg PO QDAY Qty: 60 0RF senna 8.6 mg capsule 8.6 mg PO BID dronabinol [Marinol] 5 mg capsule 5 mg PO BID Qty: 60 0RF Rx Instructions: administer before lunch and evening meal/dinner dexamethasone 4 mg tablet 20 mg PO QWEEK Rx Instructions: Bring with you to each weekly darzalex treatment. Take with food as directed by nursing at the infusion center. calcium carbonate [Tums] 300 mg (750 mg) tablet,chewable 300 mg PO QID trazodone 50 mg tablet 50 mg PO QHS PRN polyethylene glycol 3350 17 gram/dose powder 17 g PO DAILY acetaminophen [Acetaminophen Extra Strength] 500 mg tablet 1,000 mg PO TID PRN sertraline 100 mg tablet 150 mg PO DAILY naloxone 4 mg/actuation spray,non-aerosol 1 spray INTRANASAL .UD PRN Patient Comments: 1 SPRAY INTO ONE NOSTRIL FOR REVERSAL. USE 1 SPRAY IN 1 NOSTRIL. REPEAT WITH SECOND DEVICE IN OTHER NOSTRIL AFTER 2-3 MINUTES IF NO RESPONSE methocarbamol 500 mg Tablet 500 mg PO TID Qty: 30 0RF metoprolol succinate 25 mg Tablet Extended Release 24 Hr 25 mg PO DAILY Qty: 30 0RF lorazepam 0.5 mg tablet 0.5 mg PO QHS PRNQty: 30 0RF potassium chloride 20 mEq tablet extended release 20 meq PO DAILY Qty: 30 0RF Hold Instructions: Doctor's Order Patient Comments: Per Christina Ewing APRN; no longer needed. 09/25/22. Per pt on 10/03/2022, taking daily. calcium carbonate-vitamin D3 600 mg-10 mcg (400 unit) tablet 1 tab PO BID ondansetron HCl 4 mg tablet 4 mg PO Q6H PRN (Reason: nausea and vomiting) aspirin [Enteric Coated Aspirin] 81 mg tablet,delayed release (DR/EC) 81 mg PO DAILY oxycodone 5 mg Tablet 10 mg PO Q4H PRN (Reason: pain) morphine 30 mg Tablet Extended Release 30 mg PO DAILY@1200 30 Days Qty: 30 0RF sulfamethoxazole-trimethoprim [Bactrim DS] 800-160 mg tablet 1 tab PO MOWEFR Qty: 30 1RF Rx Instructions: Take 1 tablet Saturday, Saturday and Saturday, every week. Held Darzalex Faspro 1,800 mg-30,000 unit/15 mL solution 15 ml subcut Q2W Hold Instructions: Resume on 11/19/22. Confer with your cat tender/oncologist regarding when to start this medication again bortezomib [Velcade] 3.5 mg recon soln 2.3 mg subcut QWEEK Hold Instructions: Resume on 11/19/22. Confer with your cat tender/oncologist regarding when to start this medication again cyclophosphamide 50 mg capsule 50 mg PO DAILY Qty: 30 1RF Hold Instructions: Resume on 11/19/22. Confer with your cat tender/oncologist regarding when to start this medication again Discontinued Paxlovid 300 mg (150 mg x 2)-100 mg tablets,dose pack 3 ea PO BID Discharge Orders: Discharge Order (Routine); Ordered 11/12/22 Ordered By: Fernando Mike Patient Education: Flu Shot (Vaccine) for Adults (DC), COVID-19 (Coronavirus Disease 2019) (DC), COVID-19 and Chronic Health Conditions (DC), COVID-19: Slow the Coronavirus Spread (DC), Face Coverings (Masks) and COVID-19 (DC), Social Distancing Guidelines for COVID-19 (DC) Additional Instructions: 1. Notify your hematology/oncology team of your current diagnosis and how your medications for treatment of multiple myeloma are on hold for now, except you are still taking the dexamethasone once weekly. Ask when they want to see you again and when they recommend you restart your treatment. 2. Isolate until midnight on 11/16/2022. Activity Level: Activity as Tolerated Discharge Diet: Regular Follow Up Appointments: Cookie Deras MD [Primary Care Provider] - Forms: [employer] Info Instructions
== END 2022-11-12 15:14 | disposition home or self-care (01) | DRG 178 ==
LOC: ED 11-11 00:59 → MEDSURG 11-11 04:38
PROVIDERS: Hospitalist; Admitting Provider Internal Medicine; Emergency Provider Student in an Organized Health Care Education/Training Program; PCP Family Medicine; Visit Provider Student in an Organized Health Care Education/Training Program
DX: U07.1 COVID-19 (principal); C90.00 Multiple myeloma not having achieved remission; E87.1 Hypo-osmolality and hyponatremia; D61.818 Other pancytopenia; R09.02 Hypoxemia; G89.3 Neoplasm related pain (acute) (chronic); G47.30 Sleep apnea, unspecified; I10 Essential (primary) hypertension; F10.91 Alcohol use, unspecified, in remission; F41.8 Other specified anxiety disorders
CPT/HCPCS: 36415; 36600; 71275; 80048; 80053; 82803; 83605; 83735; 83880; 84100; 84484; 85025; 86140; 87040; 87631; 93005; 94761; 99283; 99285; A9270; G0378; J1100; J1644; J2270; J2405; J7030; J7050; Q9967

== ENCOUNTER 2022-12-19 09:00 | Outpatient (RCR) | payer BC, SELFPAY ==
--- NOTE | 2022-07-30 13:43 | URNOTE ---
Request received for authorization for?Bortezomib (Velcade) ([id number]). Prior authorization is not required per [employer] Ref #[id number] from 08/02/22 to 08/02/2023.
[2022-08-02 09:06] LABS: Basophils Absolute Auto 0.02 K/uL (0.00-0.30); Basophils Percent Auto 0.3 % (0.0-3.0); Eosinophils Absolute Auto 0.41 K/uL (0.00-0.50); Eosinophils Percent Auto 5.5 % (0.0-7.0); Hematocrit 28.2 % (33.0-51.0); Immature Granulocytes Abs Auto 0.05 K/uL (0.00-0.30); Immature Granulocytes Pct Auto 0.7 %; Lymphocytes Percent Auto 11.6 % (20-44); Mean Corpuscular HGB Conc 32 gm/dL (32-36); Mean Corpuscular Hemoglobin 30 pg (26-34); Mean Corpuscular Volume 94 fL (80-100); Neutrophils Absolute Auto 5.28 K/uL (1.7-7.0); Neutrophils Percent Auto 70.9 % (42.0-72.0); Platelet Count* 131 K/uL (140-440); RDW Coefficient of Variation % 16.5 % (11.5-15.5); Red Blood Count 2.99 m/uL (4.00-5.20); White Blood Count* 7.44 K/uL (4.50-11.00)
[2022-08-02 09:13] LABS: Slide Review Reflex No
[2022-08-02 09:28] LABS: Albumin* 3.5 g/dL (3.3-5.0); Chloride* 107 mmol/L (96-114); Potassium* 4.2 mmol/L (3.6-5.1); Sodium* 139 mmol/L (135-149)
[2022-08-02 09:30] LABS: Aspartate Amino Transferase* 17 U/L (12-35); Bilirubin Total* 0.3 mg/dL (0.1-1.5); Carbon Dioxide* 26 mmol/L (20-32); Creatinine* 0.8 mg/dL (0.5-1.5); Est. Creatinine Clearance* 44.36; Estimated Glomerular Filt Rate 82 ml/min; Total Protein* 5.9 g/dL (6.0-8.3)
[2022-08-02 09:31] LABS: Alanine Aminotransferase* 16 U/L (4-35); Alkaline Phosphatase* 78 U/L (40-150); Blood Urea Nitrogen* 12 mg/dL (7-30); Calcium* 7.8 mg/dL (8.4-10.6); Glucose* 94 mg/dL (60-115)
[2022-08-02] MEDS: BORTEZOMIB SUBQ 2.5 mg/ml SUBCUT (11:56)
--- NOTE | 2022-08-03 11:05 | ONC.NURNOTE ---
Order clarification: The orders that we received from [facility] was that patient was getting velcade days 04/04/11/13.? The velcade is ordered weekly here.? Looking through HemOnc and Clinical Pharmacology, it appears?that it can be given either way.? If we are giving days 04/04/11/09, she would be due for cycle 2 on 08/17 with weekly velcade as discussed, but the order panels show 08/31/2022.?
[2022-08-06 14:32] LABS: Basophils Absolute Auto 0.01 K/uL (0.00-0.30); Basophils Percent Auto 0.1 % (0.0-3.0); Eosinophils Absolute Auto 0.02 K/uL (0.00-0.50); Eosinophils Percent Auto 0.2 % (0.0-7.0); Hematocrit 30.1 % (33.0-51.0); Hemoglobin* 9.8 gm/dL (12.0-16.0); Immature Granulocytes Abs Auto 0.07 K/uL (0.00-0.30); Immature Granulocytes Pct Auto 0.9 %; Lymphocytes Percent Auto 9.2 % (20-44); Mean Corpuscular HGB Conc 33 gm/dL (32-36); Mean Corpuscular Hemoglobin 31 pg (26-34); Mean Corpuscular Volume 95 fL (80-100); Monocytes Percent Auto 13.8 % (0.0-11.0); Neutrophils Percent Auto 75.8 % (42.0-72.0); Platelet Count* 108 K/uL (140-440); RDW Coefficient of Variation % 16.4 % (11.5-15.5); Red Blood Count 3.18 m/uL (4.00-5.20); White Blood Count* 8.03 K/uL (4.50-11.00)
[2022-08-06 14:34] LABS: Albumin* 3.7 g/dL (3.3-5.0); Chloride* 103 mmol/L (96-114)
[2022-08-06 14:35] LABS: Potassium* 4.2 mmol/L (3.6-5.1); Sodium* 136 mmol/L (135-149)
[2022-08-06 14:37] LABS: Alkaline Phosphatase* 93 U/L (40-150); Aspartate Amino Transferase* 17 U/L (12-35); Bilirubin Total* 0.4 mg/dL (0.1-1.5); Blood Urea Nitrogen* 22 mg/dL (7-30); Carbon Dioxide* 25 mmol/L (20-32); Creatinine* 0.8 mg/dL (0.5-1.5); Est. Creatinine Clearance* 44.36; Estimated Glomerular Filt Rate 82 ml/min; Total Protein* 6.1 g/dL (6.0-8.3)
[2022-08-06 14:38] LABS: Alanine Aminotransferase* 18 U/L (4-35); Calcium* 8.3 mg/dL (8.4-10.6); Glucose* 98 mg/dL (60-115)
[2022-08-06 14:55] LABS: Slide Review Reflex No
[2022-08-06] MEDS: BORTEZOMIB SUBQ 2.5 mg/ml SUBCUT (15:39)
[2022-08-21 10:20] VITALS: BP 120/76; PULSE 77; RESP 16; TEMP 36.4; O2SAT 93
[2022-08-21 10:34] LABS: Eosinophils Percent Auto 0.7 % (0.0-7.0); Hematocrit 28.6 % (33.0-51.0); Immature Granulocytes Pct Auto 0.3 %; Lymphocytes Percent Auto 6.1 % (20-44); Mean Corpuscular HGB Conc 32 gm/dL (32-36); Mean Corpuscular Hemoglobin 30 pg (26-34); Mean Corpuscular Volume 97 fL (80-100); Monocytes Percent Auto 12.8 % (0.0-11.0); Neutrophils Percent Auto 79.1 % (42.0-72.0); Platelet Count* 198 K/uL (140-440); RDW Coefficient of Variation % 15.9 % (11.5-15.5); Red Blood Count 2.96 m/uL (4.00-5.20); White Blood Count* 2.96 K/uL (4.50-11.00)
[2022-08-21 10:37] LABS: Slide Review Reflex No
[2022-08-21 10:44] LABS: Albumin* 3.8 g/dL (3.3-5.0); Chloride* 100 mmol/L (96-114)
[2022-08-21 10:45] LABS: Potassium* 3.8 mmol/L (3.6-5.1); Sodium* 137 mmol/L (135-149)
[2022-08-21 10:47] LABS: Aspartate Amino Transferase* 19 U/L (12-35); Bilirubin Total* 0.5 mg/dL (0.1-1.5); Carbon Dioxide* 30 mmol/L (20-32); Creatinine* 0.6 mg/dL (0.5-1.5); Est. Creatinine Clearance* 44.36; Estimated Glomerular Filt Rate 100 ml/min; Total Protein* 5.9 g/dL (6.0-8.3)
[2022-08-21 10:48] LABS: Alanine Aminotransferase* 17 U/L (4-35); Alkaline Phosphatase* 147 U/L (40-150); Blood Urea Nitrogen* 12 mg/dL (7-30); Calcium* 8.1 mg/dL (8.4-10.6); Glucose* 102 mg/dL (60-115)
[2022-08-21] MEDS: BORTEZOMIB SUBQ 2.5 mg/ml 2.3 MG SUBCUT (11:33)
--- NOTE | 2022-08-21 12:18 | ONC.NURNOTE ---
FMLA FORMS for daughter and were completed by chief underwriter and signed by Dr Grover copy in charts original to patient
--- NOTE | 2022-08-21 13:44 | ONC.NURNOTE ---
Adalgisa was admitted lately for uncontrolled back pain. she received a steroid bolus and is on a oral taper down of steroids. she has a apt today with for increase in her pain medications. also Palative care referal will be done. Christina Ewing APRN talked with pts primary regarding above. right now pt is taking ms contin 60 bid and oxydcodone 10mg every 4 hrs and needing better pain control. daughter here and supportive. daughter on FMLA
[2022-08-28 10:14] LABS: Basophils Percent Auto 0.8 % (0.0-3.0); Eosinophils Percent Auto 1.1 % (0.0-7.0); Hematocrit 29.5 % (33.0-51.0); Hemoglobin* 9.2 gm/dL (12.0-16.0); Immature Granulocytes Pct Auto 0.5 %; Lymphocytes Percent Auto 6.8 % (20-44); Mean Corpuscular HGB Conc 31 gm/dL (32-36); Mean Corpuscular Hemoglobin 31 pg (26-34); Mean Corpuscular Volume 98 fL (80-100); Monocytes Percent Auto 17.4 % (0.0-11.0); Neutrophils Percent Auto 73.4 % (42.0-72.0); Platelet Count* 157 K/uL (140-440); RDW Coefficient of Variation % 15.8 % (11.5-15.5)
[2022-08-28 10:19] LABS: Slide Review Reflex No
[2022-08-28 10:26] LABS: Albumin* 3.6 g/dL (3.3-5.0); Chloride* 99 mmol/L (96-114)
[2022-08-28 10:27] LABS: Potassium* 4.5 mmol/L (3.6-5.1); Sodium* 137 mmol/L (135-149)
[2022-08-28 10:29] LABS: Alkaline Phosphatase* 150 U/L (40-150); Aspartate Amino Transferase* 25 U/L (12-35); Bilirubin Total* 0.4 mg/dL (0.1-1.5); Blood Urea Nitrogen* 16 mg/dL (7-30); Carbon Dioxide* 34 mmol/L (20-32); Creatinine* 0.7 mg/dL (0.5-1.5); Est. Creatinine Clearance* 44.36; Estimated Glomerular Filt Rate 96 ml/min; Glucose* 107 mg/dL (60-115); Total Protein* 5.9 g/dL (6.0-8.3)
[2022-08-28 10:30] LABS: Alanine Aminotransferase* 21 U/L (4-35); Calcium* 8.4 mg/dL (8.4-10.6)
[2022-08-28 10:48] VITALS: BP 98/63; PULSE 88; RESP 16; TEMP 35.7; O2SAT 95
[2022-08-28] MEDS: BORTEZOMIB SUBQ 2.5 mg/ml 2.3 MG SUBCUT (11:17)
[2022-09-10 14:04] LABS: Basophils Absolute Auto 0.02 K/uL (0.00-0.30); Basophils Percent Auto 0.4 % (0.0-3.0); Eosinophils Absolute Auto 0.03 K/uL (0.00-0.50); Eosinophils Percent Auto 0.6 % (0.0-7.0); Hematocrit 29.2 % (33.0-51.0); Hemoglobin* 9.3 gm/dL (12.0-16.0); Immature Granulocytes Abs Auto 0.01 K/uL (0.00-0.30); Immature Granulocytes Pct Auto 0.2 %; Lymphocytes Percent Auto 13.3 % (20-44); Mean Corpuscular HGB Conc 32 gm/dL (32-36); Mean Corpuscular Hemoglobin 31 pg (26-34); Mean Corpuscular Volume 96 fL (80-100); Monocytes Percent Auto 13.7 % (0.0-11.0); Neutrophils Absolute Auto 3.58 K/uL (1.7-7.0); Neutrophils Percent Auto 71.8 % (42.0-72.0); Platelet Count* 282 K/uL (140-440); RDW Coefficient of Variation % 15.7 % (11.5-15.5); Red Blood Count 3.05 m/uL (4.00-5.20); White Blood Count* 4.98 K/uL (4.50-11.00)
[2022-09-10 14:08] LABS: Slide Review Reflex No
[2022-09-10 15:01] LABS: Albumin* 3.4 g/dL (3.3-5.0); Chloride* 101 mmol/L (96-114); Potassium* 4.3 mmol/L (3.6-5.1); Sodium* 135 mmol/L (135-149)
[2022-09-10 15:03] LABS: Creatinine* 0.6 mg/dL (0.5-1.5); Est. Creatinine Clearance* 44.36; Estimated Glomerular Filt Rate 100 ml/min
[2022-09-10 15:04] LABS: Alanine Aminotransferase* 18 U/L (4-35); Alkaline Phosphatase* 187 U/L (40-150); Aspartate Amino Transferase* 35 U/L (12-35); Bilirubin Total* 0.4 mg/dL (0.1-1.5); Blood Urea Nitrogen* 10 mg/dL (7-30); Calcium* 8.7 mg/dL (8.4-10.6); Carbon Dioxide* 29 mmol/L (20-32); Glucose* 112 mg/dL (60-115); Total Protein* 5.5 g/dL (6.0-8.3)
[2022-09-10] MEDS: BORTEZOMIB SUBQ 2.5 mg/ml 2.3 MG SUBCUT (15:42)
--- NOTE | 2022-09-11 12:57 | ONC.NURNOTE ---
Pt scheduled to see [facility] Dr. Victor on October 11 at 10am [facility] 10th floor. Referral for auto SCT Transplant/bone marrow transplant.
--- NOTE | 2022-09-11 13:09 | URNOTE ---
Request received for authorization for?Darzalex Faspro ([id number]).?Prior authorization is not required?per [facility] Ref #[id number] from 09/18/2022 to 09/18/2023.
--- NOTE | 2022-09-14 13:28 | URNOTE ---
REceived request for prior auth for Zometa ([id number]). Per [employer], prior auth is not required. Ref #[id number]
[2022-09-18 10:47] LABS: Basophils Absolute Auto 0.03 K/uL (0.00-0.30); Basophils Percent Auto 0.6 % (0.0-3.0); Eosinophils Absolute Auto 0.08 K/uL (0.00-0.50); Eosinophils Percent Auto 1.5 % (0.0-7.0); Hematocrit 31.4 % (33.0-51.0); Hemoglobin* 9.9 gm/dL (12.0-16.0); Immature Granulocytes Abs Auto 0.03 K/uL (0.00-0.30); Immature Granulocytes Pct Auto 0.6 %; Lymphocytes Percent Auto 15.9 % (20-44); Mean Corpuscular HGB Conc 32 gm/dL (32-36); Mean Corpuscular Hemoglobin 31 pg (26-34); Mean Corpuscular Volume 98 fL (80-100); Monocytes Percent Auto 15.9 % (0.0-11.0); Neutrophils Absolute Auto 3.41 K/uL (1.7-7.0); Neutrophils Percent Auto 65.5 % (42.0-72.0); Platelet Count* 227 K/uL (140-440); RDW Coefficient of Variation % 15.6 % (11.5-15.5); Red Blood Count 3.22 m/uL (4.00-5.20); White Blood Count* 5.21 K/uL (4.50-11.00)
[2022-09-18 10:52] LABS: Slide Review Reflex No
[2022-09-18 10:54] VITALS: BP 105/70; PULSE 77; RESP 16; TEMP 36.4; O2SAT 94
[2022-09-18 11:01] LABS: Albumin* 3.9 g/dL (3.3-5.0); Chloride* 100 mmol/L (96-114); Potassium* 4.6 mmol/L (3.6-5.1); Sodium* 133 mmol/L (135-149)
[2022-09-18 11:03] LABS: Creatinine* 0.7 mg/dL (0.5-1.5); Est. Creatinine Clearance* 44.36; Estimated Glomerular Filt Rate 96 ml/min
[2022-09-18 11:04] LABS: Alanine Aminotransferase* 23 U/L (4-35); Alkaline Phosphatase* 157 U/L (40-150); Aspartate Amino Transferase* 40 U/L (12-35); Bilirubin Total* 0.5 mg/dL (0.1-1.5); Blood Urea Nitrogen* 10 mg/dL (7-30); Calcium* 8.7 mg/dL (8.4-10.6); Carbon Dioxide* 32 mmol/L (20-32); Glucose* 92 mg/dL (60-115); Total Protein* 6.3 g/dL (6.0-8.3)
[2022-09-18] MEDS: ACETAMINOPHEN 325 MG TABLET 650 MG PO (11:49)
[2022-09-18] MEDS: dexAMETHasone 20 MG in 0.9 % SODIUM CHLORIDE 100 ml 100 ML 408 MG IVPB (12:02)
[2022-09-18] MEDS: diphenhydrAMINE 50 MG in 0.9 % SODIUM CHLORIDE 100 ml 100 ML 404 MG IVPB (12:21)
[2022-09-18] MEDS: ZOLEDRONIC ACID 4 MG in 0.9 % SODIUM CHLORIDE 100 ml 100 ML 420 MG IVPB (12:41)
[2022-09-18] MEDS: DARATUMUMAB-HYALURONIDASE-FIHJ 15 ML SUBCUT (13:38)
[2022-09-18] MEDS: BORTEZOMIB SUBQ 2.5 mg/ml 2.3 MG SUBCUT (13:39)
--- NOTE | 2022-09-18 15:40 | ONC.NURNOTE ---
Reviewed treatment schedule, and new medication Darzalex with daughter and Adalgisa questions addressed and consent signed handouts given reviewed after hours management and triage in ER if fever over 100.4
[2022-09-25 10:17] LABS: Basophils Absolute Auto 0.03 K/uL (0.00-0.30); Basophils Percent Auto 0.6 % (0.0-3.0); Eosinophils Absolute Auto 0.09 K/uL (0.00-0.50); Eosinophils Percent Auto 1.7 % (0.0-7.0); Hematocrit 31.4 % (33.0-51.0); Immature Granulocytes Abs Auto 0.01 K/uL (0.00-0.30); Immature Granulocytes Pct Auto 0.2 %; Lymphocytes Percent Auto 11.9 % (20-44); Mean Corpuscular HGB Conc 32 gm/dL (32-36); Mean Corpuscular Hemoglobin 30 pg (26-34); Mean Corpuscular Volume 95 fL (80-100); Monocytes Percent Auto 8.7 % (0.0-11.0); Neutrophils Percent Auto 76.9 % (42.0-72.0); Platelet Count* 146 K/uL (140-440); RDW Coefficient of Variation % 14.7 % (11.5-15.5); Red Blood Count 3.29 m/uL (4.00-5.20); White Blood Count* 5.39 K/uL (4.50-11.00)
[2022-09-25 10:20] LABS: Slide Review Reflex No
[2022-09-25 10:31] LABS: Albumin* 3.8 g/dL (3.3-5.0); Chloride* 96 mmol/L (96-114); Potassium* 5.1 mmol/L (3.6-5.1); Sodium* 132 mmol/L (135-149)
[2022-09-25 10:33] LABS: Creatinine* 0.7 mg/dL (0.5-1.5); Est. Creatinine Clearance* 44.36; Estimated Glomerular Filt Rate 96 ml/min
[2022-09-25 10:34] LABS: Alanine Aminotransferase* 25 U/L (4-35); Alkaline Phosphatase* 152 U/L (40-150); Aspartate Amino Transferase* 36 U/L (12-35); Bilirubin Total* 0.3 mg/dL (0.1-1.5); Blood Urea Nitrogen* 10 mg/dL (7-30); Calcium* 8.6 mg/dL (8.4-10.6); Carbon Dioxide* 30 mmol/L (20-32); Glucose* 132 mg/dL (60-115); Total Protein* 6.1 g/dL (6.0-8.3)
[2022-09-25] MEDS: ACETAMINOPHEN 325 MG TABLET 650 MG PO (11:06)
[2022-09-25] MEDS: diphenhydrAMINE 50 MG in 0.9 % SODIUM CHLORIDE 100 ml 100 ML 404 MG IVPB (11:34)
[2022-09-25] MEDS: dexAMETHasone 20 MG in 0.9 % SODIUM CHLORIDE 100 ml 100 ML 408 MG IVPB (11:53)
[2022-09-25 11:56] VITALS: BP 105/60; PULSE 72; RESP 18; TEMP 36.8; O2SAT 94
[2022-09-25] MEDS: DARATUMUMAB-HYALURONIDASE-FIHJ 15 ML SUBCUT (13:06)
[2022-09-25] MEDS: BORTEZOMIB SUBQ 2.5 mg/ml 2.3 MG SUBCUT (13:06)
--- NOTE | 2022-09-25 13:50 | ONC.NURNOTE ---
Pt tolerated 1st Darzalex shot well; monitored x 30 min following shot; no adverse effects after injection or at home this last week. Gave Darzalex FasPro #2 today; monitored 30 min post injections, no adverse effects or concerns.
--- NOTE | 2022-09-25 14:47 | ONC.NURNOTE ---
K level 5.1 today; last 2 weeks 4.3, 4.6. Pt takes 20 meq KCl daily at home for previous hypokalemia. Per Christina Ewing APRN, pt to stop taking KCl; will continue to monitor with treatment labs.
[2022-10-03 10:42] LABS: Basophils Absolute Auto 0.04 K/uL (0.00-0.30); Basophils Percent Auto 0.7 % (0.0-3.0); Eosinophils Absolute Auto 0.11 K/uL (0.00-0.50); Eosinophils Percent Auto 2.1 % (0.0-7.0); Hematocrit 28.8 % (33.0-51.0); Hemoglobin* 9.3 gm/dL (12.0-16.0); Immature Granulocytes Abs Auto 0.01 K/uL (0.00-0.30); Immature Granulocytes Pct Auto 0.2 %; Lymphocytes Percent Auto 10.5 % (20-44); Mean Corpuscular HGB Conc 32 gm/dL (32-36); Mean Corpuscular Hemoglobin 30 pg (26-34); Mean Corpuscular Volume 94 fL (80-100); Monocytes Percent Auto 6.9 % (0.0-11.0); Neutrophils Percent Auto 79.6 % (42.0-72.0); Platelet Count* 176 K/uL (140-440); RDW Coefficient of Variation % 14.2 % (11.5-15.5); Red Blood Count 3.08 m/uL (4.00-5.20); White Blood Count* 5.35 K/uL (4.50-11.00)
[2022-10-03 10:45] LABS: Slide Review Reflex No
[2022-10-03 10:51] VITALS: BP 118/69; PULSE 74; RESP 16; TEMP 36; O2SAT 97
[2022-10-03 11:05] LABS: Albumin* 3.6 g/dL (3.3-5.0); Chloride* 96 mmol/L (96-114)
[2022-10-03 11:06] LABS: Potassium* 4.4 mmol/L (3.6-5.1); Sodium* 130 mmol/L (135-149)
[2022-10-03 11:08] LABS: Alanine Aminotransferase* 23 U/L (4-35); Alkaline Phosphatase* 119 U/L (40-150); Aspartate Amino Transferase* 33 U/L (12-35); Bilirubin Total* 0.3 mg/dL (0.1-1.5); Blood Urea Nitrogen* 8 mg/dL (7-30); Carbon Dioxide* 30 mmol/L (20-32); Creatinine* 0.5 mg/dL (0.5-1.5); Est. Creatinine Clearance* 44.36; Estimated Glomerular Filt Rate 104 ml/min; Total Protein* 5.8 g/dL (6.0-8.3)
[2022-10-03 11:09] LABS: Calcium* 8.3 mg/dL (8.4-10.6); Glucose* 106 mg/dL (60-115); Magnesium* 1.8 mg/dL (1.5-2.6)
[2022-10-03] MEDS: ACETAMINOPHEN 325 MG TABLET 650 MG PO (11:50)
[2022-10-03] MEDS: diphenhydrAMINE 25 MG CAPSULE 50 MG PO (11:50)
[2022-10-03] MEDS: dexAMETHasone 4 MG TABLET 20 MG PO (11:50)
[2022-10-03] MEDS: DARATUMUMAB-HYALURONIDASE-FIHJ 15 ML SUBCUT (13:11)
[2022-10-03] MEDS: BORTEZOMIB SUBQ 2.5 mg/ml 2.3 MG SUBCUT (13:12)
[2022-10-10 09:39] LABS: Basophils Absolute Auto 0.04 K/uL (0.00-0.30); Basophils Percent Auto 0.7 % (0.0-3.0); Eosinophils Absolute Auto 0.16 K/uL (0.00-0.50); Eosinophils Percent Auto 2.7 % (0.0-7.0); Hematocrit 29.7 % (33.0-51.0); Hemoglobin* 9.4 gm/dL (12.0-16.0); Immature Granulocytes Abs Auto 0.01 K/uL (0.00-0.30); Immature Granulocytes Pct Auto 0.2 %; Lymphocytes Percent Auto 13.1 % (20-44); Mean Corpuscular HGB Conc 32 gm/dL (32-36); Mean Corpuscular Hemoglobin 29 pg (26-34); Mean Corpuscular Volume 93 fL (80-100); Neutrophils Percent Auto 75.3 % (42.0-72.0); Platelet Count* 156 K/uL (140-440); RDW Coefficient of Variation % 13.7 % (11.5-15.5); Red Blood Count 3.21 m/uL (4.00-5.20)
[2022-10-10 09:51] LABS: Albumin* 3.5 g/dL (3.3-5.0); Chloride* 92 mmol/L (96-114); Sodium* 129 mmol/L (135-149)
[2022-10-10 09:52] LABS: Potassium* 4.3 mmol/L (3.6-5.1)
[2022-10-10 09:53] LABS: Slide Review Reflex No
[2022-10-10 09:54] LABS: Alanine Aminotransferase* 26 U/L (4-35); Alkaline Phosphatase* 116 U/L (40-150); Aspartate Amino Transferase* 38 U/L (12-35); Bilirubin Total* 0.2 mg/dL (0.1-1.5); Blood Urea Nitrogen* 11 mg/dL (7-30); Carbon Dioxide* 32 mmol/L (20-32); Creatinine* 0.6 mg/dL (0.5-1.5); Est. Creatinine Clearance* 44.36; Estimated Glomerular Filt Rate 100 ml/min; Glucose* 91 mg/dL (60-115); Total Protein* 5.6 g/dL (6.0-8.3)
[2022-10-10 09:55] LABS: Calcium* 8.4 mg/dL (8.4-10.6)
[2022-10-10 12:08] VITALS: TEMP 36.7
[2022-10-10] MEDS: ACETAMINOPHEN 325 MG TABLET 650 MG PO (12:08)
[2022-10-10] MEDS: diphenhydrAMINE 25 MG CAPSULE 50 MG PO (12:10)
[2022-10-10] MEDS: dexAMETHasone 4 MG TABLET 20 MG PO (12:11)
[2022-10-10] MEDS: BORTEZOMIB SUBQ 2.5 mg/ml 2.3 MG SUBCUT (12:57)
[2022-10-10] MEDS: DARATUMUMAB-HYALURONIDASE-FIHJ 15 ML SUBCUT (12:58)
[2022-10-16 11:39] LABS: Basophils Absolute Auto 0.01 K/uL (0.00-0.30); Basophils Percent Auto 0.2 % (0.0-3.0); Eosinophils Absolute Auto 0.04 K/uL (0.00-0.50); Eosinophils Percent Auto 0.8 % (0.0-7.0); Hemoglobin* 9.9 gm/dL (12.0-16.0); Immature Granulocytes Abs Auto 0.01 K/uL (0.00-0.30); Immature Granulocytes Pct Auto 0.2 %; Lymphocytes Percent Auto 16.9 % (20-44); Mean Corpuscular HGB Conc 32 gm/dL (32-36); Mean Corpuscular Hemoglobin 29 pg (26-34); Mean Corpuscular Volume 91 fL (80-100); Monocytes Percent Auto 8.1 % (0.0-11.0); Neutrophils Percent Auto 73.8 % (42.0-72.0); Platelet Count* 142 K/uL (140-440); RDW Coefficient of Variation % 13.6 % (11.5-15.5); White Blood Count* 4.84 K/uL (4.50-11.00)
[2022-10-16 11:48] LABS: Slide Review Reflex No
[2022-10-16 11:53] LABS: Chloride* 97 mmol/L (96-114)
[2022-10-16 11:54] LABS: Albumin* 3.5 g/dL (3.3-5.0); Potassium* 3.7 mmol/L (3.6-5.1); Sodium* 132 mmol/L (135-149)
[2022-10-16 11:56] LABS: Bilirubin Total* 0.3 mg/dL (0.1-1.5); Carbon Dioxide* 33 mmol/L (20-32); Creatinine* 0.5 mg/dL (0.5-1.5); Est. Creatinine Clearance* 44.36; Estimated Glomerular Filt Rate 104 ml/min
[2022-10-16 11:57] LABS: Alanine Aminotransferase* 22 U/L (4-35); Alkaline Phosphatase* 115 U/L (40-150); Aspartate Amino Transferase* 33 U/L (12-35); Blood Urea Nitrogen* 6 mg/dL (7-30); Calcium* 7.8 mg/dL (8.4-10.6); Glucose* 100 mg/dL (60-115); Total Protein* 5.7 g/dL (6.0-8.3)
[2022-10-16 12:07] VITALS: BP 137/81; PULSE 86; RESP 16; TEMP 36.8; O2SAT 96
[2022-10-23 11:46] LABS: Basophils Percent Auto 1.3 % (0.0-3.0); Eosinophils Percent Auto 1.8 % (0.0-7.0); Hematocrit 30.7 % (33.0-51.0); Hemoglobin* 9.5 gm/dL (12.0-16.0); Lymphocytes Percent Auto 29.3 % (20-44); Mean Corpuscular HGB Conc 31 gm/dL (32-36); Mean Corpuscular Hemoglobin 28 pg (26-34); Mean Corpuscular Volume 91 fL (80-100); Neutrophils Percent Auto 57.6 % (42.0-72.0); Platelet Count* 198 K/uL (140-440); RDW Coefficient of Variation % 13.6 % (11.5-15.5); Red Blood Count 3.37 m/uL (4.00-5.20)
[2022-10-23 11:51] LABS: Slide Review Reflex No
[2022-10-23 12:12] LABS: Albumin* 3.5 g/dL (3.3-5.0); Chloride* 95 mmol/L (96-114); Potassium* 4.2 mmol/L (3.6-5.1); Sodium* 132 mmol/L (135-149)
[2022-10-23 12:14] LABS: Bilirubin Total* 0.2 mg/dL (0.1-1.5); Creatinine* 0.6 mg/dL (0.5-1.5); Est. Creatinine Clearance* 44.36; Estimated Glomerular Filt Rate 100 ml/min
[2022-10-23 12:15] LABS: Alanine Aminotransferase* 20 U/L (4-35); Alkaline Phosphatase* 101 U/L (40-150); Aspartate Amino Transferase* 37 U/L (12-35); Blood Urea Nitrogen* 10 mg/dL (7-30); Calcium* 8.9 mg/dL (8.4-10.6); Carbon Dioxide* 34 mmol/L (20-32); Glucose* 94 mg/dL (60-115); Total Protein* 5.8 g/dL (6.0-8.3)
[2022-10-23] MEDS: diphenhydrAMINE 25 MG CAPSULE 50 MG PO (12:26)
[2022-10-23] MEDS: ACETAMINOPHEN 325 MG TABLET 650 MG PO (12:26)
[2022-10-23 12:43] VITALS: BP 110/70; PULSE 79; RESP 16; TEMP 36.7; O2SAT 94
[2022-10-23] MEDS: ZOLEDRONIC ACID 4 MG in 0.9 % SODIUM CHLORIDE 100 ml 100 ML 420 MG IVPB (13:21)
[2022-10-23] MEDS: DARATUMUMAB-HYALURONIDASE-FIHJ 15 ML SUBCUT (13:59)
[2022-10-23] MEDS: BORTEZOMIB SUBQ 2.5 mg/ml 2.3 MG SUBCUT (14:00)
[2022-10-30 10:16] LABS: Basophils Percent Auto 0.6 % (0.0-3.0); Eosinophils Percent Auto 2.6 % (0.0-7.0); Hematocrit 30.8 % (33.0-51.0); Hemoglobin* 9.5 gm/dL (12.0-16.0); Lymphocytes Percent Auto 41.1 % (20-44); Mean Corpuscular HGB Conc 31 gm/dL (32-36); Mean Corpuscular Hemoglobin 28 pg (26-34); Mean Corpuscular Volume 90 fL (80-100); Monocytes Percent Auto 16.3 % (0.0-11.0); Neutrophils Percent Auto 39.4 % (42.0-72.0); Platelet Count* 181 K/uL (140-440); RDW Coefficient of Variation % 13.8 % (11.5-15.5); Red Blood Count 3.42 m/uL (4.00-5.20)
[2022-10-30 10:17] LABS: Slide Review Reflex No
[2022-10-30 10:28] VITALS: BP 146/82; PULSE 77; RESP 16; TEMP 36.4; O2SAT 96
[2022-10-30 10:34] LABS: Albumin* 3.6 g/dL (3.3-5.0); Chloride* 100 mmol/L (96-114); Potassium* 4.1 mmol/L (3.6-5.1); Sodium* 135 mmol/L (135-149)
[2022-10-30 10:37] LABS: Alanine Aminotransferase* 20 U/L (4-35); Alkaline Phosphatase* 94 U/L (40-150); Aspartate Amino Transferase* 37 U/L (12-35); Bilirubin Total* 0.2 mg/dL (0.1-1.5); Blood Urea Nitrogen* 7 mg/dL (7-30); Carbon Dioxide* 31 mmol/L (20-32); Creatinine* 0.5 mg/dL (0.5-1.5); Est. Creatinine Clearance* 44.36; Estimated Glomerular Filt Rate 104 ml/min; Glucose* 91 mg/dL (60-115); Total Protein* 5.9 g/dL (6.0-8.3)
[2022-10-30 10:38] LABS: Calcium* 8.3 mg/dL (8.4-10.6)
[2022-10-30] MEDS: diphenhydrAMINE 25 MG CAPSULE 50 MG PO (10:46)
[2022-10-30] MEDS: ACETAMINOPHEN 325 MG TABLET 650 MG PO (10:46)
[2022-10-30] MEDS: BORTEZOMIB SUBQ 2.5 mg/ml 2.3 MG SUBCUT (12:26)
[2022-10-30] MEDS: DARATUMUMAB-HYALURONIDASE-FIHJ 15 ML SUBCUT (12:26)
[2022-11-01 21:45] LABS: Albumin 3.43 g/dL (3.75-5.01); Alpha 1 Globulin 0.38 g/dL (0.19-0.46); Alpha 2 Globulin 0.81 g/dL (0.48-1.05); Immunofixation IFE Done; Immunoglobulin A 4 mg/dL (68-408); Immunoglobulin G 297 mg/dL (768-1632); Immunoglobulin M 17 mg/dL (35-263); Kappa Qnt Free Light Chains 9.46 mg/L (3.30-19.40); Kappa/Lambda Light Chain Ratio 2.79 (0.26-1.65); Lambda Qnt Free Light Chains 3.39 mg/L (5.71-26.30); Monoclonal Protein 0.13 g/dL; Total Protein, Serum 5.6 g/dL (6.3-8.2)
[2022-11-04 09:03] LABS: Free Urinary Kappa Excret/Day 1.93 mg/d; Free Urine Kappa Light Chains 0.69 mg/L (0.00-32.90); Free Urine LAmbda Light Chains <0.74 mg/L (0.00-3.79); Hours Collected 24 hr; Total Volume 2800 mL
[2022-11-06 13:29] LABS: Basophils Absolute Auto 0.03 K/uL (0.00-0.30); Basophils Percent Auto 0.6 % (0.0-3.0); Eosinophils Absolute Auto 0.06 K/uL (0.00-0.50); Eosinophils Percent Auto 1.1 % (0.0-7.0); Hematocrit 32.2 % (33.0-51.0); Hemoglobin* 10.1 gm/dL (12.0-16.0); Immature Granulocytes Abs Auto 0.01 K/uL (0.00-0.30); Immature Granulocytes Pct Auto 0.2 %; Lymphocytes Percent Auto 16.2 % (20-44); Mean Corpuscular HGB Conc 31 gm/dL (32-36); Mean Corpuscular Hemoglobin 27 pg (26-34); Mean Corpuscular Volume 87 fL (80-100); Monocytes Percent Auto 11.2 % (0.0-11.0); Neutrophils Absolute Auto 3.81 K/uL (1.7-7.0); Neutrophils Percent Auto 70.7 % (42.0-72.0); Platelet Count* 173 K/uL (140-440); RDW Coefficient of Variation % 13.8 % (11.5-15.5); Red Blood Count 3.69 m/uL (4.00-5.20); White Blood Count* 5.38 K/uL (4.50-11.00)
[2022-11-06 13:33] LABS: Slide Review Reflex No
[2022-11-06 14:04] LABS: Albumin* 3.7 g/dL (3.3-5.0); Chloride* 98 mmol/L (96-114); Sodium* 134 mmol/L (135-149)
[2022-11-06 14:05] LABS: Potassium* 3.9 mmol/L (3.6-5.1)
[2022-11-06 14:07] LABS: Alanine Aminotransferase* 20 U/L (4-35); Alkaline Phosphatase* 85 U/L (40-150); Aspartate Amino Transferase* 35 U/L (12-35); Bilirubin Total* 0.2 mg/dL (0.1-1.5); Blood Urea Nitrogen* 11 mg/dL (7-30); Carbon Dioxide* 32 mmol/L (20-32); Creatinine* 0.6 mg/dL (0.5-1.5); Est. Creatinine Clearance* 44.36; Estimated Glomerular Filt Rate 100 ml/min; Glucose* 97 mg/dL (60-115); Total Protein* 6.1 g/dL (6.0-8.3)
[2022-11-06 14:08] LABS: Calcium* 8.6 mg/dL (8.4-10.6)
[2022-11-06] MEDS: ACETAMINOPHEN 325 MG TABLET 650 MG PO (14:40)
[2022-11-06] MEDS: diphenhydrAMINE 25 MG CAPSULE 50 MG PO (14:40)
[2022-11-06] MEDS: BORTEZOMIB SUBQ 2.5 mg/ml 2.3 MG SUBCUT (15:33)
[2022-11-06] MEDS: DARATUMUMAB-HYALURONIDASE-FIHJ 15 ML SUBCUT (15:33)
--- NOTE | 2022-11-16 15:41 | ONC.NURNOTE ---
Addendum entered by Luda Esqueda RN 11/22/22 09:42: Patient called to see how she is feeling, her answered the phone and stated that she is currently sleeping after having a rough day yesterday. Extreme fatigue noted. Hydraulic Rock Drill Operator asked about cough and fever, and he stated that he doesn't recall a lot of coughing and gave the following VS: 99.2 91% 74 119/65 Patient was scheduled to see ADVERTISING SALES CONSULTANT prior to getting injections restarted next week. Addendum entered by Luda Esqueda RN 11/21/22 09:01: Hydraulic Rock Drill Operator called patient following direction from Infection Prevention: Cecy Pina-? Symptom onset 11/09/2022.? With the provider approval of returning, that is appropriate at 10 days, was cleared on 11/19/2022,? as long as symptoms are improved and no fever.? ?Studies have shown that dexamethasone has improved COVID symptoms in patients and decreased viral replication.? Patient notes that her temperature yesterday was 99.1. Looking back in her chart, patient runs in the high 98 - low 99 range. Patient continues to have a productive cough, with dark yellow/green phlem. She continues to feel week, but this is improving. She is working on increasing her activity very slowly. Patient symptoms are not clear to nursing on safety for return for chemotherapy. Nursing to discuss with Dr. Gutierrez when she returns for best plan for patient. Original Note: Patient was noted to have tested positive for COVID earlier this week. Patient ended up getting admitted. Hydraulic Rock Drill Operator was going through next week and saw patient on the schedule for chemo injection. Talking with ADVERTISING SALES CONSULTANT, the following was advised: 1. Hold dexamethasone, along with revlamid. 2. Do not come into clinic next week until patient has heard back from [facility] with plan. 3. Nursing to discuss with Dr. Gutierrez plan for restarting plan. 4. Nursing to call patient on afternoon with the plan. Patient does note that she is feeling better. Continues to have low grade fever, this morning was 99+.
[2022-11-27 12:59] LABS: Chloride* 101 mmol/L (96-114); Potassium* 4.4 mmol/L (3.6-5.1); Sodium* 137 mmol/L (135-149)
[2022-11-27 13:01] LABS: Anion Gap 6 mEq/L (7-15); Bilirubin Total* 0.4 mg/dL (0.1-1.5); Carbon Dioxide* 30 mmol/L (20-32); Creatinine* 0.6 mg/dL (0.5-1.5); Est. Creatinine Clearance* 43.77; Estimated Glomerular Filt Rate 99 ml/min
[2022-11-27 13:02] LABS: Alanine Aminotransferase* 18 U/L (4-35); Alkaline Phosphatase* 90 U/L (40-150); Aspartate Amino Transferase* 39 U/L (12-35); Blood Urea Nitrogen* 13 mg/dL (7-30); Glucose* 93 mg/dL (60-115); Total Protein* 6.5 g/dL (6.0-8.3)
[2022-11-27 14:16] LABS: Basophils Absolute Auto 0.04 K/uL (0.00-0.30); Basophils Percent Auto 0.6 % (0.0-3.0); Eosinophils Absolute Auto 0.18 K/uL (0.00-0.50); Eosinophils Percent Auto 2.8 % (0.0-7.0); Hematocrit 34.8 % (33.0-51.0); Hemoglobin* 10.6 gm/dL (12.0-16.0); Immature Granulocytes Abs Auto 0.01 K/uL (0.00-0.30); Immature Granulocytes Pct Auto 0.2 %; Lymphocytes Percent Auto 9.3 % (20-44); Mean Corpuscular HGB Conc 31 gm/dL (32-36); Mean Corpuscular Hemoglobin 26 pg (26-34); Mean Corpuscular Volume 86 fL (80-100); Monocytes Percent Auto 7.7 % (0.0-11.0); Neutrophils Percent Auto 79.4 % (42.0-72.0); Platelet Count* 246 K/uL (140-440); RDW Coefficient of Variation % 14.5 % (11.5-15.5); Red Blood Count 4.06 m/uL (4.00-5.20); White Blood Count* 6.36 K/uL (4.50-11.00)
[2022-11-27 14:19] LABS: Slide Review Reflex No
[2022-11-27 14:21] VITALS: BP 118/64; PULSE 76; RESP 16; TEMP 36.2; O2SAT 95
[2022-11-27] MEDS: diphenhydrAMINE 25 MG CAPSULE 50 MG PO (14:55)
[2022-11-27] MEDS: ACETAMINOPHEN 325 MG TABLET 650 MG PO (14:55)
[2022-11-27] MEDS: dexAMETHasone 4 MG TABLET 20 MG PO (14:56)
[2022-11-27] MEDS: DARATUMUMAB-HYALURONIDASE-FIHJ 15 ML SUBCUT (16:10)
[2022-11-27] MEDS: BORTEZOMIB SUBQ 2.5 mg/ml 2.3 MG SUBCUT (16:11)
[2022-12-04 13:00] VITALS: BP 95/55; PULSE 74; RESP 16; TEMP 36.1; O2SAT 97
[2022-12-04 13:09] LABS: Basophils Absolute Auto 0.02 K/uL (0.00-0.30); Basophils Percent Auto 0.3 % (0.0-3.0); Eosinophils Absolute Auto 0.22 K/uL (0.00-0.50); Eosinophils Percent Auto 3.7 % (0.0-7.0); Hematocrit 32.8 % (33.0-51.0); Hemoglobin* 10.1 gm/dL (12.0-16.0); Immature Granulocytes Abs Auto 0.01 K/uL (0.00-0.30); Immature Granulocytes Pct Auto 0.2 %; Mean Corpuscular HGB Conc 31 gm/dL (32-36); Mean Corpuscular Hemoglobin 26 pg (26-34); Mean Corpuscular Volume 85 fL (80-100); Monocytes Percent Auto 10.5 % (0.0-11.0); Neutrophils Percent Auto 77.3 % (42.0-72.0); Platelet Count* 190 K/uL (140-440); RDW Coefficient of Variation % 14.5 % (11.5-15.5); Red Blood Count 3.84 m/uL (4.00-5.20)
[2022-12-04 13:11] LABS: Slide Review Reflex No
[2022-12-04 13:24] LABS: Albumin* 3.6 g/dL (3.3-5.0); Chloride* 90 mmol/L (96-114)
[2022-12-04 13:25] LABS: Potassium* 4.5 mmol/L (3.6-5.1); Sodium* 132 mmol/L (135-149)
[2022-12-04 13:27] LABS: Anion Gap 5 mEq/L (7-15); Aspartate Amino Transferase* 35 U/L (12-35); Bilirubin Total* 0.2 mg/dL (0.1-1.5); Carbon Dioxide* 37 mmol/L (20-32); Creatinine* 0.6 mg/dL (0.5-1.5); Est. Creatinine Clearance* 43.77; Estimated Glomerular Filt Rate 99 ml/min
[2022-12-04 13:28] LABS: Alanine Aminotransferase* 26 U/L (4-35); Alkaline Phosphatase* 90 U/L (40-150); Blood Urea Nitrogen* 11 mg/dL (7-30); Calcium* 9.1 mg/dL (8.4-10.6); Glucose* 111 mg/dL (60-115)
[2022-12-04] MEDS: diphenhydrAMINE 25 MG CAPSULE 50 MG PO (14:25)
[2022-12-04] MEDS: ACETAMINOPHEN 325 MG TABLET 650 MG PO (14:28)
[2022-12-04] MEDS: ZOLEDRONIC ACID 4 MG in 0.9 % SODIUM CHLORIDE 100 ml 100 ML 420 MG IVPB (14:56)
[2022-12-04] MEDS: DARATUMUMAB-HYALURONIDASE-FIHJ 15 ML SUBCUT (15:04)
[2022-12-04] MEDS: BORTEZOMIB SUBQ 2.5 mg/ml 2.3 MG SUBCUT (15:07)
--- NOTE | 2022-12-04 17:13 | ONC.NURNOTE ---
Addendum entered by Alyssa Thomas RN 12/04/22 17:16: Pts sodium level 132. asymptomatic. Discussed with Christina Ewing APRN. pt to use table salt. and continue taking NA pills daily. Original Note: Discussed pts med schedule with Christina Ewing APRN and Rosalba VALENZUELA.
[2022-12-19 09:13] LABS: Basophils Percent Auto 1.5 % (0.0-3.0); Hematocrit 32.1 % (33.0-51.0); Hemoglobin* 10.2 gm/dL (12.0-16.0); Immature Granulocytes Pct Auto 1.5 %; Lymphocytes Percent Auto 9.2 % (20-44); Mean Corpuscular HGB Conc 32 gm/dL (32-36); Mean Corpuscular Hemoglobin 27 pg (26-34); Mean Corpuscular Volume 85 fL (80-100); Monocytes Percent Auto 16.2 % (0.0-11.0); Neutrophils Percent Auto 64.6 % (42.0-72.0); Platelet Count* 215 K/uL (140-440); RDW Coefficient of Variation % 15.5 % (11.5-15.5); Red Blood Count 3.79 m/uL (4.00-5.20); White Blood Count* 3.27 K/uL (4.50-11.00)
[2022-12-19 09:20] LABS: Slide Review Reflex No
[2022-12-19 09:28] LABS: Albumin* 3.9 g/dL (3.3-5.0); Chloride* 98 mmol/L (96-114); Sodium* 134 mmol/L (135-149)
[2022-12-19 09:29] LABS: Potassium* 4.5 mmol/L (3.6-5.1)
[2022-12-19 09:30] LABS: Creatinine* 0.6 mg/dL (0.5-1.5); Est. Creatinine Clearance* 43.77; Estimated Glomerular Filt Rate 99 ml/min
[2022-12-19 09:31] LABS: Alanine Aminotransferase* 24 U/L (4-35); Alkaline Phosphatase* 89 U/L (40-150); Anion Gap 5 mEq/L (7-15); Aspartate Amino Transferase* 34 U/L (12-35); Bilirubin Total* 0.4 mg/dL (0.1-1.5); Blood Urea Nitrogen* 16 mg/dL (7-30); Carbon Dioxide* 31 mmol/L (20-32); Glucose* 88 mg/dL (60-115); Total Protein* 6.5 g/dL (6.0-8.3)
[2022-12-19 09:32] LABS: Calcium* 9.4 mg/dL (8.4-10.6)
[2022-12-19] MEDS: diphenhydrAMINE 25 MG CAPSULE 50 MG PO (10:34)
[2022-12-19] MEDS: ACETAMINOPHEN 325 MG TABLET 650 MG PO (10:34)
[2022-12-19] MEDS: BORTEZOMIB SUBQ 2.5 mg/ml 2.3 MG SUBCUT (11:46)
[2022-12-19] MEDS: DARATUMUMAB-HYALURONIDASE-FIHJ 15 ML SUBCUT (11:47)
--- NOTE | 2023-01-22 13:17 | ONC.NURNOTE ---
Received call from Dr. Corby Rea in [place] stating patient unable to get transplant at this time and will hopefully get it in April. She tested positive for Hepatitis C and currently has over a 2 million viral load. She will be treated for this and no need for MM treatment or any cares from [facility] at this time.
== END 2023-01-29 23:59 | disposition home or self-care (01) ==
LOC: CCIC 09:00
PROVIDERS: Clinical Nurse Specialist; PCP Family Medicine; Referring Provider Family Medicine; Visit Provider Internal Medicine Hematology & Oncology
DX: Z51.11 Encounter for antineoplastic chemotherapy (principal); C90.00 Multiple myeloma not having achieved remission; R53.83 Other fatigue; D49.89 Neoplasm of unspecified behavior of other specified sites
CPT/HCPCS: 36415; 80053; 82784; 83520; 83735; 84155; 84156; 84165; 85025; 86334; 86335; 86850; 86900; 86901; 96360; 96374; 96376; 96401; 99202; 99205; 99211; 99212; 99215; J9144; A9270; J1100; J1200; J3489; J9041

== ENCOUNTER 2023-12-31 22:25 | Observation (INO) | payer BC, SELFPAY ==
[2023-12-31] VITALS (7 sets, daily range): BP systolic 157–195; BP diastolic 77–112; PULSE 79–92; RESP 16; TEMP 36.4; O2SAT 91–95
--- NOTE | 2023-12-31 23:02 | ED_ITS ---
HPI - General Adult General Date Seen: 12/31/23 Chief complaint: Hypertension Stated complaint: High bp, back pain Time Seen by Provider: 12/31/23 22:51 History of Present Illness HPI narrative: 68-year-old female with a complex past history including multiple previous vertebral compression fractures (T 11, T 12, L1, L2, L4), multiple myeloma (on chemo, history of radiation treatment), depression/anxiety, hypertension (had been on long-term metoprolol 25 mg b.i.d.. Had worsening hypertension last spring after bone marrow transplant so was started on amlodipine. Amlodipine was decreased from 10 mg down to 2.5 mg daily a couple of month ago. Over the past month she has had increasing blood pressure in the outpatient setting sore doctors now have her on 5 mg of amlodipine per day), history of alcohol abuse in remission, colon polyps, history of anemia, thoracic aortic aneurysm. Per oncology note 12/24, she is due to start her next cycle of Revlimid this week. Per notes, She was developing a headaches, sinus drainage , sore throat on the 24 of December. History from the patient, and her and daughter confirms that she has been sick with sore throat and cough since last week. She had negative at home COVID testing. Her overall she feels like that is stable or perhaps getting better. She was not able to do her chemo treatment last week because of her symptoms and because her blood pressure was elevated and the oncology clinic. Blood pressure was 163/79. She has been home since then. She is taking her usual meds. Tonight at about 8:00 p.m. she was watching TV when she began to feel unwell. Sounds like symptoms started with nausea and then some left upper chest pain. Sometimes the pain is pleuritic but mostly it is in her left chest. The pain does not radiate through to her back or down to her arm. No associated abdominal pain. No recent leg swelling. No recent travel or immobilization. Also around that time she developed a throbbing left-sided headache. No blurry vision. No focal numbness or weakness in her arms or legs. No associated neck pain. She has been nauseous with several episodes of retching. She has had a few small volume nonbloody, nonbilious emesis. Related Data Home Medications ?Medication ?Instructions ?Recorded ?Confirmed acetaminophen 500 mg tablet 1,000 mg PO BID 07/15/22 12/25/23 (Acetaminophen Extra Strength) naloxone 4 mg/actuation nasal spray 1 spray intranasal .UD PRN 08/12/22 12/25/23 aspirin 81 mg tablet,delayed 81 mg PO DAILY 09/04/22 12/25/23 release (Enteric Coated Aspirin) bortezomib 3.5 mg injection powder 2.3 mg subcut QWEEK 09/04/22 12/25/23 for solution (Velcade) oxycodone 5 mg tablet 10 mg PO Q4H PRN pain 09/04/22 12/25/23 trazodone 50 mg tablet 50 mg PO QHS PRN 10/23/22 12/25/23 amlodipine 5 mg tablet 5 mg PO QDAY 07/24/23 12/31/23 metoprolol tartrate 25 mg tablet 25 mg PO BID 07/24/23 12/25/23 morphine 30 mg tablet,extended 30 mg PO BID 07/24/23 12/25/23 release polyethylene glycol 3350 17 17 g PO DAILY PRN 07/24/23 12/25/23 gram/dose oral powder prochlorperazine maleate 10 mg 10 mg PO Q6H PRN 07/24/23 12/25/23 tablet (Compazine) sennosides 8.6 mg capsule (senna) 8.6 mg PO BID PRN 07/24/23 12/25/23 sertraline 100 mg tablet 200 mg PO DAILY 07/24/23 12/25/23 lenalidomide 10 mg capsule 10 mg PO .COMPLEX 08/01/23 12/25/23 olanzapine 2.5 mg tablet 2.5 mg PO QHS 10/30/23 12/25/23 Previous Rx's ?Medication ?Instructions ?Recorded lorazepam 0.5 mg tablet 0.5 mg PO QHS PRN #30 tabs 08/13/22 acyclovir 400 mg tablet 400 mg PO BID #60 tabs 08/14/22 Allergies Allergy/AdvReac Type Severity Reaction Status Date / Time naproxen [From Aleve] Allergy Severe Anaphylaxis Verified 12/31/23 22:35 bupropion [From Wellbutrin] Allergy Mild Unknown Verified 12/31/23 22:35 duloxetine Allergy Unknown tremmors Verified 12/31/23 22:35 [facility] Medical History (Updated 01/01/24 @ 01:26 by Angus Capone MD) Hypokalemia ?E87.6 - Hypokalemia (ICD-10) Hypogammaglobulinaemia, unspecified ?D80.1 - Nonfamilial hypogammaglobulinemia (ICD-10) Plasma cell neoplasm ?D49.89 - Neoplasm of unspecified behavior of other specified sites (ICD-10) Acute respiratory failure with hypoxia ?J96.01 - Acute respiratory failure with hypoxia (ICD-10) Community acquired pneumonia ?J18.9 - Pneumonia, unspecified organism (ICD-10) Hypoxia ?R09.02 - Hypoxemia (ICD-10) Fever ?R50.9 - Fever, unspecified (ICD-10) Pain crisis ?R52 - Pain, unspecified (ICD-10) Lytic bone lesions on xray ?M89.9 - Disorder of bone, unspecified (ICD-10) Pneumonia ?J18.9 - Pneumonia, unspecified organism (ICD-10) Multiple myeloma ?C90.00 - Multiple myeloma not having achieved remission (ICD-10) Polyp of duodenum ?K31.7 - Polyp of stomach and duodenum (ICD-10) Osteoarthritis ?M19.90 - Unspecified osteoarthritis, unspecified site (ICD-10) Compression fracture of L4 vertebra (~06/19/22) ?S32.040A - Wedge compression fracture of fourth lumbar vertebra, initial encounter for closed fracture (ICD-10) Compression fracture of L2 (~06/19/22) ?S32.020A - Wedge compression fracture of second lumbar vertebra, initial encounter for closed fracture (ICD-10) Compression fracture of T12 vertebra (~06/19/22) ?S22.080A - Wedge compression fracture of T11-T12 vertebra, initial encounter for closed fracture (ICD-10) Compression fracture of L1 lumbar vertebra (~06/19/22) ?S32.010A - Wedge compression fracture of first lumbar vertebra, initial encounter for closed fracture (ICD-10) Compression fracture of T11 vertebra (~06/19/22) ?S22.080A - Wedge compression fracture of T11-T12 vertebra, initial encounter for closed fracture (ICD-10) Primary osteoarthritis of right knee ?M17.11 - Unilateral primary osteoarthritis, right knee (ICD-10) Carpal tunnel syndrome, bilateral ?G56.03 - Carpal tunnel syndrome, bilateral upper limbs (ICD-10) Trigger finger of right thumb ?M65.311 - Trigger thumb, right thumb (ICD-10) Alcohol use disorder in remission ?F10.91 - Alcohol use, unspecified, in remission (ICD-10) Pulmonary nodule ?R91.1 - Solitary pulmonary nodule (ICD-10) Adenomatous colon polyp ?D12.6 - Benign neoplasm of colon, unspecified (ICD-10) Shingles ?B02.9 - Zoster without complications (ICD-10) Depression with anxiety ?F41.8 - Other specified anxiety disorders (ICD-10) Allergic rhinitis ?J30.9 - Allergic rhinitis, unspecified (ICD-10) Sleep apnea ?G47.30 - Sleep apnea, unspecified (ICD-10) Essential hypertension ?I10 - Essential (primary) hypertension (ICD-10) Hypercalcemia ?E83.52 - Hypercalcemia (ICD-10) Anemia ?D64.9 - Anemia, unspecified (ICD-10) Thoracic aortic aneurysm without rupture ?I71.20 - Thoracic aortic aneurysm, without rupture, unspecified (ICD-10) Surgical History History of intestinal surgery ?Z98.890 - Other specified postprocedural states (ICD-10) History of thoracic surgery (~05/28/22) ?Z98.890 - Other specified postprocedural states (ICD-10) History of refractive surgery ?Z98.890 - Other specified postprocedural states (ICD-10) H/O esophagogastroduodenoscopy (~01/11/22) ?Z98.890 - Other specified postprocedural states (ICD-10) Hx of appendectomy ?Z90.49 - Acquired absence of other specified parts of digestive tract (ICD- 10) S/P carpal tunnel release (~09/20/21) ?Z98.890 - Other specified postprocedural states (ICD-10) H/O colonoscopy ?Z98.890 - Other specified postprocedural states (ICD-10) Family History Mother Colon cancer Heart disease Sister Pancreatic cancer Heart disease High blood pressure Father Prostate cancer Brother Diabetes Daughter Meningioma Social History Narrative: . Living with daughter, Fidelia, since diagnosis of MM. Fidelia is a nurse and is helping set up and administer Adalgisa's many medications. What is your current living situation?: I presently have a place to live Problems where you live: no known problems Problems where you live details: n/a In the past 12 months, utilities in danger of being shut off: no In past 12 months, lack of transportation kept you from medical appts, meetings, work, or getting things needed for daily living: no In the past 12 mos, have been you worried that your food would run out before you had money to buy more?: never true In the past 12 mos, the food you bought just didn't last and you didn't have money to buy more?: never true Highest level of school completed/degree received: 12th grade, no diploma Smoking Status: Former smoker What tobacco products do you use: cigarettes Smoking quit date/years: >15 years ago Do you use any of these nicotine containing products: None Second hand tobacco smoke exposure: No How often do you have a drink containing alcohol: never How often do you have six or more drinks on one occasion: Never AUDIT-C Alcohol total score: 0 Non-prescribed substance use: denies use Caffeine: No How often does anyone, including family, friends and others, physically hurt you : never How often does anyone, including family, friends and others, insult or talk down to you: never How often does anyone, including family, friends and others, threaten you with harm: never How often does anyone, including family, friends and others, scream or curse at you: never service: No Exam Narrative: Exam Narrative: Constitutional: Appears well-developed and well-nourished. Alert. Conversant but somewhat 10 gentle historian. Perhaps mildly anxious. She is nauseous and holding an emesis bag. Overall polite. Interacts supportively with her daughter and .. HENT: Head: Atraumatic. Nose: Nose normal. Mouth/Throat: Oral mucosa is clear and moist. no trismus. Pharynx normal. Tonsils symmetric. No tonsillar enlargement, erythema, or exudate. Eyes: Conjunctivae normal. EOM normal. Pupils equal, round, and reactive to light. No scleral icterus. Neck: Normal range of motion. Neck supple. No tracheal deviation present. No JVD Cardiovascular: Normal rate, regular rhythm. No gallop. No friction rub. No murmur heard. Symmetric radial and PT artery pulses Pulmonary/Chest: Effort normal. She has occasional nonproductive cough. No stridor. No respiratory distress. No wheezes. No rales. No rhonchi . No tenderness. Abdominal: Soft. Bowel sounds normal. No distension. No mass. No tenderness. No rebound. No guarding. Musculoskeletal: RUE: Normal range of motion. No tenderness. No deformity LUE: Normal range of motion. No tenderness. No deformity RLE: Normal range of motion. No edema. No tenderness. No deformity LLE: Normal range of motion. No edema. No tenderness. No deformity Neurological: Alert and oriented to person, place, and time. Normal strength. CN II-VII intact. No sensory deficit. GCS eye subscore is 4. GCS verbal subscore is 5. GCS motor subscore is 6. Normal coordination Skin: Skin is warm and dry. No rash noted. No pallor. Normal capillary refill. Psychiatric: Normal mood. Perhaps mildly anxious. Overall polite. Const: Vital Signs, click to edit/add: Vital Signs - 24 hr 12/31/23 22:44 12/31/23 22:44 12/31/23 22:45 Temperature 97.6 F Pulse Rate 83 79 Pulse Rate [Pulse Oximeter] 92 Respiratory Rate 16 Blood Pressure 167/85 H Blood Pressure [Ri ght Upper Arm] 195/77 H Pulse Oximetry 94 92 91 [facility] 12/31/23 23:00 12/31/23 23:02 12/31/23 23:35 Temperature Pulse Rate 80 82 87 Pulse Rate [Pulse Oximeter] Respiratory Rate Blood Pressure 157/81 H 194/112 H Blood Pressure [Ri ght Upper Arm] Pulse Oximetry 94 95 93 Oxygen Delivery Ma thod 12/31/23 23:37 12/31/23 23:38 01/01/24 00:02 Temperature Pulse Rate 90 Pulse Rate [Pulse Oximeter] Respiratory Rate Blood Pressure 180/90 H Blood Pressure [Ri ght Upper Arm] Pulse Oximetry 92 93 [facility] 01/01/24 00:34 01/01/24 00:37 01/01/24 01:00 Temperature Pulse Rate 98 84 Pulse Rate [Pulse Oximeter] Respiratory Rate Blood Pressure 188/94 H Blood Pressure [Ri ght Upper Arm] Pulse Oximetry 94 89 Oxygen Delivery Me thod Course Course ED Course: Recheck-blood pressure had come down to about 160/90. Now coming back up again and is back to 190/77. Chest pain somewhat improved after fentanyl. Still has headache. Nausea. Reevaluation(s) Reevaluation #1: Recheck-now resting in bed. Blood pressure still 168/88. Oxygen sat about 90% on room air while sleeping. Comes up to than 92% when awake. Arouses to voice. Says her headache is largely improved but not resolved. Nausea improved but not resolved. Chest pain is resolved. Vital Signs Vital signs: Initial Vital Signs Temperature 97.6 F 12/31/23 22:44 Temperature Source Temporal Artery Scan 12/31/23 22:44 Pulse Rate 83 12/31/23 22:44 Pulse Rhythm Regular 12/31/23 22:44 Pulse Strength 3+ Normal 12/31/23 22:44 Respiratory Rate 16 12/31/23 22:44 Blood Pressure 167/85 H 12/31/23 22:44 Blood Pressure Mean 112 H 12/31/23 22:44 Blood Pressure Position Sitting 12/31/23 22:44 Pulse Oximetry 94 12/31/23 22:44 Oxygen Delivery Method Room Air 12/31/23 22:44 Vital Signs Temperature 97.6 F 12/31/23 22:44 Pulse Rate 83 12/31/23 22:44 Respiratory Rate 16 12/31/23 22:44 Blood Pressure 167/85 H 12/31/23 22:44 Pulse Oximetry 94 12/31/23 22:44 Oxygen Delivery Method Room Air 12/31/23 22:44 Temperature 97.6 F 12/31/23 22:44 Pulse Rate 84 01/01/24 01:00 Respiratory Rate 16 12/31/23 22:44 Blood Pressure 188/94 H 01/01/24 00:34 Pulse Oximetry 89 01/01/24 01:00 Oxygen Delivery Method Room Air 12/31/23 22:44 Medications Administered Medications: Discontinued Medications Generic Name Dose Route Start Last Admin Trade Name Freq PRN Reason Stop Dose Admin Amlodipine Besylate 10 mg 01/01/24 00:39 01/01/24 00:49 Amlodipine 10 Mg Tablet PO 01/01/24 00:40 10 mg ONCE ONE Administration Aspirin 162 mg 01/01/24 00:38 01/01/24 00:49 Aspirin 81 Mg Tab.Chew PO 01/01/24 00:39 162 mg ONCE ONE Administration Diphenhydramine HCl 12.5 mg 01/01/24 00:33 01/01/24 00:50 Diphenhydramine 50 Mg/Ml Inj IVP 01/01/24 00:34 12.5 mg ONCE ONE Administration Fentanyl 50 mcg 12/31/23 23:30 12/31/23 23:50 Fentanyl 100 Mcg/2 Ml Inj IVP 12/31/23 23:31 50 mcg ONCE ONE Administration Sodium Chloride 500 mls @ 500 mls/hr 12/31/23 23:30 12/31/23 23:50 0.9 % Sodium Chloride 500 Ml IV 01/01/24 00:29 500 mls/hr .Q1H ONE Administration Metoclopramide HCl 10 mg 01/01/24 00:33 01/01/24 00:53 Metoclopramide Hcl 5 Mg/Ml Inj IVP 01/01/24 00:34 10 mg ONCE ONE Administration Prochlorperazine 10 mg 12/31/23 23:30 12/31/23 23:50 Prochlorperazine 5 Mg/Ml Vial IV 12/31/23 23:31 10 mg ONCE ONE Administration Medical Decision Making MDM Narrative Medical decision making narrative: 68-year-old female with a complex past history presenting to the ER tonight with left upper chest pain, nausea and vomiting, also left-sided headache associated with elevated blood pressure readings. Symptoms began while she was watching TV at about 8:00 p.m. [facility]. In terms of her chest pain she does have a history of prolonged QT in the past, apparently related to fluconazole treatment. QT is 430 on her EKG tonight. No evidence of palpitations, torsades, syncope or other cardiac dysrhythmia. We considered possible ACS, however workup with EKG and initial troponin is negative. Given time since onset of symptoms I do think she needs repeat troponin testing. EKG shows no evidence for pericarditis. Clinical presentation not suggestive of myocarditis. Chest CT shows no evidence for pneumonia, pneumothorax, pulmonary edema, pleural effusion, rib fracture, cardiomegaly. Since the patient does have active malignancy, would be at risk for PE. CT PA shows no acute PE or other findings in the lungs such as pneumonia, pneumothorax, pleural effusion, rib fracture or other radiographic explanation for her chest pain. She does have a aortic aneurysm with calcification in the wall as well as calcifications in her coronary arteries. She does have a known history of a previous aortic aneurysm. The patient has no ripping or tearing pain through to the back and has symmetric pulses on exam, no other acute neuro findings so I doubt aortic dissection. Although the CT scan is protocol to look for PE, no obvious abnormality of the aortic arch on the chest CT. At this point I think the risk of contrast nephropathy associated with repeat dye load would outweigh the benefit of a dedicated aortic chest CT. No wheezing or bronchospasm to suggest COPD/asthma. No signs of chest wall cellulitis, shingles. She does have some mild tenderness of the left upper chest wall but no bruising or redness there. Unclear for chest pain is musculoskeletal but she has no history of chest wall injury. She also has hypertension. Presenting blood pressure was 195/77. After meds to treat her headache and chest pain blood pressure came down to about 168/98. Blood pressure did come down temporarily after fentanyl and Compazine. However has gone back up to 180/90. We did order her home blood pressure med, with an extra dose of amlodipine here in the ER tonight. Labs show normal kidney function. Initial troponin negative. BNP marginally abnormal, but no CT evidence for pulmonary edema or CHF. With her cough, consider infectious etiologies. COVID/influenza PCR is negative. Discussed with our overnight hospitalist, Dr. Page at 1:25 a.m.. He accepts her for admission. Lab Data Labs: Lab Results 12/31/23 12/31/23 Range/Units 23:15 23:47 WBC 4.49 L (4.50-11.00) K/uL RBC 3.80 L (4.00-5.20) m/uL Hgb 12.3 (12.0-16.0) gm/dL Hct 35.2 (33.0-51.0) % MCV 93 (80-100) fL MCH 32 (26-34) pg MCHC 35 (32-36) gm/dL RDW Coeff of Susana 14.2 (11.5-15.5) % Plt Count 121 L (140-440) K/uL Neut % (Auto) 71.7 (42.0-72.0) % Lymph % (Auto) 20.5 (20-44) % Taney % (Auto) 6.2 (0.0-11.0) % Eos % (Auto) 0.9 (0.0-7.0) % Baso % (Auto) 0.7 (0.0-3.0) % Neut # (Auto) 3.20 (1.7-7.0) K/uL Lymph # (Auto) 0.90 (0.90-2.90) K/uL Taney # (Auto) 0.30 (0.00-0.90) K/UL Eos # (Auto) 0.00 (0.00-0.50) K/uL Baso # (Auto) 0.00 (0.00-0.30) K/uL Abs Immat Gran (auto) 0.00 (0.00-0.30) K/uL Imm/Tot Granulo (auto) 0.0 % Sodium 137 (135-149) mmol/L Potassium 3.5 L (3.6-5.1) mmol/L Chloride 102 (96-114) mmol/L Carbon Dioxide 29 (20-32) mmol/L Anion Gap 6 L (7-15) mEq/L BUN 11 (7-30) mg/dL Creatinine 0.5 (0.5-1.5) mg/dL Estimated GFR 103 ml/min Glucose 130 H (60-115) mg/dL Calcium 9.2 (8.4-10.6) mg/dL NT-Pro-B Natriuret Pep 621 pg/mL SARS-CoV-2 (PCR) Negative SARS-CoV-2 (Negative) Influenza Type A (PCR) Negative PCR FLU A (Negative) Influenza Type B (PCR) Negative PCR FLU B (Negative) POC Troponin I 0.01 (0.01-0.04) ng/ml Imaging Data CT scan - chest: Attestation: I have reviewed the pertinent imaging results. Radiologist's impression: Findings: Pulmonary arteries: No pulmonary embolism appreciated. Lungs: No consolidation. No effusion. No pneumothorax. Areas of atelectasis and/or scarring are noted. Mediastinum: No acute abnormality appreciated. Ascending aorta measures 4.2 centimeters, not significantly changed from prior examination. Calcified atherosclerotic plaque of the coronary arteries and aorta. Lymph nodes: Mild prominence of mediastinal nodes is similar to prior examination with no overt lymphadenopathy appreciated. Upper abdomen: No acute abnormality appreciated. Soft tissues: No acute abnormality appreciated. Bones: No acute abnormality appreciated. Multiple chronic thoracolumbar compression fractures are noted. Impression: Chronic findings as above with no acute abnormality appreciated. ECG Data Attestation: I personally reviewed and interpreted this ECG as follows: Interpretation: Normal sinus rhythm Rate: 82 UT: 192 QRS axis: Normal axis. ST segment/T wave: Nonspecific T-wave flattening lead 3, AVF . No ST segment elevation or depression. QTc: 502. QT 430 Compared to EKG from 11/11/22 no change Discharge Plan Discharge Clinical Impression: Chest pain, Hypertension, Nausea & vomiting, Headache Prescriptions: No Action acyclovir 400 mg tablet 400 mg PO BID Qty: 60 4RF olanzapine 2.5 mg tablet 2.5 mg PO QHS senna 8.6 mg capsule 8.6 mg PO BID PRN metoprolol tartrate 25 mg tablet 25 mg PO BID amlodipine 5 mg tablet 5 mg PO QDAY morphine 30 mg tablet extended release 30 mg PO BID prochlorperazine maleate [Compazine] 10 mg tablet 10 mg PO Q6H PRN trazodone 50 mg tablet 50 mg PO QHS PRN lenalidomide 10 mg capsule 10 mg PO .COMPLEX Patient Comments: starting 08/08/2023 Rx Instructions: 10 mg orally 21 days on, 7 days off, every 28 days; swallow whole with glass of water; do not open, crush, chew , break, or dissolve acetaminophen [Acetaminophen Extra Strength] 500 mg tablet 1,000 mg PO BID polyethylene glycol 3350 17 gram/dose powder 17 g PO DAILY PRN naloxone 4 mg/actuation spray,non-aerosol 1 spray INTRANASAL .UD PRN Patient Comments: 1 SPRAY INTO ONE NOSTRIL FOR REVERSAL. USE 1 SPRAY IN 1 NOSTRIL. REPEAT WITH SECOND DEVICE IN OTHER NOSTRIL AFTER 2-3 MINUTES IF NO RESPONSE lorazepam 0.5 mg tablet 0.5 mg PO QHS PRNQty: 30 0RF sertraline 100 mg tablet 200 mg PO DAILY aspirin [Enteric Coated Aspirin] 81 mg tablet,delayed release (/EC) 81 mg PO DAILY oxycodone 5 mg Tablet 10 mg PO Q4H PRN (Reason: pain) bortezomib [Velcade] 3.5 mg recon soln 2.3 mg subcut QWEEK Hold Instructions: Resume on 11/19/22. Confer with your senior qa tester/oncologist regarding when to start this medication again Follow Up/Referrals: Cookie Deras MD [Primary Care Provider] -
--- NOTE | 2023-12-31 23:29 | CRLHL7_ITS ---
For Patients: As a result of the Century Cures Act, medical imaging exams and procedure reports are released immediately into your electronic medical record. You may view this report before your referring provider. If you have questions, please contact your health care provider. Indication: Chest pain, nausea, history of multiple myeloma on chemotherapy Technique: CTA of the chest following 95 mL Isovue 370 IV contrast. Comparison: CTA chest performed 11/10/2022 Findings: Pulmonary arteries: No pulmonary embolism appreciated. Lungs: No consolidation. No effusion. No pneumothorax. Areas of atelectasis and/or scarring are noted. Mediastinum: No acute abnormality appreciated. Ascending aorta measures 4.2 centimeters, not significantly changed from prior examination. Calcified atherosclerotic plaque of the coronary arteries and aorta. Lymph nodes: Mild prominence of mediastinal nodes is similar to prior examination with no overt lymphadenopathy appreciated. Upper abdomen: No acute abnormality appreciated. Soft tissues: No acute abnormality appreciated. Bones: No acute abnormality appreciated. Multiple chronic thoracolumbar compression fractures are noted. Impression: Chronic findings as above with no acute abnormality appreciated. Please note that all CT scans at this facility use dose modulation, iterative reconstruction, and/or weight-based dosing when appropriate to reduce radiation dose to as low as reasonably achievable. Dictated by Abdiaziz Son MD @ 01/01/2024 1:08:50 AM (Electronically Signed)
[2023-12-31 23:30] LABS: Troponin, Point-of-Care* 0.01 ng/ml (0.01-0.04)
--- OUTSIDE RECORDS SUMMARY | 2023-12-31 23:37 | XMS_ITS | Clinical Summary ---
Author Organization [facility] Address [address] [place] [address] Care Team Providers Care Lang Path Therapist Name Role Phone Elsewhere, Pcp Primary Care Provider Unavailabl e Source Comments Patient records contain information from all sites at [facility]. For routine questions regarding patient records, call [phone] during business hours, M-F 8:00 AM - 5:00 PM Central Time. Record requests for emergency care only can be directed to [phone] at any time.[facility] Allergies Active Allergy Reactions Criticality Noted Date Comments Bupropion Other (see comments) Low 06/11/2006 intol hoffman Docusate Sodium Nausea And Vomiting 05/22/2022 Duloxetine Anxiety,Other (see comments),Hallucinations 08/23/2022 Naproxen Hives (Reselect Reaction),Hypotension (Reselect Reaction),Itching,Anaphy laxis High 08/03/2013 Ibuprofen also bothers stomach Medications Medication Sig Dispensed Refills Start Date End Date Status traZODone (DESYREL) 50 mg tablet Take 50 mg by mouth at bedtime. 05/20: patient will try using ativan at bedtime instead of trazodone to aide in nausea relief 10/04/2022 Active sertraline (ZOLOFT) 100 mg tablet Take 200 mg by mouth daily. Patient takes two 100 mg tablets daily Active LORazepam (ATIVAN) 0.5 mg tablet Take 1 tablet (0.5 mg total) by mouth 3 (three) times a day as needed for anxiety (Nausea, vomiting). 05/20: patient will try using ativan at bedtime instead of trazodone to aide in nausea relief 05/20/2023 Active acyclovir (ZOVIRAX) 400 mg tablet Take 1 tablet (400 mg total) by mouth 2 (two) times a day. 180 tablet 2 05/24/2023 Active morphine (MS CONTIN) 30 mg ER tabletIndication s:Chronic Pain/Nonacute Pain Take 1 tablet (30 mg total) by mouth every 12 (twelve) hours Indication: Chronic Pain/Nonacute Pain. 60 tablet 05/24/2023 Active Additional Information Patient taking differently:30 mg oral2 times daily, Indications: Chronic Pain/Nonacute Pain, Reported on 10/16/2023 oxyCODONE (ROXICODONE) 5 mg immediate release tabletIndication s:Chronic Pain/Nonacute Pain Take 1 tablet (5 mg total) by mouth every 4 (four) hours as needed for pain Indication: Chronic Pain/Nonacute Pain. 60 tablet 05/24/2023 Active metoprolol tartrate (LOPRESSOR) 25 mg tabletIndication s:Hypertension Essential Primary TAKE 1 TABLET(25 MG) BY MOUTH TWICE DAILY 180 tablet 3 05/29/2023 Active acetaminophen (TYLENOL) 500 mg tablet Patient reports taking 1000 mg - 500 mg - 1000 mg morning, afternoon, and nightime 06/03/2023 Active prochlorperazine (Compazine) 10 mg tablet Take 1 tablet (10 mg total) by mouth every 6 (six) hours as needed for nausea or vomiting. 30 tablet 07/08/2023 Active mirtazapine (REMERON) 15 mg tablet Take 1 tablet (15 mg total) by mouth at bedtime. 30 tablet 1 07/08/2023 Active naloxone (NARCAN) 4 mg/actuation nasal spray Administer 1 spray (4 mg total) into one nostril as needed for reversal. Use 1 spray in 1 nostril. Repeat with second device in other nostril after 2-3 minutes if no or minimal response. 07/09/2023 Active sulfamethoxazole -trimethoprim (BACTRIM) 400-80 mg per tablet take 1 tablet by mouth every day 30 tablet 1 07/20/2023 Active amLODIPine (NORVASC) 5 mg tablet Take 1 tablet by mouth daily. 07/18/2023 Active lenalidomide (REVLIMID) 10 mg capsule Take 10 mg by mouth daily. 07/29/2023 Active omeprazole (PriLOSEC) [address] capsule Take 20 mg by mouth daily. 08/20/2023 Active aspirin 81 mg chewable tablet Chew 81 mg daily. Ac tive lenalidomide (Revlimid) 10 mg capsule Take 10 mg by mouth daily. 21 days on then 7 days off- then repeat Active OLANZapine (ZyPREXA) 2.5 mg tablet Take 1 tablet (2.5 mg total) by mouth at bedtime. 30 tablet 12/11/2023 Active OLANZapine (ZyPREXA) 2.5 mg tablet Take 2.5 mg by mouth at bedtime. 12/08: documenting patient reported med Discontinue d(Reorder) Active Problems Problem Noted Date Diagnosed Date Pain Cancer Associated 09/02/2023 Nausea 09/02/2023 Hypogammaglobulinemia 07/05/2023 History Of Falling 07/04/2023 Palliative Care 06/07/2023 Bone Marrow Transplant Status 05/29/2023 Pain Chest 04/30/2023 Anemia Iron Deficiency 04/11/2023 Other Pipe Layer Current Drug Therapy 01/04/2023 Transplant Stem Cell 01/02/2023 Regurgitation Aortic Rheumatic 01/01/2023 Secondary Malignant Neoplasm Bone 08/02/2022 Multiple Myeloma Not Having Achieved Remission 0 08/02/2022 Mass Mediastinal 05/01/2022 Overview (05/01/2022): Added automatically from request for surgery [id number] Hypomagnesemia 03/28/2022 Polyp Duodenal 03/27/2022 Mass Small Bowel 02/27/2022 Overview (02/27/2022): Added automatically from request for surgery [id number] Osteoarthritis Aneurysm Thoracic Aorta Personal History Hypertension Essential Primary Depression Anxiety Apnea Sleep Obstructive Encounters Date Type Department Care Team Description 12/17/2023 Clinical Communication Section of Infectious Diseases in [place], [place] [address] [place] [address] Luis Goldman R.N. Pre-Screen Immunization 12/12/2023 Clinical Communication Division of Hematology in [place], [place] [address] [place] [address] Sharyn Rea M.D. Order Request 12/09/2023 10:30 AM CDT Telemedicine Department of Palliative Care in [place], [place] [address] [place] [phone] Ann Fernandez M.D. Pain Cancer Associated (Primary Dx); Transplant Stem Cell (HCC); Bone Marrow Transplant Status (HCC); Secondary Malignant Neoplasm Bone (HCC); Depression Anxiety; Palliative Care; Pain Back; Nausea 12/09/2023 Clinical Communication Division of Hematology in [place], [place] [address] [place] [phone] Mara Redd, R.NCody 11/27/2023 10:30 AM CDT Telemedicine Department of Palliative Care in [place], [place] [address] [place] [phone] Malina Hong M.S.Kelly., L.I.C.S.W. Palliative Care (Primary Dx); Multiple Myeloma Not Having Achieved Remission (HCC); Depression Anxiety 11/26/2023 8:00 AM CDT Clinical Communication Virtual Review in [address] [phone] Pre-visit Intake 11/20/2023 Clinical Communication Department of Palliative Care in [place], [place] [address] [place] [phone] Jazmin Canas M.D., M.S. 10/29/2023 9:30 AM CDT Telemedicine Department of Palliative Care in [address] [phone] Jazmin Canas M.D., M.S. Multiple Myeloma In Remission (HCC) (Primary Dx); Pain Back; Nausea; Palliative Care 10/16/2023 3:15 PM CDT Clinical Communication Virtual Review in [address] [phone] Pre-visit Intake 10/13/2023 Orders Only [facility], Ninth Floor [address] [place] [address] Vidhi Bennett, SOPHIE, C.N.P., D.N.P. from Last 3 Months Immunizations Name Administration Dates Next Due Influenza TIV (IM) 02/10/2010,03/05/2005 Influenza, Injectable, Quadrivalent 12/11/2018 Influenza, Seasonal, Injectable 02/10/2010,03/05 Td, (Adult) Unspecified 04/01/1997 Tdap 12/11/2018,09/12/2007 influenza vaccine QV(FLUBLOK ) (18 years or older) (PF) 02/22/2021 influenza vaccine quad (FLUZONE/FLUARIX) (6 months and older)(PF) 01/04/2017,12/22/2015,03/08/2015,2013 Family History Medical History Relation Name Comments Anxiety disorder Brother Chapin Truong Depression Brother Chapin Truong Diabetes Brother Chapin Truong Kidney disease Brother Chapin Truong Sleep apnea Brother Chapin Truong Alcohol abuse Father Garret Truong Prostate cancer Father Garret Truong Anxiety disorder Mother Annie Truong Mother Arthritis Mother Annie Truong Mother Colon cancer Mother Annie Truong Mother Depression Mother Annie Truong Mother Coronary artery disease Paternal Grandmother Halina Narayan Pancreatic cancer Sister 1 Pancreatic cancer Sister 2 Diabetes Sister 3 Valerie Truong Pancreatic cancer Sister 3 Valerie Truong Anxiety disorder Sister 4 Kerry [place] Pancreatic cancer Sister 4 Kerry [place] Chronic li fe long issues with her stomach Relation Name Status Comments Brother Chapin Truong Father Garret Truong Grandmother Alive Mother Annie Truong Mother Paternal Grandmother Halina Narayan Sister 1 Sister 2 Alive Sister 3 Valerie Dionne Sister 4 Kerry [place] Social History Tobacco Use Types Packs/Day Years Used Date Smoking Tobacco: Former Cigarettes 1 40 0 04/01/1972 - 04/01/2012 Smokeless Tobacco: Never Tobacco Cessation:Counseling Given: Not Answered Alcohol Use Standard Drinks/Week Comments Not Currently 0 (1 standard drink = 0.6 oz pur e alcohol) [facility] Utilities Answer Date Recorded In the past 12 months has e electric, gas, oil, or water company threatened to shut off services in your home? No 04/30/2023 Humiliation, Afraid, Rape, and Kick questionnair e Answer Date Recorded Within the last year, have y ou been afraid of your partner or ex-partner? No 04/30/2023 Within the last year, have y ou been humiliated or emotionally abused in other ways by your partner or ex-partner? No Within the last year, have y ou been kicked, hit, slapped, or otherwise physically hurt by your partner or ex-partner? No 04/30/2023 Within the last year, have y ou been raped or forced to have any kind of sexual activity by your partner or ex-partner? No 04/30/2023 Social Connection and Isolat ion Panel [NHANES] Answer Date Recorded In a typical week, how many times do you talk on the phone with family, friends, or neighbors? More than three times a week 01/26/2022 How often do you get togethe r with friends or relatives? Once a week 01/26/2022 How often do you attend [facility] or yarsanism services? Never 01/26/2022 Do you belong to any clubs o r organizations such as hinduism groups, unions, fraternal or athletic groups, or school groups? Yes 01/26/2022 How often do you attend meet ings of the clubs or organizations you belong to? 1 to 4 times per year 01/26/2022 Are you , , di vorced, , never , or living with a partner? 01/26/2022 AUDIT-C Answer Date Recorded Q1: How often do you have a drink containing alc ohol? Never 01/26/2022 Average Number of Drinks Not on file 022 Frequency of Binge Drinking Not on file 12/31 Overall Financial Resource Strain (CARDIA) Answe r Date Recorded How hard is it for you to pa y for the very basics like food, housing, medical care, and heating? Not very hard 03/13/2023 PHQ-2 Answer Date Recorded PHQ-2 Score 1 10/14/2022 [facility] - Occupational Stress Questionnaire Answer Date Recorded Do you feel stress - tense, restless, nervous, or anxious, or unable to sleep at night because your mind is troubled all the time - these days? To some extent 01/26/2022 Exercise Vital Sign Answer Date Recorde d On average, how many days pe r week do you engage in moderate to strenuous exercise (like a brisk walk)? 0 days 03/13/2023 On average, how many minutes do you engage in exercise at this level? 0 min 03/13/2023 Hunger Vital Sign Answer Date Recorded Within the past 12 months, y ou worried that your food would run out before you got the money to buy more. Never true 04/30/19 24 Within the past 12 months, t he food you bought just didn't last and you didn't have money to get more. Never true 04/30/2023 PRAPARE - Transportation Answer Date Re corded In the past 12 months, has l ack of transportation kept you from medical appointments or from getting medications? No 04/03 In the past 12 months, has l ack of transportation kept you from meetings, work, or from getting things needed for daily living? No 04/30/2023 Nutrition Answer Date Recorded On average, how many serving s of fruits and vegetables do you eat per day (serving size is equal to 1 cup or approximately the size of a tennis ball)? 0-2 03/13/2023 Dental Answer Date Recorded Dental: Regular Dentist Yes 01/27/20 Employment Answer Date Recorded Employment status Retired 03/13/2023 Housing Stability Answer Date Recorded What is your living situation today? I have a [facility] place to live 04/30/2023 Education Answer Date Recorded What is the highest level of school you have completed or the highest degree you have received? 12th grade 01/26/2022 Sex and Gender Information Value Date Recorded Sex Assigned at Female 01/26/2022 1:25 PM CDT Gender Identity Female 01/26/2022 1:25 PM CDT Sexual Orientation Straight 01/26/2022 1: 25 PM CDT Last Filed Vital Signs Vital Sign Reading Time Taken Comments Blood Pressure 124/87 07/31/2023 10:02 AM CDT Pulse 67 07/31/2023 10:12 AM CDT Temperature 36.8 ??C (98.2 ??F) 07/31/2023 10:13 AM C DT Respiratory Rate 15 07/31/2023 10:12 AM CDT Oxygen Saturation 93% 07/31/2023 10:07 AM CDT Inhaled Oxygen Concentration - - Weight 60.9 kg (134 lb 2.4 oz) 07/04/2023 3:18 P M CDT Height 152 cm (4' 11.84) 07/04/2023 3:18 PM CDT Body Mass Index 26.34 07/04/2023 3:18 PM CDT Plan of Treatment Upcoming Encounters Date Type Department Care Team (Late st Contact Info) Description 01/20/2024 12:30 PM CDT Appointment Clinic Admissions and Business Services in [place], [place] [address] [place] [phone] 01/20/2024 1:30 PM CDT Appointment Department of Radiology, [facility] in [place], [place] [address] [place] [phone] Jazmin Canas M.D., M.S. [address] [place] [phone] 02/12/2024 8:30 AM CLINICAL TRIALS SPECIALIST Office Visit Department of Palliative Care in [place], [place] [address] [place] [phone] Jazmin Canas M.D., M.S. [address] [place] [phone] Health Maintenance Due Date Last Done Comments Bone Density Scan (Osteoporo sis Screen) 1956 CT Colonography 1956 Cologuard 1956 Dental Prophylaxis 1956 Dilated Eye Exam 1955 Controlled Substance Agreement 08/09/2022 Controlled Substance Monitor ing (PHQ-9) 08/09/2022 Controlled Substance Monitoring 08/09/2022 PEG assessment for Opioid therapy 08/09/2022 Colonoscopy 12/24/2022 12/24/2017 Colorectal Cancer Surveillance 12/24/2022 Lung Cancer Screening 01/30/2023 01/30/2022 Depression Screening (Annual PHQ-2) 04/01/2023 Opioid Use Disorder (OUD) Screening 08/10/2023 Urinalysis 10/09/2023 04/10/2023, 12/28/2022 Generalized Anxiety (TANNER-7) 10/15/2023 10/14/2022 COVID-19 Vaccine (2023-2 5 season) 2023 02/22/2021, 07/07/2020, 06/16/2020 Influenza Vaccine (#1) 2023 , 12/11/2018, 01/04/2017, Additional history exists Lipid (Cholesterol) Screening 01/02/2024, 12/11/2018, 11/20/2017 Spirometry with DLCO or PFT 01/03/2024 01/02/2023 Vitamin D Testing 04/10/2024 04/10/2023, , 06/25/2022 Office Visit for Blood Press ure Check / Re-check 06/02/2024 06/03/2023 Opioid Risk Tool (ORT) 06/02/2024 06/03/2023 Mammogram 11/07/2024 11/08/2023, 11/08/2023 Fasting Glucose for Diabetes Screening 07/03/2026 07/04/2023, 06/03/2023, 05/29/2023, Additional history exists Fall Risk Screen (Annual) Completed 07/31/2023 Medical Devices Implanted Type Area Bilingual Operator Device Identifier Shelf Expiration Date Model / Serial / Lot Clp Hrzn Ti 6 Ryder Faust Hector - [id number] Implanted:Qty : 1 on 03/27/2022 by Radames Reynolds M.D. at [facility] Hardware e.g. pins/screws/ rods N/A: [employer] [id number] / / Clp Hrzn Ti 6 Clp Orng - [id number] Implanted:Qty : 1 on 03/27/2022 by Radames Reynolds M.D. at [facility] Hardware e.g. pins/screws/ rods N/A: [employer] [id number] / / Procedures Procedure Name Priority Date/Time Associated Diagnosis Comments GLUCOSE, FASTING, S/P Routine 07/04/2023 8:16 AM CDT Bone Marrow Transplant Status (HCC) Transplant Stem Cell (HCC) 25-HYDROXYVITAMIN D2 AND D3, S Routine 04/10/2023 10:53 AM CLINICAL TRIALS SPECIALIST Multiple Myeloma Not Having Achieved Remission (HCC) Transplant Stem Cell (HCC) URINALYSIS WITH MICROSCOPIC Routine 04/10/2023 10:53 AM CLINICAL TRIALS SPECIALIST Multiple Myeloma Not Having Achieved Remission (HCC) Transplant Stem Cell (HCC) PULMONARY FUNCTION TESTS Routine 01/02/2023 7:07 AM CDT Multiple Myeloma Not Having Achieved Remission (HCC) Transplant Stem Cell (HCC) LIPID PANEL, S Routine 01/01/2023 8:19 AM CDT Regurgitation Aortic Rheumatic CT CHEST WITH IV CONTRAST RAD - Routine (most inpatients and all outpatients) 01/30/2022 12:16 PM CDT Mass Small Bowel from Last 3 Months or Most Recently Relevant to Health Maintenance Results * Glucose, Fasting (07/04/2023 8:16 AM CDT) Pathologist [facility] Glucose, P 85 70 - 100 mg/dL 07/04/2023 8:52 AM CDT DTL Last Intake 13 hr 07/04/2023 8:37 AM CDT DTL Blood (Blood, Venous) 07/04/2023 8:16 AM CDT 07/04/2023 8:37 AM CDT Paramjit Pablo M.D. LAB BLOOD NON ADD-ON [facility] [address] [place] [address], [facility] [address] [place] [address] * 25-Hydroxyvitamin D2 and D3 (04/10/2023 10:53 AM CLINICAL TRIALS SPECIALIST) Pathologist [facility] 25-Hydroxy D2 <4.0 ng/mL 04/11/2023 9:50 PM CLINICAL TRIALS SPECIALIST [facility] 25-Hydroxy D3 38 ng/mL 04/11/2023 9:50 PM CLINICAL TRIALS SPECIALIST [facility] 25-Hydroxy D Total 38 ng/mL 2023 9:50 PM CLINICAL TRIALS SPECIALIST [facility] Comment: ----REFERENCE VALUE---- 25-HYDROXY D TOTAL (D2+D3) Optimum levels in the healthy population are 20-50, patients with bone disease may benefit from higher levels within this range. ----ADDITIONAL INFORMATION---- This test was developed and its performance characteristics determined by [facility] in a manner consistent with CLIA requirements. This test has not been cleared or approved by the U.S. Food and Drug Administration. Blood (Blood, Venous) 04/10/2023 10:53 AM CLINICAL TRIALS SPECIALIST 04/11/2023 7:11 AM CLINICAL TRIALS SPECIALIST Emily Alva APRN, C.N.P., D.N.P. L AB BLOOD ADD-ON [facility] [address] [place] [address] [facility] [address] [place] [address] [place] [address] * (ABNORMAL) Urinalysis with Microscopic: Urine, Midstream (04/10/2023 10:53 AM CLINICAL TRIALS SPECIALIST) Source Urine, Urine, Midstream 04/10/2023 11:20 AM CLINICAL TRIALS SPECIALIST DTL Color, U Yellow 04/10/2023 11:20 AM CLINICAL TRIALS SPECIALIST DTL Clarity, U Clear 04/10/2023 11:20 AM CLINICAL TRIALS SPECIALIST DTL Protein, U 6 <26 mg/dL 04/10/2023 12:18 PM CLINICAL TRIALS SPECIALIST DTL Protein/Osmol ality 0.36 <0.42 ratio 04/10/2023 12:38 PM CLINICAL TRIALS SPECIALIST DTL Predicted 24 HR Protein, U 267(H) <229 mg/24 h 04/10/2023 12:38 PM CLINICAL TRIALS SPECIALIST DTL Predicted Range 66-1081 mg/24 h 04/10/2023 12:38 PM CLINICAL TRIALS SPECIALIST DTL Urine (Urine, Midstream) 04/10/2023 10:53 AM CLINICAL TRIALS SPECIALIST 04/10/2023 11:20 AM CLINICAL TRIALS SPECIALIST Emily Alva APRN, C.N.P., D.N.P. L AB URINE ORDERABLES [facility] [address] [place] [address], [place] [facility] [address] [place] [address] * Pulmonary Function Tests (01/02/2023 7:07 AM CDT) PostFVC 2.07 L 01/02/2023 10:16 AM CDT [facility] SU[facility] PostFEV1 1.44 L 01/02/2023 10:16 AM CDT [facility] FEV1/FVC POST 69.65 % 01/02/2023 10:16 AM CDT [facility] FEF 25-75 % POST 0.78 L/s 01/02/2023 10:16 AM CDT [facility] PEF POST 5.20 L/s 01/02/2023 10:16 AM CDT [facility] PIF POST 4.08 L/s 01/02/2023 10:16 AM CDT [facility] FEF 50 % FIF 50 POST 33.35 % 01/02/2023 10:16 AM CDT [facility] FET POST 10.92 sec 01/02/2023 10:16 AM CDT [facility] TLC 4.02 L 01/02/2023 10:16 AM CDT [facility] FRCPLETH PROVBASE 2.36 L 01/02/2023 10:16 AM CDT [facility] RV 2.01 L 01/02/2023 10:16 AM CDT [facility] RV % TLC PRE 49.98 % 01/02/2023 10:16 AM CDT [facility] SUITE DLCO 10.73 ml/(min*mm Hg) 01/02/2023 10:16 AM CDT [facility] SUITE DLCOc 12.61 ml/(min*mm Hg) 01/02/2023 10:16 AM CDT [facility] HB 9.40 g(Hb)/dL 01/02/2023 10:16 AM CDT [facility] VA 3.42 L 01/02/2023 10:16 AM CDT [facility] SUITE FVC 1.87 L 01/02/2023 10:16 AM CDT [facility] FEV1 1.35 L 01/02/2023 10:16 AM CDT [facility] FEV1/FVC 72.23 % 01/02/2023 10:16 AM CDT [facility] LPE63-17% 0.79 L/s 01/02/2023 10:16 AM CDT [facility] PEF PRE 4.58 L/s 01/02/2023 10:16 AM CDT [facility] PIF PRE 3.65 L/s 01/02/2023 10:16 AM CDT [facility] FEF 50 % FIF 50 PRE 38.92 % 01/02/2023 10:16 AM CDT [facility] FET PRE 8.88 sec 01/02/2023 10:16 AM CDT [facility] SUBSTANCE POST Albuterol 01/02/2023 10:16 AM CDT [facility] 01/02/2023 7:07 AM CDT Impressions [facility] - 01/02/2023 10:16 AM CDT BMT protocol. Mild restriction. There is no significant bronchodilator response. Diffusing capacity adjusted for anemia is moderately reduced suggestive of pulmonary parenchymal endovascular abnormalities. Baseline pulse oximetry is low normal. Step exercise was not performed due to fall risk. Narrative Procedure Note Babar Deleon M.D. - 01/02/2023 IMPRESSION: BMT protocol. Mild restriction. There is no significant bronchodilatorresponse. Diffusing capacity adjusted for anemia is moderately reducedsuggestive of pulmonary parenchymal endovascular abnormalities. Baselinepulse oximetry is low normal. Step exercise was not performed due to fall risk. Trung Estes APRN, C.N.P., M.S.N. PFT ORDERABLES [facility] NA * (ABNORMAL) Lipid Panel (01/01/2023 8:19 AM CDT) Triglycerides 159(H) mg/dL 01/01/2023 9:46 AM CDT DTL Comment: ----REFERENCE VALUE---- Normal: <150 mg/dL Borderline High: 150-199 mg/dL High: 200-499 mg/dL Very High: > or =500 mg/dL Cholesterol, Total 203(H) mg/dL 2022 9:46 AM CDT DTL Comment: ----REFERENCE VALUE---- Desirable: < 200 mg/dL Borderline High: 200 - 239 mg/dL High: > or = 240 mg/dL Cholesterol, LDL, Calculated 126 mg/dL 01/01/2023 9:46 AM CDT DTL Comment: ----REFERENCE VALUE---- Desirable: <100 mg/dL Above Desirable: 100-129 mg/dL Borderline High: 130-159 mg/dL High: 160-189 mg/dL Very High: >=190 mg/dL ----ADDITIONAL INFORMATION---- LDL cholesterol calculated using the Rosario/NIH equation. Cholesterol, HDL, S 49(L) >=50 mg/dL 01/01/2023 9:46 AM CDT DTL Cholesterol, Non-HDL, Calculated 154 mg/dL 01/01/2023 9:46 AM CDT DTL Comment: ----REFERENCE VALUE---- Desirable: <130 mg/dL Above Desirable: 130-159 mg/dL Borderline High: 160-189 mg/dL High: 190-219 mg/dL Very High: > or =220 mg/dL Fasting (8 HR or more) Yes 01/01/2023 9:17 AM CDT DTL Blood (Blood, Venous) 01/01/2023 8:19 AM CDT 01/01/2023 9:17 AM CDT Jag Fernandez Jr., M.D. LAB BLOOD ADD-ON [facility] [address] [place] [address], [facility] [address] [place] [address] * CT Chest with IV Contrast (01/30/2022 12:16 PM CDT) Anatomical Region Laterality Modality Chest, Thoracic RST LOS, Tho racic ARZ LOS, Thoracic ARZ LOS, Thoracic FLA LOS N/A Computed Tomography, Compute d Tomography 01/30/2022 12:3 3 PM CDT Impressions 01/30/2022 12:32 PM CDT 1. ??22 x 15 mm anterior mediastinal nodule, diagnostic considerations for which include enlarged lymph node, thymic neoplasm, and thymic cyst. 2. ??Prominent anterior and middle diaphragmatic lymph nodes. 3. ??Indeterminate lung nodules measuring up to 4 mm. 4. ??Peripheral reticulation and groundglass opacity in the lower lungs may reflect sequela of pneumonitis or interstitial lung disease. 5. ??Ascending thoracic aorta dilated to 43 mm. Narrative 01/30/2022 12:32 PM CDT EXAM: CT CHEST WITH IV CONTRAST COMPARISON: None FINDINGS: Peripheral reticulation and groundglass opacity in the right greater than left lower lungs with regions of subpleural sparing (e.g. 3/343). 4 mm groundglass nodule left upper lobe (3/85). Other scattered nodules measure less than 3 mm, for example in the right upper lobe (3/110, 3/121) and right lower lobe (3/317). 22 x 15 mm para-aortic nodule in the anterior mediastinum (3/154). Prominent right anterior and middle diaphragmatic lymph nodes measuring up to 10 mm in short axis (3/444, 3/430). Healed rib fracture deformities. Diffusely mottled appearance of the bones, possibly related to osteopenia. Ascending thoracic aorta dilated to 43 mm. Mild coronary calcification. Procedure Note Saurav Sylvester M.D. - 01/30/2022 EXAM: CT CHEST WITH IV CONTRAST COMPARISON: None FINDINGS: Peripheral reticulation and groundglass opacity in the right greater thanleft lower lungs with regions of subpleural sparing (e.g. 3/343). 4 mm groundglass nodule leftupper lobe (3/85). Other scattered nodules measure less than 3 mm, for example in the right upperlobe (3/110, 3/121) and right lower lobe (3/317). 22 x 15 mm para-aortic nodule in the anterior mediastinum (3/154).Prominent right anterior and middle diaphragmatic lymph nodes measuring up to 10 mm in short axis(3/444, 3/430). Healed rib fracture deformities. Diffusely mottled appearance of the bones, possiblyrelated to osteopenia. Ascending thoracic aorta dilated to 43 mm. Mild coronary calcification. IMPRESSION: 1. 22 x 15 mm anterior mediastinal nodule, diagnostic considerations forwhich include enlarged lymph node, thymic neoplasm, and thymic cyst. 2. Prominent anterior and middle diaphragmatic lymph nodes. 3. Indeterminate lung nodules measuring up to 4 mm. 4. Peripheral reticulation and groundglass opacity in the lower lungs mayreflect sequela of pneumonitis or interstitial lung disease. 5. Ascending thoracic aorta dilated to 43 mm. Jonathon Mays M.D. 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 Advance Directives 03/28/2022 6:46 AM Alfredo Pratt HCPOA/ADVOCATE/AGENT/R EPRESENTATIVE/SURROGAT E * Full Code (Latest Code Status on File) Date Activated Date Inactivated Comments 04/30/2023 4:31 PM 05/07/2023 9:03 PM Question Answer Comments Full Code: Discussed * Full Code Date Activated Date Inactivated Comments 05/28/2022 1:43 PM 05/29/2022 1:20 PM Question Answer Comments Full Code: Discussed * Full Code Date Activated Date Inactivated Comments 03/27/2022 4:51 PM 04/03/2022 3:19 PM Question Answer Comments Full Code: Discussed * Full Code Date Activated Date Inactivated Comments 02/26/2022 6:10 PM 02/26/2022 9:17 PM Question Answer Comments Full Code: Not Discussed Due to: Patient does not have the capaci ty Healthcare Agents on File Name Relationship Healthcare Agent Relationship Communication Alfredo Steelecatherine Spouse Health Care Agent Fidelia Pratt Daughter First Alternate Health Care Agent [email or web address] Care Teams Lang Path Therapist Relationship Specialty Start Date End Date Elsewhere, Pcp PCP - General Internal Medicine 10/16/23
--- OUTSIDE RECORDS SUMMARY | 2023-12-31 23:37 | XMS_ITS | Continuity of Care Document ---
Author Organization [facility] Address [address] [place] [address] Phone Care Team Providers Care Pattern Worker Name Role Phone Miguel Angel Chin Unavailable [...] C, [address], [place], [place], [id number], [place] tel:[phone] [facility] Pain in thoracic spine Atul Miguel Angel. [facility], [address], [place], [place], [id number], [place]. tel:[phone] Referring Provider: Cookie Deras CatchTheEye [facility] [address] [facility], [place], [address]. tel:[phone] Office/Outpati ent Visit,Est, Mod [facility] C, [address], [place], [place], [id number], [place] tel:[phone] [facility] Spinal stenosis, cervical region Atul Michelle. [facility], [address], [place], [place], [id number], [place]. tel:[phone] Referring Provider: Cookie Deras [employer] [facility] [address] [facility], [place], [address]. tel:[phone] Office/Outpati ent Visit,Est, Mod [facility], [address], [place], [place], [id number], [place] tel:[phone] [facility] Spinal stenosis, cervical region Atul Michelle. [facility], [address], [place], [place], [id number], [place]. tel:[phone] Referring Provider: Cookie Deras [employer] [facility] [address] [facility], [place], [address]. tel:[phone] Office/Outpati ent Visit,Est, Mod [facility], [address], [place], [place], [id number], [place] tel:[phone] [facility] Spinal stenosis, cervical region Atul Bush [facility], [address], [place], [place], [id number], [place]. tel:[phone] Referring Provider: Collin ChappellPagar.me [facility] [address], [place], [address]. tel:[phone] Office/Outpati ent Visit,Nkechi Segura [facility], [address], [place], [place], [id number], [place] tel:[phone] [facility] Spinal stenosis, cervical region Atul Michelle. [facility], [address], [place], [place], [id number], [place]. tel:[phone] Referring Provider: Collin ChappellPagar.me [facility] [address], [place], [address]. tel:[phone] [facility], [address], [place], [place], [id number], [place] tel:[phone] [facility] Spinal stenosis, cervical region Javier Hinkle. [facility], [address], [place], [address], [place]. tel:[phone] Family History Family Member Type Diagnosis Age At Onset No Information Payers Payer name Insurance type Covered libertarian [place] Th[place] joe([place] [id number] [facility] [id number] Social History Type Description Quantity Date Captured [...] 73.482 kg (162.00 lbs) 28.7 0 kg/m etanil (2) Chief Complaint And Reason For Visit [...]
--- OUTSIDE RECORDS SUMMARY | 2023-12-31 23:38 | XMS_ITS | Referral Summary ---
Author Organization [facility] Address [address] [place] [address] Care Team Providers Care County Judge Name Role Phone Elsewhere, Pcp Primary Care Provider Unavailabl e Source Comments Patient records contain information from all sites at [facility]. For routine questions regarding patient records, call [phone] during business hours, M-F 8:00 AM - 5:00 PM Central Time. Record requests for emergency care only can be directed to [phone] at any time.[facility] Encounters Date Type Department Care Team Description 12/17/2023 Clinical Communication Section of Infectious Diseases in [address] [address] Luis Goldman, R.N. Pre-Screen Immunization 12/12/2023 Clinical Communication Division of Hematology in [place], [place] [address] [place] [phone] Sharyn Rea M.D. Order Request 12/09/2023 Clinical Communication Division of Hematology in [place], [place] [address] [place] [phone] Mara Redd, R.N. 12/09/2023 10:30 AM CDT Telemedicine Department of Palliative Care in [place], [place] [address] [place] [phone] Ann Fernandez M.D. Pain Cancer Associated (Primary Dx); Transplant Stem Cell (HCC); Bone Marrow Transplant Status (HCC); Secondary Malignant Neoplasm Bone (HCC); Depression Anxiety; Palliative Care; Pain Back; Nausea 11/27/2023 10:30 AM CDT Telemedicine Department of Palliative Care in [place], [place] [address] [place] [phone] Malina Hong M.S.Kelly., LNiharikaS.W. Palliative Care (Primary Dx); Multiple Myeloma Not Having Achieved Remission (HCC); Depression Anxiety 11/26/2023 8:00 AM CDT Clinical Communication Virtual Review in [place], [place] 200 [place] [address] Pre-visit Intake 11/20/2023 Clinical Communication Department of Palliative Care in [place], [place] [address] [place] [phone] Jazmin Canas M.D., M.S. 10/29/2023 9:30 AM CDT Telemedicine Department of Palliative Care in [place], [place] [address] [place] [phone] Jazmin Canas M.D., M.S. Multiple Myeloma In Remission (HCC) (Primary Dx); Pain Back; Nausea; Palliative Care 10/16/2023 3:15 PM CDT Clinical Communication Virtual Review in [address] [address] Pre-visit Intake 10/13/2023 Orders Only [facility], [facility], Ninth Floor [address] [place] [address] Vidhi Bennett, SOPHIE, C.N.P., D.N.P. from Last 3 Months Allergies Active Allergy Reactions Criticality Noted Date [...] Chest 04/30/2023 Anemia Iron Deficiency 04/11/2023 Other Senior Living Current Drug Therapy 01/04/2023 Transplant Stem Cell 01/02/2023 Regurgitation Aortic Rheumatic 01/01/2023 Secondary Malignant Neoplasm Bone 08/02/2022 Multiple Myeloma Not Having Achieved Remission 0 08/02/2022 Mass Mediastinal 05/01/2022 Overview (05/01/2022): Added automatically from request for surgery [id number] Hypomagnesemia 03/28/2022 Polyp Duodenal 03/27/2022 Mass Small Bowel 02/27/2022 Overview (02/27/2022): Added automatically from request for surgery [id number] Osteoarthritis Aneurysm Thoracic Aorta Personal History Hypertension Essential Primary Depression Anxiety Apnea Sleep Obstructive Immunizations Name Administration Dates Next Due Influenza TIV (IM) 02/10/2010,03/05/2005 Influenza, Injectable, Quadrivalent 12/11/2018 Influenza, Seasonal, Injectable 02/10/2010,03/05 Td, (Adult) Unspecified 04/01/1997 Tdap 12/11/2018,09/12/2007 influenza vaccine QV(FLUBLOK ) (18 years or older) (PF) 02/22/2021 influenza vaccine quad (FLUZONE/FLUARIX) (6 months and older)(PF) 01/04/2017,12/22/2015,03/08/2015,2013 Social History Tobacco Use Types Packs/Day Years Used Date Smoking Tobacco: Former Cigarettes 1 40 0 04/01/1972 - 04/01/2012 Smokeless Tobacco: Never Tobacco Cessation:Counseling Given: Not Answered Alcohol Use Standard Drinks/Week Comments Not Currently 0 (1 standard drink = 0.6 oz pur e alcohol) [facility] [employer] Answer Date Recorded In the past 12 months has [employer], oil, or water [employer] threatened to shut off services in your [...] week 01/26/2022 How often do you attend [facility] or confucianist services? Never 01/26/2022 Do you belong to any clubs o r organizations such as roman catholic groups, unions, fraternal or athletic groups, or [...] Answer Date Recorded PHQ-2 Score 1 10/14/2022 [facility] of Occupat ional [facility] - Occupational Stress Questionnaire Answer Date Recorded [...] your living situation today? I have a [facility] place to live 04/30/2023 Education Answer Date [...] Appointment Clinic Admissions and Business Services in [place], [place] [address] [place] [address] 01/20/2024 1:30 PM CDT Appointment Department of Radiology, [facility] in [place], [place] [address] [place] [address] Jazmin Canas M.D., M.S. [address] [place] [address] 02/12/2024 8:30 AM BOOM OPERATOR Office Visit Department of Palliative Care in [place], [place] [address] [place] [phone] Jazmin Canas M.D., M.S. [address] [place] [phone] Medical Devices Implanted Type Area Stick Puller Device Identifier Shelf Expiration Date Model / Serial / Lot Clp Hrzn Ti 6 Clp Md Hector - [id number] Implanted:Qty : 1 on 03/27/2022 by Radames Reynolds M.D. at [facility] Hardware e.g. pins/screws/ rods N/A: [employer] [id number] / / Clp Hrzn Ti 6 Clp Lg Orng - [id number] Implanted:Qty : 1 on 03/27/2022 by Radames Reynolds M.D. at [facility] Hardware e.g. pins/screws/ rods N/A: [employer] [id number] / / Procedures Procedure Name Priority Date/Time Associated Diagnosis Comments GLUCOSE, FASTING, S/P Routine 07/04/2023 8:16 AM CDT Bone Marrow Transplant Status (HCC) Transplant Stem Cell (HCC) 25-HYDROXYVITAMIN D2 AND D3, S Routine 04/10/2023 10:53 AM BOOM OPERATOR Multiple Myeloma Not Having Achieved Remission (HCC) Transplant Stem Cell (HCC) URINALYSIS WITH MICROSCOPIC Routine 04/10/2023 10:53 AM BOOM OPERATOR Multiple Myeloma Not Having Achieved Remission (HCC) [...] * Glucose, Fasting (07/04/2023 8:16 AM CDT) Glucose, P 85 70 - 100 mg/dL 07/04/2023 8:52 AM CDT DTL Last Intake 13 hr 07/04/2023 8:37 AM CDT DTL Blood (Blood, Venous) 07/04/2023 8:16 AM CDT 07/04/2023 8:37 AM CDT Paramjit Pablo M.D. LAB BLOOD NON ADD-ON Performing Organization Address City/[facility]/ZIP Co de Phone Number [facility] [address] [place] [address], [facility] [place] [address] * 25-Hydroxyvitamin D2 and D3 (04/10/2023 10:53 AM BOOM OPERATOR) 25-Hydroxy D2 <4.0 ng/mL 04/11/2023 9:50 PM BOOM OPERATOR [facility] 25-Hydroxy D3 38 ng/mL 04/11/2023 9:50 PM BOOM OPERATOR [facility] 25-Hydroxy D Total 38 ng/mL 2023 9:50 PM BOOM OPERATOR [facility] Comment: ----REFERENCE VALUE---- 25-HYDROXY D TOTAL (D2+D3) Optimum levels in the healthy population are 20-50, patients with bone disease may benefit from higher levels within this range. ----ADDITIONAL INFORMATION---- This test was developed and its performance characteristics determined by [facility] in a manner consistent with CLIA requirements. This test has not been cleared or approved by the U.S. Food and Drug Administration. Blood (Blood, Venous) 04/10/2023 10:53 AM BOOM OPERATOR 04/11/2023 7:11 AM BOOM OPERATOR Emily Alva APRN, C.N.P., D.N.P. L AB BLOOD ADD-ON [facility] [address] [place] [id number] [facility] [address] [place] [address] [place] [address] * (ABNORMAL) Urinalysis with Microscopic: Urine, Midstream (04/10/2023 10:53 AM BOOM OPERATOR) Source Urine, Urine, Midstream 04/10/2023 11:20 AM BOOM OPERATOR DTL Color, U Yellow 04/10/2023 11:20 AM BOOM OPERATOR DTL Clarity, U Clear 04/10/2023 11:20 AM BOOM OPERATOR DTL Protein, U 6 <26 mg/dL 04/10/2023 12:18 PM BOOM OPERATOR DTL Protein/Osmol ality 0.36 <0.42 ratio 04/10/2023 12:38 PM BOOM OPERATOR DTL Predicted 24 HR Protein, U 267(H) <229 mg/24 h 04/10/2023 12:38 PM BOOM OPERATOR DTL Predicted Range 66-1081 mg/24 h 04/10/2023 12:38 PM BOOM OPERATOR DTL Urine (Urine, Midstream) 04/10/2023 10:53 AM BOOM OPERATOR 04/10/2023 11:20 AM BOOM OPERATOR Emily Alva APRN C.N.P., D.N.P. L AB URINE ORDERABLES [facility] [address] [place] [address], [facility] [address] [place] [address] * Pulmonary Function Tests (01/02/2023 7:07 AM CDT) PostFVC 2.07 L 01/02/2023 10:16 AM CDT [facility] PostFEV1 1.44 L 01/02/2023 10:16 AM CDT [facility] FEV1/FVC POST 69.65 % 01/02/2023 10:16 AM CDT [facility] FEF 25-75 % POST 0.78 L/s 01/02/2023 10:16 AM CDT [facility] PEF POST 5.20 L/s 01/02/2023 10:16 AM CDT [facility] SU[facility] PIF POST 4.08 L/s 01/02/2023 10:16 AM CDT [facility] SUITE FEF 50 % FIF 50 POST 33.35 % 01/02/2023 10:16 AM CDT [facility] FET POST 10.92 sec 01/02/2023 10:16 AM CDT [facility] TLC 4.02 L 01/02/2023 10:16 AM CDT [facility] FRCPLETH PROVBASE 2.36 L 01/02/2023 10:16 AM CDT [facility] SUITE RV 2.01 L 01/02/2023 10:16 AM CDT [facility] RV % TLC PRE 49.98 % 01/02/2023 10:16 AM CDT [facility] DLCO 10.73 ml/(min*mm Hg) 01/02/2023 10:16 AM CDT [facility] SUITE DLCOc 12.61 ml/(min*mm Hg) 01/02/2023 10:16 AM CDT [facility] HB 9.40 g(Hb)/dL 01/02/2023 10:16 AM CDT [facility] VA 3.42 L 01/02/2023 10:16 AM CDT [facility] SUITE FVC 1.87 L 01/02/2023 10:16 AM CDT [facility] SUITE FEV1 1.35 L 01/02/2023 10:16 AM CDT [facility] FEV1/FVC 72.23 % 01/02/2023 10:16 AM CDT [facility] MGG05-04% 0.79 L/s 01/02/2023 10:16 AM CDT [facility] SUITE PEF PRE 4.58 L/s 01/02/2023 10:16 AM CDT [facility] SU[facility] PIF PRE 3.65 L/s 01/02/2023 10:16 AM CDT [facility] SUITE FEF 50 % FIF 50 PRE 38.92 % 01/02/2023 10:16 AM CDT [facility] FET PRE 8.88 sec 01/02/2023 10:16 AM CDT [facility] SUBSTANCE POST Albuterol 01/02/2023 10:16 AM CDT [facility] 01/02/2023 7:07 AM CDT Impressions [facility] - 01/02/2023 10:16 AM CDT BMT protocol. [...] was not performed due to fall risk. Javier Connolly APRN.N.P., M.S.N. PFT ORDERABLES [facility] NA * (ABNORMAL) Lipid Panel (01/01/2023 8:19 [...] Jag Fernandez Jr., M.D. LAB BLOOD ADD-ON [facility] [address] [place] [address], [facility] DTL [facility][note 3] [address] [place] [address] * CT Chest with IV Contrast (01/30/2022 [...] thoracic aorta dilated to 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
--- OUTSIDE RECORDS SUMMARY | 2023-12-31 23:38 | XMS_ITS | Encounter Summary ---
Author Organization [facility] Address [address] [place] [address] Care Team Providers Care General Production Manager Name Role Phone Elsewhere, Pcp Primary Care Provider Unavailabl e Encounter Details Date Type Department Care Team (Late st Contact Info) Description 10/13/2023 Orders Only [facility], Ninth Floor [address] [place] [address] Vidhi Bennett, SOPHIE, C.N.P., D.N.P. [address] [place] [phone] Social History Tobacco Use Types Packs/Day Years Used Date Smoking Tobacco: Former Cigarettes 1 40 0 04/01/1972 - 04/01/2012 Smokeless Tobacco: Never Alcohol Use Standard Drinks/Week Comments Not Currently 0 (1 standard drink = 0.6 oz pur e alcohol) [facility] Utilities Answer Date Recorded In the past [...] week 01/26/2022 How often do you attend chur ch or yarsanism services? Never 01/26/2022 Do you belong to any clubs o r organizations such as advent groups, unions, fraternal or athletic groups, or [...] Answer Date Recorded PHQ-2 Score 1 10/14/2022 [facility] - Occupational [...] your living situation today? I have a [facility] place to live 04/30/2023 Education Answer Date Recorded What is the highest level of school you have completed or the highest degree you have received? 12th grade 01/26/2022 Sex and Gender Information Value Date Recorded Sex Assigned at Female 01/26/2022 1:25 PM CDT Gender Identity Female 01/26/2022 1:25 PM CDT Sexual Orientation Straight 01/26/2022 1: 25 PM CDT documented as of this encounter Plan of Treatment Upcoming Encounters Date Type Department Care Team (Late st Contact Info) Description 01/20/2024 12:30 PM CDT Appointment Clinic Admissions and Business Services in [place], [place] [address] [place] [address] 01/20/2024 1:30 PM CDT Appointment Department of Radiology, [facility] in [place], [place] [address] [place] [address] Jazmin Canas M.D., M.S. [address] [place] [address] 02/12/2024 8:30 AM DIRECTOR WHOLESALE Office Visit Department of Palliative Care in [place], [place] [address] [place] [address] Jazmin Canas M.D., M.S. [address] [place] [address] documented as of this encounter Visit Diagnoses Not on filedocumented in this encounter Additional Health Concerns Infection Onset Date Last Indicated Resolved Time Protective Environment 03/17/2023 03/17/2023 documented as of this encounter Care Teams General Production Manager Relationship Specialty Start Date End Date Elsewhere, Pcp PCP - General Internal Medicine 10/16/23 documented as of this encounter
--- OUTSIDE RECORDS SUMMARY | 2023-12-31 23:38 | XMS_ITS | Encounter Summary ---
Author Organization [facility] Address [address] [place] [address] Care Team Providers Care Assembly Line Leader Name Role Phone Elsewhere, Pcp Primary Care Provider Unavailabl e Reason for Referral * MRI/CAT/PET Scan (Routine) - Pending Review Specialty Diagnoses / Procedures Referred By Joanne t Referred To Contact Radiology Diagnoses Multiple Myeloma Not Having Achieved Remission (HCC) Pain Back Procedures MR Lumbar Spine without and with IV Contrast Jazmin Canas M.D., M.S. [address] [place] [phone] [facility] Referral ID Status Reason Start Date Expiration Date V isits Requested Visits Authorized [id number] Pending Review 11/20/2023 11/19/2024 1 1 * MRI/CAT/PET Scan (Routine) - Pending Review Specialty Diagnoses / Procedures Referred By Joanne carbajal Referred To Contact Radiology Diagnoses Multiple Myeloma Not Having Achieved Remission (HCC) Pain Back Procedures MR Thoracic Spine without and with IV Contrast Jazmin Canas M.D., M.S. [address] [place] [phone] [facility] Referral ID Status Reason Start Date Expiration Date V isits Requested Visits Authorized [id number] Pending Review 11/20/2023 11/19/2024 1 1 Encounter Details Date Type Department Care Team (Late st Contact Info) Description 11/20/2023 Clinical Communication Department of Palliative Care in [place], [place] [address] [place] [address] Jazmin Canas M.D., M.S. [address] [place] [address] Social History Tobacco Use Types Packs/Day Years Used Date Smoking Tobacco: Former Cigarettes 1 40 0 04/01/1972 - 04/01/2012 Smokeless Tobacco: Never Alcohol Use Standard Drinks/Week Comments Not Currently 0 (1 standard drink = 0.6 oz pur e alcohol) [facility] Utilities Answer Date Recorded In the past 12 months has e [employer], gas, oil, or water [employer] threatened to shut off services in your [...] 01/26/2022 How often do you attend chur or gnosticism services? Never 01/26/2022 Do you belong to any clubs o r organizations such as jewish groups, unions, fraternal or athletic groups, or [...] Answer Date Recorded PHQ-2 Score 1 10/14/2022 [facility] of Occupat ional Health - Occupational [...] your living situation today? I have a [facility] place to live 04/30/2023 Education Answer [...] PM CDT documented as of this encounter Miscellaneous Notes * Telephone Encounter - Jazmin Canas M.D., M.S. - 11/20/2023 4:06 PM CDT Spoke with Adalgisa who was with physical therapy; per PT, her back pain extends up to T9 and below. Will obtain both thoracic and lumbar spine MRI which I discussed with Adalgisa. Orders placed. documented in this encounter Plan of Treatment Upcoming Encounters Date Type Department Care Team (Late st Contact Info) Description 01/20/2024 12:30 PM CDT Appointment Clinic Admissions and Business Services in [place], [place] [address] [place] [address] 01/20/2024 1:30 PM CDT Appointment Department of Radiology, [facility] in [place], [place] [address] [place] [address] Jazmin Canas M.D., M.S. [address] [place] [phone] 02/12/2024 8:30 AM DOG BATHER Office Visit Department of Palliative Care in [place], [place] [address] [place] [address] Jazmin Canas M.D., M.S. [address] [place] [phone] Scheduled Orders Name Type Priority Associated Diagnoses Orde r Schedule MR Thoracic Spine without and with IV Contrast Imaging RAD - Routine (most inpatients and all outpatients) Multiple Myeloma Not Having Achieved Remission (HCC) Pain Back Expected: 11/20/2023, Expires: 02/19/2025 MR Lumbar Spine without and with IV Contrast Imaging RAD - Routine (most inpatients and all outpatients) Multiple Myeloma Not Having Achieved Remission (HCC) Pain Back Expected: 11/20/2023, Expires: 02/19/2025 documented as of this encounter Visit Diagnoses Diagnosis Multiple Myeloma Not Having Achieved Remission (HCC)- Primary Pain Back documented in this encounter Additional Health Concerns Infection Onset Date Last Indicated Resolved Time Protective Environment 03/17/2023 03/17/2023 documented as of this encounter Care Teams Assembly Line Leader Relationship Specialty Start Date End Date Elsewhere, Pcp PCP - General Internal Medicine 10/16/23 documented as of this encounter
--- OUTSIDE RECORDS SUMMARY | 2023-12-31 23:38 | XMS_ITS ---
Author Organization [facility] Address [address] [place] [address] Care Team Providers Care Biometrics Instructor Name Role Phone Elsewhere, Pcp Primary Care Provider Unavailabl e Active Problems Problem Noted Date Diagnosed Date Pain Cancer Associated 09/02/2023 Nausea 09/02/2023 Hypogammaglobulinemia 07/05/2023 History Of Falling 07/04/2023 Palliative Care 06/07/2023 Bone Marrow Transplant Status 05/29/2023 Pain Chest 04/30/2023 Anemia Iron Deficiency 04/11/2023 Other Food Demonstrator Current Drug Therapy 01/04/2023 Transplant Stem Cell 01/02/2023 Regurgitation Aortic Rheumatic 01/01/2023 Secondary Malignant Neoplasm Bone 08/02/2022 Multiple Myeloma Not Having Achieved Remission 0 08/02/2022 Mass Mediastinal 05/01/2022 Overview (05/01/2022): Added automatically from request for surgery [id number] Hypomagnesemia 03/28/2022 Polyp Duodenal 03/27/2022 Mass Small Bowel 02/27/2022 Overview (02/27/2022): Added automatically from request for surgery [id number] Osteoarthritis Aneurysm Thoracic Aorta Personal History Hypertension Essential Primary Depression Anxiety Apnea Sleep Obstructive Current Oncology Plans immune globulin (IVIG)* Plan Start Date:08/02/2023 Plan Provider:Sharyn Rea M.D. Linked Problems Multiple Myeloma Not Having Achieved Remission (HCC)Transplant Stem Cell (HCC) Treatment Medications No medications scheduled. Other Current Plans Autologous Blood and Marrow Transplant* Plan Start Date:04/23/2023 Plan Provider:Vidhi Bennett APRN, C.N.P., D.N.P. Linked Problems Anemia Iron DeficiencyTransp lant Stem Cell (HCC) Treatment Medications No medications scheduled. Vascular Access Patency - Peripheral Intravenous Catheter and Rapid Infusion Catheter & Vascular Access Patency - Hemodialysis Catheter with a Tego Cap* Plan Start Date:04/11/2023 Linked Problems Anemia Iron Deficiency Treatment Medications No medications scheduled. Past Plans Apheresis Plan Name Start Date Discontinue Date Treatment Medications Discontinue Reason Plan Provider Autologous Cell Collection 04/16/2023 04/16/2023 No medications scheduled. Therapy Complete Sharyn Rea M.D. Hem/Onc Therapy Plan 1 Plan Name Start Date Discontinue Date Treatment Medications Discontinue Reason Plan Provider Peripheral Blood Stem Cell Mobilization 04/12/2023 04/16/2023 No medications scheduled. Therapy Complete Sharyn Rea M.D. Hem/Onc Therapy Plan 2 Plan Name Start Date Discontinue Date Treatment Medications Discontinue Reason Plan Provider Plerixafor (MOZOBIL) 01/04/2023 04/16/2023 No medications scheduled. Therapy Complete Sharyn Rea M.D. Infusion Therapy 1 Plan Name Start Date Discontinue Date Treatment Medications Discontinue Reason Plan Provider electrolyte administration 04/15/2023 04/15/2023 No medications scheduled. Therapy Complete Vidhi Bennett APRN, C.N.P., D.N.P. Infusion Therapy 2 Plan Name Start Date Discontinue Date Treatment Medications Discontinue Reason Plan Provider immune globulin (IVIG) 07/09/2023 08/02/2023 No medications scheduled. Unlisted Sharyn Rea M.D. immune globulin (IVIG) 07/05/2023 07/08/2023 No medications scheduled. Unlisted Sharyn Rea M.D. Radiation Treatments * Plan Last Treated On Elapsed Days Fractions Treated Prescribed Fraction Dose Prescribed Total Dose [id number] L4 08/10/2022 4 5 of 5 400 cGy 2,000 cGy [id number] 08/10/2022 4 5 of 5 400 cGy 2,000 cGy Reference Point Last Treated On Elapsed Days Session Dose Total Dose [id number] 08/10/2022 4 400 cGy 2,000 cG y [id number] 08/10/2022 4 400 cGy 2,000 cGy Cellular Therapy * Episode Name Episode Status Transplant/Infusion Date Transplant/Infusion Center Donor Information Acute GVHD Chronic GVHD Contact Auto PBSC Txp Active Day 250 (04/25/23) [facility] N/A N/A N/A Sharyn Rea M.D.No contact info * Cell Therapy Appointments (12/01/2023 - 01/31/2024) When Visit Type With Description No appointments Lifetime Dose Tracking * Chemical Lifetime Dose Automatic Entry Manual Entr y Radiation 260.3 mGy 260.3 mGy 0 mGy Fluoro Time 10.93 minutes 10.93 minutes 0 minutes
--- OUTSIDE RECORDS SUMMARY | 2023-12-31 23:38 | XMS_ITS | Encounter Summary ---
Author Organization [facility] Address [address] [place] [address] Care Team Providers Care Pharmacy Intake Technician Name Role Phone Elsewhere, Pcp Primary Care Provider Unavailabl e Encounter Details Date Type Department Care Team (Late st Contact Info) Description 12/09/2023 Clinical Communication Division of Hematology in [place], [place] [address] [place] [phone] Mara Redd, R.N. Social History Tobacco Use Types Packs/Day Years Used Date Smoking Tobacco: Former Cigarettes 1 40 0 04/01/1972 - 04/01/2012 Smokeless Tobacco: Never Alcohol Use Standard Drinks/Week Comments Not Currently 0 (1 standard drink = 0.6 oz pur e alcohol) [facility] Utilities Answer Date Recorded In the past 12 months has [facility] [employer], gas, oil, or water [employer] threatened to shut off services in your [...] How often do you attend chur or islam services? Never 01/26/2022 Do you belong to any clubs o r organizations such as latter day groups, unions, fraternal or athletic groups, or [...] Answer Date Recorded PHQ-2 Score 1 10/14/2022 [facility] Questionnaire Answer Date Recorded [...] your living situation today? I have a [facility] place to live 04/30/2023 Education Answer [...] encounter Miscellaneous Notes * Telephone Encounter - Mara Redd RCodyN. - 12/09/2023 2:12 PM CDT ----- Message from Lona Zamora sent at 12/09/2023 11:53 AM CDT ----- Regarding: FW: mutual pt ----- Message ----- From: Krystina Ch V. Sent: 12/09/2023 11:52 AM CDT To: Rst Hem Pos Subject: FW: mutual pt ----- Message ----- From: Ann Fernandez M.D. Sent: 12/09/2023 11:38 AM CDT To: Rst Txp Roch Bmt Pos Subject: mutual pt Manfred, I met with the patient virtually today in palliative Care. She had some questions about vaccinations. I see that you all sent her a wonderful chart at the end October. She may need this sent again. She also had questions about what foods she can eat again, now that she is nearly 8 months out fromtransplant. Her thought he had remembered that receiving certain vaccinations would open upher fresh/uncooked food options, but wanted to double check. I think any sort of education you can pass along would be helpful. Thanks! Ann documented in this encounter Plan of Treatment Upcoming Encounters Date Type Department Care Team (Late st Contact Info) Description 01/20/2024 12:30 PM CDT Appointment Clinic Admissions and Business Services in [place], [place] [address] [place] [phone] 01/20/2024 1:30 PM CDT Appointment Department of Radiology, [facility] in [place], [place] [address] [place] [phone] Jazmin Canas M.D., M.S. [address] [place] [phone] 02/12/2024 8:30 AM CANTEEN MANAGER Office Visit Department of Palliative Care in [place], [place] [address] [place] [phone] Jazmin Canas M.D., M.S. [address] [place] [phone] documented as of this encounter Visit Diagnoses Not on filedocumented in this encounter Additional Health Concerns Infection Onset Date Last Indicated Resolved Time Protective Environment 03/17/2023 03/17/2023 documented as of this encounter Care Teams Pharmacy Intake Technician Relationship Specialty Start Date End Date Elsewhere, Pcp PCP - General Internal Medicine 10/16/23 documented as of this encounter
--- OUTSIDE RECORDS SUMMARY | 2023-12-31 23:38 | XMS_ITS | Encounter Summary ---
Author Organization [facility] Address [address] [place] [address] Care Team Providers Care Uniform Patrol Police Officer Name Role Phone Elsewhere, Pcp Primary Care Provider Unavailabl e Reason for Visit * Reason Onset Date Comments Pre-Screen Immunization 12/17/2023 Encounter Details Date Type Department Care Team (Latest Contact Info) Description 12/17/2023 Clinical Communication Section of Infectious Diseases in [place], [place] [address] [place] [address] Luis Goldman, MarieNCody Pre-Screen Immunization Social History Tobacco Use Types Packs/Day Years Used Date Smoking Tobacco: Former Cigarettes 1 40 0 04/01/1972 - 04/01/2012 Smokeless Tobacco: Never Alcohol Use Standard Drinks/Week Comments Not Currently 0 (1 standard drink = 0.6 oz pur e alcohol) [facility] Utilities Answer Date Recorded In the past 12 months has e [employer], gas, oil, or water [employer] threatened to shut off services in your [...] often do you attend chur ch or orthodoxy services? Never 01/26/2022 Do you belong to any clubs o r organizations such as nondenominational groups, unions, fraternal or athletic groups, or [...] Answer Date Recorded PHQ-2 Score 1 10/14/2022 [facility] Occupat ionpr Health - Occupational Stress Questionnaire Answer Date [...] your living situation today? I have a [facility] place to live 04/30/2023 Education Answer [...] encounter Miscellaneous Notes * Telephone Encounter - Luis Goldman RCodyN. - 12/17/2023 9:49 AM CDT Pre-Appt Vaccine Chart Review Pt Type: Post SCT Date of Transplant 04/25/2023 Visit # 1 Pt is Immunosuppressed: Yes Vaccine Hx in Epic: Yes Titers Completed: N/A Vaccines Ordered: SCT Visit #1 Additional Vaccines Needed: RSV, COVID Missing Orders: Can order via Protocol Additional Notes: documented in this encounter Plan of Treatment Upcoming Encounters Date Type Department Care Team (Late st Contact Info) Description 01/20/2024 12:30 PM CDT Appointment Clinic Admissions and Business Services in [place], [place] [address] [place] [address] 01/20/2024 1:30 PM CDT Appointment Department of Radiology, [facility] in [place], [place] [address] [place] [address] Jazmin Canas M.D., M.S. [address] [place] [phone] 02/12/2024 8:30 AM DIRECTOR OF CARDIOLOGY SERVICE LINE Office Visit Department of Palliative Care in [place], [place] [address] [place] [address] Jazmin Canas M.D., M.S. [address] [place] [phone] documented as of this encounter Visit Diagnoses Not on filedocumented in this encounter Additional Health Concerns Infection Onset Date Last Indicated Resolved Time Protective Environment 03/17/2023 03/17/2023 documented as of this encounter Care Teams Uniform Patrol Police Officer Relationship Specialty Start Date End Date Elsewhere, Pcp PCP - General Internal Medicine 10/16/23 documented as of this encounter
--- OUTSIDE RECORDS SUMMARY | 2023-12-31 23:38 | XMS_ITS | Encounter Summary ---
Author Organization [facility] Address [address] [place] [address] Care Team Providers Care Truck Packer Name Role Phone Elsewhere, Pcp Primary Care Provider Unavailabl e Reason for Visit * Reason Onset Date Comments Pre-visit Intake 11/26/2023 Encounter Details Date Type Department Care Team (Latest Contact Info) Description 11/26/2023 8:00 AM CDT Clinical Communication Virtual Review in [place], [place] [address] [place] [address] Pre-visit Intake Social History Tobacco Use Types Packs/Day Years Used Date Smoking Tobacco: Former Cigarettes 1 40 0 04/01/1972 - 04/01/2012 Smokeless Tobacco: Never Alcohol Use Standard Drinks/Week Comments Not Currently 0 (1 standard drink = 0.6 oz pur e alcohol) [facility] Utilities Answer Date Recorded In the past 12 months has [facility] [employer], gas, oil, or water [employer] threatened to shut off services in your [...] often do you attend chur ch or mu-ism services? Never 01/26/2022 Do you belong to any clubs o r organizations such as restoration groups, unions, fraternal or athletic groups, or [...] Answer Date Recorded PHQ-2 Score 1 10/14/2022 [facility] of Occupat ional Health - Occupational [...] your living situation today? I have a [facility] place to live 04/30/2023 Education Answer [...] Appointment Clinic Admissions and Business Services in [place], [place] [address] [place] [address] 01/20/2024 1:30 PM CDT Appointment Department of Radiology, [facility] in [place], [place] [address] [place] [address] Jazmin Canas M.D., M.S. [address] [place] [phone] 02/12/2024 8:30 AM MAYONNAISE MIXER Office Visit Department of Palliative Care in [place], [place] [address] [place] [address] Jazmin Canas M.D., M.S. [address] [place] [address] documented as of this encounter Visit Diagnoses Not on filedocumented in this encounter Additional Health Concerns Infection Onset Date Last Indicated Resolved Time Protective Environment 03/17/2023 03/17/2023 documented as of this encounter Care Teams Truck Packer Relationship Specialty Start Date End Date Elsewhere, Pcp PCP - General Internal Medicine 10/16/23 documented as of this encounter
--- OUTSIDE RECORDS SUMMARY | 2023-12-31 23:38 | XMS_ITS | Encounter Summary ---
Author Organization [facility] Address [address] [place] [address] Care Team Providers Care Afternoon Nanny Name Role Phone Elsewhere, Pcp Primary Care Provider Unavailabl e Reason for Referral * Outpatient (Routine) - Pending Review Specialty Diagnoses / Procedures Referred By Joanne t Referred To Contact Palliative Medicine Ann Fernandez M.D. [address] [place] [phone] Jazmin Canas M.D., M.S. [address] [place] [phone] Referral ID Status Reason Start Date Expiration Date V isits Requested Visits Authorized [id number] Pending Review 12/09/2023 06/09/2025 1 1 Reason for Visit * Outpatient (Routine) - Pending Review Specialty Diagnoses / Procedures Referred By Contac t Referred To Contact Palliative Medicine Jazmin Canas M.D., M.S. [address] [place] [phone] [facility] Referral ID Status Reason Start Date Expiration Date V isits Requested Visits Authorized [id number] Pending Review 10/29/2023 04/29/2025 1 1 Encounter Details Date Type Department Care Team ([facility] st Contact Info) Description 12/09/2023 10:30 AM CDT Telemedicine Department of Palliative Care in [place], [place] 200 [place] [address] Ann Fernandez M.D. 200 [place] [address] Pain Cancer Associated (Primary Dx); Transplant Stem Cell (HCC); Bone Marrow Transplant Status (HCC); Secondary Malignant Neoplasm Bone (HCC); Depression Anxiety; Palliative Care; Pain Back; Nausea Social History Tobacco Use Types Packs/Day Years Used Date Smoking Tobacco: Former Cigarettes 1 40 0 04/01/1972 - 04/01/2012 Smokeless Tobacco: Never Alcohol Use Standard Drinks/Week Comments Not Currently 0 (1 standard drink = 0.6 oz pur e alcohol) [facility] Utilities Answer Date Recorded In the past 12 months has e [employer], gas, oil, or water [employer] threatened to shut off services in your [...] How often do you attend chur or sabianism services? Never 01/26/2022 Do you belong to any clubs o r organizations such as anglican groups, unions, fraternal or athletic groups, or [...] Date Recorded PHQ-2 Score 1 10/14/2022 [facility] of Occupat [facility] - Occupational Stress Questionnaire Answer Date [...] your living situation today? I have a [facility] place to live 04/30/2023 Education Answer Date Recorded What is the highest level of school you have completed or the highest degree you have received? 12th grade 01/26/2022 Sex and Gender Information Value Date Recorded Sex Assigned at Female 01/26/2022 1:25 PM CDT Gender Identity Female 01/26/2022 1:25 PM CDT Sexual Orientation Straight 01/26/2022 1: 25 PM CDT documented as of this encounter Progress Notes * Ann Fernandez M.D. 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 established patient visit Visit conducted via virtual visit. The following person/people were also present during the discussion: Patient's spouse: Alfredo, off camera and 2 dogs (Maksim and Maria De Jesus) Medical Record review was conducted prior to the virtual visit. Date of last in-person clinic visit: 06/03/23, last virtual visit 10/29/23 Interval History: Since she was last seen, she has seen our foster care social worker, Malina Hong, who has indicated that anxiety is under better control. She has been able to start olanzapine. As far as pain, she does have an upcoming MRI 12/24 here in [place] to see if she might be a candidate for vertebroplasty. She otherwise continues to have pain in her mid to low back, similar in intensity and location as prior. It is worse with activity, such as standing or walking for 5-10 minutes. If she develops worsening pain, she may rest, sit down, occasionally ice, and sometimes take an oxycodone if it is severe. She is probably taking oxycodone every 3-5 days. Does not feel like she islimited in any activities per se, though had been hopeful to go back to the [place] again. Theymay just go to see the fall colors from the car this year. They may not attempt hiking. It sounds like things are getting better. She can not walk the bigger dog, Maria De Jesus, but mainly because if she pulled on the leash, that might be dangerous for her to try to manage. She is still going to PT, once every 2 weeks. Pain may flare after this. She likes crafting and is able to do this - paint pouring, painting what her (medical billing coordinator) makes. fills in some details of her history (eg: frequency of oxycodone, vaccination recommendations). She takes olanzapine 2.5 mg at night. She had mentioned this to be beneficial. Otherwise, she is also on sertraline 200 mg, [facility] Who completed this form?: Patient No Pain = 0 and Worst Pain = 10: 7 No Fatigue = 0 and Worst Fatigue = 10: 7 No Nausea = 0 and Worst Nausea = 10: 0 No Depression = 0 and Worst Depression = 10: 7 No Anxiety = 0 and Worst Anxiety = 10: 7 No Drowsiness = 0 and Worst Drowsiness = 10 : 4 No Shortness of Breath = 0 and Worst Shortness of Breath = 10: 3 Best Appetite = 0 and Worst Appetite = 10: 5 Best Feeling of Well Being = 0 and Worst Feeling of Well Being = 10: 5 Best Sleep = 0 and Worst Sleep = 10: 4 No Financial Distress (Distress/suffering experienced secondary to financial issues) = 0 and Worst Financial Distress = 10: 0 No Spiritual Pain (Pain deep in your soul/being that is not physical) = 0 and Worst Spiritual Pain = 10: 0 OBJECTIVE PHYSICAL EXAM Physical Exam General: Alert, appropriately interactive over the phone, no acute distress Lungs: non-labored breathing pattern during conversation Psychiatric: Oriented X 3, intact recent and remote memory, judgment and insight, congruent mood and affect. 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 Doing well today. Upcoming MRI of T/L spine ordered by palliative care, to help guide if vertebroplasty (and then potential taper of opioids) might be next steps in management. Our team has thought about transitioning her care locally, though if she is still getting testing from our team and may need another touch point to discuss opioid dosing, I think it is fair for us tofollow for a bit longer. Currently, PCP is ordering her opioids. Recommendations: - Continue MSER 30 mg every 12 hours, Rx by PCP, last refill per PDMP 11/18 - Continue oxycodone 5 mg every 4 hours as needed, average use is every 3-5 days, Rx by PCP, last refill per PDMP was 11/04 and previously 08/19 - Continue olanzapine, trazodone, sertraline per PCP - No further f/u with our PC SW has been scheduled (mutual decision between pt and SW) - MRI already scheduled for 12/24 - as she may be a candidate for vertebroplasty, which may require a visit with interventional radiology and then the procedure, I have scheduled a palliative care follow-up visit in the 6-8 week range, in the hopes that we might no about vertebroplasty or even have had it completed at that time. Wemight be able to tell from there what we can do with her medications, whether it is continuing her morphine and oxycodone as is group home, considering a taper, or even considering a rotation to a different medication that might be better for long- term opioid use. These options were not specificallydiscussed with the patient, but can be as we gather more information - Next f/u with BMT is likely at 1y post transplant. She had some questions for them I will forwardon. Opioid Summary Opioid Need: This patient has a condition that necessitates treatment with an opioid for longer than 7 days. Additionally, a non-opioid alternative was not appropriate or inadequate to manage patient???s pain. We have reviewed risks, benefits and alternatives related to opioid prescribing as well as relevant mitigation strategies. Diagnosis related to controlled substance prescribing: chronic pain syndrome after MM [place] MONITORING ANALYST Review: We have reviewed the patient's record in the [place] prescription monitoring program 12/09/2023. Opioid Toxicity Review: We have reviewed the risks of opioid therapy and completed an assessment oftoxicities. Opioid Aberrant Use Concerns: None Recommended Opioid Regimen as of 12/09/2023.: as documented above Current Oral Morphine Equivalents (OME/MME): 60 OME from morphine, rare oxycodone Opioid Risk Score: Last Opioid Risk Tool charting Flowsheet Row Comprehensive Visit from 06/03/2023 in Department of Palliative Care in [place], [place] ORT Total Score (max 26) 5 Naloxone prescribed: yes Follow up visit: provider 2 months, clinic visit (pt ok w/in-person visit, has been 05/2023, since initial consult/last in person visit) I personally spent a total of 30 minutes. Consult conducted via real-time audio/video technology by Ann Fernandez M.D. in [facility] to the patient in Patient's Home Ann Fernandez M.D. documented in this encounter Plan of Treatment Upcoming Encounters Date Type Department Care Team (Late st Contact Info) Description 01/20/2024 12:30 PM CDT Appointment Clinic Admissions and Business Services in [place], [place] [address] [place] [address] 01/20/2024 1:30 PM CDT Appointment Department of Radiology, [facility] in [place], [place] [address] [place] [address] Jazmin Canas M.D., M.S. [address] [place] [phone] 02/12/2024 8:30 AM TEST CASE DEVELOPER Office Visit Department of Palliative Care in [place], [place] [address] [place] [address] Jazmin Canas M.D., M.S. [address] [place] [address] Scheduled Referrals Name Type Priority Associated Diagnoses Order Schedule Palliative Care office visit (clinic) Outpatient Referral Routine Expected: 02/10/2024, Expires: 03/09/2025 documented as of this encounter Visit Diagnoses Diagnosis Pain Cancer Associated- Primary Transplant Stem Cell (HCC) Bone Marrow Transplant Status (HCC) Secondary Malignant Neoplasm Bone (HCC) Depression Anxiety Palliative Care Pain Back Nausea documented in this encounter Additional Health Concerns Infection Onset Date Last Indicated Resolved Time Protective Environment 03/17/2023 03/17/2023 documented as of this encounter Care Teams Afternoon Nanny Relationship Specialty Start Date End Date Elsewhere, Pcp PCP - General Internal Medicine 10/16/23 documented as of this encounter
--- OUTSIDE RECORDS SUMMARY | 2023-12-31 23:38 | XMS_ITS | Encounter Summary ---
Author Organization [facility] Address [address] [place] [address] Care Team Providers Care Before School Babysitter Name Role Phone Elsewhere, Pcp Primary Care Provider Unavailabl e Reason for Referral * Outpatient (Routine) - Pending Review Specialty Diagnoses / Procedures Referred By Joanne carbaajl Referred To Contact Palliative Medicine Jazmin Canas M.D., M.S. [address] [place] [phone] [facility] Referral ID Status Reason Start Date Expiration Date V isits Requested Visits Authorized [id number] Pending Review 10/29/2023 04/29/2025 1 1 Reason for Visit * Outpatient (Routine) - Closed Specialty Diagnoses / Procedures Referred By Joanne carbajal Referred To Contact Palliative Medicine Merle Weaver B.M.B.S., B.M.B.Ch. [address] [place] [phone] [facility] Referral ID Status Reason Start Date Expiration Date Visits Re quested Visits Authorized [id number] Closed 09/02/2023 03/03/2025 1 1 Encounter Details Date Type Department Care Team (Late st Contact Info) Description 10/29/2023 9:30 AM CDT Telemedicine Department of Palliative Care in [place], [place] [address] [place] [phone] Jazmin Canas M.D., M.S. [address] [place] [address] Multiple Myeloma In Remission (HCC) (Primary Dx); Pain Back; Nausea; Palliative Care Social History Tobacco Use Types Packs/Day Years Used Date Smoking Tobacco: Former Cigarettes 1 40 0 04/01/1972 - 04/01/2012 Smokeless Tobacco: Never Alcohol Use Standard Drinks/Week Comments Not Currently 0 (1 standard drink = 0.6 oz pur e alcohol) [facility] Utilities Answer Date Recorded In the past 12 months has e [employer], gas, oil, or water company threatened to [...] often do you attend chur ch or anabaptist services? Never 01/26/2022 Do you belong to any clubs o r organizations such as sabianism groups, unions, fraternal or athletic groups, or [...] Answer Date Recorded PHQ-2 Score 1 10/14/2022 [facility] of Occupat ional Health - Occupational Stress [...] Date Recorded Dental: Regular Dentist Yes 01/27/20 22 Employment Answer Date Recorded Employment status Retired [...] as of this encounter Progress Notes * Jazmin Canas M.D., M.S. 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 established patient visit Visit conducted via virtual visit. The following person/people were also present during the discussion: daughter Fidelia Medical Record review was conducted prior to the virtual visit. Date of last in-person clinic visit: 06/03/23 Interval History: Adalgisa has had increased anxiety which her daughter notes is in the setting of moving back home as Fidelia has had to provide assistance for someone else. Adalgisa expresses concern over the cleanliness of their home as she was away for 2 months; however, when she attempts to clean, her is concerned that she is overdoing it. Fidelia shares that Adalgisa has significantly improved her strength during Adalgisa's time at her house; at the same time, Adalgisa's back pain has been worsening with increased activity/cleaning with return to her home. Of note, vertebroplasty has been mentioned as a consideration since the beginning of June pending how her back pain is doing and potential Hematology approval. Adalgisa has not started the olanzapine recommended at least visit by Dr. Weaver as she was awaiting an EKG given elevated QTc in April to >500 in the setting of SCT and multiple QTc prolonging medications. She continues to have daily nausea which Fidelia thinks is associated with anxiety. On reflection, Adalgisa thinks the nausea does correlate with anxiety. [place] Scores Who completed this form?: Patient No Pain = 0 and Worst Pain = 10: 7 No Fatigue = 0 and Worst Fatigue = 10: 5 No Nausea = 0 and Worst Nausea = 10: 2 No Depression = 0 and Worst Depression = 10: 4 No Anxiety = 0 and Worst Anxiety = 10: 4 No Drowsiness = 0 and Worst Drowsiness = 10 : 3 No Shortness of Breath = 0 and Worst Shortness of Breath = 10: 0 Best Appetite = 0 and Worst Appetite = 10: 3 Best Feeling of Well Being = 0 and Worst Feeling of Well Being = 10: 5 Best Sleep = 0 and Worst Sleep = 10: 2 No Financial Distress (Distress/suffering experienced secondary to financial issues) = 0 and Worst Financial Distress = 10: 0 No Spiritual Pain (Pain deep in your soul/being that is not physical) = 0 and Worst Spiritual Pain = 10: 0 OBJECTIVE PHYSICAL EXAM General: Alert, appropriately interactive over the phone, no acute distress Lungs: non-labored breathing pattern during conversation Psychiatric: Oriented X 3, intact recent and remote memory, judgment and insight, congruent mood and affect. 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 RECOMMENDATIONS Anxiety and Nausea: After review of her external EKG, recommended initiation of olanzapine at 2.5mgqhs with reassessment by our nurses next week and consideration for escalation to 5mg qhs. Spent time today discussing rationale for EKG with QTC prolongation in April and potential for life-threatening heart rhythm with medications. Validated the work Adalgisa has been doing conversing with her and trying to balance/accept functional limitations. - Start olanzapine 2.5mg qhs for nausea, discussed may provide anxiety benefit as on maximum recommended sertraline 200mg daily - Would recommend repeat EKG in ~2 weeks - I discussed that after initiation and adjustment of her olanzapine, since she is no longer following up here with Hematology and her PCP is prescribing her opioids, we would look at transitioning the remainder of her care to her PCP in a couple visits. She was in agreement with this plan. 2. Back Pain: Recommended discussion of potential vertebroplasty with her local Fortune Teller at herupcoming appointment next Saturday. If Hematology does approve and she is interested in this givenher ongoing pain and how it is limiting her function around their home, discussed her Fortune Teller could refer or our clinic could refer. She is interested in having this done at [place] if she decides to proceed. Would plan to have our clinic refer for this. Follow up visit: 1 month or sooner PRN I personally spent a total of 55 minutes. Consult conducted via real-time audio/video technology by Jazmin Canas M.D., M.S. in [facility] to the patient in Patient's Home Jazmin Canas M.D., M.S. documented in this encounter Plan of Treatment Upcoming Encounters Date Type Department Care Team (Late st Contact Info) Description 01/20/2024 12:30 PM CDT Appointment Clinic Admissions and Business Services in [address] [phone] 01/20/2024 1:30 PM CDT Appointment Department of Radiology, [facility] in [place], [place] [address] [place] [phone] Jazmin Canas M.D., M.S. [address] [place] [phone] 02/12/2024 8:30 AM BUILDING APPRAISER Office Visit Department of Palliative Care in [address] [phone] Jazmin Canas M.D., M.S. [address] [place] [phone] Scheduled Referrals Name Type Priority Associated Diagnoses Order Schedule Palliative Care office visit (clinic) Outpatient Referral Routine Expected: 12/03/2023, Expires: 01/28/2025 documented as of this encounter Visit Diagnoses Diagnosis Multiple Myeloma In Remission (HCC)- Primary Pain Back Nausea Palliative Care documented in this encounter Additional Health Concerns Infection Onset Date Last Indicated Resolved Time Protective Environment 03/17/2023 03/17/2023 documented as of this encounter Care Teams Before School Babysitter Relationship Specialty Start Date End Date Elsewhere, Pcp PCP - General Internal Medicine 10/16/23 documented as of this encounter
--- OUTSIDE RECORDS SUMMARY | 2023-12-31 23:38 | XMS_ITS | Encounter Summary ---
Author Organization [facility] Address [address] [place] [phone] Care Team Providers Care Head Concierge Name Role Phone None Reported, Pcp Primary Care Provider Unavail able Reason for Visit * Reason Comments Med Refill Encounter Details Date Type Department Care Team (Late st Contact Info) Description 09/11/2023 Refill [facility], Ninth Floor [address] [place] [address] Bryanna Shannon, PImelda.-C., M.S. [address] [place] [phone] Med Refill Social History Tobacco Use Types Packs/Day Years Used Date Smoking Tobacco: Former Cigarettes 1 40 0 04/01/1972 - 04/01/2012 Smokeless Tobacco: Never Alcohol Use Standard Drinks/Week Comments Not Currently 0 (1 standard drink = 0.6 oz pur e alcohol) [facility] Utilities Answer Date Recorded In the [...] often do you attend chur ch or roman catholic services? Never 01/26/2022 Do you belong to any clubs o r organizations such as restorationism groups, unions, fraternal or athletic groups, or [...] Answer Date Recorded PHQ-2 Score 1 10/14/2022 [facility] of Occupat ional Health - Occupational Stress [...] money to buy more. Never true 04/30/19 Within the past 12 months, t he [...] living situation today? I [facility] place to live 04/30/2023 Education Answer Date [...] encounter Miscellaneous Notes * Telephone Encounter - Bryanna Shannon P.A.-C., M.S. - 09/17/2023 9:[address] Rea's note on 07/04/23: Can discontinue the Bactrim after day 100 documented in this encounter Plan of Treatment Upcoming Encounters Date Type Department Care Team (Late st Contact Info) Description 01/20/2024 12:30 PM CDT Appointment Clinic Admissions and Business Services in [place], [place] [address] [place] [address] 01/20/2024 1:30 PM CDT Appointment Department of Radiology, [facility] in [place], [place] [address] [place] [address] Jazmin Canas M.D., M.S. [address] [place] [phone] 02/12/2024 8:30 AM STAFFING ASSOCIATE Office Visit Department of Palliative Care in [place], [place] [address] [place] [address] Jazmin Canas M.D., M.S. [address] [place] [phone] documented as of this encounter Visit Diagnoses Not on filedocumented in this encounter Additional Health Concerns Infection Onset Date Last Indicated Resolved Time Protective Environment 03/17/2023 03/17/2023 documented as of this encounter Care Teams Head Concierge Relationship Specialty Start Date End Date None Reported, Pcp PCP - General Family Medicine 04/15/23 10/15/23 documented as of this encounter
--- OUTSIDE RECORDS SUMMARY | 2023-12-31 23:38 | XMS_ITS ---
Author Organization [facility] Address [address] [place] [address] Care Team Providers Care Technology Applications Teacher Name Role Phone Unavailable Unavailable Unavailable Surgery Details Not on file Complications Check Surgery Details section. Procedure Estimated Blood Loss Check Surgery Details section. Procedure Findings Check Surgery Details section. Procedure Specimens Taken Check Surgery Details section.
--- OUTSIDE RECORDS SUMMARY | 2023-12-31 23:38 | XMS_ITS | Encounter Summary ---
Author Organization [facility] Address [address] [place] [address] Care Team Providers Care Optical Laboratory Mechanic Name Role Phone None Reported, Pcp Primary Care Provider Unavail able Encounter Details Date Type Department Care Team (Late st Contact Info) Description 09/10/2023 Clinical Communication Department of Palliative Care in [place], [place] [address] [place] [phone] Cary Moon R.N. [address] [place] [phone] Social History Tobacco Use Types Packs/Day Years Used Date Smoking Tobacco: Former Cigarettes 1 40 0 04/01/1972 - 04/01/2012 Smokeless Tobacco: Never Alcohol Use Standard Drinks/Week Comments Not Currently 0 (1 standard drink = 0.6 oz pur e alcohol) [facility] Utilities Answer Date Recorded In the past 12 months has [facility] [employer], gas, oil, or water [employer] threatened to shut off services in your [...] often do you attend chur ch or zoroastrian services? Never 01/26/2022 Do you belong to [...] your living situation today? I have a [facility] place to live 04/30/2023 Education Answer [...] Appointment Clinic Admissions and Business Services in [place], [place] 200 [place] [address] 01/20/2024 1:30 PM CDT Appointment Department of Radiology, [facility] in [place], [place] 200 [place] [address] Jazmin Canas M.D., M.S. [address] [place] [phone] 02/12/2024 8:30 AM BLACK TOP MACHINE OPERATOR Office Visit Department of Palliative Care in [place], [place] 200 [place] [address] Jazmin Canas M.D., M.S. [address] [place] [address] documented as of this encounter Visit Diagnoses Not on filedocumented in this encounter Additional Health Concerns Infection Onset Date Last Indicated Resolved Time Protective Environment 03/17/2023 03/17/2023 documented as of this encounter Care Teams Optical Laboratory Mechanic Relationship Specialty Start Date End Date None Reported, Pcp PCP - General Family Medicine 04/15/23 10/15/23 documented as of this encounter
--- OUTSIDE RECORDS SUMMARY | 2023-12-31 23:38 | XMS_ITS | Encounter Summary ---
Author Organization [facility] Address [address] [place] [address] Care Team Providers Care Ems Driver Name Role Phone Elsewhere, Pcp Primary Care Provider Unavailabl e Reason for Visit * Reason Onset Date Comments Pre-visit Intake 10/16/2023 Encounter Details Date Type Department Care Team (Latest Contact Info) Description 10/16/2023 3:15 PM CDT Clinical Communication Virtual Review in [place], [place] 200 [place] [address] Pre-visit Intake Social History Tobacco Use Types Packs/Day Years Used Date Smoking Tobacco: Former Cigarettes 1 40 0 04/01/1972 - 04/01/2012 Smokeless Tobacco: Never Alcohol Use Standard Drinks/Week Comments Not Currently 0 (1 standard drink = 0.6 oz pur e alcohol) [facility] Utilities Answer Date Recorded In the past 12 months has [facility] [employer], gas, oil, or water [employer] threatened to shut off services in your [...] often do you attend chur ch or cheondoism services? Never 01/26/2022 Do you belong to any clubs o r organizations such as synagogue groups, unions, fraternal or athletic groups, or [...] Answer Date Recorded PHQ-2 Score 1 10/14/2022 [facility] of Occupat ional Health - Occupational Stress [...] your living situation today? I have a [facility] place to live 04/30/2023 Education Answer Date [...] Appointment Clinic Admissions and Business Services in [place], [place] [address] [place] [address] 01/20/2024 1:30 PM CDT Appointment Department of Radiology, [facility] in [place], [place] [address] [place] [address] Jazmin Canas M.D., M.S. [address] [place] [phone] 02/12/2024 8:30 AM ASSISTANT ACTIVITIES DIRECTOR Office Visit Department of Palliative Care in [place], [place] [address] [place] [address] Jazmin Canas M.D., M.S. [address] [place] [address] documented as of this encounter Visit Diagnoses Not on filedocumented in this encounter Additional Health Concerns Infection Onset Date Last Indicated Resolved Time Protective Environment 03/17/2023 03/17/2023 documented as of this encounter Care Teams Ems Driver Relationship Specialty Start Date End Date Elsewhere, Pcp PCP - General Internal Medicine 10/16/23 documented as of this encounter
--- OUTSIDE RECORDS SUMMARY | 2023-12-31 23:38 | XMS_ITS | Encounter Summary ---
Author Organization [facility] Address [address] [place] [address] Care Team Providers Care Jacker Name Role Phone Elsewhere, Pcp Primary Care Provider Unavailabl e Reason for Visit * Reason Onset Date Comments Order Request 12/12/2023 Encounter Details Date Type Department Care Team (Late st Contact Info) Description 12/12/2023 Clinical Communication Division of Hematology in [place], [place] [address] [place] [phone] Sharyn Rea M.D. [address] [place] [phone] Order Request Social History Tobacco Use Types Packs/Day Years Used Date Smoking Tobacco: Former Cigarettes 1 40 0 04/01/1972 - 04/01/2012 Smokeless Tobacco: Never Alcohol Use Standard Drinks/Week Comments Not Currently 0 (1 standard drink = 0.6 oz pur e alcohol) [facility] Utilities Answer Date Recorded In the [...] often do you attend chur ch or buddhist services? Never 01/26/2022 Do you belong to any clubs o r organizations such as holiness groups, unions, fraternal or athletic groups, or [...] Answer Date Recorded PHQ-2 Score 1 10/14/2022 [facility] of Occupat ional Health - Occupational Stress [...] your living situation today? I have a [facility] place to live 04/30/2023 Education Answer [...] Appointment Clinic Admissions and Business Services in [place], [place] [address] [place] [address] 01/20/2024 1:30 PM CDT Appointment Department of Radiology, [facility] in [place], [place] [address] [place] [address] Jazmin Canas M.D., M.S. [address] [place] [address] 02/12/2024 8:30 AM CHIEF PROCUREMENT OFFICER Office Visit Department of Palliative Care in [place], [place] [address] [place] [address] Jazmin Canas M.D., M.S. [address] [place] [address] documented as of this encounter Visit Diagnoses Not on filedocumented in this encounter Additional Health Concerns Infection Onset Date Last Indicated Resolved Time Protective Environment 03/17/2023 03/17/2023 documented as of this encounter Care Teams Jacker Relationship Specialty Start Date End Date Elsewhere, Pcp PCP - General Internal Medicine 10/16/23 documented as of this encounter
--- OUTSIDE RECORDS SUMMARY | 2023-12-31 23:38 | XMS_ITS | Encounter Summary ---
Author Organization [facility] Address [address] [place] [address] Care Team Providers Care Metal Bending Machine Operator Name Role Phone None Reported, Pcp Primary Care Provider Unavail able Reason for Visit * Reason Onset Date Comments Med Question 08/27/2023 Encounter Details Date Type Department Care Team (Late st Contact Info) Description 08/27/2023 Clinical Communication Division of Hematology in [place], [place] [address] [place] [phone] Paramjit Pablo M.D. [address] [place] [phone] Med Question Social History Tobacco Use Types Packs/Day Years Used Date Smoking Tobacco: Former Cigarettes 1 40 0 04/01/1972 - 04/01/2012 Smokeless Tobacco: Never Alcohol Use Standard Drinks/Week Comments Not Currently 0 (1 standard drink = 0.6 oz pur e alcohol) [facility] Utilities Answer Date Recorded In the past [...] often do you attend chur ch or pentecostal services? Never 01/26/2022 Do you belong to any clubs o r organizations such as muslim groups, unions, fraternal or athletic groups, or [...] Answer Date Recorded PHQ-2 Score 1 10/14/2022 [facility] of Occupat ional Health - [...] your living situation today? I have a [facility] place to live 04/30/2023 Education Answer Date [...] Appointment Clinic Admissions and Business Services in [place], [place] [address] [place] [address] 01/20/2024 1:30 PM CDT Appointment Department of Radiology, [facility] in [place], [place] [address] [place] [address] Jazmin Canas M.D., M.S. [address] [place] [address] 02/12/2024 8:30 AM SR ACCOUNT EXECUTIVE Office Visit Department of Palliative Care in [place], [place] [address] [place] [address] Jazmin Canas M.D., M.S. [address] [place] [address] documented as of this encounter Visit Diagnoses Not on filedocumented in this encounter Additional Health Concerns Infection Onset Date Last Indicated Resolved Time Protective Environment 03/17/2023 03/17/2023 documented as of this encounter Care Teams Metal Bending Machine Operator Relationship Specialty Start Date End Date None Reported, Pcp PCP - General Family Medicine 04/15/23 10/15/23 documented as of this encounter
--- OUTSIDE RECORDS SUMMARY | 2023-12-31 23:38 | XMS_ITS | Encounter Summary ---
Author Organization [facility] Address [address] [place] [address] Care Team Providers Care Information Security Analyst Name Role Phone Elsewhere, Pcp Primary Care Provider Unavailabl e Reason for Visit * Outpatient (Routine) - Closed Specialty Diagnoses / Procedures Referred By Joanne carbajal Referred To Contact Social Work Malina Hong, M.S.Kelly., L.I.C.S.W. [address] [place] [phone] [employer] Referral ID Status Reason Start Date Expiration Date Visits Re quested Visits Authorized [id number] Closed 09/10/2023 03/11/2025 1 1 Encounter Details Date Type Department Care Team (Late st Contact Info) Description 11/27/2023 10:30 AM CDT Telemedicine Department of Palliative Care in [place], [place] [address] [place] [phone] Malina Hong, M.S.W., L.I.C.S.W. [address] [place] [phone] Palliative Care (Primary Dx); Multiple Myeloma Not Having Achieved Remission (HCC); Depression Anxiety Social History Tobacco Use Types Packs/Day Years Used Date Smoking Tobacco: Former Cigarettes 1 40 0 04/01/1972 - 04/01/2012 Smokeless Tobacco: Never Alcohol Use Standard Drinks/Week Comments Not Currently 0 (1 standard drink = 0.6 oz pur e alcohol) [facility] Utilities Answer Date Recorded In the past 12 months has th e electric, gas, oil, or water [employer] threatened to shut off services in your [...] often do you attend chur ch or synagogue services? Never 01/26/2022 Do you belong to any clubs o r organizations such as lutheran groups, unions, fraternal or athletic groups, or [...] Answer Date Recorded PHQ-2 Score 1 10/14/2022 [facility] of Occupat ional Health - Occupational [...] your living situation today? I have a [facility] place to live 04/30/2023 Education Answer [...] as of this encounter Progress Notes * Malina Hong M.SCory., L.I.C.S.W. - 11/27/2023 10:30 AM CDT SUBJECTIVE CHIEF COMPLAINT / REASON FOR VISIT Outpatient palliative social services counselor met with patient via video telehealth for followup supportive visit. I last saw patient on 09/10/23. HISTORY OF PRESENT ILLNESS Patient is 68 year old female with diagnosis of Multiple Myeloma who has been followed in the outpatient palliative care clinic for symptom management and psychosocial support. DISCUSSION Outpatient palliative social services counselor met with patient via video telehealth for followup supportive visit. I last saw patient on 09/10/23. In summary-patient shares that overall she is doing quite well.Patient states that she understands the limitations that she has with her back and has learned to make shorter increments of activity part of her daily life. Patient states that she keeps doing the exercises recommended and has found these to be helpful. Patient states that she will have an MRI in the next several weeks to determine if vertebroplasty as an option. She states that she is hopeful that this could stabilize things more. Patient shares that ultimately traveling is a goal for her and she is hopeful that in the near future this could be a possibility. Patient shares that she does have some discomfort sitting at her craft stool but was able to purchase a new 1 in hopes that she will be more comfortable. Patient shares that her mood has been good and denies any symptoms of depression or anxiety overall. Patient states that she does have fleeting thoughts that she does not want to be a burden to her family but she understands that they have been ???so good to me?? and that she would not want to ???say something to hurt their feelings. ?? Patient verbalizes that she could not have gotten through all that she has gone through without her family's support and feels very grateful. Patient states that she was able to move back home with her but is currently out her daughter spending the last few days with her grand children before they returned to school. Patient shares that she is hopeful to join the [facility]term center and begin swimming as she knows that this will be good for her overall activity and hopeful that she can meet new people. Patient states that it continues to be hard not to socialize the way she wants but that she will be fully vaccinated in March which she is looking forward to. Patient shares that she was able to start olanzapine and does feel that this has been helpful. Patient verbalized understanding that she will likely graduate from palliative medicine support over the next several visits. She verbalized that she does not feel that follow- up with social work at this time is needed as she feels things are in a stable p lace that will not hesitate to reach out should she feel that more support would be helpful. Patient verbalized appreciation for visit today and support provided. OBJECTIVE Outpatient palliative social services counselor met with patient via video telehealth for followup supportive visit. I reviewed patient's EHR prior to meeting with patient ASSESSMENT / PLAN ASSESSMENT #1 Palliative Care #2 Multiple Myeloma Not Having Achieved Remission (HCC) #3 Depression Anxiety Patient is 68 year old, , , female seen via video telehealth for follow up supportive visit. She is alert and oriented x 4 and able to communicate her needs effectively. She was pleasant, cooperative and agreeable to social work visit. She seemed to be generally reliable and forthcoming with information provided. She was dressed and groomed appropriately and seated in her home. Her mood was overall pleasant and affect mood congruent. She denies symptoms of depression or anxiety at this time and appears to feel that she is doing quite well. She does miss more interaction with her friends but will be fully vaccinated in [place] and will feel more comfortable increasing her soc ialization. She is looking into joining the [employer] and will engage in swimming there. She continues to have excellent support from her family who are very involved in her care. Overall she appears to be doing quite well and agreeable that no further follow up will be scheduled at this time. PLAN 1) No follow up will be scheduled at this time. Patient understands how to reach out to social services counselor if needed. Consult conducted via real-time audio/video technology by Karin Radford, Gina.S.W. in [facility] to the patient in the patient's home. Type of service: Supportive counseling Start time: 10:20 End time: 10:50 Karin Radford, Gina.S.W. 11/27/2023 documented in this encounter Plan of Treatment Upcoming Encounters Date Type Department Care Team (Late st Contact Info) Description 01/20/2024 12:30 PM CDT Appointment Clinic Admissions and Business Services in [place], [place] [address] [place] [address] 01/20/2024 1:30 PM CDT Appointment Department of Radiology, [facility] in [place], [place] [address] [place] [address] Jazmin Canas M.D., M.S. [address] [place] [phone] 02/12/2024 8:30 AM RACEBOOK WRITER Office Visit Department of Palliative Care in [place], [place] [address] [place] [address] Jazmin Canas M.D., M.S. [address] [place] [phone] documented as of this encounter Visit Diagnoses Diagnosis Palliative Care- Primary Multiple Myeloma Not Having Achieved Remission (HCC) Depression Anxiety documented in this encounter Additional Health Concerns Infection Onset Date Last Indicated Resolved Time Protective Environment 03/17/2023 03/17/2023 documented as of this encounter Care Teams Information Security Analyst Relationship Specialty Start Date End Date Elsewhere, Pcp PCP - General Internal Medicine 10/16/23 documented as of this encounter
--- OUTSIDE RECORDS SUMMARY | 2023-12-31 23:38 | XMS_ITS | Encounter Summary ---
Author Organization [facility] Address [address] [place] [address] Care Team Providers Care Toll Test Desk Worker Name Role Phone Elsewhere, Pcp Primary Care Provider Unavailabl e Encounter Details Date Type Department Care Team (Latest Contact Info) Description 04/30/2023 Intake [facility] Social History Tobacco Use Types Packs/Day Years Used Date Smoking Tobacco: Former Cigarettes 1 40 0 04/01/1972 - 04/01/2012 Smokeless Tobacco: Never Alcohol Use Standard Drinks/Week Comments Not Currently 0 (1 standard drink = 0.6 oz pur e alcohol) [facility] Utilities Answer Date Recorded In the past 12 months has e electric, gas, oil, or water [employer] threatened to shut off services in your [...] often do you attend chur ch or sabianist services? Never 01/26/2022 Do you belong to any clubs o r organizations such as gnosticist groups, unions, fraternal or athletic groups, or [...] Answer Date Recorded PHQ-2 Score 1 10/14/2022 [employer] of Occupat ional Health - Occupational Stress [...] your living situation today? I have a [facility] place to live 04/30/2023 Education Answer [...] Appointment Clinic Admissions and Business Services in [place], [place] [address] [place] [phone] 01/20/2024 1:30 PM CDT Appointment Department of Radiology, [facility] in [place], [place] [address] [place] [address] Jazmin Canas M.D., M.S. [address] [place] [phone] 02/12/2024 8:30 AM ORDER PROCESSING SPECIALIST Office Visit Department of Palliative Care in [place], [place] [address] [place] [phone] Jazmin Canas M.D., M.S. [address] [place] [phone] documented as of this encounter Visit Diagnoses Not on filedocumented in this encounter Additional Health Concerns Infection Onset Date Last Indicated Resolved Time Protective Environment 03/17/2023 03/17/2023 COVID19 Pending 05/21/2023 05/21/2023 05/21/2023 5 :03 PM ORDER PROCESSING SPECIALIST documented as of this encounter Care Teams Toll Test Desk Worker Relationship Specialty Start Date End Date Elsewhere, Pcp PCP - General Internal Medicine 10/16/23 documented as of this encounter
--- OUTSIDE RECORDS SUMMARY | 2023-12-31 23:39 | XMS_ITS | Clinical Summary ---
Author Organization [employer] [facility] Address [place], [place] [address] Care Team Providers Care Weld Engineer Name Role Phone Cookie Deras MD Primary Care Provide r [facility], [place] Unavailable [phone] Allergies Active Allergy Reactions Criticality Noted Date Comments Duloxetine Anxiety,Behavioral Disturbances,Hallucinati ons 08/23/2022 Naproxen Hives,Itching,Hypote nsio n 08/03/2013 Ibuprofen also bothers stomach Bupropion 06/11/2006 intol hoffman Medications Medication Sig Dispensed Refills Start Date End Date Status acetaminophen (TYLENOL EXTRA STRGTH) 500 mg tablet Take 1,000 mg by mouth every 6 hours if needed for Pain. Max acetaminophen dose: 4000mg in 24 hrs. Active naloxone (NARCAN) 4 mg/actuation nasal spray 1 SPRAY INTO ONE NOSTRIL FOR REVERSAL. USE 1 SPRAY IN 1 NOSTRIL. REPEAT WITH SECOND DEVICE IN OTHER NOSTRIL AFTER 2-3 MINUTES IF NO RESPONSE 08/09/2022 Active prochlorperazine (COMPAZINE) 10 mg tablet Take 10 mg by mouth every 6 hours if needed for Nausea/Vomiting. 07/08/2023 Active acyclovir (ZOVIRAX) 400 mg tabletIndication s:Multiple myeloma not having achieved remission (HC) Take 1 Tablet (400 mg) by mouth two times daily. 60 Tablet 5 08/12/2023 Active lenalidomide (REVLIMID) 10 mg capsule Take 10 mg by mouth once daily. 07/29/2023 Active LORazepam (ATIVAN) 0.5 mg tabIndications:D epression with anxiety TAKE 1 TABLET(0.5 MG) BY MOUTH AT BEDTIME NEEDED FOR SLEEP OR ANXIETY 30 Tablet 08/20/2023 Active metoprolol tartrate (LOPRESSOR) 25 mg tabletIndication s:HTN (hypertension) Take 1 Tablet (25 mg) by mouth two times daily. 180 Tablet 3 08/20/2023 Active morphine CONTROLLED RELEASE (MS CONTIN) 30 mg CR tabletIndication s:Multiple myeloma not having achieved remission (HC),Cancer related pain Take 1 Tablet (30 mg) by mouth two times daily. 60 Tablet 11/05/2023 Active sertraline (ZOLOFT) 100 mg tabletIndication s:Depression with anxiety Take 2 Tablets (200 mg) by mouth once daily in the morning. 180 Tablet 3 11/05/2023 Active OLANzapine (ZYPREXA) 2.5 mg tabletIndication s:Multiple myeloma not having achieved remission (HC),Cancer related pain Take 1 Tablet (2.5 mg) by mouth once daily. 90 Tablet 3 12/12/2023 Active amLODIPine (NORVASC) 2.5 mg tabletIndication s:HTN (hypertension) Take 2 Tablets (5 mg) by mouth once daily. 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 5 Patch 06/22/2022 4 Discontinue d(*Patient states no longer taking) miscellaneous medical supply miscIndications: Bilateral lower extremity edema As directed. Oxygen saturation monitor 1 Each 09/11/2022 4 Discontinue d(*Med complete/Re gimen complete/Le dionicio of care change) penicillin v potassium (PEN-VEE K) 500 mg tablet Take 500 mg by mouth two times daily before meals. 06/23/2023 4 Discontinue d(*Med complete/Re gimen complete/Le dionicio of care change) furosemide (LASIX) 20 mg tabletIndication s:Bilateral lower extremity edema Take 1 Tablet (20 mg) by mouth every morning. As needed edema 07/18/2023 4 Discontinue d(*Disconti nued by another clinician) morphine CONTROLLED RELEASE (MS Contin) 30 mg CR tabletIndication s:Multiple myeloma not having achieved remission (HC),Cancer related pain Take 1 Tablet (30 mg) by mouth two times daily. 60 Tablet 09/19/2023 4 Discontinue d(*Med complete/Re gimen complete/Le dionicio of care change) morphine CONTROLLED RELEASE (MS Contin) 30 mg CR tabletIndication s:Multiple myeloma not having achieved remission (HC),Cancer related pain Take 1 Tablet (30 mg) by mouth two times daily. 60 Tablet 08/20/2023 4 Discontinue d(*Med complete/Re gimen complete/Le dionicio of care change) mirtazapine (REMERON) 15 mg tabletIndication s:Insomnia, idiopathic Take 1 Tablet (15 mg) by mouth at bedtime. 90 Tablet 3 08/20/2023 4 Discontinue d(*Disconti nued by another clinician) omeprazole (PRILOSEC) 20 mg Delayed-Release capsuleIndicatio ns:Chronic GERD Take 1 Capsule (20 mg) by mouth once daily before a meal. Take 30 minutes prior to a meal 08/20/2023 4 Discontinue d(*Patient states no longer taking) trimethoprim-sul famethoxazole, 80-400 mg, (BACTRIM SS; SEPTRA SS) tabIndications:A cquired aplastic anemia (HC) Take 1 Tablet by mouth once daily. 90 Tablet 3 09/25/2023 4 Discontinue d(*Med complete/Re gimen complete/Le dionicio of care change) allopurinoL (ZYLOPRIM) 300 mg tablet Take 300 mg by mouth once daily. 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 90 Tablet 3 11/05/2023 4 Discontinue d(*Medicati on adjustment) Active Problems Problem Noted Date Diagnosed Date Acquired aplastic anemia 07/18/2023 Pancytopenia 07/18/2023 Depression, recurrent 07/18/2023 Multiple myeloma not having achieved remission 0 07/25/2022 07/25/2022 Lytic lesion of bone on CT 07/20/2022 Anemia 06/25/2022 06/25/2022 Osteoarthritis 06/25/2022 06/25/2022 Hypercalcemia 06/20/2022 Compression fracture of T11 vertebra 06/19/2022 Compression fracture of L1 lumbar vertebra 06/19 Compression fracture of T12 vertebra 06/19/2022 Compression fracture of L2 06/19/2022 Compression fracture of L4 vertebra 06/19/2022 Polyp of duodenum 03/27/2022 06/25/2022 Other specified diseases of intestine 02/27/2022 06/25/2022 Overview (06/25/2022): Added automatically from request for surgery [id number] S/P carpal tunnel release, right 11/13/2021 Primary osteoarthritis of right knee 09/04/2021 Trigger finger of right thumb 09/11/2019 Carpal tunnel syndrome, bilateral 09/11/2019 Thoracic aortic aneurysm without rupture 015 Alcohol use disorder in remission 03/08/2015 Pulmonary nodule 09/08/2012 Overview (09/08/2012): 3.1mm in 2012. Due to patient's smoking history, recommend repeat in 08/2013. If unchanged in 2013, no further work up needed. Adenomatous colon polyp 09/05/2012 Overview (12/25/2017): Colonoscopy 08/2012 polyp repeat in 5 years Colonoscopy 11/2017 polyp, repeat in 5 years Depression with anxiety 03/20/2010 Allergic rhinitis, cause unspecified 09/14/2009 Sleep Apnea AHI-21 09/24/2007 11/24/2007 Unspecified essential hypertension Resolved Problems Problem Noted Date Diagnosed Date Resolved Date Acute respiratory failure with hypoxia 07/18/2023 11/05/2023 Thoracic aneurysm 10/08/2012 03/08/2015 Shingles 07/04/2011 08/14/2012 Anxiety state, unspecified 03/28/2010 0 10/08/2012 Symptomatic menopausal or fe male climacteric states 06/11/2006 10/08/2012 Herpes simplex without menti on of complication 06/11/2006 07/04/2011 Overview (06/11/2006): back Encounters Date Type Department Care Team Description 12/26/2023 9:10 AM CDT Office Visit [facility] [address] [place] [address] Esteban Henriquez MD Blood Pressure (High yesterday at oncologist visit) 12/26/2023 Travel 12/25/2023 Orders Only [facility] Scanner 1 scan: (1-Ord) [facility], SARS PRIORITY, 12/25/2023 12/25/2023 Telephone [facility] [address] [place] [address] Cookie Deras MD Care Coordination (message for doctor) 12/20/2023 Medical Messaging [facility] [address] [place] [address] Cookie Deras MD [facility] 12/09/2023 Medical Messaging [facility] [address] [place] [address] Cookie Deras MD [facility] apt referral 11/08/2023 4:00 PM CDT Ancillary Procedure [facility] [address] [place] [address] 11/08/2023 Travel 11/05/2023 1:25 PM CDT Office Visit [facility] [address] [place] [address] Cookie Deras MD Follow Up 11/05/2023 Travel 09/30/2023 Orders Only [facility] [address] [place] [address] Cookie Deras MD 1 scan: (1-Ord) NFLD-EKG-6.28.24 from Last 3 Months Immunizations Name Administration Dates Next Due COVID-19 vaccine (SecureWaters 30mcg/0.3mL) PF MDSera 02/22/2021,07/07/2020,06/16/2020 Influenza RIV4 (Age 18+ Year s) PRESERV FREE 02/22/2021 Influenza, IIV3 (Age >=3 years) 02/10/2010,03/05 Influenza, IIV4 01/04/2017, 6,03/08/2015,2013 Influenza, IIV4 (=>6mos) MDV 12/11/2018 TD, UNSPECIFIED 04/01/1997 Td (Age >=7 Years) 04/01/1997 Tdap 12/11/2018,09/12/2007 Family History Medical History Relation Name Comments Diabetes Brother at age 55 Other Daughter meningioma Cancer-prostate Father at age 65 Cancer-colon Mother in her late 70s Heart Disease Mother FL- 92 Hypertension Sister 1 Heart Disease Sister 2 [place] at age 60 Cancer-pancreatic Sister 3 2 sisters Cancer-breast No Family History Cancer-ovarian No Family History Relation Name Status Comments Brother Daughter Father (Age 65) Mother (Age 92) Sister 1 Sister 2 Sister 3 Social History Tobacco Use Types Packs/Day Years Used Date Smoking Tobacco: Former Cigarettes 0.5 30 1 - 03/31/2009 Smokeless Tobacco: Never Tobacco Cessation:Counseling Given: Yes Alcohol Use Standard Drinks/Week Comments No 0 (1 standard drink = 0.6 oz pur e alcohol) PHQ-2 Answer Date Recorded PHQ-2 TOTAL SCORE 2 03/01/2023 Social Connections Answer Date Recorded Frequency of Communication with Friends and Fami ly 0 11/05/2023 Financial Resource Strain Answer Date R ecorded Difficulty of Paying Living Expenses 3 11/05/2023 Difficulty of Paying Living Expenses Not on file 11/05/2023 Food Insecurity Answer Date Recorded Worried About Running Out of Food in the Last Ye ar 1 11/05/2023 Transportation Needs Answer Date Record ed Lack of Transportation (Medical) 1 11/05/2023 Housing Stability Answer Date Recorded Unable to Pay for Housing in the Last Year 1 11/05/2023 Sex and Gender Information Value Date Recorded Sex Assigned at Not on file Gender Identity Not on file Sexual Orientation Not on file Obstetrics History Para Term AB IAB SAB Ectopic Multiple Livin g Live Births 3 3 3 Date Outcome GA Total Labor Labor/2nd/3rd Weight Sex Type Anes PTL Torrie A1 A5 Name Clin Para Para Para Last Filed Vital Signs Vital Sign Reading Time Taken Comments Blood Pressure 171/81 12/26/2023 9:33 AM CDT Pulse 68 12/26/2023 9:12 AM CDT Temperature 36.3 ??C (97.4 ??F) 09/19/2022 1 1:05 AM CDT Respiratory Rate 18 09/19/2022 11:0 5 AM CDT Oxygen Saturation 97% 12/26/2023 9:12 AM CDT Inhaled Oxygen Concentration - - Weight 61.1 kg (134 lb 12.8 oz) 12/26/2023 9:12 AM CDT Height 154.9 cm (5' 1) 12/26/2023 9:12 AM CDT Body Mass Index 25.47 12/26/2023 9:12 AM CDT Plan of Treatment Upcoming Encounters Date Type Department Care Team (Late st Contact Info) Description 01/23/2024 12:35 PM CDT Office Visit [facility] [address] [place] [address] Cookie Deras MD [address] [place] [address] 02/06/2024 2:15 PM REGENERATION OPERATOR Office Visit [facility] [address] [place] [place] [address] RunCookie robertson MD [address] [place] [address] Health Maintenance Due Date Last Done Comments Pneumococcal series for age 65+ (1 of 2 - PCV) 1962 Hepatitis C screening for ag e 18-79 1974 Zoster (shingles) series for age 50+ (1 of 2) 11/16/1975 DEXA/DXA scan for age 65+ 2021 Colonoscopy through age 75 12/24/202212/24, 12/24/2017, 09/03/2012, Additional history exists COVID-19 vaccine series ( season) 2023 02/22/2021, 07/07/2020, 06/16/2020 Influenza for age 65+ 12/01/2023 02/22/2021 , 12/11/2018, 01/04/2017, Additional history exists Lipids for age 45-75 12/12/2023 12/11/2018, 11/20/2017, 10/04/2016, Additional history exists Depression screening for age 12+ 03/01/2024 03/01/2023, 12/11/2018, 11/28/2017, Additional history exists Mammogram for age 45-75 11/07/2024 11/08/19, 04/27/2020, 12/18/2018, Additional history exists BMI (ht and wt on same day) for age 18+ 12/25/2024 12/26/2023, 09/26/2023, 06/12/2022, Additional history exists Tetanus booster 12/11/2028 12/11/2018, 08/30, 04/01/1997, Additional history exists Tdap Completed 12/11/2018, 09/12/2007 Procedures Procedure Name Priority Date/Time Associated Diagnosis Comments EKG 12 LEAD Routine 12/27/2023 3:16 PM CDT HTN (hypertension) MI READING EKG - NO CHARGE, COMP ONLY Routine 12/27/2023 3:15 PM CDT HTN (hypertension) SCAN-LABORATORY REPORT 12/25/2023 12:00 AM CDT XR MAMMO ROSA BILAT SCREEN Routine 11/08/2023 4:20 PM CDT Routine adult health maintenance EKG 12 LEAD Routine 09/30/2023 8:04 AM CDT At risk for prolonged QT interval syndrome LIPID PANEL Routine 12/11/2018 4:11 PM CDT Thoracic aortic aneurysm without rupture (HC) COLONOSCOPY 12/24/2017 7:58 AM CDT from Last 3 Months or Most Recently Relevant to Health Maintenance Results * EKG 12 LEAD (12/27/2023 3:16 PM CDT) Only the most recent of2 resultswithin the time period is included. Esteban Henriquez MD EKG ORD * MI READING EKG - NO CHARGE, COMP ONLY (12/27/2023 3:15 PM CDT) Esteban Henriquez MD PB - PROVIDER RE ADINGS * SCAN-LABORATORY REPORT (12/25/2023 12:00 AM CDT) Scanner OTHER * XR MAMMO ROSA BILAT SCREEN (11/08/2023 4:20 PM CDT) Anatomical Region Laterality Modality BREASTS, Breast Left, Breast Right Bilateral Mammography Impressions 11/11/2023 3:09 PM CDT ??There is no radiographic evidence for malignancy. ??Recommend annual mammograms. MAMMOGRAM ASSESSMENT: ??ACR 1 Negative PATIENTS: You will also receive a letter with your examination results in an easy to read format. ??If you have questions about your results, please contact your referring provider. Narrative 11/11/2023 3:09 PM CDT For Patients: As a result of the 21st Century Cures Act, medical imaging exams and procedure reports are released immediately into your electronic medical record. You may view this report before your referring provider. If you have questions, please contact your health care provider. XR MAMMO ROSA BILAT SCREEN [[id number]] CLINICAL HISTORY: ??This is an asymptomatic 67 y.o. patient. INDICATION FOR EXAM: Mammogram Screening. TECHNIQUE: CC & MLO views were obtained. ??This study was evaluated with the assistance of Computer-Aided Detection. Breast Tomosynthesis was used in interpretation. COMPARISON FILM: Yes 04/27/20 [facility] 12/18/18 [facility] FINDINGS: ??The breasts are almost entirely fatty. There are no dominant masses, suspicious micro calcifications or areas of architectural distortion. Cookie Deras MD MAMMO * (ABNORMAL) LIPID PANEL (12/11/2018 4:11 PM CDT) CHOLESTEROL,TOTAL 240(H) 100 - 199 mg/dL 12/11/2018 8:23 PM CDT [facility] TRIGLYCERIDES 304(H) <150 mg/dL 12/11/2018 8:23 PM CDT [facility] HDL CHOLESTEROL 55 >40 mg/dL 9 8:23 PM CDT [facility] NON-HDL CHOLESTEROL 185(H) <145 mg/dl 12/11/2018 8:23 PM CDT [facility] CHOL/HDL RATIO 4.36 <4.50 12/11/2018 8:23 PM CDT [facility] LDL CHOLESTEROL 124 <=130 mg/dL 12/11/2018 8:23 PM CDT [facility] PROVIDER ORDERED STATUS RANDOM 12/11/2018 8:23 PM CDT [facility] Blood BLOOD SPECIMEN / Unknown Venipuncture / Unknown 12/11/2018 4:11 PM CDT 12/11/2018 4:11 PM CDT Cookie Deras MD CHEMISTRY [facility] [address] [place] [address], * COLONOSCOPY (12/24/2017 7:58 AM CDT) 12/24/2017 7:58 AM CDT Narrative Transcriptions Denver Trinh MD - 12/24/2017 9:06 AM CDT Patient Name: Cecy Pina Procedure Date: 12/24/2017 Gender: Female Date of : 1955 Admit Type: Outpatient Procedure: Colonoscopy Proceduralist: Denver Trinh MD , Neisha Charlton (Nurse) Indications/Pre-Op Diagnosis: Surveillance: Personal history ofadenomatous polyps on last colonoscopy 5 years ago, Last colonoscopy: August 2012 Medications: Fentanyl 100 micrograms IV, Midazolam 4 mgIV, The level of sedation administered wasmoderate Procedure Description: The patient had risks, benefits and alternatives explained to andgave informed consent. The patient had a stable cardiopulmonary status and judged an adequate candidate for conscious sedation. The [id number]-[id number] was passed through the anus and advanced tothe cecum, identified by appendiceal orifice and ileocecal valve. The [id number]-[id number] was passed through the and advanced to. The colonoscopy was performed without difficulty. The patient toleratedthe procedure well. The quality of the bowel preparation was good. The ileocecal valve, appendiceal orifice, and rectum were photographed. Complications: No immediate complications. Estimated Blood Loss & Specimen: Estimated blood loss: none. Specimen collected - Yes and sent to Laboratory Findings: The perianal and digital rectal examinations were normal. A 3 mm polyp was found in the distal ascending colon. The polyp was sessile. The polyp was removed with a cold biopsy forceps. Resectionand retrieval were complete. A 3 mm polyp was found in the transverse colon. The polyp wassessile. The polyp was removed with a cold biopsy forceps. Resection and retrieval were complete. The exam was otherwise without abnormality on direct and retroflexion views. Impressions/Post-Op Diagnosis: - One 3 mm polyp in the distal ascending colon, removed with a cold biopsy forceps. Resected and retrieved. - One 3 mm polyp in the transverse colon, removed with a cold biopsy forceps. Resected and retrieved. - The examination was otherwise normal on direct and retroflexionviews. Recommendation: - Patient has a contact number available for emergencies. The signsand symptoms of potential delayed complications were discussed with the patient. Return to normal activities tomorrow. Written discharge instructions were provided to the patient. - Resume previous diet. - Continue present medications. - Await pathology results. - Repeat colonoscopy in 5 years for surveillance. Moderate Sedation: Moderate (conscious) sedation was administered by the endoscopy nurse and supervised by the endoscopist. The following parameters were monitored: oxygen saturation, heart rate, respiratory rate, blood pressure, adequacy of pulmonary ventilation and reponse to care. [facility] and nursing notes for moderate sedation details. Total physician intraservice time was 17 minutes. Denver Trinh MD 12/24/2017 9:06:34 AM This report has been signed electronically. Note Initiated On: 12/24/2017 7:58 AM Procedure Code(s): --- Professional --- 24316, Colonoscopy, flexible; with biopsy, single or multiple Diagnosis Code(s): --- Professional --- Z86.010, Personal history of colonicpolyps D12.2, Benign neoplasm of ascending colon D12.3, Benign neoplasm of transverse colon (hepatic flexure or splenic flexure) CPT copyright 2017 [employer]. All rights reserved. The codes documented in this report are preliminary and upon returns clerk reviewmay be revised to meet current compliance requirements. Scope In: 8:48:12 AM Scope Withdrawal Time 0 hours 8 minutes 28 seconds Scope Out: 9:03:03 AM Denver Trinh MD PROCEDURE ORD from Last 3 Months or Most Recently Relevant to Health Maintenance Advance Directives * Full Code (Latest Code Status on File) Date Activated Date Inactivated Comments 07/21/2022 8:14 AM 07/29/2022 4:34 PM Question Answer Comments Code Status Discussion: Reviewed Preferences * Full Code Date Activated Date Inactivated Comments 07/20/2022 3:48 PM 07/21/2022 8:14 AM Paperwork at [facility] but trying to get to us; patient with slightly altered mental status Question Answer Comments Code Status Discussion: Unable to Assess Preferences, Provider to review later * Full Code Date Activated Date Inactivated Comments 06/19/2022 3:17 PM 06/21/2022 7:58 PM Question Answer Comments Code Status Discussion: Reviewed Preferences * Full Code Date Activated Date Inactivated Comments 09/20/2021 7:26 AM 09/20/2021 1:55 PM Question Answer Comments Code Status Discussion: Reviewed Preferences Care Teams Weld Engineer Relationship Specialty Start Date End Date Cookie Deras MD [address] [place] [address] PCP - General Family Practice 11/06/12 [facility] [place] [address] [place] [address] 07/29/22
--- OUTSIDE RECORDS SUMMARY | 2023-12-31 23:39 | XMS_ITS | Data Portability ---
Author Organization [facility] Address [address] [place] [address] [address] [place] [address] Care Team Providers Care Community Aide Name Role Phone [facility] Medicine Assessment No assessment recorded. Plan of Treatment Reminders Order Date Submit Date Provider Last Modified By Organization Details Last Modified Time Details Appointments None recorded. Lab CMP, serum or plasma 2016 017 CHRISTOPHER [facility], [address] [place], [address], 7 09:12:53 CBC 2016 017 CHRISTOPHER [facility], [address] [place], [address], 7 09:12:54 HbA1c (hemoglobi n A1c), blood 2016 017 CHRISTOPHER [facility], [address] [place], [address], 7 09:12:54 TSH, ultra-sens itive, serum 2016 017 CHRISTOPHER [facility], [address] [place], [address], 7 09:12:55 microalbum in, urine 2016 017 CHRISTOPHER [facility], [address] [place], [address], 09:12:54 Referral None recorded. Procedures None recorded. Surgeries None recorded. Imaging None recorded. Medication Orders cetirizine 10 mg tablet 2016 017 [facility], [address] [place], [place] [address], [address], 7 17:00:55 ipratropiu m bromide 21 mcg (0.03 %) nasal spray 2016 [facility], [address] [place], [place] [address], [address], 7 17:00:49 Valtrex 1 gram tablet 2016 017 [facility], [address] [place], [place] [address], [address], 7 16:46:05 metoprolol succinate ER 25 mg tablet,ext ended release 24 hr 2016 017 [facility], [address] [place], [place] [address], [address], 7 17:00:45 hydrochlor othiazide 25 mg tablet 2016 017 [facility], [address] [place], [place] [address], [address], 7 17:01:00 aspirin 81 mg chewable tablet 2016 017 [facility], [address] [place] [address] [place], [address], 7 17:00:53 atorvastat in 40 mg tablet 2016 017 [facility], [address] [place], [place] [address], [address], 7 17:00:58 sertraline 100 mg tablet 2016 017 [email or web address], [address] [place] [address] [place], [place], [address], 7 16:46:05 Patient TargetsNo targets recorded. Patient Instructions Encounter Date Encounter Id Patient Instructions Last Modified By Organization Details Last Modified Time 08/27/2016 [id number] Cleared for admission into chemical dependence treatment facility. The patient with know history of HSV on back no current outbreak, she is free of communicable diseases per patient self report at the time of visit. [email or web address] Not available 08/27/2016 16:44:23 Reason for Referral None Reported. Results Created Date Observation Date Name Description Value Unit Range Abnormal Flag Note LastModifiedBy Organization Detail LastModifiedTime 08/31/19 17 09/01/2016 CMP, serum or plasm a glucose, serum 99 mg/dL 65-99 Not Available [facility] ([facility]) [address] [place], [address], 09/01/2016 09:12:53 08/31/19 17 09/01/2016 CMP, serum or plasm a BUN 12 mg/dL 6-24 Not Available [facility] ([facility]) [address] [place], [address], 09/01/2016 09:12:53 08/31/1909/01/2016 CMP, serum or plasm a creatinine, serum 0.56 mg/dL 0.57-1 .00 below low normal Not Available [facility] ([facility]) [address] [place], [address], 09/01/2016 09:12:53 08/31/1909/01/2016 CMP, serum or plasm a eGFR if nonafricn AM 102 mL/mi n/1.7 3 >59 Not Available [facility] ([facility]) [address] [place], [address], 09/01/2016 09:12:53 08/31/1909/01/2016 CMP, serum or plasm a eGFR if africn AM 118 mL/mi n/1.7 3 >59 Not Available [facility] ([facility]) [address] [place], [address], 09/01/2016 09:12:53 08/31/19 17 09/01/2016 CMP, serum or plasm a BUN/creatini ne ratio 21 9-23 Not Available [facility] ([facility]) [address] [place], [address], 09/01/2016 09:12:53 08/31/1909/01/2016 CMP, serum or plasm a sodium, serum 141 mmol/ L 134-14 4 Not Available [facility] ([facility]) [address] [place], [address], 09/01/2016 09:12:53 08/31/1909/01/2016 CMP, serum or plasm a potassium, serum 4.0 mmol/ L 3.5-5. 2 Not Available [facility] ([facility]) [address] [place], [address], 09/01/2016 09:12:53 08/31/1909/01/2016 CMP, serum or plasm a chloride, serum 101 mmol/ L 96-106 Not Available [facility] ([facility]) [address] [place], [address], 09/01/2016 09:12:53 08/31/1909/01/2016 CMP, serum or plasm a carbon dioxide, total 26 mmol/ L 18-28 Not Available [facility] ([facility]) [address] [place], [address], 09/01/2016 09:12:53 08/31/1909/01/2016 CMP, serum or plasm a calcium, serum 9.6 mg/dL 8.7-10 .2 Not Available [facility] ([facility]) [address] [facility] [place], [address], 09/01/2016 09:12:53 08/31/1909/01/2016 CMP, serum or plasm a protein, total, serum 6.6 g/dL 6.0-8. 5 Not Available [facility] ([facility]) [address] [facility] [place], [address], 09/01/2016 09:12:53 08/31/1909/01/2016 CMP, serum or plasm a albumin, serum 4.0 g/dL 3.5-5. 5 Not Available [facility] ([facility]) [address] [facility] [place], [address], 09/01/2016 09:12:53 08/31/1909/01/2016 CMP, serum or plasm a globulin, total 2.6 g/dL 1.5-4. 5 Not Available [facility] ([facility]) [address] [facility] [place], [address], 09/01/2016 09:12:53 08/31/1909/01/2016 CMP, serum or plasm a A/G ratio 1.5 1.2-2. 2 Not Available [facility] ([facility]) [address] [facility] [place], [address], 09/01/2016 09:12:53 08/31/1909/01/2016 CMP, serum or plasm a bilirubin, total <0.2 mg/dL 0.0-1. 2 Not Available [facility] ([facility]) [address] [facility] [place], [address], 09/01/2016 09:12:53 08/31/1909/01/2016 CMP, serum or plasm a alkaline phosphatase, S 90 IU/L 39-117 Not Available [facility] ([facility]) [address] [facility] [place], [address], 09/01/2016 09:12:53 08/31/192017 CMP, serum or plasm a AST (SGOT) 29 IU/L 0-40 Not Available [facility] ([facility]) [address] [place], [address], 09/01/2016 09:12:53 08/31/1909/01/2016 CMP, serum or plasm a ALT (SGPT) 37 IU/L 0-32 above high normal Not Available [facility] ([facility]) [address] [place], [address], 09/01/2016 09:12:53 08/31/1909/01/2016 CBC WBC 8.3 x10e3 /uL 3.4-10 .8 Not Available [facility] ([facility]) [address] [place], [address], 09/01/2016 09:12:54 08/31/1909/01/2016 CBC RBC 4.55 x10e6 /uL 3.77-5 .28 Not Available [facility] ([facility]) [address] [place], [address], 09/01/2016 09:12:54 08/31/1909/01/2016 CBC hemoglobin 14.9 g/dL 11.1-1 5.9 Not Available [facility] ([facility]) [address] [place], [address], 09/01/2016 09:12:54 08/31/1909/01/2016 CBC hematocrit 43.1 % 34.0-4 6.6 Not Available [facility] ([facility]) [address] [place], [address], 09/01/2016 09:12:54 08/31/1909/01/2016 CBC MCV 95 fL 79-97 Not Available [facility] ([facility]) [address] [place], [address], 09/01/2016 09:12:54 08/31/1915 0909/01/2016 CBC MCH 32.7 pg 26.6-3 3.0 Not Available [facility] ([facility]) [address] [facility] [place], [address], 09/01/2016 09:12:54 08/31/19 17 09/01/2016 CBC MCHC 34.6 g/dL 31.5-3 5.7 Not Available [facility] ([facility]) [address] [facility] [place], [address], 09/01/2016 09:12:54 08/31/19 17 09/01/2016 CBC RDW 13.9 % 12.3-1 5.4 Not Available [facility] ([facility]) [address] [facility], [place], [address], 09/01/2016 09:12:54 08/31/19 17 09/01/2016 CBC platelets 221 x10e3 /uL 150-37 9 Not Available [facility] ([facility]) [address] [facility] [place], [address], 09/01/2016 09:12:54 08/31/19 17 09/01/2016 CBC NRBC 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 Not Available [facility] ([facility]) [address] [facility] [place], [address], 09/01/2016 09:12:54 08/31/1909/01/2016 HbA1c (hemo globi n A1c), blood hemoglobin A1C 6.0 % 4.8-5. 6 above high normal PRE-D IABET ES: 5.7 - 6.4 DIABE KEN: >6.4 GLYCE GRANT CONTR OL FOR ADULT S WITH DIABE KEN: <7.0 Not Available [facility] ([facility]) 0 [facility], [place], [address], 09/01/2016 09:12:54 08/31/19 17 09/01/2016 TSH, ultra -sens itive , serum TSH 1.480 uIU/m L 0.450- 4.500 Not Available [facility] ([facility]) [address] [facility], [place], [address], 09/01/2016 09:12:55 Result Notes None recorded. Problems Name Problem SNOMED Code Status Onset Date Resolution Date Notes Provider Name and Address Organization Details Recorded Time Depressive disorder 18948246 Active 2016 MAUREEN galdamez, [place] - [facility] 7 15:57:49 Hypertensiv e disorder 79947002 Active 2016 MAUREEN gal[place]z, [place] - [facility] 7 15:58:02 Aortic aneurysm 23928024 Active 2016 MAUREEN gal[place]z, [place] - [facility] 7 15:58:26 Dyslipidemi a 576659632 Active 2016 Ana Alvin null, [place] - [facility] 7 16:15:09 Seasonal allergy 720323068 Active 2016 Ana Alvin null, [place] - [facility] 7 16:15:21 Sleep apnea 61609486 Active 2016 uses costum made mouth brace as she cannot tolerate CPAP [email or web address] Esquivel null, [place] - [facility] 7 16:26:05 Recurrent herpes simplex 09395259 Active 2016 Ana Alvin null, [place] - [facility] 7 16:29:50 Problem Notes None recorded. Procedures Surgical History Date Name Laterality Status Provider Name and Address Organization Details Recorded Time Appendectomy completed MAUREEN Larson [place] - [facility] 08/28/19 17 16:00:19 Imaging Results None recorded. Procedure Notes None recorded. Medical Equipment None Reported. Allergies Allergen ID Allergen Name Allergen Category Reaction Reaction Severity Criticality Documentation Date Start Date Code Code System Note Provider Name and Address Organization Details Recorded Time 1009 Wellbutri n medicatio n Not available Not available Not available 08/27/2016 70901 RxNorm canno t recal l react ion Ana galdamez, [place] - [facility] 7 16:33:49 1010 procaine hydrochlo ride medicatio n Not available Not available Not available 08/27/2016 37270 8 RxNorm BJ Neo galdamez, [place] - [facility] 7 16:05:46 Medications Name Sig Start Date Stop Date Status Note LastModified by Organization Details LastModified Time amoxicillin 500 mg capsule 08/27 completed Not Available Not Available Not Available atorvastati n 40 mg tablet Take 1 tablet every day by oral route at bedtime. 2016 active Not Available Not Available Not Avai lable cetirizine 10 mg tablet Take 1 tablet every day by oral route as needed. 2016 active Not Available Not Available Not Avai lable sertraline 100 mg tablet Take 1 tablet every day by oral route. 2016 active Not Available Not Available Not Avai lable Valtrex 1 gram tablet Take 1 tablet 3 times a day by oral route as needed. 2016 active Not Available Not Available Not Avai lable aspirin 81 mg chewable tablet Chew 1 tablet every day by oral route. 2016 active Not Available Not Available Not Avai lable hydrochloro thiazide 25 mg tablet Take 1 tablet every day by oral route. 2016 active Not Available Not Available Not Avai lable metoprolol succinate ER 25 mg tablet,exte nded release 24 hr Take 1 tablet twice a day by oral route. 2016 active Not Available Not Available Not Avai lable lorazepam 1 mg tablet 08/27 completed Not Available Not Available Not Available ipratropium bromide 21 mcg (0.03 %) nasal spray Norcatur 2 sprays 3 times a day by intranasa l route as needed. 2016 active Not Available Not Available Not Avai lable metoprolol tartrate 25 mg tablet 08/27 completed Not Available Not Available Not Available loratadine 10 mg capsule Take 1 capsule every day by oral route. 08/27 completed Not Available Not Available Not Available Vitals Date Recorded Body height Body weight Body mass index (BMI) Body temperature Heart rate Oxygen saturation Oxygen saturation in Arterial blood by Pulse oximetry Respiratory rate Systolic blood pressure Diastolic blood pressure Provider Name and Address Organization Details Last Updated DateTime 7 160.02 cm 40668.0 3 g 31.7 kg/m2 98.6 [degF] 72 /min 97 % 97 % 16 /min 118 mm[Hg] 80 mm[Hg] MAUREEN Larson [place] - [facility] 7 16:04:11 Social History Question Answer Notes LastModified by Organizat ion Details LastModified Time Tobacco Smoking Status Former Smoker Ana galdamez, [place] - [facility] 08/27/2016 16:07:20 What Is Your Level Of Alcohol Consumption? Heavy 1/5 Of A Liter Information not available 08/27/2016 Which Illicit Or Recreational Drugs Have You Used? None Information not available 08/27/2016 How Many Years Have You Smoked Tobacco? 39 [email or web address] Information not available 08/27/2016 Sex: Unknown Functional Status None recorded. Mental Status None recorded. Family History Nothing Reported. Medical History No medical history recorded. Gynecological HistoryNo gynecological history recorded. Obstetrics History GPAL:G 0 P 0 0 0 0 Past Encounters Encounter ID Performer Location Encounter Start Date Encounter Closed Date Diagnosis/Indication Diagnosis SNOMED-CT Code Diagnosis ICD10 Code [id number] Margarito [facility] [address] [place] [id number] 08/27/2016 15:51:44 09/21/2016 09:51:40 Adult health examination 528463546 Z00.00 Depressive disorder 3548 9007 F33.9 Hypertensive disorder 38 197992 I10 Aortic aneurysm 78898807 I71.9 Dyslipidemia 846226065 E 78.5 Seasonal allergy 1015978 04 J30.2 Sleep apnea 52522414 G47 .30 Recurrent herpes simplex 24070984 B00.9 [id number] [facility] [address] [place] [id number] 08/30/2016 16:25:54 10/27/2016 03:46:02 Health Concerns Section Related Observation LastModified by Organization Detai ls LastModified Time None Recorded Concern Status LastModified by Organization Details LastModified Time None Recorded Advance Directives Directive None Recorded Payers Encounter Date Sequence Insurance Name Policy Number Policy Garcia Covered Member ID Garcia Member ID Guarantor Name 08/27/2016 1 *SELF PAY* Romeo figueroa Loftness 08/30/2016 1 [facility] [id number] Cecy Palma Loftcatherine [id number] Cec[address]ina Notes Date Note Type Note Provider Name and Address Organization Details Recorded Time 08/27/2016 text/html HPI Notes: Presents for H+P as required for admission to a chemical dependence treatment program for alcohol dependency. Last drink consumed on 08/17/16. Declines STI and bloodborne pathogen testing, not concerned for STI, with 3 adult children. Plans to continue outpatient treatment upon discharge. Tobacco use: former smoker. Reports seeing in-house psychiatrist, saw last and sertraline dose increased at that time. Last PE with PCP >1 year ago, she reports her LFTs noted to elevated and possible elevated sCr. Ana galdamez, [place] - [facility] 08/27/2016 17:00:10 OBGyn Episode No OBEpisode recorded.
[2023-12-31 23:41] LABS: Chloride* 102 mmol/L (96-114); Potassium* 3.5 mmol/L (3.6-5.1); Sodium* 137 mmol/L (135-149)
[2023-12-31 23:42] LABS: Basophils Percent Auto 0.7 % (0.0-3.0); Eosinophils Percent Auto 0.9 % (0.0-7.0); Hematocrit 35.2 % (33.0-51.0); Hemoglobin* 12.3 gm/dL (12.0-16.0); Lymphocytes Percent Auto 20.5 % (20-44); Mean Corpuscular HGB Conc 35 gm/dL (32-36); Mean Corpuscular Hemoglobin 32 pg (26-34); Mean Corpuscular Volume 93 fL (80-100); Monocytes Percent Auto 6.2 % (0.0-11.0); Neutrophils Percent Auto 71.7 % (42.0-72.0); Platelet Count* 121 K/uL (140-440); RDW Coefficient of Variation % 14.2 % (11.5-15.5); Slide Review Reflex No; White Blood Count* 4.49 K/uL (4.50-11.00)
[2023-12-31 23:44] LABS: Anion Gap 6 mEq/L (7-15); Blood Urea Nitrogen* 11 mg/dL (7-30); Carbon Dioxide* 29 mmol/L (20-32); Creatinine* 0.5 mg/dL (0.5-1.5); Estimated Glomerular Filt Rate 103 ml/min; Glucose* 130 mg/dL (60-115)
[2023-12-31 23:45] LABS: Calcium* 9.2 mg/dL (8.4-10.6)
[2023-12-31] MEDS: PROCHLORPERAZINE 5 MG/ML VIAL 10 MG IV (23:50)
[2023-12-31] MEDS: fentaNYL 100 MCG/2 ML inj 50 MCG IVP (23:50)
[2023-12-31] MEDS: 0.9 % SODIUM CHLORIDE 500 ML 500 ML IV (23:50)
[2024-01-01] VITALS (12 sets, daily range): BP systolic 151–188; BP diastolic 77–107; PULSE 76–100; RESP 16; TEMP 36.9–37.3; O2SAT 89–94; BMI 25.4
[2024-01-01 00:27] LABS: PCR FLU A Negative PCR FLU A (Negative); PCR FLU B Negative PCR FLU B (Negative); SARS PCR* Negative SARS-CoV-2 (Negative)
[2024-01-01 00:32] LABS: NT Pro B Type NatriureticPept* 621 pg/mL
[2024-01-01] MEDS: AMLODIPINE 10 MG TABLET PO (00:49)
[2024-01-01] MEDS: ASPIRIN 81 MG TAB.CHEW 162 MG PO (00:49)
[2024-01-01] MEDS: diphenhydrAMINE 50 MG/ML inj 12.5 MG IVP (00:50)
[2024-01-01] MEDS: METOCLOPRAMIDE HCL 5 MG/ML INJ 10 MG IVP (00:53)
--- NOTE | 2024-01-01 04:21 | PC.NURSE ---
Pt admitted to floor @ 0200. Severe headache and N/V in ED. N/V resolved when she got to the floor. Headache more tolerable. Has infusion appt here tomorrow. Up with cane SBA/IND. Tele NSR. Reporting zero chest pain and no abdominal pain.
[2024-01-01 04:38] LABS: Troponin I* < 0.01 ng/mL (0.01-0.04)
--- NOTE | 2024-01-01 05:55 | W.PM.THH&P_ITS ---
Telehealth- H&P: HPI History of Present Illness Date Seen: 01/01/24 Chief complaint: High bp, back pain Narrative: Cecy Pina is seen as an Interactive Telehealth visit. 68-year-old female with a past medical history significant for multiple myeloma on chemotherapy, hypertension, sleep apnea who presents the hospital with complaints of headache and nausea. She also experienced some chest pain. When she initially presented to the hospital, she was seen in the emergency room. She is currently taking Revlimid for her multiple myeloma. She started developing headaches sinus drainage and sore throat a few days ago. She took a COVID test which was negative. Due to the symptoms she started having headache and was unable to take her chemotherapy last week. In addition her blood pressures were elevated. Prior to coming to the ER, she was watching television when she developed severe nausea headache and associated chest pain. Patient denies any shortness of breath, or diarrhea. In the ER when she presented, she had a blood pressure of 167/85, pulse of 92. She was afebrile 97.6. He was administered a migraine cocktail which included Reglan, Compazine, fentanyl, Benadryl. After being administered, she felt significantly drowsy and was fairly lethargic. ER physician requested workup for chest pain, blood pressure issues and to observe her until she became less lethargic. ER physician did order a CT PE protocol which showed no pulmonary embolism and her aortic aneurysm appeared to be stable. Review of Systems Status of ROS: Reports: 10 or more systems reviewed and unremarkable except as noted in History and below Const: Reports: fatigue Cardio: Reports: chest pain and shortness of breath with exertion Resp: Reports: shortness of breath GI: Reports: nausea; Denies: vomiting Neuro: Reports: headache Endo: Reports: fatigue [facility] Medical History (Updated 01/01/24 @ 01:26 by Angus Capone MD) Hypokalemia ?E87.6 - Hypokalemia (ICD-10) Hypogammaglobulinaemia, unspecified ?D80.1 - Nonfamilial hypogammaglobulinemia (ICD-10) Plasma cell neoplasm ?D49.89 - Neoplasm of unspecified behavior of other specified sites (ICD-10) Acute respiratory failure with hypoxia ?J96.01 - Acute respiratory failure with hypoxia (ICD-10) Community acquired pneumonia ?J18.9 - Pneumonia, unspecified organism (ICD-10) Hypoxia ?R09.02 - Hypoxemia (ICD-10) Fever ?R50.9 - Fever, unspecified (ICD-10) Pain crisis ?R52 - Pain, unspecified (ICD-10) Lytic bone lesions on xray ?M89.9 - Disorder of bone, unspecified (ICD-10) Pneumonia ?J18.9 - Pneumonia, unspecified organism (ICD-10) Multiple myeloma ?C90.00 - Multiple myeloma not having achieved remission (ICD-10) Polyp of duodenum ?K31.7 - Polyp of stomach and duodenum (ICD-10) Osteoarthritis ?M19.90 - Unspecified osteoarthritis, unspecified site (ICD-10) Compression fracture of L4 vertebra (~06/19/22) ?S32.040A - Wedge compression fracture of fourth lumbar vertebra, initial encounter for closed fracture (ICD-10) Compression fracture of L2 (~06/19/22) ?S32.020A - Wedge compression fracture of second lumbar vertebra, initial encounter for closed fracture (ICD-10) Compression fracture of T12 vertebra (~06/19/22) ?S22.080A - Wedge compression fracture of T11-T12 vertebra, initial encounter for closed fracture (ICD-10) Compression fracture of L1 lumbar vertebra (~06/19/22) ?S32.010A - Wedge compression fracture of first lumbar vertebra, initial encounter for closed fracture (ICD-10) Compression fracture of T11 vertebra (~06/19/22) ?S22.080A - Wedge compression fracture of T11-T12 vertebra, initial encounter for closed fracture (ICD-10) Primary osteoarthritis of right knee ?M17.11 - Unilateral primary osteoarthritis, right knee (ICD-10) Carpal tunnel syndrome, bilateral ?G56.03 - Carpal tunnel syndrome, bilateral upper limbs (ICD-10) Trigger finger of right thumb ?M65.311 - Trigger thumb, right thumb (ICD-10) Alcohol use disorder in remission ?F10.91 - Alcohol use, unspecified, in remission (ICD-10) Pulmonary nodule ?R91.1 - Solitary pulmonary nodule (ICD-10) Adenomatous colon polyp ?D12.6 - Benign neoplasm of colon, unspecified (ICD-10) Shingles ?B02.9 - Zoster without complications (ICD-10) Depression with anxiety ?F41.8 - Other specified anxiety disorders (ICD-10) Allergic rhinitis ?J30.9 - Allergic rhinitis, unspecified (ICD-10) Sleep apnea ?G47.30 - Sleep apnea, unspecified (ICD-10) Essential hypertension ?I10 - Essential (primary) hypertension (ICD-10) Hypercalcemia ?E83.52 - Hypercalcemia (ICD-10) Anemia ?D64.9 - Anemia, unspecified (ICD-10) Thoracic aortic aneurysm without rupture ?I71.20 - Thoracic aortic aneurysm, without rupture, unspecified (ICD-10) Surgical History History of intestinal surgery ?Z98.890 - Other specified postprocedural states (ICD-10) History of thoracic surgery (~05/28/22) ?Z98.890 - Other specified postprocedural states (ICD-10) History of refractive surgery ?Z98.890 - Other specified postprocedural states (ICD-10) H/O esophagogastroduodenoscopy (~01/11/22) ?Z98.890 - Other specified postprocedural states (ICD-10) Hx of appendectomy ?Z90.49 - Acquired absence of other specified parts of digestive tract (ICD- 10) S/P carpal tunnel release (~09/20/21) ?Z98.890 - Other specified postprocedural states (ICD-10) H/O colonoscopy ?Z98.890 - Other specified postprocedural states (ICD-10) Family History Mother Colon cancer Heart disease Sister Pancreatic cancer Heart disease High blood pressure Father Prostate cancer Brother Diabetes Daughter Meningioma Social History Narrative: . Living with daughter, Fidelia, since diagnosis of MM. Fidelia is a nurse and is helping set up and administer Adalgisa's many medications. What is your current living situation?: I presently have a place to live Problems where you live: no known problems Problems where you live details: n/a In the past 12 months, utilities in danger of being shut off: no In past 12 months, lack of transportation kept you from medical appts, meetings, work, or getting things needed for daily living: no In the past 12 mos, have been you worried that your food would run out before you had money to buy more?: never true In the past 12 mos, the food you bought just didn't last and you didn't have money to buy more?: never true Highest level of school completed/degree received: 12th grade, no diploma Smoking Status: Former smoker What tobacco products do you use: cigarettes Smoking quit date/years: >15 years ago Do you use any of these nicotine containing products: None Second hand tobacco smoke exposure: No How often do you have a drink containing alcohol: never How often do you have six or more drinks on one occasion: Never AUDIT-C Alcohol total score: 0 Non-prescribed substance use: denies use Caffeine: No How often does anyone, including family, friends and others, physically hurt you : never How often does anyone, including family, friends and others, insult or talk down to you: never How often does anyone, including family, friends and others, threaten you with harm: never How often does anyone, including family, friends and others, scream or curse at you: never service: No Meds Home Medications and Allergies Home Medications ?Medication ?Instructions ?Recorded ?Confirmed ?Type acetaminophen 500 mg tablet 1,000 mg PO BID 07/15/22 12/25/23 History (Acetaminophen Extra Strength) naloxone 4 mg/actuation nasal spray 1 spray intranasal .UD PRN 08/12/22 12/25/23 History aspirin 81 mg tablet,delayed 81 mg PO DAILY 09/04/22 12/25/23 History release (Enteric Coated Aspirin) bortezomib 3.5 mg injection powder 2.3 mg subcut QWEEK 09/04/22 12/25/23 History for solution (Velcade) oxycodone 5 mg tablet 10 mg PO Q4H PRN pain 09/04/22 12/25/23 History trazodone 50 mg tablet 50 mg PO QHS PRN 10/23/22 12/25/23 History amlodipine 5 mg tablet 5 mg PO QDAY 07/24/23 12/31/23 History metoprolol tartrate 25 mg tablet 25 mg PO BID 07/24/23 12/25/23 History morphine 30 mg tablet,extended 30 mg PO BID 07/24/23 12/25/23 History release polyethylene glycol 3350 17 17 g PO DAILY PRN 07/24/23 12/25/23 History gram/dose oral powder prochlorperazine maleate 10 mg 10 mg PO Q6H PRN 07/24/23 12/25/23 History tablet (Compazine) sennosides 8.6 mg capsule (senna) 8.6 mg PO BID PRN 07/24/23 12/25/23 History sertraline 100 mg tablet 200 mg PO DAILY 07/24/23 12/25/23 History lenalidomide 10 mg capsule 10 mg PO .COMPLEX 08/01/23 12/25/23 History olanzapine 2.5 mg tablet 2.5 mg PO QHS 10/30/23 12/25/23 History Allergies Allergy/AdvReac Type Severity Reaction Status Date / Time naproxen [From Aleve] Allergy Severe Anaphylaxis Verified 12/31/23 22:35 bupropion [From Wellbutrin] Allergy Mild Unknown Verified 12/31/23 22:35 duloxetine Allergy Unknown tremmors Verified 12/31/23 22:35 Exam Narrative Exam Narrative: Physical Exam GENERAL: ?vital signs reviewed, well developed and nourished, in no distress HEENT: pupils are equal round and reactive to light, extraocular movements are grossly within normal limits and oral mucosa is moist. NECK: Supple without lymphadenopathy or thyromegaly according to nursing staff examination observation HEART: Regular rate and rhythm without any rubs, murmurs, or gallops. LUNGS: Clear to auscultation bilaterally with good air movement throughout ABDOMEN: Observation from nurse assisted exam, abdomen appears soft, nontender, and nondistended with Positive bowel sounds noted. EXTREMITIES: Strength and sensation is observed to be grossly within normal limits in the upper and lower extremities.? No focal strength deficit is observed. SKIN:? Observed warm and dry with color normal Const Vital Signs, click to edit/add: Vital Signs - 24 hr 12/31/23 22:44 12/31/23 22:44 12/31/23 22:45 Temperature 97.6 F Pulse Rate 83 79 Pulse Rate [Left Radial] Pulse Rate [Pulse Oximeter] 92 Respiratory Rate 16 Blood Pressure 167/85 H Blood Pressure [Right Arm] Blood Pressure [Right Upper Arm] 195/77 H Pulse Oximetry 94 92 91 Oxygen Delivery Method Room Air 12/31/23 23:00 12/31/23 23:02 12/31/23 23:35 Temperature Pulse Rate 80 82 87 Pulse Rate [Left Radial] Pulse Rate [Pulse Oximeter] Respiratory Rate Blood Pressure 157/81 H 194/112 H Blood Pressure [Right Arm] Blood Pressure [Right Upper Arm] Pulse Oximetry 94 95 93 Oxygen Delivery Method 12/31/23 23:37 12/31/23 23:38 01/01/24 00:02 Temperature Pulse Rate 90 Pulse Rate [Left Radial] Pulse Rate [Pulse Oximeter] Respiratory Rate Blood Pressure 180/90 H Blood Pressure [Right Arm] Blood Pressure [Right Upper Arm] Pulse Oximetry 92 93 Oxygen Delivery Method 01/01/24 00:34 01/01/24 00:37 01/01/24 01:00 Temperature Pulse Rate 98 84 Pulse Rate [Left Radial] Pulse Rate [Pulse Oximeter] Respiratory Rate Blood Pressure 188/94 H Blood Pressure [Right Arm] Blood Pressure [Right Upper Arm] Pulse Oximetry 94 89 Oxygen Delivery Method 01/01/24 01:03 01/01/24 01:15 01/01/24 01:30 Temperature Pulse Rate 79 83 79 Pulse Rate [Left Radial] Pulse Rate [Pulse Oximeter] Respiratory Rate Blood Pressure 178/92 H Blood Pressure [Right Arm] Blood Pressure [Right Upper Arm] Pulse Oximetry 92 91 91 Oxygen Delivery Method 01/01/24 01:32 01/01/24 02:03 01/01/24 02:03 Temperature 98.4 F 98.4 F Pulse Rate 76 Pulse Rate [Left Radial] 89 89 Pulse Rate [Pulse Oximeter] Respiratory Rate 16 16 Blood Pressure 165/107 H Blood Pressure [Right Arm] 161/95 H 161/95 H Blood Pressure [Right Upper Arm] Pulse Oximetry 93 94 94 Oxygen Delivery Method Room Air Room Air 01/01/24 02:03 01/01/24 04:15 Temperature Pulse Rate 83 Pulse Rate [Left Radial] Pulse Rate [Pulse Oximeter] Respiratory Rate 16 Blood Pressure Blood Pressure [Right Arm] Blood Pressure [Right Upper Arm] Pulse Oximetry 94 Oxygen Delivery Method Room Air Hospitalist - H&P: Result Labs Labs: Short CBC 12/31/23 Range/Units 23:15 WBC 4.49 L (4.50-11.00) K/uL Hgb 12.3 (12.0-16.0) gm/dL Hct 35.2 (33.0-51.0) % Plt Count 121 L (140-440) K/uL BMP 12/31/23 23:15 Sodium 137 Potassium 3.5 L Chloride 102 Carbon Dioxide 29 BUN 11 Creatinine 0.5 Glucose 130 H Calcium 9.2 Cardiac Enzymes 01/01/24 Range/Units 03:25 Troponin I < 0.01 L (0.01-0.04) ng/mL Assessment and Plan Assessment and plan (1) Headache: Status: Acute (2) Nausea & vomiting: Status: Acute (3) Hypertension: Status: Acute (4) Chest pain: Status: Acute (5) Pancytopenia: Status: Acute (6) Fatigue: Status: Acute (7) Cancer related pain: Status: Acute (8) Chemotherapy management, encounter for: Status: Acute Plan Assessment and plan Chest pain this appears to be noncardiac in origin. When I talked to the pa inessant she described left-sided chest pain but that she felt that the pain was more related to her migraine headache. Now that her migraine had improved, she did not have any chest pain. I will reorder troponins to see what her levels will be. Most recent one was negative.. Status migrainosus: Patient's migraine was severe requiring an IV cocktail. This time she does not have a migraine anymore and the effects of the medication have not created any additional drowsiness. History of multiple myeloma: Patient has chronic back pain associated with of previous multiple of vertebral fractures. She is on oxycodone. Pancytopenia this is associated with multiple myeloma as well as Revlimid. At this point the patient does not require any transfusions. Patient's platelets are 121. Telehealth: Statement Statement Telehealth Visit: Today's History and Physical is provided via interactive telehealth by Harman Page MD.? Patient is located at [facility].? Provider is located at [facility].? Nursing staff assisted with the patient's exam. The visit being done today meets criteria for a telehealth visit and the patient or patient?s parent/guardian is aware the visit is a telehealth visit.
[2024-01-01 07:19] LABS: Troponin I* < 0.01 ng/mL (0.01-0.04)
[2024-01-01] MEDS: AMLODIPINE 5 MG TABLET PO (08:24)
[2024-01-01] MEDS: MORPHINE 30 MG TABLET.ER PO (08:24)
[2024-01-01] MEDS: METOPROLOL TARTRATE 25 MG TABLET PO (08:24)
[2024-01-01] MEDS: ACETAMINOPHEN 500 MG TABLET 1000 MG PO (08:24)
[2024-01-01] MEDS: SERTRALINE 100 MG TABLET 200 MG PO (08:25)
[2024-01-01] MEDS: ASPIRIN 81 MG TABLET EC PO (08:25)
[2024-01-01] MEDS: PROCHLORPERAZINE 10 MG TABLET PO (08:31)
--- NOTE | 2024-01-01 09:10 | CRLHL7_ITS ---
For Patients: As a result of the Century Cures Act, medical imaging exams and procedure reports are released immediately into your electronic medical record. You may view this report before your referring provider. If you have questions, please contact your health care provider. INDICATION: Unrelenting headache TECHNIQUE: CT head without contrast. COMPARISON: None. FINDINGS: symmetric. The ventricles, sulci and cisterns are normal. BRAIN: The brain parenchyma is normal. No acute transcortical infarct or hemorrhage is seen. EXTRA-AXIAL: Extra-axial spaces are normal. 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 No acute fracture. The visualized sinuses and mastoids are clear. Orbits are normal. IMPRESSION: No acute intracranial abnormality. Please note that all CT scans at this facility use dose modulation, iterative reconstruction, and/or weight-based dosing when appropriate to reduce radiation dose to as low as reasonably achievable. Dictated by Caitlyn Navarro MD @ 01/01/2024 11:40:42 AM (Electronically Signed)
[2024-01-01] MEDS: PROMETHAZINE 25 MG/ML INJ 12.5 MG IVP (10:14)
[2024-01-01] MEDS: 0.9 % SODIUM CHLORIDE 1000 ml 1,000 ML 200 ML IV (10:18)
[2024-01-01] MEDS: MAGNESIUM IV 2 GM/50 ML PIGGYBACK IVPB (10:21)
[2024-01-01] MEDS: SODIUM CHLORIDE 0.9 % (FLUSH) 10 ML SYRINGE 5 ML IVF (10:29)
--- NOTE | 2024-01-01 12:46 | PM.DS1 ---
DS: Providers Provider Date Seen: 01/01/24 Date of admission: 01/01/24 01:33 Primary care physician: Cookie Deras MD Admitting Clinician: Harman Page MD Attending Physician on discharge: Janeth Medina [facility] [place] [facility] Date of Discharge: 01/01/24 DS: Diagnosis Discharge Diagnosis (1) Headache: Status: Acute Problem details: Intermittent over the last few weeks. CT head without acute intracranial findings. No acute infectious process. Triple swab negative. No significant electrolyte abnormalities. Improved with IVF, usual home morphine dose, IV magnesium, Phenergan. Has been working on improved blood pressure control with PCP. Recommend outpatient follow-up. (2) Nausea & vomiting: Status: Acute Problem details: Resolved with resolution of headache (3) Hypertension: Status: Acute Problem details: Continued on home medications. Continue to work with PCP for improved control. (4) Chest pain: Status: Acute Problem details: Resolved. Troponins flat. EKG showing NSR with abnormalities. ACS ruled out. Echocardiogram pending prior to discharge. (5) Pancytopenia: Status: Acute Problem details: Noted, chronic, likely in setting of cancer management (6) Fatigue: Status: Acute Problem details: Improved (7) Cancer related pain: Status: Acute Problem details: Chronic, continued on home medications (8) Chemotherapy management, encounter for: Status: Acute Problem details: Had an appointment today, 01/01/2024, while still in the hospital, called to reschedule. DS: Summary Hospital Course Hospital Course: [age] year old female was admitted to the medical floor for headache with nausea, vomiting, chest pain, rule out MA. Course of care and details as noted above. ACS ruled out. Troponins flat. Echocardiogram pending at time of discharge. Headache improved with IVF, usual home dose morphine, IV magnesium and Phenergan. Close outpatient follow-up for re-evaluation and ongoing management of hypertension. Rescheduling [facility] appointment. Remainder of chronic medical comorbidities were monitored and managed with home medications. Status at Discharge Functional status at discharge: independent ambulation Overall status at discharge: patient is back to baseline Time Spent with Patient Time attestation: Total time spent providing and/or coordinating discharge services: Exam Narrative: Exam Narrative: PHYSICAL EXAM General: Pleasant, conversant, NAD Cardiovascular: RRR Pulmonary: No dyspnea Neurological: Alert, answering questions appropriately Skin: Warm, dry. Const: Vital Signs, click to edit/add: Vital Signs - 24 hr 12/31/23 22:44 12/31/23 22:44 12/31/23 22:45 Temperature 97.6 F Pulse Rate 83 79 Pulse Rate [Left R adial] Pulse Rate [Pulse Oximeter] 92 Respiratory Rate 16 Blood Pressure 167/85 H Blood Pressure [Ri ght Arm] Blood Pressure [Ri ght Upper Arm] 195/77 H Pulse Oximetry 94 92 [facility] 12/31/23 23:00 12/31/23 23:02 12/31/23 23:35 Temperature Pulse Rate 80 82 87 Pulse Rate [Left R adial] Pulse Rate [Pulse Oximeter] Respiratory Rate Blood Pressure 157/81 H 194/112 H Blood Pressure [Ri ght Arm] Blood Pressure [Ri ght Upper Arm] Pulse Oximetry 94 95 93 Oxygen Delivery Me thod 12/31/23 23:37 12/31/23 23:38 01/01/24 00:02 Temperature Pulse Rate 90 Pulse Rate [Left R adial] Pulse Rate [Pulse Oximeter] Respiratory Rate Blood Pressure 180/90 H Blood Pressure [Ri ght Arm] Blood Pressure [Ri ght Upper Arm] Pulse Oximetry 92 93 Oxygen Delivery Me thod 01/01/24 00:34 01/01/24 00:37 01/01/24 01:00 Temperature Pulse Rate 98 84 Pulse Rate [Left R adial] Pulse Rate [Pulse Oximeter] Respiratory Rate Blood Pressure 188/94 H Blood Pressure [Ri ght Arm] Blood Pressure [Ri ght Upper Arm] Pulse Oximetry 94 89 Oxygen Delivery Sc thod 01/01/24 01:03 01/01/24 01:15 01/01/24 01:30 Temperature Pulse Rate 79 83 79 Pulse Rate [Left R adial] Pulse Rate [Pulse Oximeter] Respiratory Rate Blood Pressure 178/92 H Blood Pressure [Ri ght Arm] Blood Pressure [Ri ght Upper Arm] Pulse Oximetry 92 91 91 Oxygen Delivery Sc thod 01/01/24 01:32 01/01/24 02:03 01/01/24 02:03 Temperature 98.4 F 98.4 F Pulse Rate 76 Pulse Rate [Left R adial] 89 89 Pulse Rate [Pulse Oximeter] Respiratory Rate 16 16 Blood Pressure 165/107 H Blood Pressure [Ri ght Arm] 161/95 H 161/95 H Blood Pressure [Ri ght Upper Arm] Pulse Oximetry 93 94 94 Oxygen Delivery Me thod Room Air Room Air 01/01/24 02:03 01/01/24 04:15 01/01/24 07:00 Temperature Pulse Rate 83 Pulse Rate [Left R adial] 100 Pulse Rate [Pulse Oximeter] Respiratory Rate 16 16 Blood Pressure Blood Pressure [Ri ght Arm] Blood Pressure [Ri ght Upper Arm] Pulse Oximetry 94 Oxygen Delivery Me thod Room Air 01/01/24 07:00 01/01/24 11:00 Temperature 98.4 F 99.1 F Pulse Rate Pulse Rate [Left R adial] 100 95 Pulse Rate [Pulse Oximeter] Respiratory Rate 16 16 Blood Pressure Blood Pressure [Ri ght Arm] 177/86 H 151/77 H Blood Pressure [Ri ght Upper Arm] Pulse Oximetry 93 93 Oxygen Delivery Me thod Room Air Room Air DS: Data Data Completed and Pending Completed studies during hospitalization: Procedures Introduction of Other Gas into Respiratory Tract, Via Natural or Artificial Opening (11/12/22) Introduction of Remdesivir Anti-infective into Peripheral Vein, Percutaneous Approach, [employer] (11/12/22) Transfusion of Nonautologous Red Blood Cells into Peripheral Vein, Percutaneous Approach (07/15/22) Pending studies at discharge: ECHO Labs on day of discharge: Labs from last 24 hours 01/01/24 01/01/24 12/31/23 06:40 03:25 23:47 WBC RBC Hgb Hct MCV MCH MCHC RDW Coeff of Susana Plt Count Neut % (Auto) Lymph % (Auto) [place] % (Auto) Eos % (Auto) Baso % (Auto) Neut # (Auto) Lymph # (Auto) [place] # (Auto) Eos # (Auto) Baso # (Auto) Abs Immat Gran (auto) Imm/Tot Granulo (auto) Sodium Potassium Chloride Carbon Dioxide Anion Gap BUN Creatinine Estimated GFR Glucose Calcium Troponin I < 0.01 L < 0.01 L NT-Pro-B Natriuret Pep SARS-CoV-2 (PCR) Negative SARS-CoV-2 Influenza Type A (PCR) Negative PCR FLU A Influenza Type B (PCR) Negative PCR FLU B POC Troponin I 12/31/23 23:15 WBC 4.49 L RBC 3.80 L Hgb 12.3 Hct 35.2 MCV 93 MCH 32 MCHC 35 RDW Coeff of Susana 14.2 Plt Count 121 L Neut % (Auto) 71.7 Lymph % (Auto) 20.5 [place] % (Auto) 6.2 Eos % (Auto) 0.9 Baso % (Auto) 0.7 Neut # (Auto) 3.20 Lymph # (Auto) 0.90 [place] # (Auto) 0.30 Eos # (Auto) 0.00 Baso # (Auto) 0.00 Abs Immat Gran (auto) 0.00 Imm/Tot Granulo (auto) 0.0 Sodium 137 Potassium 3.5 L Chloride 102 Carbon Dioxide 29 Anion Gap 6 L BUN 11 Creatinine 0.5 Estimated GFR 103 Glucose 130 H Calcium 9.2 Troponin I NT-Pro-B Natriuret Pep 621 SARS-CoV-2 (PCR) Influenza Type A (PCR) Influenza Type B (PCR) POC Troponin I 0.[address] scan - head: Attestation: I have reviewed the pertinent imaging results. Radiologist's impression: FINDINGS: symmetric. The ventricles, sulci and cisterns are normal. BRAIN: The brain parenchyma is normal. No acute transcortical infarct or hemorrhage is seen. EXTRA-AXIAL: Extra-axial spaces are normal. 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 No acute fracture. The visualized sinuses and mastoids are clear. Orbits are normal. IMPRESSION: No acute intracranial abnormality. CT scan - chest: Attestation: I have reviewed the pertinent imaging results. Radiologist's impression: Findings: Pulmonary arteries: No pulmonary embolism appreciated. Lungs: No consolidation. No effusion. No pneumothorax. Areas of atelectasis and/or scarring are noted. Mediastinum: No acute abnormality appreciated. Ascending aorta measures 4.2 centimeters, not significantly changed from prior examination. Calcified atherosclerotic plaque of the coronary arteries and aorta. Lymph nodes: Mild prominence of mediastinal nodes is similar to prior examination with no overt lymphadenopathy appreciated. Upper abdomen: No acute abnormality appreciated. Soft tissues: No acute abnormality appreciated. Bones: No acute abnormality appreciated. Multiple chronic thoracolumbar compression fractures are noted. Impression: Chronic findings as above with no acute abnormality appreciated. Discharge Plan Discharge Disposition: Home, Self-Care Date of Admission: 01/01/24 01:33 Attending Provider on Discharge: Janeth Medina Primary Care Provider: Cookie Deras Condition: Improved Anticipated Discharge Date/Time: 01/01/24 15:00 Discharge Medications: Continued acyclovir 400 mg tablet 400 mg PO BID Qty: 60 4RF olanzapine 2.5 mg tablet 2.5 mg PO QHS senna 8.6 mg capsule 8.6 mg PO BID PRN metoprolol tartrate 25 mg tablet 25 mg PO BID amlodipine 5 mg tablet 5 mg PO QDAY morphine 30 mg tablet extended release 30 mg PO BID prochlorperazine maleate [Compazine] 10 mg tablet 10 mg PO Q6H PRN trazodone 50 mg tablet 50 mg PO QHS PRN lenalidomide 10 mg capsule 10 mg PO .COMPLEX Rx Instructions: 10 mg orally 21 days on, 7 days off, every 28 days; swallow whole with glass of water; do not open, crush, chew , break, or dissolve sulfamethoxazole-trimethoprim 400-80 mg tablet 1 tab PO DAILY acetaminophen [Acetaminophen Extra Strength] 500 mg tablet 1,000 mg PO BID polyethylene glycol 3350 17 gram/dose powder 17 g PO DAILY PRN naloxone 4 mg/actuation spray,non-aerosol 1 spray INTRANASAL Q2M PRN Patient Comments: 1 SPRAY INTO ONE NOSTRIL FOR REVERSAL. USE 1 SPRAY IN 1 NOSTRIL. REPEAT WITH SECOND DEVICE IN OTHER NOSTRIL AFTER 2-3 MINUTES IF NO RESPONSE lorazepam 0.5 mg tablet 0.5 mg PO QHS PRNQty: 30 0RF sertraline 100 mg tablet 200 mg PO DAILY aspirin [Enteric Coated Aspirin] 81 mg tablet,delayed release (DR/EC) 81 mg PO DAILY oxycodone 5 mg Tablet 10 mg PO Q4H PRN (Reason: pain) bortezomib [Velcade] 3.5 mg recon soln 2.1 mg subcut QWEEK Hold Instructions: Resume on 11/19/22. Confer with your lead infrastructure architect/oncologist regarding when to start this medication again Discharge Orders: Discharge Order (Routine); Ordered 01/01/24 Ordered By: Janeth Medina Patient Education: Acute Headache (GEN), Chronic Hypertension (GEN) Activity Level: Activity as Tolerated Discharge Diet: Regular Follow Up Appointments: Cookie Deras MD [Primary Care Provider] - (Post hospital follow up 3-7 days) Forms: [facility] Info Instructions
--- NOTE | 2024-01-01 14:07 | PC.NURSE ---
Discharge: patient a/ox4, pleasant and cooperative. VSS, migraine resolved. Patient denies N/V. Patient tolerating a reg. diet. Discharged today at 1400 to home accompanied by spouse. Patient signed discharge instructions and verbalized understanding of instructions.
== END 2024-01-01 14:00 | disposition home or self-care (01) ==
LOC: ED 23:36 → MEDSURG 01-01 01:33
PROVIDERS: Admitting Provider Student in an Organized Health Care Education/Training Program; Emergency Provider Emergency Medicine; PCP Family Medicine; Visit Provider Student in an Organized Health Care Education/Training Program
DX: R51.9 Headache, unspecified (principal); I10 Essential (primary) hypertension; R07.9 Chest pain, unspecified; R11.2 Nausea with vomiting, unspecified; D61.818 Other pancytopenia; R53.83 Other fatigue; G89.3 Neoplasm related pain (acute) (chronic); C90.00 Multiple myeloma not having achieved remission; F41.8 Other specified anxiety disorders; I71.20 Thoracic aortic aneurysm, without rupture, unspecified; M89.9 Disorder of bone, unspecified; D12.6 Benign neoplasm of colon, unspecified; J30.9 Allergic rhinitis, unspecified; G47.30 Sleep apnea, unspecified; F10.11 Alcohol abuse, in remission; Z79.82 Long term (current) use of aspirin; Z79.69 Long term (current) use of other immunomodulators and immunosuppressants; S22.080A Wedge compression fracture of T11-T12 vertebra, initial encounter for closed fracture; S32.010A Wedge compression fracture of first lumbar vertebra, initial encounter for closed fracture; S32.020A Wedge compression fracture of second lumbar vertebra, initial encounter for closed fracture; S32.040A Wedge compression fracture of fourth lumbar vertebra, initial encounter for closed fracture; Z90.49 Acquired absence of other specified parts of digestive tract; Z87.891 Personal history of nicotine dependence; Z86.2 Personal history of diseases of the blood and blood-forming organs and certain disorders involving the immune mechanism; Z86.0100 Personal history of colon polyps, unspecified; Z86.79 Personal history of other diseases of the circulatory system; Z98.890 Other specified postprocedural states
CPT/HCPCS: 36415; 70450; 71275; 80048; 83880; 84484; 85025; 87631; 93005; 93306; 94761; 96361; 96365; 96366; 96375; 99284; 99285; G0378; A9270; J0780; J1200; J2550; J2765; J3010; J3475; J7030; Q9967

== ENCOUNTER 2024-01-06 09:45 | Outpatient (RCR) | payer BC, SELFPAY ==
--- NOTE | 2023-07-29 15:09 | ONC.NURNOTE ---
Addendum entered by [place] Arredondo RN 07/30/23 09:36: Lenalidomide PA Approval 07/29/23-07/28/24 Copay per [facility] is $18 Adalgisa has been notified and will set up delivery of lenalidomide appts pending delivery date Original Note: PA initiated by phone with [facility] [phone] PA # [id number] For lenolidamide
--- NOTE | 2023-07-31 15:02 | ONC.NURNOTE ---
Adalgisa was called to set up appts to start lenalidomide/velcade she will need to take the [employer] survey and instructions given with phone # she than will be able to call [facility] and order the lenalidomide plan start date is 08/06/23
--- NOTE | 2023-08-20 12:01 | ONC.NURNOTE ---
Medication tolerance check in for lenalidomide: [facility]
== END 2024-04-27 15:32 | disposition home or self-care (01) ==
PROVIDERS: PCP Family Medicine; Visit Provider Internal Medicine Hematology & Oncology
DX: R53.81 Other malaise (principal); M62.81 Muscle weakness (generalized); R26.81 Unsteadiness on feet; R26.89 Other abnormalities of gait and mobility; R53.83 Other fatigue; G89.29 Other chronic pain; Z51.89 Encounter for other specified aftercare
CPT/HCPCS: 97110; 97112; 97116; 97163; 97535

== ENCOUNTER 2024-01-08 07:45 | Outpatient (RCR) | payer BC, SELFPAY ==
--- NOTE | 2023-03-28 13:36 | ONC.NURNOTE ---
Daughter Fidelia stopped yesterday with a request for [place] to send a new [place] request to insurance for out of network care at the [facility] for Stem Cell Transplant- Fidelia emailed this advertising copy writer the screen shots of the portal message after speaking to [facility] [employer] [phone] it was clarified that the [facility] had previously completed this PA Authorization and [facility] [employer] ([employer]it[employer]) will be forwarding this request to [employer]
[2023-07-24 13:18] LABS: Basophils Absolute Auto 0.02 K/uL (0.00-0.30); Basophils Percent Auto 0.3 % (0.0-3.0); Eosinophils Absolute Auto 0.13 K/uL (0.00-0.50); Eosinophils Percent Auto 2.2 % (0.0-7.0); Hematocrit 35.7 % (33.0-51.0); Hemoglobin* 12.1 gm/dL (12.0-16.0); Immature Granulocytes Abs Auto 0.01 K/uL (0.00-0.30); Immature Granulocytes Pct Auto 0.2 %; Lymphocytes Absolute Auto 1.31 K/uL (0.90-2.90); Lymphocytes Percent Auto 22.4 % (20-44); Mean Corpuscular HGB Conc 34 gm/dL (32-36); Mean Corpuscular Hemoglobin 31 pg (26-34); Mean Corpuscular Volume 91 fL (80-100); Monocytes Percent Auto 7.2 % (0.0-11.0); Neutrophils Absolute Auto 3.96 K/uL (1.7-7.0); Neutrophils Percent Auto 67.7 % (42.0-72.0); Platelet Count* 136 K/uL (140-440); RDW Coefficient of Variation % 13.6 % (11.5-15.5); Red Blood Count 3.92 m/uL (4.00-5.20); White Blood Count* 5.85 K/uL (4.50-11.00)
[2023-07-24 13:21] LABS: Slide Review Reflex No
[2023-07-24 13:27] LABS: Albumin* 4.3 g/dL (3.3-5.0); Chloride* 103 mmol/L (96-114)
[2023-07-24 13:28] LABS: Potassium* 3.8 mmol/L (3.6-5.1); Sodium* 139 mmol/L (135-149)
[2023-07-24 13:30] LABS: Alkaline Phosphatase* 59 U/L (40-150); Anion Gap 5 mEq/L (7-15); Aspartate Amino Transferase* 21 U/L (12-35); Bilirubin Total* 0.4 mg/dL (0.1-1.5); Carbon Dioxide* 31 mmol/L (20-32); Creatinine* 0.5 mg/dL (0.5-1.5); Estimated Glomerular Filt Rate 103 ml/min; Total Protein* 6.5 g/dL (6.0-8.3)
[2023-07-24 13:31] LABS: Alanine Aminotransferase* 9 U/L (4-35); Blood Urea Nitrogen* 12 mg/dL (7-30); Calcium* 9.3 mg/dL (8.4-10.6); Glucose* 92 mg/dL (60-115); Magnesium* 1.6 mg/dL (1.5-2.6)
--- NOTE | 2023-07-24 15:10 | ONC.NURNOTE ---
New lenalidomide start Education with and patient on lenalidomide reviewed REMS program patient completed survey and enrollment completed discussed possible side effects of lenolidamide, calling with side effects, ordering cesar monthly, need to complete survey by calling [employer]- phone #'s given reviewed handout on csear, and reviewed safe handling and disposal discussed next steps needed before drug is delivered RX faxed to [facility]- per family request Next Steps: PA will be needed determine copay determine if terra or PAP may be needed to assist if high copay once drug delivery date determined patient will need start date for Cesar/Velcade/IVIG patient will need dietitian consult for 70# weight loss patient will need follow up provider appts
[2023-07-26 00:29] LABS: Immunoglobulin A 4 mg/dL (68-408); Immunoglobulin G 76 mg/dL (768-1632); Immunoglobulin M 24 mg/dL (35-263)
--- NOTE | 2023-07-29 11:07 | URNOTE ---
Bortezomib (J9041) and IVIG (J1459) have been approved 08/07/2023-09/05/2023. [id number]
[2023-08-08 10:19] LABS: Basophils Absolute Auto 0.02 K/uL (0.00-0.30); Basophils Percent Auto 0.4 % (0.0-3.0); Eosinophils Absolute Auto 0.17 K/uL (0.00-0.50); Eosinophils Percent Auto 3.4 % (0.0-7.0); Hematocrit 37.2 % (33.0-51.0); Hemoglobin* 12.5 gm/dL (12.0-16.0); Lymphocytes Absolute Auto 1.37 K/uL (0.90-2.90); Lymphocytes Percent Auto 27.8 % (20-44); Mean Corpuscular HGB Conc 34 gm/dL (32-36); Mean Corpuscular Hemoglobin 31 pg (26-34); Mean Corpuscular Volume 93 fL (80-100); Monocytes Percent Auto 8.1 % (0.0-11.0); Neutrophils Absolute Auto 2.97 K/uL (1.7-7.0); Neutrophils Percent Auto 60.3 % (42.0-72.0); Platelet Count* 155 K/uL (140-440); Red Blood Count 4.01 m/uL (4.00-5.20); White Blood Count* 4.93 K/uL (4.50-11.00)
[2023-08-08 10:21] LABS: Slide Review Reflex No
[2023-08-08 10:27] LABS: Albumin* 4.5 g/dL (3.3-5.0); Chloride* 103 mmol/L (96-114); Sodium* 141 mmol/L (135-149)
[2023-08-08 10:29] LABS: Anion Gap 7 mEq/L (7-15); Aspartate Amino Transferase* 23 U/L (12-35); Bilirubin Total* 0.4 mg/dL (0.1-1.5); Carbon Dioxide* 31 mmol/L (20-32); Creatinine* 0.7 mg/dL (0.5-1.5); Estimated Glomerular Filt Rate 95 ml/min
[2023-08-08 10:30] LABS: Alanine Aminotransferase* 14 U/L (4-35); Alkaline Phosphatase* 58 U/L (40-150); Blood Urea Nitrogen* 14 mg/dL (7-30); Calcium* 9.3 mg/dL (8.4-10.6); Glucose* 106 mg/dL (60-115); Total Protein* 6.6 g/dL (6.0-8.3)
[2023-08-08 11:08] VITALS: BP 119/74; PULSE 73; RESP 16; TEMP 36.4; O2SAT 93
[2023-08-08] MEDS: ACETAMINOPHEN 325 MG TABLET 650 MG PO (11:30)
[2023-08-08] MEDS: diphenhydrAMINE 25 MG CAPSULE PO (11:30)
[2023-08-08] MEDS: SODIUM CHLORIDE 0.9 % (FLUSH) 10 ML SYRINGE IVF (11:49)
[2023-08-08] MEDS: 5 % DEXTROSE 250 ML IV (11:49)
[2023-08-08] MEDS: METHYLPREDNISOLONE SOD SUCC 62.5 MG/ML (125) 125 MG IVP (11:49)
--- NOTE | 2023-08-08 14:17 | ONC.NURNOTE ---
Reviewed todays' treatment, questions answered about lenalidomide and treatment schedule discussed patient had already had teaching on lenalidomide and has previously had velcade and tolerated well Consent reviewed and signed
--- NOTE | 2023-08-08 14:23 | ONC.NURNOTE ---
PSDS=3 memoy and concerntration denies SS consult- sees SW and palliative care through [facility]
[2023-08-08] MEDS: BORTEZOMIB SUBQ 2.5 mg/ml 2.1 MG SUBCUT (14:44)
--- NOTE | 2023-08-09 12:26 | ONC.NURNOTE ---
Post treatment follow up: reports good appetite, no fever, no change in stools notes fatigue took first lenalidomide yesterday
--- NOTE | 2023-08-09 12:45 | ONC.NURNOTE ---
Dietitian referral discussed with patient- she has lost weight, but states her appetite is improving Due to the potiential cost of the referral- the patient has declined will monitor wt and appetite by nurses, and will revisit referral if noted weight loss
--- NOTE | 2023-08-12 09:17 | ONC.NURNOTE ---
lenalidomide tolerance follow up: reports no change in stools frequency or consistency taking lenalidomide in the afternoon/evening daily noted rash around injection site on abdomen that has mostly resolved
--- NOTE | 2023-08-21 11:30 | ONC.NURNOTE ---
Pt here for day [address] Grover if labs are needed prior to velcade today. Per Dr. Grover, no labs needed on day 15.
[2023-08-21 11:36] VITALS: BP 121/73; PULSE 64; RESP 16; TEMP 36; O2SAT 93
[2023-08-21] MEDS: BORTEZOMIB SUBQ 2.5 mg/ml 2.1 MG SUBCUT (12:27)
--- NOTE | 2023-08-27 15:13 | ONC.NURNOTE ---
Adalgisa called today reporting frequent trips to bathroom to release gas with small amount of unformed soft stool noted started yesterday- 5 times during the day she has 2 days left of lenalidomide recommended: avoid foods that cause increase in gas- beans, broccoli, high fiber fruits and vege's, lactose containing foods try rice, pasta, toast, chicken may try 1 imodium to decrease stool frequency if no improvement with diet changes or frequency of stools does not improve
--- NOTE | 2023-09-02 10:57 | URNOTE ---
Per [employer] Prior auth is not required for Velcade (J9041). Ref #[id number]
[2023-09-04 09:28] LABS: Basophils Percent Auto 0.9 % (0.0-3.0); Eosinophils Percent Auto 4.3 % (0.0-7.0); Hematocrit 32.7 % (33.0-51.0); Immature Granulocytes Pct Auto 0.3 %; Lymphocytes Percent Auto 32.5 % (20-44); Mean Corpuscular HGB Conc 34 gm/dL (32-36); Mean Corpuscular Hemoglobin 31 pg (26-34); Mean Corpuscular Volume 92 fL (80-100); Monocytes Percent Auto 14.8 % (0.0-11.0); Neutrophils Percent Auto 47.2 % (42.0-72.0); Platelet Count* 170 K/uL (140-440); RDW Coefficient of Variation % 13.3 % (11.5-15.5); Red Blood Count 3.57 m/uL (4.00-5.20); White Blood Count* 3.51 K/uL (4.50-11.00)
[2023-09-04 09:39] LABS: Slide Review Reflex No
[2023-09-04 09:40] LABS: Albumin* 4.1 g/dL (3.3-5.0); Chloride* 103 mmol/L (96-114); Potassium* 3.9 mmol/L (3.6-5.1); Sodium* 138 mmol/L (135-149)
[2023-09-04 09:42] LABS: Bilirubin Total* 0.6 mg/dL (0.1-1.5); Creatinine* 0.6 mg/dL (0.5-1.5); Est. Creatinine Clearance* 41.76; Estimated Glomerular Filt Rate 99 ml/min
[2023-09-04 09:43] LABS: Alanine Aminotransferase* 12 U/L (4-35); Alkaline Phosphatase* 60 U/L (40-150); Anion Gap 4 mEq/L (7-15); Aspartate Amino Transferase* 21 U/L (12-35); Blood Urea Nitrogen* 15 mg/dL (7-30); Calcium* 8.8 mg/dL (8.4-10.6); Carbon Dioxide* 31 mmol/L (20-32); Glucose* 89 mg/dL (60-115)
[2023-09-04] MEDS: BORTEZOMIB SUBQ 2.5 mg/ml 2.1 MG SUBCUT (10:36)
[2023-09-18 11:26] VITALS: BP 125/75; PULSE 66; RESP 16; TEMP 36.2; O2SAT 96
[2023-09-18] MEDS: BORTEZOMIB SUBQ 2.5 mg/ml 2.1 MG SUBCUT (12:22)
[2023-10-02 11:25] VITALS: BP 138/72; PULSE 64; TEMP 36.7; O2SAT 92
[2023-10-02 11:37] LABS: Basophils Percent Auto 0.8 % (0.0-3.0); Eosinophils Percent Auto 4.7 % (0.0-7.0); Hematocrit 32.5 % (33.0-51.0); Hemoglobin* 10.9 gm/dL (12.0-16.0); Immature Granulocytes Pct Auto 0.3 %; Lymphocytes Percent Auto 21.9 % (20-44); Mean Corpuscular HGB Conc 34 gm/dL (32-36); Mean Corpuscular Hemoglobin 31 pg (26-34); Mean Corpuscular Volume 93 fL (80-100); Monocytes Percent Auto 10.4 % (0.0-11.0); Neutrophils Percent Auto 61.9 % (42.0-72.0); Platelet Count* 138 K/uL (140-440); RDW Coefficient of Variation % 13.9 % (11.5-15.5); White Blood Count* 3.83 K/uL (4.50-11.00)
[2023-10-02 11:39] LABS: Slide Review Reflex No
[2023-10-02 11:57] LABS: Albumin* 3.9 g/dL (3.3-5.0); Chloride* 109 mmol/L (96-114); Potassium* 3.6 mmol/L (3.6-5.1); Sodium* 141 mmol/L (135-149)
[2023-10-02 11:59] LABS: Creatinine* 0.7 mg/dL (0.5-1.5); Est. Creatinine Clearance* 41.76; Estimated Glomerular Filt Rate 95 ml/min
[2023-10-02 12:00] LABS: Alanine Aminotransferase* 13 U/L (4-35); Alkaline Phosphatase* 62 U/L (40-150); Anion Gap 4 mEq/L (7-15); Aspartate Amino Transferase* 22 U/L (12-35); Bilirubin Total* 0.4 mg/dL (0.1-1.5); Blood Urea Nitrogen* 10 mg/dL (7-30); Calcium* 8.6 mg/dL (8.4-10.6); Carbon Dioxide* 28 mmol/L (20-32); Glucose* 73 mg/dL (60-115); Total Protein* 5.9 g/dL (6.0-8.3)
[2023-10-02] MEDS: BORTEZOMIB SUBQ 2.5 mg/ml 2.1 MG SUBCUT (12:31)
[2023-10-05 08:31] LABS: Albumin 3.54 g/dL (3.75-5.01); Alpha 1 Globulin 0.31 g/dL (0.19-0.46); Alpha 2 Globulin 0.79 g/dL (0.48-1.05); Immunofixation IFE Done; Immunoglobulin A 4 mg/dL (68-408); Immunoglobulin G 185 mg/dL (768-1632); Immunoglobulin M <10 mg/dL (35-263); Kappa Qnt Free Light Chains 1.73 mg/L (3.30-19.40); Kappa/Lambda Light Chain Ratio 1.07 (0.26-1.65); Lambda Qnt Free Light Chains 1.61 mg/L (5.71-26.30); Total Protein, Serum 5.4 g/dL (6.3-8.2)
[2023-10-16 11:30] VITALS: BP 97/57; PULSE 75; RESP 16; TEMP 36.3; O2SAT 93
[2023-10-16] MEDS: BORTEZOMIB SUBQ 2.5 mg/ml 2.1 MG SUBCUT (12:08)
--- NOTE | 2023-10-22 09:47 | ONC.NURNOTE ---
script for [facility].
[2023-10-30 10:05] LABS: Eosinophils Percent Auto 4.8 % (0.0-7.0); Hematocrit 31.7 % (33.0-51.0); Hemoglobin* 10.6 gm/dL (12.0-16.0); Lymphocytes Percent Auto 30.9 % (20-44); Mean Corpuscular HGB Conc 33 gm/dL (32-36); Mean Corpuscular Hemoglobin 31 pg (26-34); Mean Corpuscular Volume 93 fL (80-100); Monocytes Percent Auto 13.7 % (0.0-11.0); Neutrophils Percent Auto 49.6 % (42.0-72.0); Platelet Count* 116 K/uL (140-440); RDW Coefficient of Variation % 14.5 % (11.5-15.5); White Blood Count* 3.14 K/uL (4.50-11.00)
[2023-10-30 10:07] VITALS: BP 122/75; PULSE 61; TEMP 36.5; O2SAT 90
[2023-10-30 10:08] LABS: Slide Review Reflex No
[2023-10-30 10:26] LABS: Albumin* 3.9 g/dL (3.3-5.0); Chloride* 106 mmol/L (96-114); Potassium* 4.1 mmol/L (3.6-5.1); Sodium* 138 mmol/L (135-149)
[2023-10-30 10:28] LABS: Anion Gap 3 mEq/L (7-15); Bilirubin Total* 0.3 mg/dL (0.1-1.5); Carbon Dioxide* 29 mmol/L (20-32); Creatinine* 0.6 mg/dL (0.5-1.5); Est. Creatinine Clearance* 41.76; Estimated Glomerular Filt Rate 99 ml/min
[2023-10-30 10:29] LABS: Alanine Aminotransferase* 15 U/L (4-35); Alkaline Phosphatase* 63 U/L (40-150); Aspartate Amino Transferase* 22 U/L (12-35); Blood Urea Nitrogen* 11 mg/dL (7-30); Calcium* 9.1 mg/dL (8.4-10.6); Glucose* 89 mg/dL (60-115); Total Protein* 5.8 g/dL (6.0-8.3)
[2023-10-30] MEDS: BORTEZOMIB SUBQ 2.5 mg/ml 2.1 MG SUBCUT (11:36)
--- NOTE | 2023-11-06 10:08 | URNOTE ---
IVIG (J1459) has been approved [employer] maintenance dose approved 20.00g, frequency 28 days, total doses approved 14/ total amt approved 280.00g. Date range: 11/07/2023 to 11/05/2024. Auth#[id number].
[2023-11-13 09:18] VITALS: BP 100/65; PULSE 74; RESP 16; TEMP 36.2; O2SAT 94
[2023-11-13] MEDS: SODIUM CHLORIDE 0.9 % (FLUSH) 10 ML SYRINGE IVF (09:46)
[2023-11-13] MEDS: 5 % DEXTROSE 250 ML IV (09:48)
[2023-11-13] MEDS: METHYLPREDNISOLONE SOD SUCC 62.5 MG/ML (125) 125 MG IVP (09:51)
[2023-11-13] MEDS: diphenhydrAMINE 25 MG CAPSULE PO (09:52)
[2023-11-13] MEDS: BORTEZOMIB SUBQ 2.5 mg/ml 2.1 MG SUBCUT (12:41)
[2023-11-27 14:38] LABS: Basophils Percent Auto 1.2 % (0.0-3.0); Eosinophils Percent Auto 5.2 % (0.0-7.0); Hematocrit 33.9 % (33.0-51.0); Hemoglobin* 11.4 gm/dL (12.0-16.0); Lymphocytes Percent Auto 28.6 % (20-44); Mean Corpuscular HGB Conc 34 gm/dL (32-36); Mean Corpuscular Hemoglobin 32 pg (26-34); Mean Corpuscular Volume 94 fL (80-100); Monocytes Percent Auto 11.1 % (0.0-11.0); Neutrophils Percent Auto 53.9 % (42.0-72.0); Platelet Count* 120 K/uL (140-440); RDW Coefficient of Variation % 14.8 % (11.5-15.5); Red Blood Count 3.59 m/uL (4.00-5.20); White Blood Count* 4.06 K/uL (4.50-11.00)
[2023-11-27 14:41] LABS: Slide Review Reflex No
[2023-11-27 14:47] VITALS: BP 111/69; PULSE 63; RESP 16; TEMP 36.4; O2SAT 95
[2023-11-27 14:50] LABS: Albumin* 4.1 g/dL (3.3-5.0)
[2023-11-27 14:51] LABS: Chloride* 103 mmol/L (96-114); Potassium* 3.9 mmol/L (3.6-5.1); Sodium* 138 mmol/L (135-149)
[2023-11-27 14:53] LABS: Anion Gap 7 mEq/L (7-15); Aspartate Amino Transferase* 22 U/L (12-35); Bilirubin Total* 0.3 mg/dL (0.1-1.5); Carbon Dioxide* 28 mmol/L (20-32); Creatinine* 0.6 mg/dL (0.5-1.5); Est. Creatinine Clearance* 41.19; Estimated Glomerular Filt Rate 98 ml/min
[2023-11-27 14:54] LABS: Alanine Aminotransferase* 13 U/L (4-35); Alkaline Phosphatase* 67 U/L (40-150); Blood Urea Nitrogen* 7 mg/dL (7-30); Glucose* 119 mg/dL (60-115); Total Protein* 6.3 g/dL (6.0-8.3)
[2023-11-27] MEDS: BORTEZOMIB SUBQ 2.5 mg/ml 2.1 MG SUBCUT (15:26)
[2023-12-11 09:11] VITALS: BP 134/68; PULSE 66; RESP 16; TEMP 36.2; O2SAT 98
[2023-12-11] MEDS: ACETAMINOPHEN 325 MG TABLET 650 MG PO (09:37)
[2023-12-11] MEDS: diphenhydrAMINE 25 MG CAPSULE PO (09:37)
[2023-12-11] MEDS: METHYLPREDNISOLONE SOD SUCC 62.5 MG/ML (125) 125 MG IVP (10:00)
[2023-12-11] MEDS: BORTEZOMIB SUBQ 2.5 mg/ml 2.1 MG SUBCUT (12:33)
[2023-12-25 09:24] LABS: Basophils Percent Auto 1.4 % (0.0-3.0); Eosinophils Percent Auto 2.6 % (0.0-7.0); Hemoglobin* 11.4 gm/dL (12.0-16.0); Immature Granulocytes Pct Auto 0.3 %; Lymphocytes Percent Auto 22.2 % (20-44); Mean Corpuscular HGB Conc 35 gm/dL (32-36); Mean Corpuscular Hemoglobin 33 pg (26-34); Mean Corpuscular Volume 95 fL (80-100); Neutrophils Percent Auto 61.5 % (42.0-72.0); Platelet Count* 103 K/uL (140-440); RDW Coefficient of Variation % 14.6 % (11.5-15.5); Red Blood Count 3.49 m/uL (4.00-5.20); White Blood Count* 3.51 K/uL (4.50-11.00)
[2023-12-25 09:35] LABS: Slide Review Reflex No
[2023-12-25 09:36] LABS: Albumin* 3.8 g/dL (3.3-5.0); Chloride* 103 mmol/L (96-114); Potassium* 3.2 mmol/L (3.6-5.1); Sodium* 138 mmol/L (135-149)
[2023-12-25 09:39] LABS: Alanine Aminotransferase* 8 U/L (4-35); Alkaline Phosphatase* 57 U/L (40-150); Anion Gap 6 mEq/L (7-15); Aspartate Amino Transferase* 19 U/L (12-35); Bilirubin Total* 0.4 mg/dL (0.1-1.5); Blood Urea Nitrogen* 9 mg/dL (7-30); Carbon Dioxide* 29 mmol/L (20-32); Creatinine* 0.6 mg/dL (0.5-1.5); Est. Creatinine Clearance* 41.19; Estimated Glomerular Filt Rate 98 ml/min; Glucose* 88 mg/dL (60-115); Total Protein* 5.8 g/dL (6.0-8.3)
[2023-12-25 09:40] LABS: Calcium* 8.9 mg/dL (8.4-10.6)
[2023-12-25 11:05] LABS: SARS PCR* Negative SARS-CoV-2 (Negative)
[2023-12-25 11:18] VITALS: BP 163/79; PULSE 62; O2SAT 94
--- NOTE | 2023-12-25 15:56 | ONC.NURNOTE ---
Pt here for velcade. BP elevated 191/78, also c/o ALEXANDRE and sinus congestion. Discussed with Celeste Mendoza APRN, COVID test ordered which came back negative. Pt assessed by Celeste. Telma held x 1 week. Power Lineman Technician left message with Braeden's office to see if pt can be seen in next 2-3 days to evaluate high blood pressures and possible need for EKG to eval QT.
--- NOTE | 2024-01-01 14:08 | ONC.NURNOTE ---
Adalgisa was discharged from hospital today follow up discussed with Dr Lenore VELASCO in 1 week with lab holding all treatment this week due to hospitalization appts reviewed with patient and
[2024-01-08 08:08] LABS: Basophils Absolute Auto 0.03 K/uL (0.00-0.30); Basophils Percent Auto 0.6 % (0.0-3.0); Eosinophils Percent Auto 2.1 % (0.0-7.0); Hematocrit 33.9 % (33.0-51.0); Hemoglobin* 11.7 gm/dL (12.0-16.0); Immature Granulocytes Abs Auto 0.01 K/uL (0.00-0.30); Immature Granulocytes Pct Auto 0.2 %; Lymphocytes Absolute Auto 0.95 K/uL (0.90-2.90); Lymphocytes Percent Auto 20.1 % (20-44); Mean Corpuscular HGB Conc 35 gm/dL (32-36); Mean Corpuscular Hemoglobin 32 pg (26-34); Mean Corpuscular Volume 93 fL (80-100); Monocytes Percent Auto 10.1 % (0.0-11.0); Neutrophils Absolute Auto 3.16 K/uL (1.7-7.0); Neutrophils Percent Auto 66.9 % (42.0-72.0); Platelet Count* 117 K/uL (140-440); RDW Coefficient of Variation % 13.3 % (11.5-15.5); Red Blood Count 3.66 m/uL (4.00-5.20); White Blood Count* 4.73 K/uL (4.50-11.00)
[2024-01-08 08:09] LABS: Slide Review Reflex No
[2024-01-08 08:20] LABS: Albumin* 4.1 g/dL (3.3-5.0); Chloride* 102 mmol/L (96-114); Potassium* 3.5 mmol/L (3.6-5.1); Sodium* 138 mmol/L (135-149)
[2024-01-08 08:22] LABS: Anion Gap 5 mEq/L (7-15); Aspartate Amino Transferase* 22 U/L (12-35); Bilirubin Total* 0.3 mg/dL (0.1-1.5); Carbon Dioxide* 31 mmol/L (20-32); Creatinine* 0.6 mg/dL (0.5-1.5); Est. Creatinine Clearance* 41.19; Estimated Glomerular Filt Rate 98 ml/min; Total Protein* 6.6 g/dL (6.0-8.3)
[2024-01-08 08:23] LABS: Alanine Aminotransferase* 10 U/L (4-35); Alkaline Phosphatase* 57 U/L (40-150); Blood Urea Nitrogen* 8 mg/dL (7-30); Calcium* 9.2 mg/dL (8.4-10.6); Glucose* 91 mg/dL (60-115)
[2024-01-08] MEDS: ACETAMINOPHEN 325 MG TABLET 650 MG PO (08:59)
[2024-01-08] MEDS: diphenhydrAMINE 25 MG CAPSULE PO (08:59)
[2024-01-08] MEDS: METHYLPREDNISOLONE SOD SUCC 62.5 MG/ML (125) 125 MG IVP (09:14)
[2024-01-08] MEDS: 5 % DEXTROSE 250 ML IV (09:15)
[2024-01-08] MEDS: BORTEZOMIB SUBQ 2.5 mg/ml 2.1 MG SUBCUT (10:11)
[2024-01-11 13:22] LABS: Albumin 3.53 g/dL (3.75-5.01); Alpha 2 Globulin 0.94 g/dL (0.48-1.05); Immunofixation IFE Done; Immunoglobulin A 9 mg/dL (68-408); Immunoglobulin G 210 mg/dL (768-1632); Immunoglobulin M 10 mg/dL (35-263); Kappa Qnt Free Light Chains 2.33 mg/L (3.30-19.40); Kappa/Lambda Light Chain Ratio 1.01 (0.26-1.65); Lambda Qnt Free Light Chains 2.31 mg/L (5.71-26.30); Total Protein, Serum 5.9 g/dL (6.3-8.2)
== END 2024-01-20 23:59 | disposition home or self-care (01) ==
LOC: CCIC 07:45
PROVIDERS: Internal Medicine Hematology & Oncology; PCP Family Medicine; Referring Provider Family Medicine; Visit Provider Clinical Nurse Specialist
DX: C90.00 Multiple myeloma not having achieved remission (principal); R53.83 Other fatigue; D80.1 Nonfamilial hypogammaglobulinemia; Z79.82 Long term (current) use of aspirin
CPT/HCPCS: 36415; 80053; 82784; 83520; 83735; 84155; 84165; 85025; 86334; 87635; 96365; 96366; 96375; 96376; 96401; 96411; 96415; 99214; 99215; G0463; A9270; J1459; J2919; J7050; J9041

== ENCOUNTER 2024-04-05 14:44 | Emergency (ER) | payer BC, SELFPAY ==
--- OUTSIDE RECORDS SUMMARY | 2024-04-05 14:47 | XMS_ITS | Clinical Summary ---
Author Organization [employer] [facility] Address [place], [place] [address] Care Team Providers Care Recreational Facilities Motel Manager Name Role Phone Cookie Deras MD Primary Care Provide r [facility], [place] Unavailable Allergies Active Allergy Reactions Criticality Noted Date Comments Bupropion *Unknown Low 06/11/2006 intol hoffman Duloxetine Anxiety,Behavioral Disturbances,Hallucinati ons,Tremors 08/23/2022 Naproxen Hives,Hypotension,It chin g,Anaphylaxis High 08/03/2013 Ibuprofen also bothers stomach Medications acetaminophen (TYLENOL EXTRA STRGTH) 500 mg tablet Take 1,000 mg by mouth every 6 hours if needed for Pain. Max acetaminophen dose: 4000mg in 24 hrs. Active naloxone (NARCAN) 4 mg/actuation nasal spray 1 SPRAY INTO ONE NOSTRIL FOR REVERSAL. USE 1 SPRAY IN 1 NOSTRIL. REPEAT WITH SECOND DEVICE IN OTHER NOSTRIL AFTER 2-3 MINUTES IF NO RESPONSE 08/10/19 23 Active prochlorperazi ne (COMPAZINE) 10 mg tablet Take 10 mg by mouth every 6 hours if needed for Nausea/Vomiting. 07/08/19 24 Active lenalidomide (REVLIMID) 10 mg capsule Take 10 mg by mouth once daily. 07/29/19 24 Active metoprolol tartrate (LOPRESSOR) 25 mg tabletIndicati ons:HTN (hypertension) Take 1 Tablet (25 mg) by mouth two times daily. 180 Tablet 3 08/20/19 24 Active sertraline (ZOLOFT) 100 mg tabletIndicati ons:Depression with anxiety Take 2 Tablets (200 mg) by mouth once daily in the morning. 180 Tablet 3 11/05/19 24 Active mirtazapine (REMERON) 15 mg tabletIndicati ons:Insomnia, idiopathic Take 1 Tablet (15 mg) by mouth at bedtime. 90 Tablet 3 01/14/20 24 Active amLODIPine (NORVASC) 5 mg tabletIndicati ons:HTN (hypertension) Take 1 Tablet (5 mg) by mouth once daily. 90 Tablet 3 02/06/20 24 Active acyclovir (ZOVIRAX) 400 mg tabletIndicati ons:Multiple myeloma not having achieved remission (HC) Take 1 Tablet (400 mg) by mouth two times daily. 180 Tablet 3 02/06/20 24 Active morphine CONTROLLED RELEASE (MS CONTIN) 30 mg CR tabletIndicati ons:Multiple myeloma not having achieved remission (HC),Cancer related pain Take 1 Tablet (30 mg) by mouth two times daily. 60 Tablet 03/13/20 24 Active penicillin v potassium (PEN-VEE K) 500 mg tabletIndicati ons:Multiple myeloma not having achieved remission (HC) Take 1 Tablet (500 mg) by mouth two times daily before meals. 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 60 Tablet 02/06/20 24 024 Discontinu ed(Reorder (E-cancel not sent)) azithromycin (Zithromax Z-Martinez) 250 mg tabletIndicati ons:Acute non-recurrent frontal sinusitis Two tablets the first day, one daily days 2-5 6 Tablet 03/09/20 24 024 Active Problems Problem Noted Date Diagnosed Date Stem cells transplant status 02/06/2024 Acquired aplastic anemia 07/18/2023 Pancytopenia 07/18/2023 Depression, [...] (06/25/2022): Added automatically from request for surgery [id number] S/P carpal tunnel release, right 11/13/2021 Primary osteoarthritis of right knee 09/04/2021 Trigger finger of right thumb 09/11/2019 Carpal tunnel syndrome, bilateral 09/11/2019 Thoracic aortic aneurysm without rupture 015 Alcohol use disorder in remission 03/08/2015 Pulmonary nodule 09/08/2012 Overview (09/08/2012): 3.1mm in 2013. Due to patient's smoking history, recommend repeat [...] Encounters Date Type Department Care Team Description 03/24/2024 Refill [facility] [address] [place] [address] Cookie Deras MD Refill Request (oxyCODONE (ROXICODONE) 5 mg immediate release tablet/LORazepam (ATIVAN) 0.5 mg tab) 03/09/2024 11:10 AM [facility] [facility]PA[facility] Telemedicine [address] [place] [address] Camille Juarez NP Sinus Problem 03/09/2024 Travel 03/05/2024 Travel 02/06/2024 2:15 PM [employer] REPAIR Telemedicine [facility] [address] [place] [address] Cookie Deras MD Follow Up (Refills/B/P is doing well 148/72 P:67 T:97 W:132 Lbs just before appointment. B/P was better yesterday.) 02/06/2024 Travel 02/03/2024 Medical Messaging [facility] [address] [place] [address] Cookie Deras MD Medication refills 02/03/2024 Refill [facility] [address] [place] [address] Cookie Deras MD Refill Request (Acyclovir) 02/01/2024 Travel 01/22/2024 Refill [facility] [address] [place] [address] Cookie Deras MD Refill Request (Lorazepam) 01/14/2024 2:40 PM CDT Office Visit [facility] [address] [place] [address] Cookie Deras MD Hospital F/U (Went in for hypertension 12/30 was admitted ) 01/14/2024 Travel from Last 3 Months Immunizations Name Administration Dates Next Due COVID-19 vaccine ([employer] 30mcg/0.3mL) PF, MDV 02/22/2021,07/07/2020,06/16/2020 HGHA-BVF-CNB 01/24/2024 Hepatitis A (Adult) 01/24/2024 Hepatitis B (Adult) 01/24/2024 Influenza RIV4 (Age 18+ Year s) PRESERV FREE 02/22/2021 Influenza, High-dose Inactivated 01/24/2024 Influenza, IIV3 (Age >=3 years) 02/10/2010,03/05 Influenza, IIV4 01/04/2017, 6,03/08/2015,01/22 Influenza, IIV4 (=>6mos) MDV 12/11/2018 MENINGOCOCCAL VACCINE (MENQU ADFI 0.5ML) 2YO+ POLYSACCHARIDE PF 01/24/2024 Pneumococcal Conj 20-valent (Prevnar 20) 01/24/2024 RSV, Bivalent Vaccine Recons tituted (Abrysvo 120MCG/0.5mL) 01/24/2024 TD, UNSPECIFIED 04/01/1997 Td (Age >=7 Years) 04/01/1997 Tdap 12/11/2018,09/12/2007 Zoster (Shingrix-RZV, recombinant) 01/24/2024 Family History Medical History Relation Name Comments Diabetes Brother at age 55 Other Daughter meningioma Cancer-prostate Father at age 65 Cancer-colon Mother in her late 70s Heart Disease Mother [place]- 92 Hypertension Sister 1 Heart Disease Sister 2 [place] at age 60 Cancer-pancreatic Sister 3 2 [...] drink = 0.6 oz pur e alcohol) [facility] Utilities Answer Date Recorded Do you have trouble paying f or utilities (for example, heat, electricity, water, phone)? Yes 11/05/2023 PHQ-2 Answer Date Recorded PHQ-2 TOTAL SCORE 2 03/01/2023 Social Connections Answer Date Recorded Do you often feel lonely or isolated from those around you? 0 11/05/2023 Financial Resource Strain Answer Date R ecorded Difficulty of Paying Living Expenses 3 11/05/2023 Difficulty of Paying Living Expenses Not on file 11/05/2023 Food Insecurity Answer Date Recorded Do you worry your food will run out before you are able to buy more? 1 11/05/2023 Transportation Needs Answer Date Record ed Does lack of transportation keep you from medica l appointments? 1 11/05/2023 Does lack of transportation keep you from work, meetings or getting things that you need? 1 11/05/2023 Housing Stability Answer Date Recorded What is your housing situation today? 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 Not on file Not on file Not on file Not on file Not on file Not on file Not on file Obstetrics History Para Term AB IAB SAB Ectopic Multiple Livin g Live Births 3 3 3 Date Outcome GA Total Labor Labor/2nd/3rd Weight Sex Type Anes PTL Torrie A1 A5 Name Clin Para Para Para Last Filed Vital Signs Vital Sign Reading Time Taken Comments Blood Pressure 139/79 01/14/2024 2:53 PM CDT Pulse 76 01/14/2024 2:53 PM CDT Temperature 36.3 C (97.4 F) 09/19/2022 11:05 AM CDT Respiratory Rate 18 09/19/2022 11:05 AM CDT Oxygen Saturation 94% 01/14/2024 2:53 PM CDT Inhaled Oxygen Concentration - - Weight 60.1 kg (132 lb 6.4 oz) 01/14/2024 2:53 P M CDT Height 154.9 cm (5' 1) 12/26/2023 9:12 AM CDT Body Mass Index 25.02 12/26/2023 9:12 AM CDT Plan of Treatment Health Maintenance Due Date Last Done Comments Hepatitis C screening for ag e 18-79 1974 DEXA/DXA scan for age 65+ 2021 Colonoscopy through age 75 12/24/202212/24, 12/24/2017, 09/03/2012, Additional history exists Lipids for age 45-75 12/12/2023 12/11/2018, 11/20/2017, 10/04/2016, Additional history exists Depression screening for age 12+ 03/01/2024 03/01/2023, 12/11/2018, 11/28/2017, Additional history exists COVID-19 vaccine series ( season) 2024 01/24/2024, 02/22/2021, 07/07/2020, Additional history exists Zoster (shingles) series for age 50+ (2 of 2) 03/20/2024 01/24/2024 Mammogram for age 45-75 11/07/2024 11/08/19, 04/27/2020, 12/18/2018, Additional history exists BMI (ht and wt on same day) for age 18+ 12/25/2024 12/26/2023, 09/26/2023, 06/12/2022, Additional history exists Tetanus booster 12/11/2028 12/11/2018, 08/30, 04/01/1997, Additional history exists Tdap Completed 12/11/2018, 09/12/2007 Influenza for age 65+ Completed 01/24/2024 , 02/22/2021, 12/11/2018, Additional history exists Pneumococcal series for age 50+ Completed RSV vaccine for adults or Completed 01/24/2024 Procedures Procedure Name Priority Date/Time Associated Diagnosis Comments XR MAMMO ROSA BILAT SCREEN Routine 11/08/2023 4:20 PM CDT Routine adult health maintenance LIPID PANEL Routine 12/11/2018 4:11 PM CDT Thoracic aortic aneurysm without rupture (HC) COLONOSCOPY 12/24/2017 7:58 AM CDT from Last 3 Months or Most Recently Relevant to Health Maintenance Results * XR MAMMO ROSA BILAT SCREEN (11/08/2023 4:20 PM CDT) Anatomical Region Laterality Modality BREASTS, Breast Left, Breast Right Bilateral Mammography Impressions 11/11/2023 3:09 PM CDT There is no radiographic evidence for malignancy. Recommend annual mammograms. MAMMOGRAM ASSESSMENT: ACR 1 Negative PATIENTS: You will also receive a letter with your examination results in an easy to read format. If you have questions about your results, please contact your referring provider. Narrative 11/11/2023 3:09 PM CDT For Patients: As a result of the Century Cures Act, medical imaging exams and procedure reports are released immediately into your electronic medical record. You may view this report before your referring provider. If you have questions, please contact your health care provider. XR MAMMO ROSA BILAT SCREEN [[id number]] CLINICAL HISTORY: This is an asymptomatic 67 y.o. patient. INDICATION FOR EXAM: Mammogram Screening. TECHNIQUE: CC & MLO views were obtained. This study was evaluated with the assistance of Computer-Aided Detection. Breast Tomosynthesis was used in interpretation. COMPARISON FILM: Yes 04/27/20 [facility] 12/18/18 [facility] FINDINGS: The breasts are almost entirely fatty. There are no dominant masses, suspicious micro calcifications or areas of architectural distortion. us Cookie Deras MD MAMMO Final Result * (ABNORMAL) LIPID PANEL (12/11/2018 4:11 PM CDT) CHOLESTEROL,TOTAL 240(H) 100 - 199 mg/dL 12/11/2018 8:23 PM CDT [facility] TRIGLYCERIDES 304(H) <150 mg/dL 12/11/2018 8:23 PM CDT [facility] HDL CHOLESTEROL 55 >40 mg/dL 9 8:23 PM CDT [facility] NON-HDL CHOLESTEROL 185(H) <145 mg/dl 12/11/2018 8:23 PM CDT [facility] CHOL/HDL RATIO 4.36 <4.50 12/11/2018 8:23 PM CDT [facility] LDL CHOLESTEROL 124 <=130 mg/dL 12/11/2018 8:23 PM CDT [facility] PROVIDER ORDERED STATUS RANDOM 12/11/2018 8:23 PM CDT [facility] Blood BLOOD SPECIMEN / Unknown Venipuncture / Unknown 12/11/2018 4:11 PM CDT 12/11/2018 4:11 PM CDT us Cookie Елена Deras MD CHEMISTRY Final Result [facility] [address] [place] [address], [place] * COLONOSCOPY (12/24/2017 7:58 AM CDT) 12/24/2017 [...] adequate candidate for conscious sedation. The PCF-Q290AL [id number] was passed through the anus and advanced tothe cecum, identified by appendiceal orifice and ileocecal valve. The PCF-Q290AL [id number] was passed through the and advanced to. [...] reponse to care. [facility] and nursing notes for moderate sedation details. Total physician intraservice time was 17 minutes. Denver Trinh MD 12/24/2017 9:06:34 AM This report has been signed electronically. Note Initiated On: 12/24/2017 7:58 AM Procedure Code(s): --- Professional --- 92090, Colonoscopy, flexible; with biopsy, single or multiple Diagnosis Code(s): --- Professional --- Z86.010, Personal history of colonicpolyps D12.2, Benign neoplasm of ascending colon D12.3, Benign neoplasm of transverse colon (hepatic flexure or splenic flexure) CPT copyright 2017 [employer]. All rights reserved. The codes documented in this report are preliminary and upon braille coder reviewmay be revised to meet current compliance requirements. Scope In: 8:48:12 AM Scope Withdrawal Time 0 hours 8 minutes 28 seconds Scope Out: 9:03:03 AM Denver Trinh MD PROCEDURE ORD Final Res ult from Last 3 Months or Most Recently Relevant to Health Maintenance Insurance MEDICARE PART A [place] ONLY [place] MEDICARE PART B [place] ONLY MEDICARE PPS Advance Directives * Full Code (Latest Code Status on File) Date Activated Date Inactivated Comments 07/21/2022 8:14 AM 07/29/2022 4:34 PM Question Answer Comments Code Status Discussion: Reviewed Preferences * Full Code Date Activated Date Inactivated Comments 07/20/2022 3:48 PM 07/21/2022 8:14 AM Paperwork at [place] but trying to get to us; patient [...] Code Status Discussion: Reviewed Preferences Care Teams Recreational Facilities Motel Manager Relationship Specialty Start Date End Date Cookie Deras MD [address] [place] [address] PCP - General Family Practice 11/06/[address] [address] 07/29/22
--- OUTSIDE RECORDS SUMMARY | 2024-04-05 14:47 | XMS_ITS | Continuity of Care Document ---
Author Name [facility]IN User [facility] Address Unknown Organization Unknown Address Unknown Procedures FILTER APPLIED:Only known Procedures with Onset Date within the last 5 years Procedure Date Procedure Provider Additiona l Information Status THER/PROPH/DIAG IV INF ADDON (77252) Completed THER/PROPH/DIAG IV INF INIT (87084) Completed CHEMO ANTI-NEOPL SQ/IM (67518) Completed TX/PRO/DX INJ SAME DRUG AUTOMOBILE DESIGNER (98642) Completed OFFICE O/P EST HI 40 MIN (93105) Completed ROUTINE VENIPUNCTURE (36534) Completed ASSAY IGA/IGD/IGG/IGM EACH (20623) Completed ASSAY OF MAGNESIUM (21106) Completed COMPLETE CBC W/AUTO DIFF WBC (27747) Completed OFFICE O/P EST LOW 20 MIN (95826) Completed COMPREHEN METABOLIC PANEL (10406) Completed NEUROMUSCULAR REEDUCATION (86907) Completed GAIT TRAINING THERAPY (52696) Completed SELF CARE MNGMENT TRAINING (28326) Completed PT EVAL HIGH COMPLEX 45 MIN (68588) Completed THERAPEUTIC EXERCISES (16368) Completed ASSAY OF PROTEIN URINE (41007) Completed IMMUNFIX E-PHORSIS/URINE/CSF (97714) Completed PROTEIN E-PHORESIS SERUM (91673) Completed ASSAY OF PROTEIN SERUM (43097) Completed IMMUNOASSAY QUANT NOS NONAB (55980) Completed ASSAY IGA/IGD/IGG/IGM EACH (53776) Completed IMMUNOFIX E-PHORESIS SERUM (38493) Completed HYDRATION IV INFUSION INIT (62959) Completed ASSAY OF MAGNESIUM (13929) Completed THER/PROPH/DIAG INJ IV PUSH (37958) Completed BLOOD TYPING SEROLOGIC RH(D) (24236) Completed BLOOD TYPING SEROLOGIC ABO (89115) Completed TX/PRO/DX INJ SAME DRUG AUTOMOBILE DESIGNER (77774) Completed OFF/OP EST JULY X REQ PHY/QHP (55016) Completed RBC ANTIBODY SCREEN (25062) Completed OFFICE O/P EST SF 10 MIN (00388) Completed OFFICE O/P EST HI 40 MIN (41619) Completed CHEMO ANTI-NEOPL SQ/IM (36449) Completed COMPLETE CBC W/AUTO DIFF WBC (52287) Completed COMPREHEN METABOLIC PANEL (26864) Completed ROUTINE VENIPUNCTURE (19745) Completed Encounters FILTER APPLIED:Only known Encounters with Admission Date within the last 5 years Encounter Location Admission Discharge Billing Code Consultant Sadia garza Outpatient Cookie gray Outpatient Bryce Grover Inpatient Outpatient Elena yeager Outpatient Sharyn hartley
--- OUTSIDE RECORDS SUMMARY | 2024-04-05 14:48 | XMS_ITS ---
Author Organization [facility] Address [address] [place] [address] Care Team Providers Care Biology Instructor Name Role Phone None Reported, Pcp Primary Care Provider Unavail able Active Problems * This document contains information received from the source organization and may not represent a complete record from that organization. Problem Noted Date Diagnosed Date Pain Cancer Associated 09/02/2023 Nausea 09/02/2023 Hypogammaglobulinemia 07/05/2023 History Of Falling 07/04/2023 Palliative Care 06/07/2023 Bone Marrow Transplant Status 05/29/2023 Pain Chest 04/30/2023 Anemia Iron Deficiency 04/11/2023 Other Halfway Current Drug Therapy 01/04/2023 Transplant Stem Cell 01/02/2023 Regurgitation Aortic Rheumatic 01/01/2023 Secondary Malignant Neoplasm Bone 08/02/2022 Multiple Myeloma Not Having Achieved Remission 0 08/02/2022 Mass Mediastinal 05/01/2022 Overview (05/01/2022): Added automatically from request for surgery [id number] Hypomagnesemia 03/28/2022 Polyp Duodenal 03/27/2022 Mass Small Bowel 02/27/2022 Overview (02/27/2022): Added automatically from request for surgery [id number] Osteoarthritis Aneurysm Thoracic Aorta Personal History Hypertension Essential Primary Depression Anxiety Apnea Sleep Obstructive Current Oncology Plans immune globulin (IVIG)* Plan Start Date:08/02/2023 Plan Provider:Sharyn Rea M.D. Linked Problems Multiple Myeloma Not Having Achieved Remission (HCC)Transplant Stem Cell (HCC) Treatment Medications No medications scheduled. Past Plans [...] Treated Prescribed Fraction Dose Prescribed Total Dose [id number] L4 08/10/2022 4 5 of 5 400 cGy 2,000 cGy [id number] 08/10/2022 4 5 of 5 400 cGy 2,000 cGy Reference Point Last Treated On Elapsed Days Session Dose Total Dose [id number] 08/10/2022 4 400 cGy 2,000 cG y [id number] 08/10/2022 4 400 cGy 2,000 cGy Cellular Therapy * Episode Name Episode Status Transplant/Infusion Date Transplant/Infusion Center Donor Information Acute GVHD Chronic GVHD Contact Auto PBSC Txp Active Day 346 (04/25/23) [facility] N/A N/A N/A Sharyn Rea M.D.Phon e: [phone]: Emai l: [email or web address] [email or web address] * Cell Therapy Appointments (03/05/2024 - 05/06/2024) When Visit Type With Description No appointments Lifetime Dose Tracking * Chemical Lifetime Dose Automatic Entry Manual Entr y Radiation 260.3 mGy 260.3 mGy 0 mGy Fluoro Time 10.93 minutes 10.93 minutes 0 minutes
--- OUTSIDE RECORDS SUMMARY | 2024-04-05 14:48 | XMS_ITS | Clinical Summary ---
Author Organization [facility] Address [address] [place] [address] Care Team Providers Care Computer Operations Specialist Name Role Phone None Reported, Pcp Primary Care Provider Unavail able Source Comments Patient records contain information from all sites at [facility]. For routine questions regarding patient records, call [phone] during business hours, M-F 8:00 AM - 5:00 PM Central Time. Record requests for emergency care only can be directed to [phone] at any time.[facility] Allergies Active Allergy Reactions Criticality Noted Date Comments Bupropion Other (see comments) Low 06/11/2006 intol hoffman Docusate Sodium Nausea And Vomiting 05/22/2022 Duloxetine Anxiety,Other (see comments),Hallucinations 08/23/2022 Naproxen Hives (Reselect Reaction),Hypotension (Reselect Reaction),Itching,Anaphy laxis High 08/03/2013 Ibuprofen also bothers stomach Medications * This document contains information received from the source organization and may not represent a complete record from that organization. traZODone (DESYREL) 50 mg tablet Take 50 mg by mouth at bedtime. 05/20: patient will try using ativan at bedtime instead of trazodone to aide in nausea relief 3 Active sertraline (ZOLOFT) 100 mg tablet Take 200 mg by mouth daily. Patient takes two 100 mg tablets daily Active LORazepam (ATIVAN) 0.5 mg tablet Take 1 tablet (0.5 mg total) by mouth 3 (three) times a day as needed for anxiety (Nausea, vomiting). 05/20: patient will try using ativan at bedtime instead of trazodone to aide in nausea relief 4 Active acyclovir (ZOVIRAX) 400 mg tablet Take 1 tablet (400 mg total) by mouth 2 (two) times a day. 180 tablet 2 4 Active morphine (MS CONTIN) 30 mg ER tabletIndicatio ns:Chronic Pain/Nonacute Pain Take 1 tablet (30 mg total) by mouth every 12 (twelve) hours Indication: Chronic Pain/Nonacute Pain. 60 tablet 05/27/2023 1:25 PM NEWSPAPER CARRIER 4 Active Additional Information Patient taking differently:30 mg oral2 times daily, Indications: Chronic Pain/Nonacute Pain, Reported on 01/24/2024 oxyCODONE (ROXICODONE) 5 mg immediate release tabletIndicatio ns:Chronic Pain/Nonacute Pain Take 1 tablet (5 mg total) by mouth every 4 (four) hours as needed for pain Indication: Chronic Pain/Nonacute Pain. 60 tablet 05/27/2023 1:25 PM NEWSPAPER CARRIER 4 Active metoprolol tartrate (LOPRESSOR) 25 mg tabletIndicatio ns:Hypertension Essential Primary TAKE 1 TABLET(25 MG) BY MOUTH TWICE DAILY 180 tablet 3 4 Active acetaminophen (TYLENOL) 500 mg tablet Patient reports taking 1000 mg - 500 mg - 1000 mg morning, afternoon, and nightime 4 Active prochlorperazin e (Compazine) 10 mg tablet Take 1 tablet (10 mg total) by mouth every 6 (six) hours as needed for nausea or vomiting. 30 tablet 4 Active mirtazapine (REMERON) 15 mg tablet Take 1 tablet (15 mg total) by mouth at bedtime. 30 tablet 1 4 Active naloxone (NARCAN) 4 mg/actuation nasal spray Administer 1 spray (4 mg total) into one nostril as needed for reversal. Use 1 spray in 1 nostril. Repeat with second device in other nostril after 2-3 minutes if no or minimal response. 4 Active sulfamethoxazol e-trimethoprim (BACTRIM) 400-80 mg per tablet take 1 tablet by mouth every day 30 tablet 1 4 Active amLODIPine (NORVASC) 5 mg tablet Take 1 tablet by mouth daily. 4 Active lenalidomide (REVLIMID) 10 mg capsule Take 10 mg by mouth daily. 4 Active omeprazole (PriLOSEC) [address] capsule Take 20 mg by mouth daily. 4 Active aspirin 81 mg chewable tablet Chew 81 mg daily. Active lenalidomide (Revlimid) 10 mg capsule Take 10 mg by mouth daily. 21 days on then 7 days off- then repeat Active Active Problems Problem Noted Date Diagnosed Date Pain Cancer Associated 09/02/2023 Nausea 09/02/2023 Hypogammaglobulinemia 07/05/2023 History Of Falling 07/04/2023 Palliative Care 06/07/2023 Bone Marrow Transplant Status 05/29/2023 Pain Chest 04/30/2023 Anemia Iron Deficiency 04/11/2023 Other Care Home Current Drug Therapy 01/04/2023 Transplant Stem Cell 01/02/2023 Regurgitation Aortic Rheumatic 01/01/2023 Secondary Malignant Neoplasm Bone 08/02/2022 Multiple Myeloma Not Having Achieved Remission 0 08/02/2022 Mass Mediastinal 05/01/2022 Overview (05/01/2022): Added automatically from request for surgery [id number] Hypomagnesemia 03/28/2022 Polyp Duodenal 03/27/2022 Mass Small Bowel 02/27/2022 Overview (02/27/2022): Added automatically from request for surgery [id number] Osteoarthritis Aneurysm Thoracic Aorta Personal History Hypertension Essential Primary Depression Anxiety Apnea Sleep Obstructive Encounters Date Type Department Care Team Description 03/26/2024 1:00 PM NEWSPAPER CARRIER Nurse Only Section of Infectious Diseases in [place], [place] [address] [place] [address] Paramjit Pablo M.D. Snider, Lynn A, R.N. Immunizations 03/17/2024 Clinical Communication Section of Infectious Diseases in [place], [place] [address] [place] [address] Gianni, Alcides E, R.N. Prescreen Immunization Review 03/11/2024 Clinical Communication Division of Hematology in [place], [place] [address] [place] [phone] Paramjit Pablo M.D. Med Question 02/12/2024 2:00 PM NEWSPAPER CARRIER Comprehensive Visit Department of Radiology, [facility], in [address] [phone] Ursula Osorio APRN C.N.P., M.S.N. Multiple Myeloma In Remission (HCC) (Primary Dx); Pain Back; Pain Cancer Associated; Transplant Stem Cell (HCC); Bone Marrow Transplant Status (HCC); Secondary Malignant Neoplasm Bone (HCC); Depression Anxiety; Hypertension Essential Primary; Apnea Sleep Obstructive; Hepatitis C; Multiple Myeloma Not Having Achieved Remission (HCC) 02/12/2024 12:02 PM NEWSPAPER CARRIER - 02/12/2024 11:59 PM NEWSPAPER CARRIER Hospital Encounter Department of Radiology, [facility] in [address] [phone] Ann Fernandez M.D. Secondary Malignant Neoplasm Bone (HCC); Transplant Stem Cell (HCC); Pain Back; Multiple Myeloma In Remission (HCC) Discharge Disposition: Home or Self Care 02/12/2024 8:30 AM NEWSPAPER CARRIER Office Visit Department of Palliative Care in [address] [phone] Jazmin Canas M.D., M.S. Multiple Myeloma Not Having Achieved Remission (HCC) (Primary Dx); Pain Back; Anxiety; Palliative Care 02/11/2024 7:45 AM NEWSPAPER CARRIER Clinical Communication Virtual Review in [address] [address] Pre-visit Intake 01/24/2024 1:20 PM CDT Nurse Only Section of Infectious Diseases in [address] [address] Paramjit Pablo M.D. Arens, Andrea E RDelisa. Immunizations 01/21/2024 Orders Only Department of Palliative Care in [address] [phone] Ann Fernandez M.D. Secondary Malignant Neoplasm Bone (HCC) (Primary Dx); Transplant Stem Cell (HCC); Pain Back; Multiple Myeloma In Remission (HCC) 01/21/2024 Clinical Communication Department of Palliative Care in [place], [place] [address] [place] [address] Jazmin Canas M.D., M.S. 01/20/2024 12:57 PM CDT - 01/20/2024 11:59 PM CDT Hospital Encounter Department of Radiology, [place], [place] [address] [place] [address] Jazmin Canas M.D., M.S. Multiple Myeloma Not Having Achieved Remission (HCC); Pain Back Discharge Disposition: Home or Self Care from Last 3 Months Immunizations Name Administration Dates Next Due DTaP-IPV/Hib (Pentacel) 03/26/2024,01/24/2024 HepA Adult 01/24/2024 HepB Adult 03/26/2024,01/24/2024 Influenza, Injectable, Quadrivalent 12/11/2018 MENACWY-TT (MENQUADFI)(MCV4) 03/26/2024,01/24/20 24 PCV20 03/26/2024,01/24/2024 RSV: respiratory syncytial v irus (ABRYSVO) bivalent vaccine 01/24/2024 RZV (SHINGRIX) 03/26/2024,01/24/2024 SARS-COV-2 (COVID-19) - MODE RNA (12 YEARS AND OLDER) Fall Seasonal 03/26/2024,01/24/2024 Td, (Adult) Unspecified 04/01/1997 Tdap 12/11/2018,09/12/2007 influenza trivalent high dos e (HD)(PF) 01/24/2024 influenza vaccine QV(FLUBLOK ) (18 years or older) (PF) 02/22/2021 influenza vaccine quad (FLUZONE/FLUARIX) (6 months and older)(PF) 01/04/2017,12/22/2015,03/08/2015,2013,02/10/2010,03/05/2005 Family History Medical History Relation Name Comments [...] Mother Annie Truong Mother Paternal Grandmother Halina Justiner Sister 1 Sister 2 Alive Sister 3 Valerie Truong Sister 4 Kerry Hayden Social History Tobacco Use Types Packs/Day Years Used Date Smoking Tobacco: Former Cigarettes 1 40 0 04/01/1972 - 04/01/2012 Smokeless Tobacco: Never Tobacco Cessation:Counseling Given: Not Answered Alcohol Use Standard Drinks/Week Comments Not Currently 0 (1 standard drink = 0.6 oz pur e alcohol) [facility] Utilities Answer Date Recorded In the past 12 months has [facility] [employer], gas, oil, or water [employer] threatened to shut off services in your [...] often do you attend chur ch or congregation services? Never 01/26/2022 Do you belong to [...] Answer Date Recorded PHQ-2 Score 1 [facility]2022 [facility] Answer Date [...] your living situation today? I have a [facility] place to live 04/30/2023 Education Answer Date Recorded What is the highest level of school you have completed or the highest degree you have received? 12th grade 01/26/2022 Comments No Sex and Gender Information Value Date Recorded Sex Assigned at Female 01/26/2022 1:25 PM CDT Legal Sex Female 9:56 AM NEWSPAPER CARRIER Gender Identity Female 01/26/2022 1:25 PM CDT Sexual Orientation Straight 01/26/2022 1: 25 PM CDT Last Filed Vital Signs Vital Sign Reading Time Taken Comments Blood Pressure 152/81 02/12/2024 8:15 AM NEWSPAPER CARRIER Pulse 72 02/12/2024 8:15 AM NEWSPAPER CARRIER Temperature 37.1 C (98.8 F) 02/12/2024 8:15 AM NEWSPAPER CARRIER Respiratory Rate 16 01/20/2024 3:02 PM CDT Oxygen Saturation 95% 02/12/2024 8:15 AM NEWSPAPER CARRIER Inhaled Oxygen Concentration - - Weight 60.9 kg (134 lb 2.4 oz) 07/04/2023 3:18 P M CDT Height 152 cm (4' 11.84) 07/04/2023 3:18 PM CDT Body Mass Index 26.34 07/04/2023 3:18 PM CDT Plan of Treatment Health Maintenance Due Date Last Done Comments Bone Density Scan (Osteoporo sis Screen) 1956 CT Colonography 1956 Cologuard 1956 Dental Prophylaxis 1956 Dilated Eye Exam 1956 Visit: Chronic Disease, age 18+ 1955 Controlled Substance Agreement 08/09/2022 Controlled Substance Monitor ing (PHQ-9) 08/09/2022 Controlled Substance Monitoring 08/09/2022 PEG assessment for Opioid therapy 08/09/2022 Colonoscopy 12/24/2022 12/24/2017 Colorectal Cancer Surveillance 12/24/2022 Lung Cancer Screening 01/30/2023 01/30/2022 Opioid Use Disorder (OUD) Screening 08/10/2023 Urinalysis 10/09/2023 04/10/2023, 12/28/2022 Generalized Anxiety (TANNER-7) 10/15/2023 10/14/2022 Lipid (Cholesterol) Screening 01/02/2024, 12/11/2018, 11/20/2017 Spirometry with DLCO or PFT 01/03/2024 01/02/2023 Depression Screening (Annual PHQ-2) 04/01/2024 Fall Risk Screen (Annual) 04/01/2024 Vitamin D Testing 04/10/2024 04/10/2023, , 06/25/2022 Office Visit for Blood Press ure Check / Re-check 05/14/2024 02/12/2024 Mammogram 11/07/2024 11/08/2023, 08/12/2023, 04/27/2020, Additional history exists Fasting Glucose for Diabetes Screening 07/03/2026 07/04/2023, 06/03/2023, 05/29/2023, Additional history exists Opioid Risk Tool (ORT) Completed 06/03/2023 Influenza Vaccine Completed 01/24/2024, , 12/11/2018, Additional history exists COVID-19 Vaccine Completed 03/26/2024, , 02/22/2021, Additional history exists Medical Devices Implanted Type Area Licensed Sales Assistant Device Identifier Shelf Expiration Date Model / Serial / Lot Clp Hrzn Ti 6 Clp Hector - [id number] Implanted:Qty : 1 on 03/27/2022 by Radames Reynolds M.D. at [facility] Hardware e.g. pins/screws/ rods N/A: [employer] [id number] / / Clp Hrzn Ti 6 Clp Lg Orng - [id number] Implanted:Qty : 1 on 03/27/2022 by Radames Reynolds M.D. at [facility] Hardware e.g. pins/screws/ rods N/A: [employer] [id number] / / Procedures Procedure Name Priority Date/Time Associated Diagnosis Comments DX THORACIC SPINE 2 VIEWS RAD - Routine (most inpatients and all outpatients) 02/12/2024 12:32 PM NEWSPAPER CARRIER Secondary Malignant Neoplasm Bone (HCC) Transplant Stem Cell (HCC) Pain Back Multiple Myeloma In Remission (HCC) DX LUMBAR SPINE 2-3 VIEWS RAD - Routine (most inpatients and all outpatients) 02/12/2024 12:32 PM NEWSPAPER CARRIER Secondary Malignant Neoplasm Bone (HCC) Transplant Stem Cell (HCC) Pain Back Multiple Myeloma In Remission (HCC) MR LUMBAR SPINE WITHOUT AND WITH IV CONTRAST RAD - Routine (most inpatients and all outpatients) 01/20/2024 2:55 PM CDT Multiple Myeloma Not Having Achieved Remission (HCC) Pain Back MR THORACIC SPINE WITHOUT AND WITH IV CONTRAST RAD - Routine (most inpatients and all outpatients) 01/20/2024 2:55 PM CDT Multiple Myeloma Not Having Achieved Remission (HCC) Pain Back GLUCOSE, FASTING, S/P Routine 07/04/2023 8:16 AM CDT Bone Marrow Transplant Status (HCC) Transplant Stem Cell (HCC) 25-HYDROXYVITAMIN D2 AND D3, S Routine 04/10/2023 10:53 AM NEWSPAPER CARRIER Multiple Myeloma Not Having Achieved Remission (HCC) Transplant Stem Cell (HCC) URINALYSIS WITH MICROSCOPIC Routine 04/10/2023 10:53 AM NEWSPAPER CARRIER Multiple Myeloma Not Having Achieved Remission (HCC) [...] Recently Relevant to Health Maintenance Results * DX Lumbar Spine 2-3 Views (02/12/2024 12:32 PM NEWSPAPER CARRIER) Anatomical Region Laterality Modality Lumbar Spine, Musculoskeleta l RST LOS, Neuroradiology ARZ LOS, Muskuloskeletal FLA LOS N/A Digital Radiography Impressions 02/12/2024 12:54 PM NEWSPAPER CARRIER Demineralization. As seen on prior CT and MRI, there are chronic compression fractures of the T7-T9 and T11-L1 vertebral bodies, as well as the L3 and L4 vertebrae. As before, the greatest height loss is at T11 and T12. No new or progressive thoracolumbar vertebral compression fractures since 01/20/24. Thoracolumbar curve with moderate spondylosis. Innumerable lytic lesions throughout the spine, ribs, and pelvis consistent with history of myeloma. Multiple old healed bilateral rib fractures. Aortic calcification. Narrative 02/12/2024 12:54 PM NEWSPAPER CARRIER EXAM: DX LUMBAR SPINE 2-3 VIEWS, DX THORACIC SPINE 2 VIEWS Procedure Note Quirino Barry M.D. - 02/12/2024 EXAM: DX LUMBAR SPINE 2-3 VIEWS, DX THORACIC SPINE 2 VIEWS IMPRESSION: Demineralization. As seen on prior CT and MRI, there are chroniccompression fractures of the T7-T9 and T11-L1 vertebral bodies, as well asthe L3 and L4 vertebrae. As before, the greatest height loss is at T11 andT12. No new or progressive thoracolumbar vertebral compression fractures since 01/20/24.Thoracolumbar curve with moderate spondylosis. Innumerable lytic lesionsthroughout the spine, ribs, and pelvis consistent with history of myeloma.Multiple old healed bilateral rib fractures. Aortic calcification. Ann Fernandez M.D. IM DIAGNOSTIC IMAGING [facility] Final Result * DX Thoracic Spine 2 Views (02/12/2024 12:32 PM NEWSPAPER CARRIER) Anatomical Region Laterality Modality Thoracic Spine, Musculoskele eva RST LOS, Neuroradiology ARZ LOS, Muskuloskeletal FLA LOS N/A Digita l Radiography Impressions 02/12/2024 12:54 PM NEWSPAPER CARRIER Demineralization. As seen on prior CT and MRI, there are chronic compression fractures of the T7-T9 and T11-L1 vertebral bodies, as well as the L3 and L4 vertebrae. As before, the greatest height loss is at T11 and T12. No new or progressive thoracolumbar vertebral compression fractures since 01/20/24. Thoracolumbar curve with moderate spondylosis. Innumerable lytic lesions throughout the spine, ribs, and pelvis consistent with history of myeloma. Multiple old healed bilateral rib fractures. Aortic calcification. Narrative 02/12/2024 12:54 PM NEWSPAPER CARRIER EXAM: DX LUMBAR SPINE 2-3 VIEWS, DX THORACIC SPINE 2 VIEWS Procedure Note Quirino Barry M.D. - 02/12/2024 EXAM: DX LUMBAR SPINE 2-3 VIEWS, DX THORACIC SPINE 2 VIEWS IMPRESSION: Demineralization. As seen on prior CT and MRI, there are chroniccompression fractures of the T7-T9 and T11-L1 vertebral bodies, as well asthe L3 and L4 vertebrae. As before, the greatest height loss is at T11 andT12. No new or progressive thoracolumbar vertebral compression fractures since 01/20/24.Thoracolumbar curve with moderate spondylosis. Innumerable lytic lesionsthroughout the spine, ribs, and pelvis consistent with history of myeloma.Multiple old healed bilateral rib fractures. Aortic calcification. Ann [facility] Final Result * MR Lumbar Spine without and with IV Contrast (01/20/2024 2:55 PM CDT) Anatomical Region Laterality Modality Lumbar Spine, Neuroradiology RST LOS, Neuroradiology ARZ LOS, Neuroradiology FLA LOS N/A Magnetic Resonance Impressions 01/20/2024 3:46 PM CDT No evidence for acute/subacute fracture within the thoracic or lumbar spine. Similar appearance of the multiple compression fractures involving the thoracic and lumbar spine when compared to 04/10/2023. No progressive compression fractures identified. No high-grade canal stenosis. Foraminal narrowing greatest at right L3-4 where it is moderate. Narrative 01/20/2024 3:46 PM CDT EXAM: MR THORACIC SPINE WITHOUT AND WITH IV CONTRAST, MR LUMBAR SPINE WITHOUT AND WITH IV CONTRAST COMPARISON: CT skeletal survey 04/10/2023. Thoracic and lumbar spine MRI 07/18/2022. FINDINGS: Heterogeneous signal diffusely throughout the marrow compatible with history of multiple myeloma. Thoracic spine: No acute fracture identified within the thoracic spine. Specifically, no significant T2 hyperintense bone marrow edema or abnormal enhancement identified. Redemonstrated are multiple mild to moderate benign-appearing compression fractures. Moderate compression fractures of T8 and T12 and mild compression fractures of T7 and T9 appear similar when compared to 04/10/2023 but have progressed when compared to 07/18/2022. Moderate compression fracture of T11 demonstrates stability dating back to 07/18/2022. No significant osseous retropulsion regarding any of the fractures. Dense sclerosis along the inferior endplates of T8-T9 are again appreciated. Multilevel spondylotic change with small disc bulges at essentially every thoracic level. Largest of which is a left paracentral and inferiorly migrating disc extrusion which effaces the ventral thecal sac but does not contribute to a significant canal stenosis. Additional disc bulge at T8-T9 effaces the ventral thecal sac resulting in a mild canal stenosis. Mild-moderate foraminal narrowing at left T7-8 and left T8-9. No abnormal cord signal or enhancement. Lumbar spine: No acute fracture identified within the lumbar spine. Similar mild compression fractures involving the L1, L3, and L4 vertebral bodies when compared to 04/10/2023. There is faint endplate edema and enhancement posteriorly and L2-3 which is favored to be degenerative in nature. Degenerative disc disease greatest at L2-3 where it is moderate-advanced. More mild degenerative disc disease elsewhere within the lumbar spine. Small lumbar disc bulges greatest at L1-2 and L2-3 without significant associated canal stenosis. Foraminal narrowing greatest at right L3-4 where it is moderate due to associated disc bulge and facet arthropathy. Otherwise, mild scattered foraminal narrowing throughout the lumbar spine. Normal signal and appearance of the conus which terminates at L1- 2. Procedure Note Angus Subramanian M.D. - 01/20/2024 EXAM: MR THORACIC SPINE WITHOUT AND WITH IV CONTRAST, MR LUMBAR SPINEWITHOUT AND WITH IV CONTRAST COMPARISON: CT skeletal survey 04/10/2023. Thoracic and lumbar spine MRI07/18/2022. FINDINGS: Heterogeneous signal diffusely throughout the marrow compatiblewith history of multiple myeloma. Thoracic spine: No acute fracture identified within the thoracic spine.Specifically, no significant T2 hyperintense bone marrow edema or abnormalenhancement identified. Redemonstrated are multiple mild to moderatebenign-appearing compression fractures. Moderate compression fractures of T8 and T12 and mildcompression fractures of T7 and T9 appear similar when compared to04/10/2023 but have progressed when compared to 07/18/2022. Moderatecompression fracture of T11 demonstrates stability dating back to 07/18/2022. No significant osseous retropulsion regardingany of the fractures. Dense sclerosis along the inferior endplates ofT8-T9 are again appreciated. Multilevel spondylotic change with small disc bulges at essentially everythoracic level. Largest of which is a left paracentral and inferiorlymigrating disc extrusion which effaces the ventral thecal sac but does notcontribute to a significant canal stenosis. Additional disc bulge at T8-T9 effaces the ventral thecal sacresulting in a mild canal stenosis. Mild-moderate foraminal narrowing atleft T7-8 and left T8- 9. No abnormal cord signal or enhancement. Lumbar spine: No acute fracture identified within the lumbar spine.Similar mild compression fractures involving the L1, L3, and L4 vertebralbodies when compared to 04/10/2023. There is faint endplate edema andenhancement posteriorly and L2-3 which is favored to be degenerative in nature. Degenerative disc disease greatest at L2-3 where it is moderate-advanced.More mild degenerative disc disease elsewhere within the lumbar spine.Small lumbar disc bulges greatest at L1-2 and L2-3 without significantassociated canal stenosis. Foraminal narrowing greatest at right L3-4 where it is moderate due to associateddisc bulge and facet arthropathy. Otherwise, mild scattered foraminalnarrowing throughout the lumbar spine. Normal signal and appearance of theconus which terminates at L1-2. IMPRESSION: No evidence for acute/subacute fracture within the thoracic or lumbarspine. Similar appearance of the multiple compression fractures involvingthe thoracic and lumbar spine when compared to 04/10/2023. No progressivecompression fractures identified. No high-grade canal stenosis. Foraminal narrowing greatest atright L3-4 where it is moderate. Jazmin Canas M.D., M.S. IM MRI PROCEDURE S Final Result * MR Thoracic Spine without and with IV Contrast (01/20/2024 2:55 PM CDT) Anatomical Region Laterality Modality Thoracic Spine, Neuroradiolo gy RST LOS, Neuroradiology ARZ LOS, Neuroradiology FLA LOS N/A Magnetic Resonance Impressions 01/20/2024 3:46 PM CDT No evidence for acute/subacute fracture within the thoracic or lumbar spine. Similar appearance of the multiple compression fractures involving the thoracic and lumbar spine when compared to 04/10/2023. No progressive compression fractures identified. No high-grade canal stenosis. Foraminal narrowing greatest at right L3-4 where it is moderate. Narrative 01/20/2024 3:46 PM CDT EXAM: MR THORACIC SPINE WITHOUT AND WITH IV CONTRAST, MR LUMBAR SPINE WITHOUT AND WITH IV CONTRAST COMPARISON: CT skeletal survey 04/10/2023. Thoracic and lumbar spine MRI 07/18/2022. FINDINGS: Heterogeneous signal diffusely throughout the marrow compatible with history of multiple myeloma. Thoracic spine: No acute fracture identified within the thoracic spine. Specifically, no significant T2 hyperintense bone marrow edema or abnormal enhancement identified. Redemonstrated are multiple mild to moderate benign-appearing compression fractures. Moderate compression fractures of T8 and T12 and mild compression fractures of T7 and T9 appear similar when compared to 04/10/2023 but have progressed when compared to 07/18/2022. Moderate compression fracture of T11 demonstrates stability dating back to 07/18/2022. No significant osseous retropulsion regarding any of the fractures. Dense sclerosis along the inferior endplates of T8-T9 are again appreciated. Multilevel spondylotic change with small disc bulges at essentially every thoracic level. Largest of which is a left paracentral and inferiorly migrating disc extrusion which effaces the ventral thecal sac but does not contribute to a significant canal stenosis. Additional disc bulge at T8-T9 effaces the ventral thecal sac resulting in a mild canal stenosis. Mild-moderate foraminal narrowing at left T7-8 and left T8-9. No abnormal cord signal or enhancement. Lumbar spine: No acute fracture identified within the lumbar spine. Similar mild compression fractures involving the L1, L3, and L4 vertebral bodies when compared to 04/10/2023. There is faint endplate edema and enhancement posteriorly and L2-3 which is favored to be degenerative in nature. Degenerative disc disease greatest at L2-3 where it is moderate-advanced. More mild degenerative disc disease elsewhere within the lumbar spine. Small lumbar disc bulges greatest at L1-2 and L2-3 without significant associated canal stenosis. Foraminal narrowing greatest at right L3-4 where it is moderate due to associated disc bulge and facet arthropathy. Otherwise, mild scattered foraminal narrowing throughout the lumbar spine. Normal signal and appearance of the conus which terminates at L1- 2. Procedure Note Angus Subramanian M.D. - 01/20/2024 EXAM: MR THORACIC SPINE WITHOUT AND WITH IV CONTRAST, MR LUMBAR SPINEWITHOUT AND WITH IV CONTRAST COMPARISON: CT skeletal survey 04/10/2023. Thoracic and lumbar spine MRI07/18/2022. FINDINGS: Heterogeneous signal diffusely throughout the marrow compatiblewith history of multiple myeloma. Thoracic spine: No acute fracture identified within the thoracic spine.Specifically, no significant T2 hyperintense bone marrow edema or abnormalenhancement identified. Redemonstrated are multiple mild to moderatebenign-appearing compression fractures. Moderate compression fractures of T8 and T12 and mildcompression fractures of T7 and T9 appear similar when compared to04/10/2023 but have progressed when compared to 07/18/2022. Moderatecompression fracture of T11 demonstrates stability dating back to 07/18/2022. No significant osseous retropulsion regardingany of the fractures. Dense sclerosis along the inferior endplates ofT8-T9 are again appreciated. Multilevel spondylotic change with small disc bulges at essentially everythoracic level. Largest of which is a left paracentral and inferiorlymigrating disc extrusion which effaces the ventral thecal sac but does notcontribute to a significant canal stenosis. Additional disc bulge at T8-T9 effaces the ventral thecal sacresulting in a mild canal stenosis. Mild-moderate foraminal narrowing atleft T7-8 and left T8- 9. No abnormal cord signal or enhancement. Lumbar spine: No acute fracture identified within the lumbar spine.Similar mild compression fractures involving the L1, L3, and L4 vertebralbodies when compared to 04/10/2023. There is faint endplate edema andenhancement posteriorly and L2-3 which is favored to be degenerative in nature. Degenerative disc disease greatest at L2-3 where it is moderate-advanced.More mild degenerative disc disease elsewhere within the lumbar spine.Small lumbar disc bulges greatest at L1-2 and L2-3 without significantassociated canal stenosis. Foraminal narrowing greatest at right L3-4 where it is moderate due to associateddisc bulge and facet arthropathy. Otherwise, mild scattered foraminalnarrowing throughout the lumbar spine. Normal signal and appearance of theconus which terminates at L1-2. IMPRESSION: No evidence for acute/subacute fracture within the thoracic or lumbarspine. Similar appearance of the multiple compression fractures involvingthe thoracic and lumbar spine when compared to 04/10/2023. No progressivecompression fractures identified. No high-grade canal stenosis. Foraminal narrowing greatest atright L3-4 where it is moderate. Jazmin Canas M.D., M.S. IMG MRI PROCEDURE S Final Result * Glucose, Fasting (07/04/2023 8:16 AM CDT) Glucose, P 85 70 - 100 mg/dL 07/04/2023 8:52 AM CDT DTL Last Intake 13 hr 07/04/2023 8:37 AM CDT DTL Blood (Blood, Venous) 07/04/2023 8:16 AM CDT 07/04/2023 8:37 AM CDT Paramjit Pablo M.D. LAB BLOOD NON ADD-ON Final Re sult [facility] [address] [place], [place] [address] DTL [facility] [address] [place] [address] * 25-Hydroxyvitamin D2 and D3 (04/10/2023 10:53 AM NEWSPAPER CARRIER) 25-Hydroxy D2 <4.0 ng/mL 04/11/2023 9:50 PM NEWSPAPER CARRIER SDSC 25-Hydroxy D3 38 ng/mL 04/11/2023 9:50 PM NEWSPAPER CARRIER SDSC 25-Hydroxy D Total 38 ng/mL 2023 9:50 PM NEWSPAPER CARRIER SDSC Comment: ----REFERENCE VALUE---- 25-HYDROXY D TOTAL (D2+D3) Optimum levels in the healthy population are 20-50, patients with bone disease may benefit from higher levels within this range. ----ADDITIONAL INFORMATION---- This test was developed and its performance characteristics determined by [facility] in a manner consistent with CLIA requirements. This test has not been cleared or approved by the U.S. Food and Drug Administration. Blood (Blood, Venous) 04/10/2023 10:53 AM NEWSPAPER CARRIER 04/11/2023 7:11 AM NEWSPAPER CARRIER us Emily Alva APRN C.N.P., D.N.P. LAB BLOOD ADD-ON Final Result [facility] [place] [address] [place] [address] [facility] [address] [place] [address] [place] [address] * (ABNORMAL) Urinalysis with Microscopic: Urine, Midstream (04/10/2023 10:53 AM NEWSPAPER CARRIER) Source Urine, Urine, Midstream 04/10/2023 11:20 AM NEWSPAPER CARRIER DTL Color, U Yellow 04/10/2023 11:20 AM NEWSPAPER CARRIER DTL Clarity, U Clear 04/10/2023 11:20 AM NEWSPAPER CARRIER DTL Protein, U 6 <26 mg/dL 04/10/2023 12:18 PM NEWSPAPER CARRIER DTL Protein/Osmol ality 0.36 <0.42 ratio 04/10/2023 12:38 PM NEWSPAPER CARRIER DTL Predicted 24 HR Protein, U 267(H) <229 mg/24 h 04/10/2023 12:38 PM NEWSPAPER CARRIER DTL Predicted Range 66-1081 mg/24 h 04/10/2023 12:38 PM NEWSPAPER CARRIER DTL Urine (Urine, Midstream) 04/10/2023 10:53 AM NEWSPAPER CARRIER 04/10/2023 11:20 AM NEWSPAPER CARRIER Emily Alva APRN, C.N.P., D.N.P. LAB URINE ORDERABLES Final Result [facility] [address] [place] [address], [facility] [address] [place] [address] * Pulmonary Function Tests (01/02/2023 7:07 AM CDT) PostFVC 2.07 L 01/02/2023 10:16 AM CDT [facility] PostFEV1 1.44 L 01/02/2023 10:16 AM CDT [facility] FEV1/FVC POST 69.65 % 01/02/2023 10:16 AM CDT [facility] FEF 25-75 % POST 0.78 L/s 01/02/2023 10:16 AM CDT [facility] PEF POST 5.20 L/s 01/02/2023 10:16 AM CDT [facility] PIF POST 4.08 L/s 01/02/2023 10:16 AM CDT [facility] FEF 50 % FIF 50 POST 33.35 % 01/02/2023 10:16 AM CDT [facility] FET POST 10.92 sec 01/02/2023 10:16 AM CDT [facility] TLC 4.02 L 01/02/2023 10:16 AM CDT [facility] FRCPLETH PROVBASE 2.36 L 01/02/2023 10:16 AM CDT [facility] RV 2.01 L 01/02/2023 10:16 AM CDT [facility] RV % TLC PRE 49.98 % 01/02/2023 10:16 AM CDT [facility] DLCO 10.73 ml/(min*mm Hg) 01/02/2023 10:16 AM CDT [facility] DLCOc 12.61 ml/(min*mm Hg) 01/02/2023 10:16 AM CDT [facility] HB 9.40 g(Hb)/dL 01/02/2023 10:16 AM CDT [facility] VA 3.42 L 01/02/2023 10:16 AM CDT [facility] FVC 1.87 L 01/02/2023 10:16 AM CDT [facility] FEV1 1.35 L 01/02/2023 10:16 AM CDT [facility] FEV1/FVC 72.23 % 01/02/2023 10:16 AM CDT [facility] AVG50-98% 0.79 L/s 01/02/2023 10:16 AM CDT [facility] PEF PRE 4.58 L/s 01/02/2023 10:16 AM CDT [facility] PIF PRE 3.65 L/s 01/02/2023 10:16 AM CDT [facility] FEF 50 % FIF 50 PRE 38.92 % 01/02/2023 10:16 AM CDT [facility] FET PRE 8.88 sec 01/02/2023 10:16 AM CDT [facility] SUBSTANCE POST Albuterol 01/02/2023 10:16 AM CDT [facility] 01/02/2023 7:07 AM CDT Impressions [facility] - 01/02/2023 10:16 AM CDT BMT [...] was not performed due to fall risk. us Channing Connolly APRNNCodyP., M.S.N. PFT ORDERAB LES Final Result [facility] [address] * (ABNORMAL) Lipid Panel (01/01/2023 8:19 [...] 8:19 AM CDT 01/01/2023 9:17 AM CDT us Jag Fernandez Jr., M.D. LAB BLOOD ADD-ON Final R esult [facility] [address] [place] [address], [place] DTL [facility] [address] [place] [address] * CT Chest with IV Contrast (01/30/2022 12:16 PM CDT) Anatomical Region Laterality Modality Chest, Thoracic RST LOS, Tho racic ARZ LOS, Thoracic ARZ LOS, Thoracic FLA LOS N/A Computed Tomography, Compute d Tomography 01/30/2022 12:3 3 PM CDT Impressions 01/30/2022 12:32 PM CDT 1. 22 x 15 mm anterior mediastinal [...] Ascending thoracic aorta dilated to 43 mm. Narrative [...] dilated to 43 mm. Jonathon Mays M.D. 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
--- OUTSIDE RECORDS SUMMARY | 2024-04-05 14:48 | XMS_ITS | Encounter Summary ---
Author Organization [facility] Address [address] [place] [address] Care Team Providers Care Algorithm Design Engineer Name Role Phone None Reported, Pcp Primary Care Provider Unavail able Reason for Visit * Reason Onset Date Comments Med Question 03/11/2024 Encounter Details Date Type Department Care Team (Late st Contact Info) Description 03/11/2024 Clinical Communication Division of Hematology in [place], [place] [address] [place] [phone] Paramjit Pablo M.D. [address] [place] [phone] Med Question Social History Tobacco Use Types Packs/Day Years Used Date Smoking Tobacco: Former Cigarettes 1 40 0 04/01/1972 - 04/01/2012 Smokeless Tobacco: Never Alcohol Use Standard Drinks/Week Comments Not Currently 0 (1 standard drink = 0.6 oz pur e alcohol) [facility] Utilities Answer Date Recorded In the [...] often do you attend chur ch or adventism services? Never 01/26/2022 Do you belong to any clubs o r organizations such as yazidi groups, unions, fraternal or athletic groups, or [...] your living situation today? I have a [facility] place to live 04/30/2023 Education Answer Date Recorded What is the highest level of school you have completed or the highest degree you have received? 12th grade 01/26/2022 Comments No Sex and Gender Information Value Date Recorded Sex Assigned at Female 01/26/2022 1:25 PM CDT Legal Sex Female 9:56 AM BEET FLUMER Gender Identity Female 01/26/2022 1:25 PM CDT Sexual Orientation Straight 01/26/2022 1: 25 PM CDT documented as of this encounter Plan of Treatment Not on file documented as of this encounter Visit Diagnoses Not on filedocumented in this encounter Additional Health Concerns Infection Onset Date Last Indicated Resolved Time Protective Environment 03/17/2023 03/17/2023 documented as of this encounter Care Teams Algorithm Design Engineer Relationship Specialty Start Date End Date None Reported, Pcp PCP - General 02/07/24 documented as of this encounter
--- OUTSIDE RECORDS SUMMARY | 2024-04-05 14:48 | XMS_ITS | Encounter Summary ---
Author Organization [facility] Address [address] [place] [address] Care Team Providers Care Shoe Reconditioner Name Role Phone None Reported, Pcp Primary Care Provider Unavail able Reason for Visit * Reason Comments Immunizations Encounter Details Date Type Department Care Team (Late st Contact Info) Description 03/26/2024 1:00 PM WELDING OPERATOR Nurse Only Section of Infectious Diseases in [place], [place] [address] [place] [phone] Paramjit Pablo M.D. [address] [place] [phone] Maryjo Pineda R.N. [address] [place] [phone] Immunizations Social History Tobacco Use Types Packs/Day Years [...] often do you attend chur ch or mormonism services? Never 01/26/2022 Do you belong to [...] Answer Date Recorded PHQ-2 Score 1 10/14/[address] [facility] [place] of Occupat ional Health - Occupational Stress [...] your living situation today? I have a [facility] place to live 04/30/2023 Education Answer Date Recorded What is the highest level of school you have completed or the highest degree you have received? 12th grade 01/26/2022 Comments No Sex and Gender Information Value Date Recorded Sex Assigned at Female 01/26/2022 1:25 PM CDT Legal Sex Female 9:56 AM WELDING OPERATOR Gender Identity Female 01/26/2022 1:25 PM CDT Sexual Orientation Straight 01/26/2022 1: 25 PM CDT documented as of this encounter Progress Notes * Maryjo Pineda R.N. - 03/26/2024 1:00 PM CST PROC IMM Visit 03/26/2024 Pt Type: Post SCT Date of Transplant 04/25/23 Visit # 2 Next Visit Due on or after: 2 Months or more, from 03/26/2024 Vaccines Ordered: SCT Visit #3 + Covid #3 Pended to Provider: Dr. Pablo Patient's Plan for Future Vaccination Visits: Return to [facility] If questions, contact your Hematology team. Additional Notes: ING OPERATOR documented in this encounter Plan of Treatment Not on file documented as of this encounter Visit Diagnoses Diagnosis Transplant Stem Cell (HCC)- Primary documented in this encounter Additional Health Concerns Infection Onset Date Last Indicated Resolved Time Protective Environment 03/17/2023 03/17/2023 documented as of this encounter Care Teams Shoe Reconditioner Relationship Specialty Start Date End Date None Reported, Pcp PCP - General 02/07/24 documented as of this encounter
--- OUTSIDE RECORDS SUMMARY | 2024-04-05 14:48 | XMS_ITS | Encounter Summary ---
Author Organization [facility] Address [address] [place] [address] Care Team Providers Care Certified Master Locksmith Name Role Phone None Reported, Pcp Primary Care Provider Unavail able Encounter Details Date Type Department Care Team (Late st Contact Info) Description 01/21/2024 Clinical Communication Department of Palliative Care in [place], [place] [address] [place] [phone] Jazmin Canas M.D., M.S. [address] [place] [phone] Social History Tobacco Use Types Packs/Day Years Used Date Smoking Tobacco: Former Cigarettes 1 40 0 04/01/1972 - 04/01/2012 Smokeless Tobacco: Never Alcohol Use Standard Drinks/Week Comments Not Currently 0 (1 standard drink = 0.6 oz pur e alcohol) [facility] Utilities Answer Date Recorded In the past 12 months has e [employer], gas, oil, or water Home Chef threatened to shut off services in your [...] often do you attend chur ch or scientology services? Never 01/26/2022 Do you belong to any clubs o r organizations such as congregation groups, unions, fraternal or athletic groups, or [...] Answer Date Recorded PHQ-2 Score 1 10/14/2022 [facility] of Occupat ional Health - Occupational [...] your living situation today? I have a [facility] place to live 04/30/2023 Education Answer Date Recorded What is the highest level of school you have completed or the highest degree you have received? 12th grade 01/26/2022 Comments No Sex and Gender Information Value Date Recorded Sex Assigned at Female 01/26/2022 1:25 PM CDT Legal Sex Female 9:56 AM CHOREOGRAPHY DIRECTOR Gender Identity Female 01/26/2022 1:25 PM CDT Sexual Orientation Straight 01/26/2022 1: 25 PM CDT documented as of this encounter Plan of Treatment Not on file documented as of this encounter Visit Diagnoses Not on filedocumented in this encounter Additional Health Concerns Infection Onset Date Last Indicated Resolved Time Protective Environment 03/17/2023 03/17/2023 documented as of this encounter Care Teams Certified Master Locksmith Relationship Specialty Start Date End Date None Reported, Pcp PCP - General 02/07/24 documented as of this encounter
--- OUTSIDE RECORDS SUMMARY | 2024-04-05 14:48 | XMS_ITS | Referral Summary ---
Author Organization [facility] Address [address] [place] [id number] Care Team Providers Care Roll Clamp Operator Name Role Phone None Reported, Pcp Primary Care Provider Unavail able Source Comments Patient records contain information from all sites at [facility]. For routine questions regarding patient records, call [phone] during business hours, M-F 8:00 AM - 5:00 PM Central Time. Record requests for emergency care only can be directed to [phone] at any time.[facility] Encounters Date Type Department Care Team Description 03/26/2024 1:00 PM INDUSTRIAL TWISTING MACHINE OPERATOR Nurse Only Section of Infectious Diseases in [place], [place] [address] [place] [phone] Paramjit Pablo M.D. Snider, Lynn A, R.N. Immunizations 03/17/2024 Clinical Communication Section of Infectious Diseases in [place], [place] [address] [place] [phone] Alcides Archer R.N. Prescreen Immunization Review 03/11/2024 Clinical Communication Division of Hematology in [place], [place] [address] [place] [phone] Paramjit Pablo M.D. Med Question 02/12/2024 12:02 PM INDUSTRIAL TWISTING MACHINE OPERATOR - 02/12/2024 11:59 PM INDUSTRIAL TWISTING MACHINE OPERATOR Hospital Encounter Department of Radiology, [facility], in [place], [place] [address] [place] [phone] nAn Fernandez M.D. Secondary Malignant Neoplasm Bone (HCC); Transplant Stem Cell (HCC); Pain Back; Multiple Myeloma In Remission (HCC) Discharge Disposition: Home or Self Care 02/12/2024 2:00 PM INDUSTRIAL TWISTING MACHINE OPERATOR Comprehensive Visit Department of Radiology, [facility], in [place], [place] [address] [place] [phone] Ursula Osorio APRN CCodyN.P., M.S.N. Multiple Myeloma In Remission (HCC) (Primary Dx); Pain Back; Pain Cancer Associated; Transplant Stem Cell (HCC); Bone Marrow Transplant Status (HCC); Secondary Malignant Neoplasm Bone (HCC); Depression Anxiety; Hypertension Essential Primary; Apnea Sleep Obstructive; Hepatitis C; Multiple Myeloma Not Having Achieved Remission (HCC) 02/12/2024 8:30 AM INDUSTRIAL TWISTING MACHINE OPERATOR Office Visit Department of Palliative Care in [address] [phone] Jazmin Canas M.D., M.S. Multiple Myeloma Not Having Achieved Remission (HCC) (Primary Dx); Pain Back; Anxiety; Palliative Care 02/11/2024 7:45 AM INDUSTRIAL TWISTING MACHINE OPERATOR Clinical Communication Virtual Review in [place], [place] 200 [place] [address] Pre-visit Intake 01/24/2024 1:20 PM CDT Nurse Only Section of Infectious Diseases in [address] [phone] Paramjit Pablo M.D. Arens, Andrea E, R.N. Immunizations 01/21/2024 Orders Only Department of Palliative Care in [place], [place] [address] [place] [phone] Ann Fernandez M.D. Secondary Malignant Neoplasm Bone (HCC) (Primary Dx); Transplant Stem Cell (HCC); Pain Back; Multiple Myeloma In Remission (HCC) 01/21/2024 Clinical Communication Department of Palliative Care in [address] [phone] Jazmin Canas M.D., M.S. 01/20/2024 12:57 PM CDT - 01/20/2024 11:59 PM CDT Hospital Encounter Department of Radiology, [facility], in [place], [place] [address] [place] [address] Jazmin Canas M.D., M.S. Multiple Myeloma Not Having Achieved Remission (HCC); Pain Back Discharge Disposition: Home or Self Care from Last 3 Months Allergies Active Allergy [...] Pain/Nonacute Pain. 60 tablet 05/27/2023 1:25 PM INDUSTRIAL TWISTING MACHINE OPERATOR 4 Active Additional Information Patient taking differently:30 mg oral2 times daily, Indications: Chronic Pain/Nonacute Pain, Reported on 01/24/2024 oxyCODONE (ROXICODONE) 5 mg immediate release tabletIndicatio ns:Chronic Pain/Nonacute Pain Take 1 tablet (5 mg total) by mouth every 4 (four) hours as needed for pain Indication: Chronic Pain/Nonacute Pain. 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 01/04/2023 Transplant Stem Cell 01/02/2023 Regurgitation Aortic Rheumatic 01/01/2023 Secondary Malignant Neoplasm Bone 08/02/2022 Multiple Myeloma Not Having Achieved Remission 0 08/02/2022 Mass Mediastinal 05/01/2022 Overview (05/01/2022): Added automatically from request for surgery [id number] Hypomagnesemia 03/28/2022 Polyp Duodenal 03/27/2022 Mass Small Bowel 02/27/2022 Overview (02/27/2022): Added automatically from request for surgery [id number] Osteoarthritis Aneurysm Thoracic Aorta Personal History Hypertension Essential Primary Depression Anxiety Apnea Sleep Obstructive Immunizations Name Administration Dates Next Due DTaP-IPV/Hib [...] quad (FLUZONE/FLUARIX) (6 months and older)(PF) 01/04/2017,12/22/2015,03/08/2015,2013,02/10/2010,03/05/2005 Social History Tobacco Use Types Packs/Day Years Used Date Smoking Tobacco: Former Cigarettes 1 40 0 04/01/1972 - 04/01/2012 Smokeless Tobacco: Never Tobacco Cessation:Counseling Given: Not Answered Alcohol Use Standard Drinks/Week Comments Not Currently 0 (1 standard drink = 0.6 oz pur e alcohol) [facility] Utilities Answer Date Recorded In the past 12 months has e [employer], gas, oil, or water company threatened to [...] How often do you attend chur or pentecostal services? Never 01/26/2022 Do you belong to any clubs o r organizations such as amish groups, unions, fraternal or athletic groups, or [...] your living situation today? [facility] to live 04/30/2023 Education Answer Date Recorded What is the highest level of school you have completed or the highest degree you have received? 12th grade 01/26/2022 Comments No Sex and Gender Information Value Date Recorded Sex Assigned at Female 01/26/2022 1:25 PM CDT Legal Sex Female 9:56 AM INDUSTRIAL TWISTING MACHINE OPERATOR Gender Identity Female 01/26/2022 1:25 PM CDT Sexual Orientation Straight 01/26/2022 1: 25 PM CDT Last Filed Vital Signs Vital Sign Reading Time Taken Comments Blood Pressure 152/81 02/12/2024 8:15 AM INDUSTRIAL TWISTING MACHINE OPERATOR Pulse 72 02/12/2024 8:15 AM INDUSTRIAL TWISTING MACHINE OPERATOR Temperature 37.1 C (98.8 F) 02/12/2024 8:15 AM INDUSTRIAL TWISTING MACHINE OPERATOR Respiratory Rate 16 01/20/2024 3:02 PM CDT Oxygen Saturation 95% 02/12/2024 8:15 AM INDUSTRIAL TWISTING MACHINE OPERATOR Inhaled Oxygen Concentration - - Weight 60.9 kg (134 lb 2.4 oz) 07/04/2023 3:18 P M CDT Height 152 cm (4' 11.84) 07/04/2023 3:18 PM CDT Body Mass Index 26.34 07/04/2023 3:18 PM CDT Plan of Treatment Not on file Medical Devices Implanted Type Area Director Of Dietary Device Identifier Shelf Expiration Date Model / Serial / Lot Clp Hrzn Ti 6 Clp Md Hector - [id number] Implanted:Qty : 1 on 03/27/2022 by Radames Reynolds M.D. at [facility] Hardware e.g. pins/screws/ rods N/A: [employer] [id number] / / Clp Hrzn Ti 6 Clp Lg Orng - [id number] Implanted:Qty : 1 on 03/27/2022 by Radames Reynolds M.D. at [facility] Hardware e.g. pins/screws/ rods N/A: [employer] [id number] / / Procedures Procedure Name Priority Date/Time Associated Diagnosis Comments DX THORACIC SPINE 2 VIEWS RAD - Routine (most inpatients and all outpatients) 02/12/2024 12:32 PM INDUSTRIAL TWISTING MACHINE OPERATOR Secondary Malignant Neoplasm Bone (HCC) Transplant Stem Cell (HCC) Pain Back Multiple Myeloma In Remission (HCC) DX LUMBAR SPINE 2-3 VIEWS RAD - Routine (most inpatients and all outpatients) 02/12/2024 12:32 PM INDUSTRIAL TWISTING MACHINE OPERATOR Secondary Malignant Neoplasm Bone (HCC) Transplant Stem [...] AND D3, S Routine 04/10/2023 10:53 AM INDUSTRIAL TWISTING MACHINE OPERATOR Multiple Myeloma Not Having Achieved Remission (HCC) Transplant Stem Cell (HCC) URINALYSIS WITH MICROSCOPIC Routine 04/10/2023 10:53 AM INDUSTRIAL TWISTING MACHINE OPERATOR Multiple Myeloma Not Having Achieved Remission [...] Lumbar Spine 2-3 Views (02/12/2024 12:32 PM INDUSTRIAL TWISTING MACHINE OPERATOR) Anatomical Region Laterality Modality Lumbar Spine, Musculoskeleta l RST LOS, Neuroradiology ARZ LOS, Muskuloskeletal FLA LOS N/A Digital Radiography Impressions 02/12/2024 12:54 PM INDUSTRIAL TWISTING MACHINE OPERATOR Demineralization. As seen on prior CT and [...] fractures. Aortic calcification. Narrative 02/12/2024 12:54 PM INDUSTRIAL TWISTING MACHINE OPERATOR EXAM: DX LUMBAR SPINE 2-3 VIEWS, DX [...] old healed bilateral rib fractures. Aortic calcification. us Ann Fernandez M.D. IMGaro DIAGNOSTIC IMAGING PROCE FANY Final Result * DX Thoracic Spine 2 Views (02/12/2024 12:32 PM INDUSTRIAL TWISTING MACHINE OPERATOR) Anatomical Region Laterality Modality Thoracic Spine, Musculoskele eva RST LOS, Neuroradiology ARZ LOS, Muskuloskeletal FLA LOS N/A Digita l Radiography Impressions 02/12/2024 12:54 PM INDUSTRIAL TWISTING MACHINE OPERATOR Demineralization. As seen on prior CT and [...] fractures. Aortic calcification. Narrative 02/12/2024 12:54 PM INDUSTRIAL TWISTING MACHINE OPERATOR EXAM: DX LUMBAR SPINE 2-3 VIEWS, DX [...] rib fractures. Aortic calcification. Ann Fernandez M.D. IMGaro DIAGNOSTIC IMAGING PROCE FANY Final Result * [...] greatest atright L3-4 where it is moderate. us Jazmin Canas M.D., M.S. IMG MRI PROCEDURE S Final Result * MR [...] Glucose, Fasting (07/04/2023 8:16 AM CDT) Pathologist [facility] Glucose, P 85 70 - 100 mg/dL 07/04/2023 8:52 AM CDT DTL Last Intake 13 hr 07/04/2023 8:37 AM CDT DTL Blood (Blood, Venous) 07/04/2023 8:16 AM CDT 07/04/2023 8:37 AM CDT Paramjit Pablo M.D. LAB BLOOD NON ADD-ON Final Re sult [facility] [address] [place] [address], [facility] [address] [place] [address] * 25-Hydroxyvitamin D2 and D3 (04/10/2023 10:53 AM INDUSTRIAL TWISTING MACHINE OPERATOR) Pathologist [facility] 25-Hydroxy D2 <4.0 ng/mL 04/11/2023 9:50 PM INDUSTRIAL TWISTING MACHINE OPERATOR [facility] 25-Hydroxy D3 38 ng/mL 04/11/2023 9:50 PM INDUSTRIAL TWISTING MACHINE OPERATOR [facility] 25-Hydroxy D Total 38 ng/mL 2023 9:50 PM INDUSTRIAL TWISTING MACHINE OPERATOR [facility] Comment: ----REFERENCE VALUE---- 25-HYDROXY D TOTAL (D2+D3) Optimum levels in the healthy population are 20-50, patients with bone disease may benefit from higher levels within this range. ----ADDITIONAL INFORMATION---- This test was developed and its performance characteristics determined by [facility] in a manner consistent with CLIA requirements. This test has not been cleared or approved by the U.S. Food and Drug Administration. Blood (Blood, Venous) 04/10/2023 10:53 AM INDUSTRIAL TWISTING MACHINE OPERATOR 04/11/2023 7:11 AM INDUSTRIAL TWISTING MACHINE OPERATOR Javier Dill APRN.N.Brittney., D.N.P. LAB BLOOD ADD-ON Final Result Performing Organization Address City/[facility]/ZIP Co de Phone Number [facility] [address] [place] [address] [facility] [address] [place] [address] [place] [address] * (ABNORMAL) Urinalysis with Microscopic: Urine, Midstream (04/10/2023 10:53 AM INDUSTRIAL TWISTING MACHINE OPERATOR) Source Urine, Urine, Midstream 04/10/2023 11:20 AM INDUSTRIAL TWISTING MACHINE OPERATOR DTL Color, U Yellow 04/10/2023 11:20 AM INDUSTRIAL TWISTING MACHINE OPERATOR DTL Clarity, U Clear 04/10/2023 11:20 AM INDUSTRIAL TWISTING MACHINE OPERATOR DTL Protein, U 6 <26 mg/dL 04/10/2023 12:18 PM INDUSTRIAL TWISTING MACHINE OPERATOR DTL Protein/Osmol ality 0.36 <0.42 ratio 04/10/2023 12:38 PM INDUSTRIAL TWISTING MACHINE OPERATOR DTL Predicted 24 HR Protein, U 267(H) <229 mg/24 h 04/10/2023 12:38 PM INDUSTRIAL TWISTING MACHINE OPERATOR DTL Predicted Range 66-1081 mg/24 h 04/10/2023 12:38 PM INDUSTRIAL TWISTING MACHINE OPERATOR DTL Urine (Urine, Midstream) 04/10/2023 10:53 AM INDUSTRIAL TWISTING MACHINE OPERATOR 04/10/2023 11:20 AM INDUSTRIAL TWISTING MACHINE OPERATOR Emily Alva APRN, Javier.N.P., D.N.P. LAB URINE ORDERABLES Final Result Performing Organization Address [facility] Co de Phone Number [facility] [address] [place] [address], [facility] DTL [facility] [address] [place] [address] * Pulmonary Function Tests (01/02/2023 7:07 AM CDT) PostFVC 2.07 L 01/02/2023 10:16 AM CDT [facility] PostFEV1 1.44 L 01/02/2023 10:16 AM CDT [facility] SUITE FEV1/FVC POST 69.65 % 01/02/2023 10:16 AM CDT [facility] SUITE FEF 25-75 % POST 0.78 L/s 01/02/2023 10:16 AM CDT [facility] SUITE PEF POST 5.20 L/s 01/02/2023 10:16 AM CDT [facility] SUITE PIF POST 4.08 L/s 01/02/2023 10:16 AM CDT [facility] SUITE FEF 50 % FIF 50 POST 33.35 % 01/02/2023 10:16 AM CDT [facility] FET POST 10.92 sec 01/02/2023 10:16 AM CDT [facility] SUITE TLC 4.02 L 01/02/2023 10:16 AM CDT [facility] FRCPLETH PROVBASE 2.36 L 01/02/2023 10:16 AM CDT [facility] SUITE RV 2.01 L 01/02/2023 10:16 AM CDT [facility] RV % TLC PRE 49.98 % 01/02/2023 10:16 AM CDT [facility] SUITE DLCO 10.73 ml/(min*mm Hg) 01/02/2023 10:16 AM CDT [facility] SUITE DLCOc 12.61 ml/(min*mm Hg) 01/02/2023 10:16 AM CDT [facility] HB 9.40 g(Hb)/dL 01/02/2023 10:16 AM CDT [facility] VA 3.42 L 01/02/2023 10:16 AM CDT [facility] SUITE FVC 1.87 L 01/02/2023 10:16 AM CDT [facility] SUITE FEV1 1.35 L 01/02/2023 10:16 AM CDT [facility] FEV1/FVC 72.23 % 01/02/2023 10:16 AM CDT [facility] SAF63-50% 0.79 L/s 01/02/2023 10:16 AM CDT [facility] PEF PRE 4.58 L/s 01/02/2023 10:16 AM CDT [facility] PIF PRE 3.65 L/s 01/02/2023 10:16 AM CDT [facility] FEF 50 % FIF 50 PRE 38.92 % 01/02/2023 10:16 AM CDT [facility] FET PRE 8.88 sec 01/02/2023 10:16 AM CDT [facility] SUBSTANCE POST Albuterol 01/02/2023 10:16 AM CDT [facility] 01/02/2023 7:07 AM CDT Impressions [facility] - 01/02/2023 10:16 AM CDT BMT [...] not performed due to fall risk. us Trung Estes APRN, C.N.P., M.S.N. PFT ORDERAB LES Final Result [facility] NA * (ABNORMAL) Lipid Panel (01/01/2023 [...] M.D. LAB BLOOD ADD-ON Final R esult [facility] [address] [place] [address], [facility] [address] [place] [address] * CT Chest with IV Contrast (01/30/2022 [...] mm. Jonathon Mays M.D. IMG CT PROCEDURES Final R esult from Last 3 Months or Most Recently Relevant to Health Maintenance Additional Health Concerns Infection Onset Date Last Indicated Protective Environment 03/17/2023 3 Insurance [facility]ICARE [facility] Advance Directives For more information, please contact: [phone] Documents on File Type Date Recorded Patient Laboratory Machinist Expl anation Advance Directives 03/28/2022 6:46 AM [...] File Name Relationship Healthcare Agent Relationship Communication Alferdo Steelecatherine Spouse Health Care Agent Fidelia Pratt Daughter First Alternate Health Care Agent [email or web address] Care Teams Roll Clamp Operator Relationship Specialty Start Date End Date None Reported, Pcp PCP - General 02/07/24
--- OUTSIDE RECORDS SUMMARY | 2024-04-05 14:48 | XMS_ITS | Encounter Summary ---
Author Organization [facility] Address [address] [place] [address] Care Team Providers Care Aquarium Specialist Name Role Phone None Reported, Pcp Primary Care Provider Unavail able Reason for Visit * Reason Onset Date Comments Prescreen Immunization Review 03/17/2024 Encounter Details Date Type Department Care Team (Latest Contact Info) Description 03/17/2024 Clinical Communication Section of Infectious Diseases in [place], [place] [address] [place] [phone] Alcides Archer, RCodyN. [address] [place] [phone] Prescreen Immunization Review Social History Tobacco Use Types Packs/Day Years Used Date Smoking Tobacco: Former Cigarettes 1 40 0 04/01/1972 - 04/01/2012 Smokeless Tobacco: Never Alcohol Use Standard Drinks/Week Comments Not Currently 0 (1 standard drink = 0.6 oz pur e alcohol) [facility] Utilities Answer Date Recorded In the past 12 months has e electric, gas, oil, or water [employer] threatened to shut off services in your [...] often do you attend chur ch or yarsani services? Never 01/26/2022 Do you belong to any clubs o r organizations such as worship groups, unions, fraternal or athletic groups, or [...] Answer Date Recorded PHQ-2 Score 1 10/14/2022 [facility] - Occupational [...] your living situation today? I have a [facility] place to live 04/30/2023 Education Answer Date Recorded What is the highest level of school you have completed or the highest degree you have received? 12th grade 01/26/2022 Comments No Sex and Gender Information Value Date Recorded Sex Assigned at Female 01/26/2022 1:25 PM CDT Legal Sex Female 9:56 AM BUSINESS TRAINER Gender Identity Female 01/26/2022 1:25 PM CDT Sexual Orientation Straight 01/26/2022 1: 25 PM CDT documented as of this encounter Miscellaneous Notes * Telephone Encounter - Alcides Archer R.N. - 03/17/2024 2:14 PM CST Pre-Appt Vaccine Chart Review Pt Type: Post SCT Date of Transplant 04/25/23 Visit # 2 Pt is Immunosuppressed: Yes Vaccine Hx in Epic: Yes Titers Completed: N/A Vaccines Ordered: SCT Visit #2 and covid #2 Additional Vaccines Needed: N/A Missing Orders: N/A Additional Notes: NESS TRAINER documented in this encounter Plan of Treatment Not on file documented as of this encounter Visit Diagnoses Not on filedocumented in this encounter Additional Health Concerns Infection Onset Date Last Indicated Resolved Time Protective Environment 03/17/2023 03/17/2023 documented as of this encounter Care Teams Aquarium Specialist Relationship Specialty Start Date End Date None Reported, Pcp PCP - General 02/07/24 documented as of this encounter
--- OUTSIDE RECORDS SUMMARY | 2024-04-05 14:48 | XMS_ITS ---
Author Organization [facility] Address [address] [place] [address] Care Team Providers Care Mailroom Courier Name Role Phone Unavailable Unavailable Unavailable Surgery Details Not on file Complications Check Surgery Details section. Procedure Estimated Blood Loss Check Surgery Details section. Procedure Findings Check Surgery Details section. Procedure Specimens Taken Check Surgery Details section.
[2024-04-05 15:01] VITALS: BP 127/71; PULSE 74; RESP 17; TEMP 37.1; O2SAT 96; BMI 22.9
--- NOTE | 2024-04-05 15:04 | CRLHL7_ITS ---
For Patients: As a result of the Cures Act, medical imaging exams and procedure reports are released immediately into your electronic medical record. You may view this report before your referring provider. If you have questions, please contact your health care provider. INDICATION: Cough. COMPARISON: Chest x-ray dated 12 Aug 2022. FINDINGS: PA and lateral chest x-rays show a normal cardiac silhouette. The lungs show trace left basilar atelectasis. Sharp pleural margins. No pneumothorax. IMPRESSION: Trace left basilar atelectasis. No pneumothorax. Dictated by Herrera Yeager MD @ 04/05/2024 3:44:08 PM Dictated by: Herrera Yeager MD @ 04/05/2024 15:44:18 (Electronically Signed)
--- NOTE | 2024-04-05 15:33 | ED.GENADULT ---
HPI - General Adult General Date Seen: 04/05/24 Chief complaint: Cough Stated complaint: home covid positive, cancer pt Time Seen by Provider: 04/05/24 15:31 History of Present Illness HPI narrative: 68-year-old female with a history multiple myeloma with lytic bone lesions on x-ray and multiple compression fractures including T11, T12, L1, L2, L4, hypertension, thoracic aortic aneurysm unruptured, sleep apnea, hypercalcemia, hypokalemia Per oncology note from December, Dr. Grover... Med list: Bortezomib Lenalidomide Morphine ER 30 mg b.i.d. Amlodipine Mental Aspirin Compazine MiraLax Senna Sertraline Trazodone Lorazepam Acetaminophen Acyclovir Aspirin 66-year-old very pleasant lady, who was recently admitted with multiple spinal compression fractures, hypercalcemia, cognitive decline at [facility]--> serum and urine protein electrophoresis consistent with significant free light chains, serum kappa free light chains at 5924.24; [place] [address].61-> transferred to [facility] for obtaining bone marrow biopsy--> bone marrow biopsy done on 07/23/2022 consistent with 70-80% involvement of bone marrow with plasma cell neoplasm--> started on Velcade and dexamethasone on 07/25/2022 at [facility]--> added Cytoxan 50 mg oral daily, after visiting with [facility] approximately 08/03/2022--> also added Darzalex from 09/18/2022--> diagnosed with hepatitis-C and treated w Glecaprevir-pibrentasvir 100-40 mg 3 tabs daily with food for 8 weeks, which delayed auto stem cell transplantation--> 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 She was positive for COVID. In the hospital she had low oxygen so was started on dexamethasone and also received 3 days of remdesivir. Most recent labs were on 03/11/2024. WBC was 3.45, hemoglobin 11.8, platelet 142. Sodium 141, potassium 3.7, chloride 101, bicarb 34, anion gap 6, BUN 9, creatinine 0.6. Related Data Home Medications ?Medication ?Instructions ?Recorded ?Confirmed acetaminophen 500 mg tablet 1,000 mg PO BID 07/15/22 01/22/24 (Acetaminophen Extra Strength) naloxone 4 mg/actuation nasal spray 1 spray intranasal Q2M PRN 08/12/22 01/22/24 aspirin 81 mg tablet,delayed 81 mg PO DAILY 09/04/22 01/22/24 release (Enteric Coated Aspirin) bortezomib 3.5 mg injection powder 2.1 mg subcut QWEEK 09/04/22 01/22/24 for solution (Velcade) oxycodone 5 mg tablet 10 mg PO Q4H PRN pain 09/04/22 01/22/24 trazodone 50 mg tablet 50 mg PO QHS PRN 10/23/22 01/22/24 amlodipine 5 mg tablet 5 mg PO QDAY 07/24/23 01/22/24 metoprolol tartrate 25 mg tablet 25 mg PO BID 07/24/23 01/22/24 morphine 30 mg tablet,extended 30 mg PO BID 07/24/23 01/22/24 release polyethylene glycol 3350 17 17 g PO DAILY PRN 07/24/23 01/22/24 gram/dose oral powder prochlorperazine maleate 10 mg 10 mg PO Q6H PRN 07/24/23 01/22/24 tablet (Compazine) sennosides 8.6 mg capsule (senna) 8.6 mg PO BID PRN 07/24/23 01/22/24 sertraline 100 mg tablet 200 mg PO DAILY 07/24/23 01/22/24 lenalidomide 10 mg capsule 10 mg PO .COMPLEX 08/01/23 01/22/24 mirtazapine 15 mg tablet 15 mg PO QPM 01/22/24 01/22/24 Previous Rx's ?Medication ?Instructions ?Recorded lorazepam 0.5 mg tablet 0.5 mg PO QHS PRN #30 tabs 08/13/22 acyclovir 400 mg tablet 400 mg PO BID #60 tabs 08/14/22 potassium chloride 20 mEq 20 meq PO QDAY #7 tabs 11/06/24 tablet,extended release Allergies Allergy/AdvReac Type Severity Reaction Status Date / Time naproxen (From Aleve) Allergy Severe Anaphylaxis Verified 04/05/24 15:06 bupropion (From Wellbutrin) Allergy Mild Unknown Verified 04/05/24 15:06 duloxetine Allergy Unknown tremmors Verified 04/05/24 15:06 [facility] Medical History (Updated 04/05/24 @ 16:57 by Angus Capone MD) Hypokalemia ?E87.6 - Hypokalemia (ICD-10) Hypogammaglobulinaemia, unspecified ?D80.1 - Nonfamilial hypogammaglobulinemia (ICD-10) Plasma cell neoplasm ?D49.89 - Neoplasm of unspecified behavior of other specified sites (ICD-10) Acute respiratory failure with hypoxia ?J96.01 - Acute respiratory failure with hypoxia (ICD-10) Community acquired pneumonia ?J18.9 - Pneumonia, unspecified organism (ICD-10) Hypoxia ?R09.02 - Hypoxemia (ICD-10) Fever ?R50.9 - Fever, unspecified (ICD-10) Pain crisis ?R52 - Pain, unspecified (ICD-10) Lytic bone lesions on xray ?M89.9 - Disorder of bone, unspecified (ICD-10) Pneumonia ?J18.9 - Pneumonia, unspecified organism (ICD-10) Multiple myeloma ?C90.00 - Multiple myeloma not having achieved remission (ICD-10) Polyp of duodenum ?K31.7 - Polyp of stomach and duodenum (ICD-10) Osteoarthritis ?M19.90 - Unspecified osteoarthritis, unspecified site (ICD-10) Compression fracture of L4 vertebra (~06/19/22) ?S32.040A - Wedge compression fracture of fourth lumbar vertebra, initial encounter for closed fracture (ICD-10) Compression fracture of L2 (~06/19/22) ?S32.020A - Wedge compression fracture of second lumbar vertebra, initial encounter for closed fracture (ICD-10) Compression fracture of T12 vertebra (~06/19/22) ?S22.080A - Wedge compression fracture of T11-T12 vertebra, initial encounter for closed fracture (ICD-10) Compression fracture of L1 lumbar vertebra (~06/19/22) ?S32.010A - Wedge compression fracture of first lumbar vertebra, initial encounter for closed fracture (ICD-10) Compression fracture of T11 vertebra (~06/19/22) ?S22.080A - Wedge compression fracture of T11-T12 vertebra, initial encounter for closed fracture (ICD-10) Primary osteoarthritis of right knee ?M17.11 - Unilateral primary osteoarthritis, right knee (ICD-10) Carpal tunnel syndrome, bilateral ?G56.03 - Carpal tunnel syndrome, bilateral upper limbs (ICD-10) Trigger finger of right thumb ?M65.311 - Trigger thumb, right thumb (ICD-10) Alcohol use disorder in remission ?F10.91 - Alcohol use, unspecified, in remission (ICD-10) Pulmonary nodule ?R91.1 - Solitary pulmonary nodule (ICD-10) Adenomatous colon polyp ?D12.6 - Benign neoplasm of colon, unspecified (ICD-10) Shingles ?B02.9 - Zoster without complications (ICD-10) Depression with anxiety ?F41.8 - Other specified anxiety disorders (ICD-10) Allergic rhinitis ?J30.9 - Allergic rhinitis, unspecified (ICD-10) Sleep apnea ?G47.30 - Sleep apnea, unspecified (ICD-10) Essential hypertension ?I10 - Essential (primary) hypertension (ICD-10) Hypercalcemia ?E83.52 - Hypercalcemia (ICD-10) Anemia ?D64.9 - Anemia, unspecified (ICD-10) Thoracic aortic aneurysm without rupture ?I71.20 - Thoracic aortic aneurysm, without rupture, unspecified (ICD-10) Surgical History History of intestinal surgery ?Z98.890 - Other specified postprocedural states (ICD-10) History of thoracic surgery (~05/28/22) ?Z98.890 - Other specified postprocedural states (ICD-10) History of refractive surgery ?Z98.890 - Other specified postprocedural states (ICD-10) H/O esophagogastroduodenoscopy (~01/11/22) ?Z98.890 - Other specified postprocedural states (ICD-10) Hx of appendectomy ?Z90.49 - Acquired absence of other specified parts of digestive tract (ICD-10) S/P carpal tunnel release (~09/20/21) ?Z98.890 - Other specified postprocedural states (ICD-10) H/O colonoscopy ?Z98.890 - Other specified postprocedural states (ICD-10) Family History Mother Colon cancer Heart disease Sister Pancreatic cancer Heart disease High blood pressure Father Prostate cancer Brother Diabetes Daughter Meningioma Social History Narrative: . Living with daughter, Fidelia, since diagnosis of MM. Fidelia is a nurse and is helping set up and administer Adalgisa's many medications. What is your current living situation?: I presently have a place to live Problems where you live: no known problems Problems where you live details: n/a In the past 12 months, utilities in danger of being shut off: no In past 12 months, lack of transportation kept you from medical appts, meetings, work, or getting things needed for daily living: no In the past 12 mos, have been you worried that your food would run out before you had money to buy more?: never true In the past 12 mos, the food you bought just didn't last and you didn't have money to buy more?: never true Highest level of school completed/degree received: 12th grade, no diploma Smoking Status: Former smoker What tobacco products do you use: cigarettes Smoking quit date/years: >15 years ago Do you use any of these nicotine containing products: None Second hand tobacco smoke exposure: No How often do you have a drink containing alcohol: never How often do you have six or more drinks on one occasion: Never AUDIT-C Alcohol total score: 0 Non-prescribed substance use: denies use Caffeine: No How often does anyone, including family, friends and others, physically hurt you: never How often does anyone, including family, friends and others, insult or talk down to you: never How often does anyone, including family, friends and others, threaten you with harm: never How often does anyone, including family, friends and others, scream or curse at you: never service: No Exam Narrative: Exam Narrative: Constitutional: Appears well-developed and well-nourished. Alert. Conversant. Non toxic. HENT: Head: Atraumatic. Nose: Nose normal. Mouth/Throat: Oral mucosa is clear and moist. no trismus. Pharynx normal. Tonsils symmetric. No tonsillar enlargement, erythema, or exudate. Eyes: Conjunctivae normal. EOM normal. Pupils equal, round, and reactive to light. No scleral icterus. Neck: Normal range of motion. Neck supple. No tracheal deviation present. Cardiovascular: Normal rate, regular rhythm. No gallop. No friction rub. No murmur heard. Symmetric radial artery pulses Pulmonary/Chest: Effort normal. No stridor. No respiratory distress. No wheezes. No rales. No rhonchi . No tenderness. Abdominal: Soft. No distension. No mass. No tenderness. No rebound. No guarding. Musculoskeletal: RUE: Normal range of motion. No tenderness. No deformity LUE: Normal range of motion. No tenderness. No deformity RLE: Normal range of motion. No edema. No tenderness. No deformity LLE: Normal range of motion. No edema. No tenderness. No deformity Neurological: Alert and oriented to person, place, and time. Normal strength. CN II-VII intact. No sensory deficit. GCS eye subscore is 4. GCS verbal subscore is 5. GCS motor subscore is 6. Normal coordination Skin: Skin is warm and dry. No rash noted. No pallor. Normal capillary refill. Psychiatric: Normal mood. Normal affect. Very polite. Const: Vital Signs, click to edit/add: Vital Signs - 24 hr 04/05/24 15:01 Temperature 98.8 F Pulse Rate [Right Pulse Oximeter] 74 Respiratory Rate 17 Blood Pressure [Ri ght Upper Arm] 127/71 Pulse Oximetry 96 Oxygen Delivery Me thod Room Air Course Course ED Course: Reviewed liver pull medication interaction database. There are potential interactions between Paxlovid and the patient's bortezomib, also amlodipine, also morphine, also oxycodone, also trazodone. Discussed with [facility], Dr. Diaz. He would recommend that they prefer remdesivir further cancer patients. He would recommend a 5 day course 1 dose daily for 5 days. Discussed with live in housekeeper nanny, back up. She confirms that we do have remdesivir in stock. We will administer the patient's 1st dose here in the ER today. Then we can discharge her home with her IV in place and she can come back to the hospital tomorrow for outpatient infusions on days 2, 3, 4, 5. Updated the patient and her family. They are pleased with the plan of care. Vital Signs Vital signs: Initial Vital Signs Temperature 98.8 F 04/05/24 15:01 Temperature Source Temporal Artery Scan 04/05/24 15:01 Pulse Rate 74 04/05/24 15:01 Pulse Rhythm Regular 04/05/24 15:01 Pulse Strength 3+ Normal 04/05/24 15:01 Respiratory Rate 17 04/05/24 15:01 Blood Pressure 127/71 04/05/24 15:01 Blood Pressure Mean 89 04/05/24 15:01 Blood Pressure Position Sitting 04/05/24 15:01 Pulse Oximetry 96 04/05/24 15:01 Oxygen Delivery Method Room Air 04/05/24 15:01 Vital Signs Temperature 98.8 F 04/05/24 15:01 Pulse Rate 74 04/05/24 15:01 Respiratory Rate 17 04/05/24 15:01 Blood Pressure 127/71 04/05/24 15:01 Pulse Oximetry 96 04/05/24 15:01 Oxygen Delivery Method Room Air 04/05/24 15:01 Temperature 98.8 F 04/05/24 15:01 Pulse Rate 74 04/05/24 15:01 Respiratory Rate 17 04/05/24 15:01 Blood Pressure 127/71 04/05/24 15:01 Pulse Oximetry 96 04/05/24 15:01 Oxygen Delivery Method Room Air 04/05/24 15:01 Medications Administered Medications: Discontinued Medications Generic Name Dose Route Start Last Admin Trade Name Freq PRN Reason Stop Dose Admin Remdesivir 200 mg/ Sodium 290 mls @ 290 mls/hr 04/05/24 17:00 04/05/24 18:20 Chloride IVPB 04/05/24 17:59 Infused ONCE ONE Infusion Medical Decision Making MDM Narrative Medical decision making narrative: This patient presents for evaluation of 2 days of cough, nasal congestion, body aches, low-grade fevers.. This is consistent with an upper respiratory tract infection. Viral testing positive for coronavirus at home and by PCR here in the ER today. Chest x-ray is negative for any significant infiltrates. She has no hypoxia.. There is no signs at this point of serious bacterial infection such as OM, RPA, epiglottitis, HYDRAULIC RUBBISH [employer] MECH[employer]IC, strep pharyngitis, pneumonia, sinusitis, meningitis, bacteremia, serious bacterial infection. There are no significant gastrointestinal symptoms at this point and no signs of dehydration. Laboratory workup shows[] She is at high risk for severe disease because she has multiple myeloma and is on chemotherapy. In discussion with the patient's oncologist we will start her IV remdesivir (preferred by oncology over Paxlovid due to medication interactions). Close followup with primary care physician or her oncologist is indicated. Labs show mild leukopenia which is similar to prior. Normal kidney function. Otherwise reassuring. Discussed that even with remdesivir there is still a chance she could worsen if she has worsening cough or trouble breathing, weakness, low oxygen levels, or any concerns she will return to the ER right away. Lab Data Labs: Lab Results 04/05/24 04/05/24 Range/Units 15:06 16:40 WBC 3.36 L (4.50-11.00) K/uL RBC 3.80 L (4.00-5.20) m/uL Hgb 11.6 L (12.0-16.0) gm/dL Hct 34.8 (33.0-51.0) % MCV 92 (80-100) fL MCH 31 (26-34) pg MCHC 33 (32-36) gm/dL RDW Coeff of Susana 14.4 (11.5-15.5) % Plt Count 116 L (140-440) K/uL Neut % (Auto) 57.1 (42.0-72.0) % Lymph % (Auto) 25.6 (20-44) % Mcduffie % (Auto) 14.0 H (0.0-11.0) % Eos % (Auto) 1.2 (0.0-7.0) % Baso % (Auto) 1.8 (0.0-3.0) % Neut # (Auto) 1.90 (1.7-7.0) K/uL Lymph # (Auto) 0.90 (0.90-2.90) K/uL Mcduffie # (Auto) 0.50 (0.00-0.90) K/UL Eos # (Auto) 0.00 (0.00-0.50) K/uL Baso # (Auto) 0.10 (0.00-0.30) K/uL Abs Immat Gran (auto) 0.00 (0.00-0.30) K/uL Imm/Tot Granulo (auto) 0.3 % Sodium 134 L (135-149) mmol/L Potassium 3.7 (3.6-5.1) mmol/L Chloride 97 (96-114) mmol/L Carbon Dioxide 31 (20-32) mmol/L Anion Gap 6 L (7-15) mEq/L BUN 9 (7-30) mg/dL Creatinine 0.5 (0.5-1.5) mg/dL Estimated Creat Clear 43.18 Estimated GFR 103 ml/min Glucose 105 (60-115) mg/dL Calcium 8.3 L (8.4-10.6) mg/dL SARS-CoV-2 (PCR) POSITIVE SARS-CoV-2 A (Negative) Influenza Type A (PCR) Negative PCR FLU A (Negative) Influenza Type B (PCR) Negative PCR FLU B (Negative) RSV (PCR) Negative PCR RSV (Negative) Imaging Data Chest x-ray: Attestation: I have reviewed the pertinent imaging results. Radiologist's impression: IMPRESSION: Trace left basilar atelectasis. No pneumothorax. Discharge Plan Discharge Clinical Impression: COVID-19 Patient Disposition: Home, Self-Care Condition: Stable Instructions: COVID-19 (Coronavirus Disease 2019) (ED) Additional Instructions: As we discussed, come back to the [facility] once daily for the next 4 days to receive your next infusions of remdesivir Coronavirus can cause really serious illness. There is a chance you could get worse, even though you are receiving remdesivir infusions. If you have worsening trouble breathing, oxygen levels below 90%, weakness, high fever, confusion, uncontrolled vomiting or diarrhea or dehydration, or if you have any problems, please come back to the emergency department right away to be rechecked. Prescriptions: No Action acyclovir 400 mg tablet 400 mg PO BID Qty: 60 4RF senna 8.6 mg capsule 8.6 mg PO BID PRN metoprolol tartrate 25 mg tablet 25 mg PO BID amlodipine 5 mg tablet 5 mg PO QDAY morphine 30 mg tablet extended release 30 mg PO BID prochlorperazine maleate [Compazine] 10 mg tablet 10 mg PO Q6H PRN trazodone 50 mg tablet 50 mg PO QHS PRN lenalidomide 10 mg capsule 10 mg PO .COMPLEX Rx Instructions: 10 mg orally 21 days on, 7 days off, every 28 days; swallow whole with glass of water; do not open, crush, chew , break, or dissolve acetaminophen [Acetaminophen Extra Strength] 500 mg tablet 1,000 mg PO BID polyethylene glycol 3350 17 gram/dose powder 17 g PO DAILY PRN naloxone 4 mg/actuation spray,non-aerosol 1 spray INTRANASAL Q2M PRN Patient Comments: 1 SPRAY INTO ONE NOSTRIL FOR REVERSAL. USE 1 SPRAY IN 1 NOSTRIL. REPEAT WITH SECOND DEVICE IN OTHER NOSTRIL AFTER 2-3 MINUTES IF NO RESPONSE lorazepam 0.5 mg tablet 0.5 mg PO QHS PRNQty: 30 0RF sertraline 100 mg tablet 200 mg PO DAILY aspirin [Enteric Coated Aspirin] 81 mg tablet,delayed release (DR/EC) 81 mg PO DAILY oxycodone 5 mg Tablet 10 mg PO Q4H PRN (Reason: pain) bortezomib [Velcade] 3.5 mg recon soln 2.1 mg subcut QWEEK mirtazapine 15 mg tablet 15 mg PO QPM potassium chloride 20 mEq tablet extended release 20 meq PO QDAY Qty: 7 0RF Follow Up/Referrals: Cookie Deras MD [Primary Care Provider] - Stand Alone Forms: [facility] Info Instructions
[2024-04-05 15:53] LABS: PCR FLU A Negative PCR FLU A (Negative); PCR FLU B Negative PCR FLU B (Negative); PCR RSV Negative PCR RSV (Negative); SARS PCR* POSITIVE SARS-CoV-2 (Negative)
--- OUTSIDE RECORDS SUMMARY | 2024-04-05 16:08 | XMS_ITS | Encounter Summary ---
Author Organization [facility] Address [address] [place] [id number] Care Team Providers Care Oracle Dba Name Role Phone None Reported, Pcp Primary Care Provider Unavail able Reason for Visit * Reason Onset Date Comments Prescreen Immunization Review 03/17/2024 Encounter Details Date Type Department Care Team (Latest Contact Info) Description 03/17/2024 Clinical Communication Section of Infectious Diseases in [place], [place] [address] [place] [phone] Alcides Archer, RCodyN. [address] [place] [id number] Prescreen Immunization Review Social History Tobacco Use Types Packs/Day Years Used Date Smoking Tobacco: Former Cigarettes 1 40 0 04/01/1972 - 04/01/2012 Smokeless Tobacco: Never Alcohol Use Standard Drinks/Week Comments Not Currently 0 (1 standard drink = 0.6 oz pur e alcohol) [facility] Utilities Answer Date Recorded In the past 12 months has e electric, gas, oil, or water [employer] threatened to shut off services in your [...] any clubs o r organizations such as yarsanism groups, unions, fraternal or athletic groups, or [...] Answer Date Recorded PHQ-2 Score 1 10/14/2022 [facility] - Occupational Stress [...] PM CDT Legal Sex Female 9:56 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
--- OUTSIDE RECORDS SUMMARY | 2024-04-05 16:08 | XMS_ITS | Clinical Summary ---
Author Organization [employer] [facility] s [facility] Address [place], [place] [address] Care Team Providers Care Complaint Analyst Name Role Phone Cookie Deras MD Primary Care Provide r [facility] Care, [place] Unavailable Allergies Active Allergy Reactions Criticality Noted [...] (06/25/2022): Added automatically from request for surgery [id number] S/P carpal tunnel release, right 11/13/2021 Primary [...] Type Department Care Team Description 03/24/[address] [facility] [address] [place] [address] Cookie Deras MD Refill Request (oxyCODONE (ROXICODONE) 5 mg immediate release tablet/LORazepam (ATIVAN) 0.5 mg tab) 03/09/2024 11:10 AM BAFFLE MOUNTER Telemedicine [address] [place] [id number] Camille Juarez NP Sinus Problem 03/09/2024 Travel 03/05/2024 Travel 02/06/2024 2:15 PM BAFFLE MOUNTER Telemedicine [facility] [address] [place] [address] Cookie Deras MD Follow Up (Refills/B/P is doing well 148/72 P:67 T:97 W:132 Lbs just before appointment. B/P was better yesterday.) 02/06/2024 Travel 02/03/[address] [facility] [address] [place] [id number] Cookie Deras MD Medication refills 02/03/[address] [facility] [address] [place] [id number] Cookie Deras MD Refill Request (Acyclovir) 02/01/2024 Travel 01/22/[address] [facility] [address] [facility] [place] [id number] Cookie Deras MD Refill Request (Lorazepam) 01/14/2024 2:40 PM CDT Office Visit [facility] [address] [place] [id number] Cookie Deras MD Hospital F/U (Went in for hypertension 12/30 was admitted ) 01/14/2024 Travel from Last 3 Months Immunizations Name Administration Dates Next Due COVID-19 vaccine ([employer] 30mcg/0.3mL) PF, MDV 02/22/2021,07/07/2020,06/16/2020 [id number] 01/24/2024 Hepatitis A (Adult) 01/24/2024 Hepatitis B [...] in her late 70s Heart Disease Mother [place]- 92 Hypertension Sister 1 Heart Disease Sister 2 [place] at age 60 Cancer-pancreatic Sister 3 2 [...] = 0.6 oz pur e alcohol) [facility] Utilities Answer Date Recorded Do you have [...] on file Legal Sex Female 5:26 AM BAFFLE MOUNTER Gender Identity Not on file Sexual Orientation [...] care provider. XR MAMMO ROSA BILAT SCREEN [[id number]] CLINICAL HISTORY: This is an asymptomatic 67 [...] - 199 mg/dL 12/11/2018 8:23 PM CDT [facility] TRIGLYCERIDES 304(H) <150 mg/dL 12/11/2018 8:23 PM CDT [facility] HDL CHOLESTEROL 55 >40 mg/dL 9 8:23 PM CDT [facility] NON-HDL CHOLESTEROL 185(H) <145 mg/dl 12/11/2018 8:23 PM CDT [facility] CHOL/HDL RATIO 4.36 <4.50 12/11/2018 8:23 PM CDT [facility] LDL CHOLESTEROL 124 <=130 mg/dL 12/11/2018 8:23 PM CDT [facility] PROVIDER ORDERED STATUS RANDOM 12/11/2018 8:23 PM CDT [facility] Blood BLOOD SPECIMEN / Unknown Venipuncture / Unknown 12/11/2018 4:11 PM CDT 12/11/2018 4:11 PM CDT us Cookie Елена Deras MD CHEMISTRY Final Result [facility] [address] [place] [address], [place] * COLONOSCOPY (12/24/2017 7:58 AM CDT) [...] adequate candidate for conscious sedation. The [id number] [id number] was passed through the anus and advanced tothe cecum, identified by appendiceal orifice and ileocecal valve. The [id number] was passed through the and advanced to. [...] reponse to care. [facility] flow[facility] and nursing notes for moderate sedation details. Total physician intraservice time was 17 minutes. Denver Trinh MD 12/24/2017 9:06:34 AM This report has been signed electronically. Note Initiated On: 12/24/2017 7:58 AM Procedure Code(s): --- Professional --- 50246, Colonoscopy, flexible; with biopsy, single or multiple Diagnosis Code(s): --- Professional --- Z86.010, Personal history of colonicpolyps D12.2, Benign neoplasm of ascending colon D12.3, Benign neoplasm of transverse colon (hepatic flexure or splenic flexure) CPT copyright 2017 [employer] [place] [employer]. All rights reserved. The codes documented in this report are preliminary and upon certified medical records coder reviewmay be revised to meet current compliance requirements. Scope In: 8:48:12 AM Scope Withdrawal Time 0 hours 8 minutes 28 seconds Scope Out: 9:03:03 AM Denver Trinh MD PROCEDURE ORD Final Res ult from Last 3 Months or Most Recently Relevant to Health Maintenance Insurance MEDICARE PART A HB ONLY BLUE CROSS ID ADVANTAGE MEDICARE PART B HB ONLY MEDICARE PPS Advance Directives * Full Code (Latest Code Status on File) Date Activated Date Inactivated Comments 07/21/2022 8:14 AM 07/29/2022 4:34 PM Question Answer Comments Code Status Discussion: Reviewed Preferences * Full Code Date Activated Date Inactivated Comments 07/20/2022 3:48 PM 07/21/2022 8:14 AM Paperwork at [employer] but trying to get to us; patient [...] Code Status Discussion: Reviewed Preferences Care Teams Complaint Analyst Relationship Specialty Start Date End Date Cookie Deras MD [address] [place] [address] PCP - General Family Practice 11/06/[address] [address] 07/29/22
--- OUTSIDE RECORDS SUMMARY | 2024-04-05 16:08 | XMS_ITS | Clinical Summary ---
Author Organization [facility] Address [address] [place] [address] Care Team Providers Care Molecular Biology Scientist Name Role Phone None Reported, Pcp Primary Care Provider Unavail able Source Comments Patient records contain information from all sites at [facility]. For routine questions regarding patient records, call [phone] during business hours, M-F 8:00 AM - 5:00 PM Central Time. Record requests for emergency care only can be directed to [phone] at any time.[facility] Allergies Active Allergy Reactions Criticality Noted Date [...] Pain/Nonacute Pain. 60 tablet 05/27/2023 1:25 PM LIFEGUARD 4 Active Additional Information Patient taking differently:30 mg oral2 times daily, Indications: Chronic Pain/Nonacute Pain, Reported on 01/24/2024 oxyCODONE (ROXICODONE) 5 mg immediate release tabletIndicatio ns:Chronic Pain/Nonacute Pain Take 1 tablet (5 mg total) by mouth every 4 (four) hours as needed for pain Indication: Chronic Pain/Nonacute Pain. 60 tablet 05/27/2023 1:25 PM LIFEGUARD 4 Active metoprolol tartrate (LOPRESSOR) 25 mg [...] Chest 04/30/2023 Anemia Iron Deficiency 04/11/2023 Other [facility] Current Drug Therapy 01/04/2023 Transplant Stem Cell 01/02/2023 Regurgitation Aortic Rheumatic 01/01/2023 Secondary Malignant Neoplasm Bone 08/02/2022 Multiple Myeloma Not Having Achieved Remission 0 08/02/2022 Mass Mediastinal 05/01/2022 Overview (05/01/2022): Added automatically from request for surgery [id number] Hypomagnesemia 03/28/2022 Polyp Duodenal 03/27/2022 Mass Small Bowel 02/27/2022 Overview (02/27/2022): Added automatically from request for surgery [id number] Osteoarthritis Aneurysm Thoracic Aorta Personal History Hypertension Essential Primary Depression Anxiety Apnea Sleep Obstructive Encounters Date Type Department Care Team Description 03/26/2024 1:00 PM LIFEGUARD Nurse Only Section of Infectious Diseases in [place], [place] [address] [place] [address] Paramjit Pablo M.D. Snider, Lynn A, R.N. Immunizations 03/17/2024 Clinical Communication Section of Infectious Diseases in [place], [place] [address] [place] [address] Gianni, Alcides E, R.N. Prescreen Immunization Review 03/11/2024 Clinical Communication Division of Hematology in [place], [place] [address] [place] [phone] Paramjit Pablo M.D. Med Question 02/12/2024 2:00 PM LIFEGUARD Comprehensive Visit Department of Radiology, [facility], in [address] [address] Ursula Osorio APRN C.N.P., M.S.N. Multiple Myeloma In Remission (HCC) (Primary Dx); Pain Back; Pain Cancer Associated; Transplant Stem Cell (HCC); Bone Marrow Transplant Status (HCC); Secondary Malignant Neoplasm Bone (HCC); Depression Anxiety; Hypertension Essential Primary; Apnea Sleep Obstructive; Hepatitis C; Multiple Myeloma Not Having Achieved Remission (HCC) 02/12/2024 12:02 PM LIFEGUARD - 02/12/2024 11:59 PM LIFEGUARD Hospital Encounter Department of Radiology, [facility] in [address] [address] Ann Fernandez M.D. Secondary Malignant Neoplasm Bone (HCC); Transplant Stem Cell (HCC); Pain Back; Multiple Myeloma In Remission (HCC) Discharge Disposition: Home or Self Care 02/12/2024 8:30 AM LIFEGUARD Office Visit Department of Palliative Care in [address] [address] Jazmin Canas M.D., M.S. Multiple Myeloma Not Having Achieved Remission (HCC) (Primary Dx); Pain Back; Anxiety; Palliative Care 02/11/2024 7:45 AM LIFEGUARD Clinical Communication Virtual Review in [address] [address] Pre-visit Intake 01/24/2024 1:20 PM CDT Nurse Only Section of Infectious Diseases in [address] [address] Paramjit Pablo M.D. Arens, Andrea E RDelisa. Immunizations 01/21/2024 Orders Only Department of Palliative Care in [address] [address] Ann Fernandez M.D. Secondary Malignant Neoplasm Bone (HCC) (Primary Dx); Transplant Stem Cell (HCC); Pain Back; Multiple Myeloma In Remission (HCC) 01/21/2024 Clinical Communication Department of Palliative Care in [place], [place] [address] [place] [address] Jazmin Canas M.D., M.S. 01/20/2024 12:57 PM CDT - 01/20/2024 11:59 PM CDT Hospital Encounter Department of Radiology, [place], [place] [address] [place] [address] Jazmin Canas M.D., M.S. Multiple Myeloma Not [...] 0.6 oz pur e alcohol) [facility] Utilities Answer Date Recorded In the past 12 months has [facility] [employer], gas, oil, or water [employer] threatened to shut off services in your [...] often do you attend chur ch or mormon services? Never 01/26/2022 Do you belong to any clubs o r organizations such as hoahaoism groups, unions, fraternal or athletic groups, or [...] Answer Date Recorded PHQ-2 Score 1 10/14/2022 [facility] Stress Questionnaire Answer Date Recorded [...] your living situation today? I have a [facility] place to live 04/30/2023 Education Answer Date Recorded What is the highest level of school you have completed or the highest degree you have received? 12th grade 01/26/2022 Comments No Sex and Gender Information Value Date Recorded Sex Assigned at Female 01/26/2022 1:25 PM CDT Legal Sex Female 9:56 AM LIFEGUARD Gender Identity Female 01/26/2022 1:25 PM CDT Sexual Orientation Straight 01/26/2022 1: 25 PM CDT Last Filed Vital Signs Vital Sign Reading Time Taken Comments Blood Pressure 152/81 02/12/2024 8:15 AM LIFEGUARD Pulse 72 02/12/2024 8:15 AM LIFEGUARD Temperature 37.1 C (98.8 F) 02/12/2024 8:15 AM LIFEGUARD Respiratory Rate 16 01/20/2024 3:02 PM CDT Oxygen Saturation 95% 02/12/2024 8:15 AM LIFEGUARD Inhaled Oxygen Concentration - - Weight 60.9 [...] history exists Medical Devices Implanted Type Area Turn Down Man Device Identifier Shelf Expiration Date Model / Serial / Lot Clp Hrzn Ti 6 Clp Hector - [id number] Implanted:Qty : 1 on 03/27/2022 by Radames Reynolds M.D. at [facility] Hardware e.g. pins/screws/ rods N/A: [employer] [id number] / / Clp Hrzn Ti 6 Clp Lg Orng - [id number] Implanted:Qty : 1 on 03/27/2022 by Radames Reynolds M.D. at [facility] Hardware e.g. pins/screws/ rods N/A: [employer] [id number] / / Procedures Procedure Name Priority Date/Time Associated Diagnosis Comments DX THORACIC SPINE 2 VIEWS RAD - Routine (most inpatients and all outpatients) 02/12/2024 12:32 PM LIFEGUARD Secondary Malignant Neoplasm Bone (HCC) Transplant Stem Cell (HCC) Pain Back Multiple Myeloma In Remission (HCC) DX LUMBAR SPINE 2-3 VIEWS RAD - Routine (most inpatients and all outpatients) 02/12/2024 12:32 PM LIFEGUARD Secondary Malignant Neoplasm Bone (HCC) Transplant Stem [...] AND D3, S Routine 04/10/2023 10:53 AM LIFEGUARD Multiple Myeloma Not Having Achieved Remission (HCC) Transplant Stem Cell (HCC) URINALYSIS WITH MICROSCOPIC Routine 04/10/2023 10:53 AM LIFEGUARD Multiple Myeloma Not Having Achieved Remission (HCC) [...] Lumbar Spine 2-3 Views (02/12/2024 12:32 PM LIFEGUARD) Anatomical Region Laterality Modality Lumbar Spine, Musculoskeleta l RST LOS, Neuroradiology ARZ LOS, Muskuloskeletal FLA LOS N/A Digital Radiography Impressions 02/12/2024 12:54 PM LIFEGUARD Demineralization. As seen on prior CT and [...] fractures. Aortic calcification. Narrative 02/12/2024 12:54 PM LIFEGUARD EXAM: DX LUMBAR SPINE 2-3 VIEWS, DX [...] calcification. Ann Fernandez M.D. IM DIAGNOSTIC IMAGING [facility] Final Result * DX Thoracic Spine 2 Views (02/12/2024 12:32 PM LIFEGUARD) Anatomical Region Laterality Modality Thoracic Spine, Musculoskele eva RST LOS, Neuroradiology ARZ LOS, Muskuloskeletal FLA LOS N/A Digita l Radiography Impressions 02/12/2024 12:54 PM LIFEGUARD Demineralization. As seen on prior CT and [...] fractures. Aortic calcification. Narrative 02/12/2024 12:54 PM LIFEGUARD EXAM: DX LUMBAR SPINE 2-3 VIEWS, DX [...] LAB BLOOD NON ADD-ON Final Re sult [facility] [address] [place], [place] [address] DTL [facility] [address] [place] [address] * 25-Hydroxyvitamin D2 and D3 (04/10/2023 10:53 AM LIFEGUARD) 25-Hydroxy D2 <4.0 ng/mL 04/11/2023 9:50 PM LIFEGUARD SDSC 25-Hydroxy D3 38 ng/mL 04/11/2023 9:50 PM LIFEGUARD SDSC 25-Hydroxy D Total 38 ng/mL 2023 9:50 PM LIFEGUARD SDSC Comment: ----REFERENCE VALUE---- 25-HYDROXY D TOTAL (D2+D3) Optimum levels in the healthy population are 20-50, patients with bone disease may benefit from higher levels within this range. ----ADDITIONAL INFORMATION---- This test was developed and its performance characteristics determined by [facility] in a manner consistent with CLIA requirements. This test has not been cleared or approved by the U.S. Food and Drug Administration. Blood (Blood, Venous) 04/10/2023 10:53 AM LIFEGUARD 04/11/2023 7:11 AM LIFEGUARD us Emily Alva APRN C.N.P., D.N.P. LAB BLOOD ADD-ON Final Result [facility] SUPPORT EXPORT [address] [place] [address] [facility] [address] [place] [address] [place] [address] * (ABNORMAL) Urinalysis with Microscopic: Urine, Midstream (04/10/2023 10:53 AM LIFEGUARD) Source Urine, Urine, Midstream 04/10/2023 11:20 AM LIFEGUARD DTL Color, U Yellow 04/10/2023 11:20 AM LIFEGUARD DTL Clarity, U Clear 04/10/2023 11:20 AM LIFEGUARD DTL Protein, U 6 <26 mg/dL 04/10/2023 12:18 PM LIFEGUARD DTL Protein/Osmol ality 0.36 <0.42 ratio 04/10/2023 12:38 PM LIFEGUARD DTL Predicted 24 HR Protein, U 267(H) <229 mg/24 h 04/10/2023 12:38 PM LIFEGUARD DTL Predicted Range 66-1081 mg/24 h 04/10/2023 12:38 PM LIFEGUARD DTL Urine (Urine, Midstream) 04/10/2023 10:53 AM LIFEGUARD 04/10/2023 11:20 AM LIFEGUARD Emily Alva APRN, C.N.P., D.N.P. LAB URINE ORDERABLES Final Result [facility] [address] [place] [address], [facility] [address] [place] [address] * Pulmonary Function Tests (01/02/2023 7:07 AM CDT) PostFVC 2.07 L 01/02/2023 10:16 AM CDT [facility] PostFEV1 1.44 L 01/02/2023 10:16 AM CDT [facility] FEV1/FVC POST 69.65 % 01/02/2023 10:16 AM CDT [facility] FEF 25-75 % POST 0.78 L/s 01/02/2023 10:16 AM CDT [facility] PEF POST 5.20 L/s 01/02/2023 10:16 AM CDT [facility] PIF POST 4.08 L/s 01/02/2023 10:16 AM CDT [facility] FEF 50 % FIF 50 POST 33.35 % 01/02/2023 10:16 AM CDT [facility] FET POST 10.92 sec 01/02/2023 10:16 AM CDT [facility] TLC 4.02 L 01/02/2023 10:16 AM CDT [facility] FRCPLETH PROVBASE 2.36 L 01/02/2023 10:16 AM CDT [facility] RV 2.01 L 01/02/2023 10:16 AM CDT [facility] RV % TLC PRE 49.98 % 01/02/2023 10:16 AM CDT [facility] DLCO 10.73 ml/(min*mm Hg) 01/02/2023 10:16 AM CDT [facility] DLCOc 12.61 ml/(min*mm Hg) 01/02/2023 10:16 AM CDT [facility] HB 9.40 g(Hb)/dL 01/02/2023 10:16 AM CDT [facility] VA 3.42 L 01/02/2023 10:16 AM CDT [facility] FVC 1.87 L 01/02/2023 10:16 AM CDT [facility] FEV1 1.35 L 01/02/2023 10:16 AM CDT [facility] FEV1/FVC 72.23 % 01/02/2023 10:16 AM CDT [facility] EZA81-14% 0.79 L/s 01/02/2023 10:16 AM CDT [facility] PEF PRE 4.58 L/s 01/02/2023 10:16 AM CDT [facility] PIF PRE 3.65 L/s 01/02/2023 10:16 AM CDT [facility] FEF 50 % FIF 50 PRE 38.92 % 01/02/2023 10:16 AM CDT [facility] FET PRE 8.88 sec 01/02/2023 10:16 AM CDT [facility] SUBSTANCE POST Albuterol 01/02/2023 10:16 AM CDT [facility] 01/02/2023 7:07 AM CDT Impressions [facility] - 01/02/2023 10:16 AM CDT [...] M.D. LAB BLOOD ADD-ON Final R esult [facility] [address] [place] [address], [place] DTL [facility] [address] [place] [address] * CT Chest with IV Contrast (01/30/2022 [...] Indicated Protective Environment 03/17/2023 3 Insurance MEDICARE [facility] [place] [address] Advance Directives For more information, please contact: [phone] Documents on File Type Date Recorded Patient Derrick Boat Leverman Expl anation Advance Directives 03/28/2022 6:46 AM [...] Pratt Daughter First Alternate Health Care Agent [email or web address] Care Teams Molecular Biology Scientist Relationship Specialty Start Date End Date None Reported, Pcp PCP - General 02/07/24
--- OUTSIDE RECORDS SUMMARY | 2024-04-05 16:08 | XMS_ITS | Encounter Summary ---
Author Organization [facility] Address [address] [place] [address] Care Team Providers Care Transfer Controller Name Role Phone None Reported, Pcp Primary Care Provider Unavail able Reason for Visit * Reason Comments Immunizations Encounter Details Date Type Department Care Team (Late st Contact Info) Description 03/26/2024 1:00 PM GEOPHYSICAL ENGINEER Nurse Only Section of Infectious Diseases in [place], [place] [address] [place] [phone] Paramjit Pablo M.D. [address] [place] [phone] Maryjo Pineda R.N. [address] [place] [phone] Immunizations Social History Tobacco Use Types Packs/Day Years Used Date Smoking Tobacco: Former Cigarettes 1 40 0 04/01/1972 - 04/01/2012 Smokeless Tobacco: Never Alcohol Use Standard Drinks/Week Comments Not Currently 0 (1 standard drink = 0.6 oz pur e alcohol) [facility] Utilities Answer Date Recorded In the past [...] often do you attend chur ch or taoism services? Never 01/26/2022 Do you belong to any clubs o r organizations such as scientology groups, unions, fraternal or athletic groups, or [...] Answer Date Recorded PHQ-2 Score 1 10/14/2022 [employer] [facility] Occupat ional Health - Occupational Stress [...] your living situation today? I have a [facility] place to live 04/30/2023 Education Answer Date Recorded What is the highest level of school you have completed or the highest degree you have received? 12th grade 01/26/2022 Comments No Sex and Gender Information Value Date Recorded Sex Assigned at Female 01/26/2022 1:25 PM CDT Legal Sex Female 9:56 AM GEOPHYSICAL ENGINEER Gender Identity Female 01/26/2022 1:25 PM CDT [...] questions, contact your Hematology team. Additional Notes: HYSICAL ENGINEER documented in this encounter Plan of Treatment Not on file documented as of this encounter Visit Diagnoses Diagnosis Transplant Stem Cell (HCC)- Primary documented in this encounter Additional Health Concerns Infection Onset Date Last Indicated Resolved Time Protective Environment 03/17/2023 03/17/2023 documented as of this encounter Care Teams Transfer Controller Relationship Specialty Start Date End Date None Reported, Pcp PCP - General 02/07/24 documented as of this encounter
--- OUTSIDE RECORDS SUMMARY | 2024-04-05 16:08 | XMS_ITS | Referral Summary ---
Author Organization [facility] Address [address] [place] [address] Care Team Providers Care Reinforcing Steel Worker Name Role Phone None Reported, Pcp Primary Care Provider Unavail able Source Comments Patient records contain information from all sites at [facility]. For routine questions regarding patient records, call [phone] during business hours, M-F 8:00 AM - 5:00 PM Central Time. Record requests for emergency care only can be directed to [phone] at any time.[facility] Encounters Date Type Department Care Team Description 03/26/2024 1:00 PM SOLUTION DESIGN AND ANALYSIS MANAGER Nurse Only Section of Infectious Diseases in [place], [place] [address] [place] [phone] Paramjit Pablo M.D. Snider, Lynn A, R.N. Immunizations 03/17/2024 Clinical Communication Section of Infectious Diseases in [place], [place] [address] [place] [phone] Alcides Archer R.N. Prescreen Immunization Review 03/11/2024 Clinical Communication Division of Hematology in [place], [place] [address] [place] [phone] Paramjit Pablo M.D. Med Question 02/12/2024 12:02 PM SOLUTION DESIGN AND ANALYSIS MANAGER - 02/12/2024 11:59 PM SOLUTION DESIGN AND ANALYSIS MANAGER Hospital Encounter Department of Radiology, [facility], in [place], [place] [address] [place] [phone] Ann Fernandez M.D. Secondary Malignant Neoplasm Bone (HCC); Transplant Stem Cell (HCC); Pain Back; Multiple Myeloma In Remission (HCC) Discharge Disposition: Home or Self Care 02/12/2024 2:00 PM SOLUTION DESIGN AND ANALYSIS MANAGER Comprehensive Visit Department of Radiology, [facility], in [place], [place] [address] [place] [phone] Ursula Osorio APRN CCodyN.P., M.S.N. Multiple Myeloma In Remission (HCC) (Primary Dx); Pain Back; Pain Cancer Associated; Transplant Stem Cell (HCC); Bone Marrow Transplant Status (HCC); Secondary Malignant Neoplasm Bone (HCC); Depression Anxiety; Hypertension Essential Primary; Apnea Sleep Obstructive; Hepatitis C; Multiple Myeloma Not Having Achieved Remission (HCC) 02/12/2024 8:30 AM SOLUTION DESIGN AND ANALYSIS MANAGER Office Visit Department of Palliative Care in [address] [phone] Jazmin Canas M.D., M.S. Multiple Myeloma Not Having Achieved Remission (HCC) (Primary Dx); Pain Back; Anxiety; Palliative Care 02/11/2024 7:45 AM SOLUTION DESIGN AND ANALYSIS MANAGER Clinical Communication Virtual Review in [place], [place] 200 [place] [address] Pre-visit Intake 01/24/2024 1:20 PM CDT Nurse Only Section of Infectious Diseases in [address] [phone] Paramjit Pablo M.D. Arens, Andrea E, R.N. Immunizations 01/21/2024 Orders Only Department of Palliative Care in [place], [place] [address] [place] [phone] Ann Fernandez M.D. Secondary Malignant Neoplasm Bone (HCC) (Primary Dx); Transplant Stem Cell (HCC); Pain Back; Multiple Myeloma In Remission (HCC) 01/21/2024 Clinical Communication Department of Palliative Care in [address] [phone] Jazmin Canas M.D., M.S. 01/20/2024 12:57 PM CDT - 01/20/2024 11:59 PM CDT Hospital Encounter Department of Radiology, [facility], in [place], [place] [address] [place] [address] Jazmin Canas M.D., M.S. Multiple Myeloma Not [...] Pain/Nonacute Pain. 60 tablet 05/27/2023 1:25 PM SOLUTION DESIGN AND ANALYSIS MANAGER 4 Active Additional Information Patient taking differently:30 mg oral2 times daily, Indications: Chronic Pain/Nonacute Pain, Reported on 01/24/2024 oxyCODONE (ROXICODONE) 5 mg immediate release tabletIndicatio ns:Chronic Pain/Nonacute Pain Take 1 tablet (5 mg total) by mouth every 4 (four) hours as needed for pain Indication: Chronic Pain/Nonacute Pain. 60 tablet 05/27/2023 1:25 PM SOLUTION DESIGN AND ANALYSIS MANAGER 4 Active metoprolol tartrate (LOPRESSOR) 25 mg [...] Chest 04/30/2023 Anemia Iron Deficiency 04/11/2023 Other Renewal Specialist Current Drug Therapy 01/04/2023 Transplant Stem Cell 01/02/2023 Regurgitation Aortic Rheumatic 01/01/2023 Secondary Malignant Neoplasm Bone 08/02/2022 Multiple Myeloma Not Having Achieved Remission 0 08/02/2022 Mass Mediastinal 05/01/2022 Overview (05/01/2022): Added automatically from request for surgery [id number] Hypomagnesemia 03/28/2022 Polyp Duodenal 03/27/2022 Mass Small Bowel 02/27/2022 Overview (02/27/2022): Added automatically from request for surgery [id number] Osteoarthritis Aneurysm Thoracic Aorta Personal History Hypertension [...] drink = 0.6 oz pur e alcohol) [facility] Utilities Answer Date Recorded In the past 12 months has e [employer], gas, oil, or water company threatened to [...] any clubs o r organizations such as evangelical groups, unions, fraternal or athletic groups, or [...] your living situation today? I have a [facility] place to live 04/30/2023 Education Answer Date Recorded What is the highest level of school you have completed or the highest degree you have received? 12th grade 01/26/2022 Comments No Sex and Gender Information Value Date Recorded Sex Assigned at Female 01/26/2022 1:25 PM CDT Legal Sex Female 9:56 AM SOLUTION DESIGN AND ANALYSIS MANAGER Gender Identity Female 01/26/2022 1:25 PM CDT Sexual Orientation Straight 01/26/2022 1: 25 PM CDT Last Filed Vital Signs Vital Sign Reading Time Taken Comments Blood Pressure 152/81 02/12/2024 8:15 AM SOLUTION DESIGN AND ANALYSIS MANAGER Pulse 72 02/12/2024 8:15 AM SOLUTION DESIGN AND ANALYSIS MANAGER Temperature 37.1 C (98.8 F) 02/12/2024 8:15 AM SOLUTION DESIGN AND ANALYSIS MANAGER Respiratory Rate 16 01/20/2024 3:02 PM CDT Oxygen Saturation 95% 02/12/2024 8:15 AM SOLUTION DESIGN AND ANALYSIS MANAGER Inhaled Oxygen Concentration - - Weight 60.9 kg (134 lb 2.4 oz) 07/04/2023 3:18 P M CDT Height 152 cm (4' 11.84) 07/04/2023 3:18 PM CDT Body Mass Index 26.34 07/04/2023 3:18 PM CDT Plan of Treatment Not on file Medical Devices Implanted Type Area Call Center Assistant Device Identifier Shelf Expiration Date Model / Serial / Lot Clp Hrzn Ti 6 Clp Md Hector - [id number] Implanted:Qty : 1 on 03/27/2022 by Radames Reynolds M.D. at [facility] Hardware e.g. pins/screws/ rods N/A: [employer] [id number] / / Clp Hrzn Ti 6 Clp Lg Orng - [id number] Implanted:Qty : 1 on 03/27/2022 by Radames Reynolds M.D. at [facility] Hardware e.g. 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) Pain Back Multiple Myeloma In Remission (HCC) DX LUMBAR SPINE 2-3 VIEWS RAD - Routine (most inpatients and all outpatients) 02/12/2024 12:32 PM SOLUTION DESIGN AND ANALYSIS MANAGER Secondary Malignant Neoplasm Bone (HCC) Transplant Stem [...] AND D3, S Routine 04/10/2023 10:53 AM SOLUTION DESIGN AND ANALYSIS MANAGER Multiple Myeloma Not Having Achieved Remission (HCC) Transplant Stem Cell (HCC) URINALYSIS WITH MICROSCOPIC Routine 04/10/2023 10:53 AM SOLUTION DESIGN AND ANALYSIS MANAGER Multiple Myeloma Not Having Achieved Remission (HCC) [...] Lumbar Spine 2-3 Views (02/12/2024 12:32 PM SOLUTION DESIGN AND ANALYSIS MANAGER) Anatomical Region Laterality Modality Lumbar Spine, Musculoskeleta l RST LOS, Neuroradiology ARZ LOS, Muskuloskeletal FLA LOS N/A Digital Radiography Impressions 02/12/2024 12:54 PM SOLUTION DESIGN AND ANALYSIS MANAGER Demineralization. As seen on prior CT and [...] fractures. Aortic calcification. Narrative 02/12/2024 12:54 PM SOLUTION DESIGN AND ANALYSIS MANAGER EXAM: DX LUMBAR SPINE 2-3 VIEWS, DX [...] Thoracic Spine 2 Views (02/12/2024 12:32 PM SOLUTION DESIGN AND ANALYSIS MANAGER) Anatomical Region Laterality Modality Thoracic Spine, Musculoskele eva RST LOS, Neuroradiology ARZ LOS, Muskuloskeletal FLA LOS N/A Digita l Radiography Impressions 02/12/2024 12:54 PM SOLUTION DESIGN AND ANALYSIS MANAGER Demineralization. As seen on prior CT and [...] fractures. Aortic calcification. Narrative 02/12/2024 12:54 PM SOLUTION DESIGN AND ANALYSIS MANAGER EXAM: DX LUMBAR SPINE 2-3 VIEWS, DX [...] Glucose, Fasting (07/04/2023 8:16 AM CDT) Pathologist [facility] Glucose, P 85 70 - 100 mg/dL 07/04/2023 8:52 AM CDT DTL Last Intake 13 hr 07/04/2023 8:37 AM CDT DTL Blood (Blood, Venous) 07/04/2023 8:16 AM CDT 07/04/2023 8:37 AM CDT Paramjit Pablo M.D. LAB BLOOD NON ADD-ON Final Re sult [facility] [address] [place] [address], [facility] [address] [place] [address] * 25-Hydroxyvitamin D2 and D3 (04/10/2023 10:53 AM SOLUTION DESIGN AND ANALYSIS MANAGER) Pathologist [facility] 25-Hydroxy D2 <4.0 ng/mL 04/11/2023 9:50 PM SOLUTION DESIGN AND ANALYSIS MANAGER [facility] 25-Hydroxy D3 38 ng/mL 04/11/2023 9:50 PM SOLUTION DESIGN AND ANALYSIS MANAGER [facility] 25-Hydroxy D Total 38 ng/mL 2023 9:50 PM SOLUTION DESIGN AND ANALYSIS MANAGER [facility] Comment: ----REFERENCE VALUE---- 25-HYDROXY D TOTAL (D2+D3) Optimum levels in the healthy population are 20-50, patients with bone disease may benefit from higher levels within this range. ----ADDITIONAL INFORMATION---- This test was developed and its performance characteristics determined by [facility] in a manner consistent with CLIA requirements. This test has not been cleared or approved by the U.S. Food and Drug Administration. Blood (Blood, Venous) 04/10/2023 10:53 AM SOLUTION DESIGN AND ANALYSIS MANAGER 04/11/2023 7:11 AM SOLUTION DESIGN AND ANALYSIS MANAGER Javier Dill APRN.N.Brittney., D.N.P. LAB BLOOD ADD-ON Final Result Performing Organization Address City/[facility]/ZIP Co de Phone Number [facility] [address] [place] [address] [facility] [address] [place] [address] [place] [address] * (ABNORMAL) Urinalysis with Microscopic: Urine, Midstream (04/10/2023 10:53 AM SOLUTION DESIGN AND ANALYSIS MANAGER) Source Urine, Urine, Midstream 04/10/2023 11:20 AM SOLUTION DESIGN AND ANALYSIS MANAGER DTL Color, U Yellow 04/10/2023 11:20 AM SOLUTION DESIGN AND ANALYSIS MANAGER DTL Clarity, U Clear 04/10/2023 11:20 AM SOLUTION DESIGN AND ANALYSIS MANAGER DTL Protein, U 6 <26 mg/dL 04/10/2023 12:18 PM SOLUTION DESIGN AND ANALYSIS MANAGER DTL Protein/Osmol ality 0.36 <0.42 ratio 04/10/2023 12:38 PM SOLUTION DESIGN AND ANALYSIS MANAGER DTL Predicted 24 HR Protein, U 267(H) <229 mg/24 h 04/10/2023 12:38 PM SOLUTION DESIGN AND ANALYSIS MANAGER DTL Predicted Range 66-1081 mg/24 h 04/10/2023 12:38 PM SOLUTION DESIGN AND ANALYSIS MANAGER DTL Urine (Urine, Midstream) 04/10/2023 10:53 AM SOLUTION DESIGN AND ANALYSIS MANAGER 04/10/2023 11:20 AM SOLUTION DESIGN AND ANALYSIS MANAGER Emily Alva APRN, Javier.N.P., D.N.P. LAB URINE ORDERABLES Final Result Performing Organization Address [facility] Co de Phone Number [facility] [address] [place] [address], [facility] DTL [facility] [address] [place] [address] * Pulmonary Function Tests (01/02/2023 7:07 AM CDT) PostFVC 2.07 L 01/02/2023 10:16 AM CDT [facility] SU[facility] PostFEV1 1.44 L 01/02/2023 10:16 AM CDT [facility] SUITE FEV1/FVC POST 69.65 % 01/02/2023 10:16 AM CDT [facility] SUITE FEF 25-75 % POST 0.78 L/s 01/02/2023 10:16 AM CDT [facility] SUITE PEF POST 5.20 L/s 01/02/2023 10:16 AM CDT [facility] SUITE PIF POST 4.08 L/s 01/02/2023 10:16 AM CDT [facility] SUITE FEF 50 % FIF 50 POST 33.35 % 01/02/2023 10:16 AM CDT [facility] FET POST 10.92 sec 01/02/2023 10:16 AM CDT [facility] SUITE TLC 4.02 L 01/02/2023 10:16 AM CDT [facility] FRCPLETH PROVBASE 2.36 L 01/02/2023 10:16 AM CDT [facility] SUITE RV 2.01 L 01/02/2023 10:16 AM CDT [facility] RV % TLC PRE 49.98 % 01/02/2023 10:16 AM CDT [facility] SUITE DLCO 10.73 ml/(min*mm Hg) 01/02/2023 10:16 AM CDT [facility] SUITE DLCOc 12.61 ml/(min*mm Hg) 01/02/2023 10:16 AM CDT [facility] HB 9.40 g(Hb)/dL 01/02/2023 10:16 AM CDT [facility] SU[facility] VA 3.42 L 01/02/2023 10:16 AM CDT [facility] SUITE FVC 1.87 L 01/02/2023 10:16 AM CDT [facility] SUITE FEV1 1.35 L 01/02/2023 10:16 AM CDT [facility] FEV1/FVC 72.23 % 01/02/2023 10:16 AM CDT [facility] TDI79-66% 0.79 L/s 01/02/2023 10:16 AM CDT [facility] PEF PRE 4.58 L/s 01/02/2023 10:16 AM CDT [facility] PIF PRE 3.65 L/s 01/02/2023 10:16 AM CDT [facility] FEF 50 % FIF 50 PRE 38.92 % 01/02/2023 10:16 AM CDT [facility] FET PRE 8.88 sec 01/02/2023 10:16 AM CDT [facility] SUBSTANCE POST Albuterol 01/02/2023 10:16 AM CDT [facility] 01/02/2023 7:07 AM CDT Impressions [facility] - 01/02/2023 10:16 AM CDT BMT [...] C.N.P., M.S.N. PFT ORDERAB LES Final Result [facility] NA * (ABNORMAL) Lipid Panel (01/01/2023 [...] M.D. LAB BLOOD ADD-ON Final R esult [facility] [address] [place] [address], [facility] [address] [place] [address] * CT Chest with IV Contrast (01/30/2022 [...] Indicated Protective Environment 03/17/2023 3 Insurance MEDICARE [facility] Advance Directives For more information, please contact: [phone] Documents on File Type Date Recorded Patient Silver Service Waiter Expl anation Advance Directives 03/28/2022 6:46 AM [...] Pratt Daughter First Alternate Health Care Agent [email or web address] Care Teams Reinforcing Steel Worker Relationship Specialty Start Date End Date None Reported, Pcp PCP - General 02/07/24
--- OUTSIDE RECORDS SUMMARY | 2024-04-05 16:08 | XMS_ITS ---
Author Organization [facility] Address [address] [place] [address] Care Team Providers Care Switch Engineer Name Role Phone None Reported, Pcp [...] (05/01/2022): Added automatically from request for surgery [id number] Hypomagnesemia 03/28/2022 Polyp Duodenal 03/27/2022 Mass Small Bowel 02/27/2022 Overview (02/27/2022): Added automatically from request for surgery [id number] Osteoarthritis Aneurysm Thoracic Aorta Personal History Hypertension [...] Treated Prescribed Fraction Dose Prescribed Total Dose [id number] L4 08/10/2022 4 5 of 5 400 cGy 2,000 cGy [id number] 08/10/2022 4 5 of 5 400 cGy 2,000 cGy Reference Point Last Treated On Elapsed Days Session Dose Total Dose [id number] 08/10/2022 4 400 cGy 2,000 cG y [id number] 08/10/2022 4 400 cGy 2,000 cGy Cellular Therapy * Episode Name Episode Status Transplant/Infusion Date Transplant/Infusion Center Donor Information Acute GVHD Chronic GVHD Contact Auto PBSC Txp Active Day 346 (04/25/23) [facility] N/A N/A N/A Sharyn Rea M.D.Phon e: [phone]: Emai l: [email or web address] * Cell Therapy Appointments (03/05/2024 - 05/06/2024) When Visit Type With Description No appointments Lifetime Dose Tracking * Chemical Lifetime Dose Automatic Entry Manual Entr y Radiation 260.3 mGy 260.3 mGy 0 mGy Fluoro Time 10.93 minutes 10.93 minutes 0 minutes
--- OUTSIDE RECORDS SUMMARY | 2024-04-05 16:08 | XMS_ITS ---
Author Organization [facility] Address [address] [place] [address] Care Team Providers Care Electrostatic Powder Coating Technician Name Role Phone Unavailable Unavailable Unavailable Surgery Details Not on file Complications Check Surgery Details section. Procedure Estimated Blood Loss Check Surgery Details section. Procedure Findings Check Surgery Details section. Procedure Specimens Taken Check Surgery Details section.
--- OUTSIDE RECORDS SUMMARY | 2024-04-05 16:09 | XMS_ITS | Encounter Summary ---
Author Organization [facility] Address [address] [place] [address] Care Team Providers Care Field Horticultural Specialty Grower Name Role Phone None Reported, Pcp Primary Care Provider Unavail able Encounter Details Date Type Department Care Team (Late st Contact Info) Description 01/21/2024 Clinical Communication Department of Palliative Care in [place], [place] [address] [place] [phone] Jazmin Canas M.D., M.S. [address] [place] [phone] Social History Tobacco Use Types Packs/Day Years Used Date Smoking Tobacco: Former Cigarettes 1 40 0 04/01/1972 - 04/01/2012 Smokeless Tobacco: Never Alcohol Use Standard Drinks/Week Comments Not Currently 0 (1 standard drink = 0.6 oz pur e alcohol) [facility] Utilities Answer Date Recorded In the past 12 months has e [employer], gas, oil, or water [employer] threatened to shut off services in your [...] often do you attend chur ch or anglican services? Never 01/26/2022 Do you belong to any clubs o r organizations such as gnosticism groups, unions, fraternal or athletic groups, or [...] Answer Date Recorded PHQ-2 Score 1 10/14/2022 [facility] - Occupational [...] your living situation today? I have a [facility] place [facility] 04/30/2023 Education Answer Date Recorded What is the highest level of school you have completed or the highest degree you have received? 12th grade 01/26/2022 Comments No Sex and Gender Information Value Date Recorded Sex Assigned at Female 01/26/2022 1:25 PM CDT Legal Sex Female 9:56 AM HOTEL LOBBY CONCIERGE Gender Identity Female 01/26/2022 1:25 PM CDT Sexual Orientation Straight 01/26/2022 1: 25 PM CDT documented as of this encounter Plan of Treatment Not on file documented as of this encounter Visit Diagnoses Not on filedocumented in this encounter Additional Health Concerns Infection Onset Date Last Indicated Resolved Time Protective Environment 03/17/2023 03/17/2023 documented as of this encounter Care Teams Field Horticultural Specialty Grower Relationship Specialty Start Date End Date None Reported, Pcp PCP - General 02/07/24 documented as of this encounter
--- OUTSIDE RECORDS SUMMARY | 2024-04-05 16:09 | XMS_ITS | Continuity of Care Document ---
Author Name [email or web address] Address Unknown Organization Unknown Address Unknown Procedures FILTER APPLIED:Only known Procedures with Onset Date within the last 5 years Procedure Date Procedure Provider Additiona l Information Status THER/PROPH/DIAG IV INF ADDON (43671) Completed THER/PROPH/DIAG IV INF INIT (37180) Completed CHEMO ANTI-NEOPL SQ/IM (98073) Completed TX/PRO/DX INJ SAME DRUG DESTATICIZER FEEDER (87905) Completed OFFICE O/P EST HI 40 MIN (15518) Completed ROUTINE VENIPUNCTURE (67286) Completed ASSAY IGA/IGD/IGG/IGM EACH (94309) Completed ASSAY OF MAGNESIUM (04953) Completed COMPLETE CBC W/AUTO DIFF WBC (89440) Completed OFFICE O/P EST LOW 20 MIN (63752) Completed COMPREHEN METABOLIC PANEL (19220) Completed NEUROMUSCULAR REEDUCATION (82738) Completed GAIT TRAINING THERAPY (45766) Completed SELF CARE MNGMENT TRAINING (64226) Completed PT EVAL HIGH COMPLEX 45 MIN (47486) Completed THERAPEUTIC EXERCISES (13839) Completed ASSAY OF PROTEIN URINE (31584) Completed IMMUNFIX E-PHORSIS/URINE/CSF (62225) Completed PROTEIN E-PHORESIS SERUM (98563) Completed ASSAY OF PROTEIN SERUM (41572) Completed IMMUNOASSAY QUANT NOS NONAB (33066) Completed ASSAY IGA/IGD/IGG/IGM EACH (93003) Completed IMMUNOFIX E-PHORESIS SERUM (13007) Completed HYDRATION IV INFUSION INIT (20680) Completed ASSAY OF MAGNESIUM (63670) Completed THER/PROPH/DIAG INJ IV PUSH (26767) Completed BLOOD TYPING SEROLOGIC RH(D) (02495) Completed BLOOD TYPING SEROLOGIC ABO (18339) Completed TX/PRO/DX INJ SAME DRUG DESTATICIZER FEEDER (15250) Completed OFF/OP EST JULY X REQ PHY/QHP (67540) Completed RBC ANTIBODY SCREEN (84359) Completed OFFICE O/P EST SF 10 MIN (49296) Completed OFFICE O/P EST HI 40 MIN (29295) Completed CHEMO ANTI-NEOPL SQ/IM (81669) Completed COMPLETE CBC W/AUTO DIFF WBC (46175) Completed COMPREHEN METABOLIC PANEL (94227) Completed ROUTINE VENIPUNCTURE (11569) Completed Encounters FILTER APPLIED:Only known Encounters with Admission Date within the last 5 years Encounter Location Admission Discharge Billing Code Consultant Sadia garza Outpatient Cookie gray Outpatient Bryce Grover Inpatient Outpatient Elena yeager Outpatient Sharyn hartley
--- OUTSIDE RECORDS SUMMARY | 2024-04-05 16:09 | XMS_ITS | Encounter Summary ---
Author Organization [facility] Address [address] [place] [address] Care Team Providers Care Import Clerk Name Role Phone None Reported, Pcp Primary Care Provider Unavail able Reason for Visit * Reason Onset Date Comments Med Question 03/11/2024 Encounter Details Date Type Department Care Team (Late st Contact Info) Description 03/11/2024 Clinical Communication Division of Hematology in [place], [place] [address] [place] [phone] Paramjit Pablo M.D. [address] [place] [phone] Med Question Social History Tobacco Use Types Packs/Day Years Used Date Smoking Tobacco: Former Cigarettes 1 40 0 04/01/1972 - 04/01/2012 Smokeless Tobacco: Never Alcohol Use Standard Drinks/Week Comments Not Currently 0 (1 standard drink = 0.6 oz pur e alcohol) [facility] Utilities Answer Date Recorded In [...] often do you attend chur ch or muslim services? Never 01/26/2022 Do you belong to any clubs o r organizations such as restorationist groups, unions, fraternal or athletic groups, or [...] Answer Date Recorded PHQ-2 Score 1 10/14/2022 [facility] - Occupational [...] living situation today? I have a [facility] place to live 04/30/2023 Education Answer Date Recorded What is the highest level of school you have completed or the highest degree you have received? 12th grade 01/26/2022 Comments No Sex and Gender Information Value Date Recorded Sex Assigned at Female 01/26/2022 1:25 PM CDT Legal Sex Female 9:56 AM COSMETIC CHEMIST Gender Identity Female 01/26/2022 1:25 PM CDT Sexual Orientation Straight 01/26/2022 1: 25 PM CDT documented as of this encounter Plan of Treatment Not on file documented as of this encounter Visit Diagnoses Not on filedocumented in this encounter Additional Health Concerns Infection Onset Date Last Indicated Resolved Time Protective Environment 03/17/2023 03/17/2023 documented as of this encounter Care Teams Import Clerk Relationship Specialty Start Date End Date None Reported, Pcp PCP - General 02/07/24 documented as of this encounter
[2024-04-05 16:51] LABS: Basophils Percent Auto 1.8 % (0.0-3.0); Eosinophils Percent Auto 1.2 % (0.0-7.0); Hematocrit 34.8 % (33.0-51.0); Hemoglobin* 11.6 gm/dL (12.0-16.0); Immature Granulocytes Pct Auto 0.3 %; Lymphocytes Percent Auto 25.6 % (20-44); Mean Corpuscular HGB Conc 33 gm/dL (32-36); Mean Corpuscular Hemoglobin 31 pg (26-34); Mean Corpuscular Volume 92 fL (80-100); Neutrophils Percent Auto 57.1 % (42.0-72.0); Platelet Count* 116 K/uL (140-440); RDW Coefficient of Variation % 14.4 % (11.5-15.5); White Blood Count* 3.36 K/uL (4.50-11.00)
[2024-04-05 16:58] LABS: Chloride* 97 mmol/L (96-114); Potassium* 3.7 mmol/L (3.6-5.1); Sodium* 134 mmol/L (135-149)
[2024-04-05 17:01] LABS: Anion Gap 6 mEq/L (7-15); Blood Urea Nitrogen* 9 mg/dL (7-30); Carbon Dioxide* 31 mmol/L (20-32); Creatinine* 0.5 mg/dL (0.5-1.5); Est. Creatinine Clearance* 43.18; Estimated Glomerular Filt Rate 103 ml/min
[2024-04-05 17:02] LABS: Calcium* 8.3 mg/dL (8.4-10.6); Glucose* 105 mg/dL (60-115)
[2024-04-05 17:20] LABS: Slide Review Reflex No
== END 2024-04-05 18:25 | disposition home or self-care (01) ==
PROVIDERS: Emergency Provider Emergency Medicine; PCP Family Medicine
DX: U07.1 COVID-19 (principal)
CPT/HCPCS: 36415; 71046; 80048; 85025; 87631; 99283; J7050

== ENCOUNTER 2024-04-09 12:00 | Outpatient (RCR) | payer BC, SELFPAY ==
--- NOTE | 2024-04-06 11:09 | ONC.NURNOTE ---
Addendum entered by [place] Arredondo RN 04/06/24 14:48: discussed with Dr Gorver plan; hold lenalidomide through 04/13/24, hold velcade this week will connect by phone on 04/14/24 to re-evaluate before making treatment decision on when to restart ayleen and velcade assess for fever, cough, appetite, general well being, fatigue RN will folow up with Dr Grover on 04/14 and it will be decided when to restart Velcade and ayleen patient states understanding also reviewed that when hold treatment, both velcade and ayleen are held and she should expect a phone all confirming lab tests are within parameters to start ayleen with every cycle Original Note: Adalgisa called with diagnosis of COVID- rescheduling of appts needed it turns out patient restarted her lenalidomide on Sat04/01/24 per - after being off lenalidomide for a week it appears that when her treatment was held on 03/04/24 due to reported illness, Adalgisa had started the lenalidomide, even though the velcade was held and thus was due to start on 04/01/24 at the prescribed 4 week interval- it was not known that the patient went ahead with lenalidomide on 03/04 instead of holding until 03/11 when she was rescheduled for Day 1 will need to review with Dr Grover
--- NOTE | 2024-04-06 16:10 | PC.NURSE ---
outpatient infusion completed at 1500. Patients IV in right wrist SL and wrapped with coban for protection. Patient tolerated infusion well.
[2024-04-07 16:13] VITALS: BP 158/57; PULSE 59; RESP 16; TEMP 36.6
[2024-04-07 16:19] VITALS: BP 122/57; PULSE 59; RESP 16; TEMP 37.1; O2SAT 96
[2024-04-08 03:50] VITALS: BP 157/70; PULSE 62; RESP 16; TEMP 37.1; O2SAT 94
[2024-04-08 17:20] VITALS: BP 139/62; PULSE 58; RESP 18; TEMP 37; O2SAT 95
--- NOTE | 2024-04-08 18:12 | PC.NURSE ---
OP INFUSION: Pt alert, oriented and vitally stable. Arrived around 1613, antibiotic hung. Pt left at 1720 with .
[2024-04-09 17:23] VITALS: BP 157/77; PULSE 72; RESP 16; O2SAT 93
--- NOTE | 2024-04-09 17:31 | PC.NURSE ---
OP INFUSION: Pt alert, oriented and viitally stable. Received last dose of IV antibiotic. IV removed, tip intact.
== END 2024-04-10 12:00 | disposition home or self-care (01) ==
LOC: MS OUT 12:00
PROVIDERS: PCP Family Medicine; Visit Provider Emergency Medicine
DX: U07.1 COVID-19 (principal)
CPT/HCPCS: 96365; G0463; J7050

== ENCOUNTER 2024-07-08 10:30 | Outpatient (RCR) | payer BC, SELFPAY ==
[2024-01-22 10:54] VITALS: BP 117/72; PULSE 67; RESP 18; TEMP 37.1; O2SAT 95
--- NOTE | 2024-01-22 11:09 | ONC.NURNOTE ---
Upcoming [facility] Appts 01/19 Spine MRI 01/23 Immunizations 02/10 Phone Review 02/11 Palliative Care Xray Interventional Radiology Spine Consult
[2024-01-22] MEDS: BORTEZOMIB SUBQ 2.5 mg/ml 2.1 MG SUBCUT (11:29)
[2024-02-05 10:20] LABS: Basophils Percent Auto 1.2 % (0.0-3.0); Eosinophils Percent Auto 3.7 % (0.0-7.0); Hematocrit 32.8 % (33.0-51.0); Hemoglobin* 11.1 gm/dL (12.0-16.0); Lymphocytes Percent Auto 28.8 % (20-44); Mean Corpuscular HGB Conc 34 gm/dL (32-36); Mean Corpuscular Hemoglobin 31 pg (26-34); Mean Corpuscular Volume 93 fL (80-100); Monocytes Percent Auto 14.4 % (0.0-11.0); Neutrophils Percent Auto 51.9 % (42.0-72.0); Platelet Count* 143 K/uL (140-440); RDW Coefficient of Variation % 14.2 % (11.5-15.5); Red Blood Count 3.54 m/uL (4.00-5.20)
[2024-02-05 10:22] LABS: Slide Review Reflex No
[2024-02-05 10:25] VITALS: BP 145/68; PULSE 66; RESP 16; TEMP 36.3; O2SAT 95
[2024-02-05 10:36] LABS: Albumin* 3.7 g/dL (3.3-5.0); Chloride* 103 mmol/L (96-114)
[2024-02-05 10:37] LABS: Potassium* 3.2 mmol/L (3.6-5.1); Sodium* 136 mmol/L (135-149)
[2024-02-05 10:39] LABS: Alkaline Phosphatase* 59 U/L (40-150); Anion Gap 4 mEq/L (7-15); Aspartate Amino Transferase* 18 U/L (12-35); Bilirubin Total* 0.2 mg/dL (0.1-1.5); Blood Urea Nitrogen* 8 mg/dL (7-30); Carbon Dioxide* 29 mmol/L (20-32); Creatinine* 0.5 mg/dL (0.5-1.5); Est. Creatinine Clearance* 39.21; Estimated Glomerular Filt Rate 103 ml/min; Total Protein* 5.9 g/dL (6.0-8.3)
[2024-02-05 10:40] LABS: Alanine Aminotransferase* 8 U/L (4-35); Calcium* 8.6 mg/dL (8.4-10.6); Glucose* 96 mg/dL (60-115)
[2024-02-05] MEDS: ACETAMINOPHEN 325 MG TABLET 650 MG PO (11:00)
[2024-02-05] MEDS: diphenhydrAMINE 25 MG CAPSULE PO (11:00)
[2024-02-05] MEDS: METHYLPREDNISOLONE SOD SUCC 62.5 MG/ML (125) 125 MG IVP (11:15)
[2024-02-05] MEDS: BORTEZOMIB SUBQ 2.5 mg/ml 2.1 MG SUBCUT (11:43)
[2024-02-19 10:36] VITALS: BP 118/76; PULSE 70; RESP 16; TEMP 36.1; O2SAT 93
[2024-02-19] MEDS: BORTEZOMIB SUBQ 2.5 mg/ml 2.1 MG SUBCUT (11:19)
--- NOTE | 2024-03-04 09:31 | PC.NURSE ---
Pt called today to report that she woke up feeling ill. Pt sounds very congested. She has not had a fever. RN asked pt to do a covid test which was negative. Discussed with Dr. Grover. Will delay treatment x 1 week. Called pt with the update and rescheduled her.
[2024-03-11 10:45] LABS: Basophils Percent Auto 1.2 % (0.0-3.0); Eosinophils Percent Auto 7.8 % (0.0-7.0); Hematocrit 35.6 % (33.0-51.0); Hemoglobin* 11.8 gm/dL (12.0-16.0); Immature Granulocytes Pct Auto 0.3 %; Lymphocytes Percent Auto 24.6 % (20-44); Mean Corpuscular HGB Conc 33 gm/dL (32-36); Mean Corpuscular Hemoglobin 31 pg (26-34); Mean Corpuscular Volume 92 fL (80-100); Monocytes Percent Auto 6.7 % (0.0-11.0); Neutrophils Percent Auto 59.4 % (42.0-72.0); Platelet Count* 142 K/uL (140-440); RDW Coefficient of Variation % 14.4 % (11.5-15.5); Red Blood Count 3.86 m/uL (4.00-5.20); White Blood Count* 3.45 K/uL (4.50-11.00)
[2024-03-11 11:04] LABS: Slide Review Reflex No
[2024-03-11 11:05] LABS: Chloride* 101 mmol/L (96-114)
[2024-03-11 11:06] LABS: Albumin* 3.8 g/dL (3.3-5.0); Potassium* 3.7 mmol/L (3.6-5.1); Sodium* 141 mmol/L (135-149)
[2024-03-11 11:08] LABS: Creatinine* 0.6 mg/dL (0.5-1.5); Est. Creatinine Clearance* 39.21; Estimated Glomerular Filt Rate 98 ml/min
[2024-03-11 11:09] LABS: Alanine Aminotransferase* 15 U/L (4-35); Alkaline Phosphatase* 63 U/L (40-150); Aspartate Amino Transferase* 23 U/L (12-35); Bilirubin Total* 0.4 mg/dL (0.1-1.5); Calcium* 9.3 mg/dL (8.4-10.6); Carbon Dioxide* 34 mmol/L (20-32); Glucose* 100 mg/dL (60-115); Total Protein* 6.5 g/dL (6.0-8.3)
[2024-03-11 11:10] LABS: Anion Gap 6 mEq/L (7-15)
[2024-03-11] MEDS: ACETAMINOPHEN 325 MG TABLET 650 MG PO (11:20)
[2024-03-11] MEDS: diphenhydrAMINE 25 MG CAPSULE PO (11:20)
[2024-03-11 11:28] LABS: Blood Urea Nitrogen* 9 mg/dL (7-30)
[2024-03-11] MEDS: METHYLPREDNISOLONE SOD SUCC 62.5 MG/ML (125) 125 MG IVP (12:06)
[2024-03-11] MEDS: BORTEZOMIB SUBQ 2.5 mg/ml 2.1 MG SUBCUT (12:42)
[2024-03-24 09:02] VITALS: BP 127/80; PULSE 69; RESP 16; TEMP 36.2; O2SAT 92
[2024-03-24] MEDS: BORTEZOMIB SUBQ 2.5 mg/ml 2.1 MG SUBCUT (09:42)
[2024-03-28 00:54] LABS: Albumin 3.49 g/dL (3.75-5.01); Alpha 1 Globulin 0.35 g/dL (0.19-0.46); Alpha 2 Globulin 0.88 g/dL (0.48-1.05); Immunofixation IFE Done; Immunoglobulin A 35 mg/dL (68-408); Immunoglobulin G 528 mg/dL (768-1632); Immunoglobulin M 15 mg/dL (35-263); Kappa Qnt Free Light Chains 4.23 mg/L (3.30-19.40); Kappa/Lambda Light Chain Ratio 1.27 (0.26-1.65); Lambda Qnt Free Light Chains 3.32 mg/L (5.71-26.30); Total Protein, Serum 5.9 g/dL (6.3-8.2)
[2024-04-15 13:05] LABS: Basophils Absolute Auto 0.02 K/uL (0.00-0.30); Basophils Percent Auto 0.4 % (0.0-3.0); Eosinophils Percent Auto 2.2 % (0.0-7.0); Hematocrit 37.8 % (33.0-51.0); Hemoglobin* 12.2 gm/dL (12.0-16.0); Immature Granulocytes Abs Auto 0.01 K/uL (0.00-0.30); Immature Granulocytes Pct Auto 0.2 %; Lymphocytes Absolute Auto 1.13 K/uL (0.90-2.90); Lymphocytes Percent Auto 24.7 % (20-44); Mean Corpuscular HGB Conc 32 gm/dL (32-36); Mean Corpuscular Hemoglobin 30 pg (26-34); Mean Corpuscular Volume 93 fL (80-100); Monocytes Percent Auto 14.9 % (0.0-11.0); Neutrophils Absolute Auto 2.63 K/uL (1.7-7.0); Neutrophils Percent Auto 57.6 % (42.0-72.0); Platelet Count* 144 K/uL (140-440); RDW Coefficient of Variation % 14.3 % (11.5-15.5); Red Blood Count 4.07 m/uL (4.00-5.20); White Blood Count* 4.57 K/uL (4.50-11.00)
[2024-04-15 13:09] LABS: Slide Review Reflex No
[2024-04-15 13:16] LABS: Albumin* 3.9 g/dL (3.3-5.0)
[2024-04-15 13:17] LABS: Chloride* 102 mmol/L (96-114); Sodium* 140 mmol/L (135-149)
[2024-04-15 13:19] LABS: Anion Gap 5 mEq/L (7-15); Aspartate Amino Transferase* 20 U/L (12-35); Bilirubin Total* 0.3 mg/dL (0.1-1.5); Carbon Dioxide* 33 mmol/L (20-32); Creatinine* 0.7 mg/dL (0.5-1.5); Est. Creatinine Clearance* 39.21; Estimated Glomerular Filt Rate 95 ml/min; Total Protein* 6.4 g/dL (6.0-8.3)
[2024-04-15 13:20] LABS: Alanine Aminotransferase* 12 U/L (4-35); Alkaline Phosphatase* 69 U/L (40-150); Blood Urea Nitrogen* 14 mg/dL (7-30); Calcium* 8.9 mg/dL (8.4-10.6); Glucose* 104 mg/dL (60-115)
[2024-04-15] MEDS: BORTEZOMIB SUBQ 2.5 mg/ml 2.1 MG SUBCUT (14:53)
--- NOTE | 2024-04-17 11:24 | ONC.NURNOTE ---
Refill for Lenolidamide faxed to [facility]. Authorization #: [id number]
[2024-04-29 10:39] VITALS: BP 133/77; PULSE 79; RESP 16; TEMP 36.5; O2SAT 94
[2024-04-29] MEDS: METHYLPREDNISOLONE SOD SUCC 62.5 MG/ML (125) 125 MG IVP (11:14)
[2024-04-29] MEDS: diphenhydrAMINE 25 MG CAPSULE PO (11:15)
[2024-04-29] MEDS: BORTEZOMIB SUBQ 2.5 mg/ml 2.1 MG SUBCUT (11:51)
[2024-04-29] MEDS: INTRAVIA CONTAINER IV (11:51)
[2024-04-29] MEDS: IMMUNE GLOBULIN IV (11:51)
[2024-05-13 10:39] LABS: Basophils Absolute Auto 0.03 K/uL (0.00-0.30); Basophils Percent Auto 0.6 % (0.0-3.0); Eosinophils Absolute Auto 0.13 K/uL (0.00-0.50); Eosinophils Percent Auto 2.7 % (0.0-7.0); Hematocrit 37.1 % (33.0-51.0); Hemoglobin* 12.4 gm/dL (12.0-16.0); Lymphocytes Percent Auto 20.7 % (20-44); Mean Corpuscular HGB Conc 33 gm/dL (32-36); Mean Corpuscular Hemoglobin 30 pg (26-34); Mean Corpuscular Volume 91 fL (80-100); Monocytes Percent Auto 9.5 % (0.0-11.0); Neutrophils Percent Auto 66.5 % (42.0-72.0); Platelet Count* 114 K/uL (140-440); RDW Coefficient of Variation % 14.8 % (11.5-15.5); Red Blood Count 4.08 m/uL (4.00-5.20); White Blood Count* 4.82 K/uL (4.50-11.00)
[2024-05-13 10:46] LABS: Slide Review Reflex No
[2024-05-13 11:00] LABS: Albumin* 4.3 g/dL (3.3-5.0); Chloride* 102 mmol/L (96-114)
[2024-05-13 11:01] LABS: Potassium* 3.6 mmol/L (3.6-5.1); Sodium* 140 mmol/L (135-149)
[2024-05-13 11:03] LABS: Alkaline Phosphatase* 71 U/L (40-150); Anion Gap 7 mEq/L (7-15); Aspartate Amino Transferase* 20 U/L (12-35); Bilirubin Total* 0.3 mg/dL (0.1-1.5); Blood Urea Nitrogen* 9 mg/dL (7-30); Carbon Dioxide* 31 mmol/L (20-32); Creatinine* 0.7 mg/dL (0.5-1.5); Est. Creatinine Clearance* 39.21; Estimated Glomerular Filt Rate 95 ml/min; Total Protein* 6.7 g/dL (6.0-8.3)
[2024-05-13 11:04] LABS: Alanine Aminotransferase* 11 U/L (4-35); Calcium* 9.1 mg/dL (8.4-10.6); Glucose* 77 mg/dL (60-115)
[2024-05-13 11:17] VITALS: BP 117/70; PULSE 81; RESP 16; TEMP 36.2; O2SAT 81
[2024-05-13] MEDS: BORTEZOMIB SUBQ 2.5 mg/ml 2.1 MG SUBCUT (11:49)
--- NOTE | 2024-05-13 14:39 | ONC.NURNOTE ---
Lenalidomide REMS Patient Prescription Form faxed to [facility]. Provider survey completed; Authorization # [id number].
[2024-05-27 10:41] VITALS: BP 114/75; PULSE 62; RESP 16; TEMP 36.1; O2SAT 96
[2024-05-27] MEDS: diphenhydrAMINE 25 MG CAPSULE PO (11:00)
[2024-05-27] MEDS: SODIUM CHLORIDE 0.9 % (FLUSH) 10 ML SYRINGE IVF (11:25)
[2024-05-27] MEDS: METHYLPREDNISOLONE SOD SUCC 62.5 MG/ML (125) 125 MG IVP (11:25)
[2024-05-27] MEDS: BORTEZOMIB SUBQ 2.5 mg/ml 2.1 MG SUBCUT (12:01)
[2024-05-27] MEDS: IMMUNE GLOBULIN IV (12:01)
[2024-05-27] MEDS: INTRAVIA CONTAINER IV (12:01)
[2024-06-10 10:39] LABS: Basophils Absolute Auto 0.05 K/uL (0.00-0.30); Eosinophils Absolute Auto 0.11 K/uL (0.00-0.50); Eosinophils Percent Auto 2.1 % (0.0-7.0); Hemoglobin* 11.8 gm/dL (12.0-16.0); Immature Granulocytes Abs Auto 0.01 K/uL (0.00-0.30); Immature Granulocytes Pct Auto 0.2 %; Lymphocytes Absolute Auto 1.33 K/uL (0.90-2.90); Lymphocytes Percent Auto 25.5 % (20-44); Mean Corpuscular HGB Conc 34 gm/dL (32-36); Mean Corpuscular Hemoglobin 31 pg (26-34); Mean Corpuscular Volume 91 fL (80-100); Monocytes Percent Auto 12.7 % (0.0-11.0); Neutrophils Absolute Auto 3.05 K/uL (1.7-7.0); Neutrophils Percent Auto 58.5 % (42.0-72.0); Platelet Count* 148 K/uL (140-440); RDW Coefficient of Variation % 15.1 % (11.5-15.5); Red Blood Count 3.84 m/uL (4.00-5.20); White Blood Count* 5.21 K/uL (4.50-11.00)
[2024-06-10 10:46] LABS: Slide Review Reflex No
[2024-06-10 11:02] LABS: Albumin* 4.1 g/dL (3.3-5.0); Chloride* 100 mmol/L (96-114)
[2024-06-10 11:03] LABS: Potassium* 3.9 mmol/L (3.6-5.1); Sodium* 136 mmol/L (135-149)
--- NOTE | 2024-06-10 11:04 | ONC.NURNOTE ---
2 loose stools a day after [employer] dinner x2. enc her to take antidiarrhea med as perscribed if needed. reviewed info on dehydration and for her to call us if diarrhea increases or doesnt cease.
[2024-06-10 11:05] LABS: Alanine Aminotransferase* 10 U/L (4-35); Alkaline Phosphatase* 54 U/L (40-150); Anion Gap 7 mEq/L (7-15); Aspartate Amino Transferase* 20 U/L (12-35); Bilirubin Total* 0.5 mg/dL (0.1-1.5); Blood Urea Nitrogen* 10 mg/dL (7-30); Carbon Dioxide* 29 mmol/L (20-32); Creatinine* 0.6 mg/dL (0.5-1.5); Est. Creatinine Clearance* 39.21; Estimated Glomerular Filt Rate 98 ml/min; Glucose* 91 mg/dL (60-115); Total Protein* 6.8 g/dL (6.0-8.3)
[2024-06-10 11:06] LABS: Calcium* 9.1 mg/dL (8.4-10.6)
[2024-06-10 11:26] VITALS: BP 144/79; PULSE 66; RESP 14; TEMP 36.7; O2SAT 95
[2024-06-10] MEDS: BORTEZOMIB SUBQ 2.5 mg/ml 2.1 MG SUBCUT (11:58)
[2024-06-13 10:52] LABS: Albumin 3.59 g/dL (3.75-5.01); Alpha 1 Globulin 0.36 g/dL (0.19-0.46); Alpha 2 Globulin 0.88 g/dL (0.48-1.05); Immunofixation IFE Done; Immunoglobulin A 30 mg/dL (68-408); Immunoglobulin G 575 mg/dL (768-1632); Immunoglobulin M 38 mg/dL (35-263); Kappa Qnt Free Light Chains 3.69 mg/L (3.30-19.40); Kappa/Lambda Light Chain Ratio 1.14 (0.26-1.65); Lambda Qnt Free Light Chains 3.25 mg/L (5.71-26.30); Total Protein, Serum 6.1 g/dL (6.3-8.2)
[2024-06-24] MEDS: BORTEZOMIB SUBQ 2.5 mg/ml 2.1 MG SUBCUT (10:55)
[2024-07-08 10:35] VITALS: BP 153/75; PULSE 66; RESP 17; TEMP 36.6; O2SAT 93
[2024-07-08 10:58] LABS: Basophils Absolute Auto 0.05 K/uL (0.00-0.30); Eosinophils Absolute Auto 0.17 K/uL (0.00-0.50); Eosinophils Percent Auto 3.3 % (0.0-7.0); Hematocrit 37.5 % (33.0-51.0); Hemoglobin* 12.7 gm/dL (12.0-16.0); Immature Granulocytes Abs Auto 0.01 K/uL (0.00-0.30); Immature Granulocytes Pct Auto 0.2 %; Lymphocytes Absolute Auto 2.12 K/uL (0.90-2.90); Lymphocytes Percent Auto 41.3 % (20-44); Mean Corpuscular HGB Conc 34 gm/dL (32-36); Mean Corpuscular Hemoglobin 31 pg (26-34); Mean Corpuscular Volume 93 fL (80-100); Monocytes Percent Auto 13.3 % (0.0-11.0); Neutrophils Percent Auto 40.9 % (42.0-72.0); Platelet Count* 145 K/uL (140-440); RDW Coefficient of Variation % 14.8 % (11.5-15.5); Red Blood Count 4.04 m/uL (4.00-5.20); White Blood Count* 5.13 K/uL (4.50-11.00)
[2024-07-08 10:59] LABS: Slide Review Reflex No
[2024-07-08 11:08] LABS: Albumin* 4.2 g/dL (3.3-5.0); Chloride* 102 mmol/L (96-114); Sodium* 137 mmol/L (135-149)
[2024-07-08 11:09] LABS: Potassium* 4.7 mmol/L (3.6-5.1)
[2024-07-08 11:11] LABS: Alanine Aminotransferase* 16 U/L (4-35); Alkaline Phosphatase* 55 U/L (40-150); Anion Gap 4 mEq/L (7-15); Aspartate Amino Transferase* 25 U/L (12-35); Bilirubin Total* 0.4 mg/dL (0.1-1.5); Blood Urea Nitrogen* 11 mg/dL (7-30); Calcium* 9.3 mg/dL (8.4-10.6); Carbon Dioxide* 31 mmol/L (20-32); Creatinine* 0.7 mg/dL (0.5-1.5); Est. Creatinine Clearance* 39.21; Estimated Glomerular Filt Rate 95 ml/min; Glucose* 81 mg/dL (60-115); Total Protein* 6.6 g/dL (6.0-8.3)
[2024-07-08] MEDS: BORTEZOMIB SUBQ 2.5 mg/ml 2.1 MG SUBCUT (12:04)
== END 2024-07-20 23:59 | disposition home or self-care (01) ==
LOC: CCIC 10:30
PROVIDERS: Clinical Nurse Specialist; PCP Family Medicine; Referring Provider Family Medicine; Visit Provider Internal Medicine Hematology & Oncology
DX: C90.00 Multiple myeloma not having achieved remission (principal); D80.1 Nonfamilial hypogammaglobulinemia
CPT/HCPCS: 36415; 80053; 82784; 83520; 84155; 84165; 85025; 86334; 96365; 96366; 96375; 96376; 96401; 99215; G0463; A9270; J1459; J2919; J9041

== ENCOUNTER 2025-01-06 10:00 | Outpatient (RCR) | payer BC, SELFPAY ==
[2024-07-22 10:29] VITALS: BP 123/63; PULSE 61; RESP 20; TEMP 35.7; O2SAT 93
[2024-07-22] MEDS: BORTEZOMIB SUBQ 2.5 mg/ml 2.1 MG SUBCUT (11:20)
[2024-08-05 10:21] LABS: Hematocrit* 32.6 % (33.0-51.0); Hemoglobin* 11.2 gm/dL (12.0-16.0); Immature Granulocytes Abs Auto 0.00 K/uL (0.00-0.30); Immature Granulocytes Pct Auto 0.0 %; Lymphocytes Absolute Auto 0.90 K/uL (0.90-2.90); Mean Corpuscular HGB Conc 34 gm/dL (32-36); Mean Corpuscular Hemoglobin 32 pg (26-34); Mean Corpuscular Volume 93 fL (80-100); RDW Coefficient of Variation % 14.2 % (11.5-15.5); Red Blood Count* 3.49 m/uL (4.00-5.20); Slide Review Reflex No; White Blood Count* 3.81 K/uL (4.50-11.00)
[2024-08-05 10:37] LABS: Albumin* 3.8 g/dL (3.3-5.0); Chloride* 105 mmol/L (96-114); Potassium* 3.9 mmol/L (3.6-5.1); Sodium* 141 mmol/L (135-149)
[2024-08-05 10:39] LABS: Blood Urea Nitrogen* 10 mg/dL (7-30); Creatinine* 0.7 mg/dL (0.5-1.5); Estimated Glomerular Filt Rate 95 ml/min
[2024-08-05 10:40] LABS: Alanine Aminotransferase* 13 U/L (4-35); Alkaline Phosphatase* 57 U/L (40-150); Anion Gap 3 mEq/L (7-15); Aspartate Amino Transferase* 24 U/L (12-35); Bilirubin Total* 0.3 mg/dL (0.1-1.5); Calcium* 8.9 mg/dL (8.4-10.6); Carbon Dioxide* 33 mmol/L (20-32); Glucose* 91 mg/dL (60-115); Total Protein* 6.1 g/dL (6.0-8.3)
[2024-08-05 10:47] VITALS: BP 131/79; PULSE 63; RESP 16; TEMP 36.2; O2SAT 94
[2024-08-05] MEDS: BORTEZOMIB SUBQ 2.5 mg/ml 2.1 MG SUBCUT (11:12)
[2024-08-07 03:35] LABS: Immunoglobulin A 36 mg/dL (68-408); Immunoglobulin G 299 mg/dL (768-1632); Immunoglobulin M 12 mg/dL (35-263)
[2024-08-19 10:22] VITALS: BP 150/80; PULSE 64; RESP 16; TEMP 35.6; O2SAT 95
[2024-08-19] MEDS: BORTEZOMIB SUBQ 2.5 mg/ml 2.1 MG SUBCUT (11:02)
[2024-09-02 10:23] VITALS: BP 145/74; PULSE 65; TEMP 36.7; O2SAT 97
[2024-09-02 10:35] LABS: Hematocrit* 33.8 % (33.0-51.0); Hemoglobin* 11.5 gm/dL (12.0-16.0); Immature Granulocytes Abs Auto 0.00 K/uL (0.00-0.30); Immature Granulocytes Pct Auto 0.0 %; Lymphocytes Absolute Auto 1.00 K/uL (0.90-2.90); Mean Corpuscular HGB Conc 34 gm/dL (32-36); Mean Corpuscular Hemoglobin 32 pg (26-34); Mean Corpuscular Volume 94 fL (80-100); RDW Coefficient of Variation % 13.9 % (11.5-15.5); Red Blood Count* 3.61 m/uL (4.00-5.20); White Blood Count* 3.91 K/uL (4.50-11.00)
[2024-09-02 10:36] LABS: Slide Review Reflex No
[2024-09-02 10:47] LABS: Chloride* 102 mmol/L (96-114); Sodium* 136 mmol/L (135-149)
[2024-09-02 10:48] LABS: Albumin* 3.8 g/dL (3.3-5.0); Potassium* 4.1 mmol/L (3.6-5.1)
[2024-09-02 10:50] LABS: Alanine Aminotransferase* 15 U/L (4-35); Anion Gap 3 mEq/L (7-15); Aspartate Amino Transferase* 23 U/L (12-35); Blood Urea Nitrogen* 11 mg/dL (7-30); Carbon Dioxide* 31 mmol/L (20-32); Creatinine* 0.7 mg/dL (0.5-1.5); Estimated Glomerular Filt Rate 95 ml/min; Total Protein* 6.0 g/dL (6.0-8.3)
[2024-09-02 10:51] LABS: Alkaline Phosphatase* 63 U/L (40-150); Bilirubin Total* 0.4 mg/dL (0.1-1.5); Calcium* 8.8 mg/dL (8.4-10.6); Glucose* 77 mg/dL (60-115)
[2024-09-02] MEDS: 5 % DEXTROSE 250 ML IV (11:00)
[2024-09-02] MEDS: METHYLPREDNISOLONE SOD SUCC 62.5 MG/ML (125) 125 MG IVP (11:02)
[2024-09-02] MEDS: IMMUNE GLOBULIN IV (11:35)
[2024-09-02] MEDS: INTRAVIA CONTAINER IV (11:35)
[2024-09-02] MEDS: BORTEZOMIB SUBQ 2.5 mg/ml 2.1 MG SUBCUT (13:59)
[2024-09-05 00:43] LABS: Albumin 3.65 g/dL (3.75-5.01); Immunoglobulin A 38 mg/dL (68-408); Immunoglobulin G 253 mg/dL (768-1632); Immunoglobulin M 20 mg/dL (35-263)
[2024-09-16] MEDS: BORTEZOMIB SUBQ 2.5 mg/ml 2.1 MG SUBCUT (11:06)
[2024-09-30 13:29] LABS: Hematocrit* 34.1 % (33.0-51.0); Hemoglobin* 11.7 gm/dL (12.0-16.0); Immature Granulocytes Pct Auto 0.3 %; Mean Corpuscular HGB Conc 34 gm/dL (32-36); Mean Corpuscular Hemoglobin 31 pg (26-34); Mean Corpuscular Volume 91 fL (80-100); RDW Coefficient of Variation % 13.6 % (11.5-15.5); Red Blood Count* 3.73 m/uL (4.00-5.20); White Blood Count* 3.88 K/uL (4.50-11.00)
[2024-09-30 13:31] LABS: Immature Granulocytes Abs Auto 0.00 K/uL (0.00-0.30); Lymphocytes Absolute Auto 1.00 K/uL (0.90-2.90); Slide Review Reflex No
[2024-09-30 13:44] LABS: Albumin* 4.0 g/dL (3.3-5.0); Chloride* 100 mmol/L (96-114); Sodium* 138 mmol/L (135-149)
[2024-09-30 13:45] LABS: Potassium* 3.9 mmol/L (3.6-5.1)
[2024-09-30 13:47] LABS: Alanine Aminotransferase* 12 U/L (4-35); Alkaline Phosphatase* 63 U/L (40-150); Anion Gap 6 mEq/L (7-15); Aspartate Amino Transferase* 23 U/L (12-35); Bilirubin Total* 0.3 mg/dL (0.1-1.5); Blood Urea Nitrogen* 9 mg/dL (7-30); Carbon Dioxide* 32 mmol/L (20-32); Creatinine* 0.7 mg/dL (0.5-1.5); Est. Creatinine Clearance* 39.21; Estimated Glomerular Filt Rate 95 ml/min; Total Protein* 6.5 g/dL (6.0-8.3)
[2024-09-30 13:48] LABS: Calcium* 8.9 mg/dL (8.4-10.6); Glucose* 91 mg/dL (60-115)
--- NOTE | 2024-09-30 14:58 | ONC.NURNOTE ---
Pt here today for Labs/Velcade/IVIG. IVIG not on appt comment or appt length, ergo not ordered by pharm. Per pharm, med ordered with estimated arrival early afternoon tomorrow. Labs drawn; Velcade and IVIG infusion rescheduled to tomorrow. Pt and her gracious with adjusting their schedule.
[2024-10-01 13:04] VITALS: BP 135/78; PULSE 69; TEMP 36.3; O2SAT 94
[2024-10-01] MEDS: ACETAMINOPHEN 325 MG TABLET 650 MG PO (13:21)
[2024-10-01] MEDS: METHYLPREDNISOLONE SOD SUCC 62.5 MG/ML (125) 125 MG IVP (13:24)
[2024-10-01] MEDS: IMMUNE GLOBULIN IV (13:36)
[2024-10-01] MEDS: 5 % DEXTROSE 250 ML IV (13:36)
[2024-10-01] MEDS: INTRAVIA CONTAINER IV (13:36)
[2024-10-01] MEDS: BORTEZOMIB SUBQ 2.5 mg/ml 2.1 MG SUBCUT (16:41)
[2024-10-14 11:15] VITALS: BP 137/65; PULSE 68; RESP 18; TEMP 37; O2SAT 95
[2024-10-14] MEDS: BORTEZOMIB SUBQ 2.5 mg/ml 2.1 MG SUBCUT (11:40)
[2024-10-28 10:12] VITALS: BP 159/74; PULSE 62; RESP 15; TEMP 36.5; O2SAT 94
[2024-10-28 10:34] LABS: Hematocrit* 32.5 % (33.0-51.0); Hemoglobin* 11.2 gm/dL (12.0-16.0); Immature Granulocytes Abs Auto 0.00 K/uL (0.00-0.30); Immature Granulocytes Pct Auto 0.0 %; Mean Corpuscular HGB Conc 35 gm/dL (32-36); Mean Corpuscular Hemoglobin 31 pg (26-34); Mean Corpuscular Volume 91 fL (80-100); RDW Coefficient of Variation % 14.4 % (11.5-15.5); Red Blood Count* 3.57 m/uL (4.00-5.20); White Blood Count* 3.85 K/uL (4.50-11.00)
[2024-10-28 10:42] LABS: Lymphocytes Absolute Auto 1.00 K/uL (0.90-2.90); Slide Review Reflex No
[2024-10-28] MEDS: ACETAMINOPHEN 325 MG TABLET 650 MG PO (10:43)
[2024-10-28 10:50] LABS: Albumin* 3.6 g/dL (3.3-5.0); Chloride* 104 mmol/L (96-114); Potassium* 3.1 mmol/L (3.6-5.1); Sodium* 138 mmol/L (135-149)
[2024-10-28 10:52] LABS: Blood Urea Nitrogen* 7 mg/dL (7-30); Creatinine* 0.6 mg/dL (0.5-1.5); Est. Creatinine Clearance* 39.21; Estimated Glomerular Filt Rate 98 ml/min
[2024-10-28 10:53] LABS: Alanine Aminotransferase* 9 U/L (4-35); Alkaline Phosphatase* 59 U/L (40-150); Anion Gap 3 mEq/L (7-15); Aspartate Amino Transferase* 21 U/L (12-35); Bilirubin Total* 0.4 mg/dL (0.1-1.5); Calcium* 8.7 mg/dL (8.4-10.6); Carbon Dioxide* 31 mmol/L (20-32); Glucose* 88 mg/dL (60-115); Total Protein* 5.9 g/dL (6.0-8.3)
[2024-10-28] MEDS: METHYLPREDNISOLONE SOD SUCC 62.5 MG/ML (125) 125 MG IVP (11:20)
[2024-10-28] MEDS: INTRAVIA CONTAINER IV (11:46)
[2024-10-28] MEDS: IMMUNE GLOBULIN IV (11:46)
[2024-10-28] MEDS: POTASSIUM CHLORIDE 10 MEQ/100 ML PIGGYBACK 100 MEQ IVPB ×2 (12:45→14:06)
[2024-10-28 12:53] VITALS: BP 156/71; PULSE 57; RESP 18; TEMP 36.9; O2SAT 93
[2024-10-28] MEDS: SODIUM CHLORIDE 0.9 % (FLUSH) 10 ML SYRINGE IVF (13:05)
[2024-10-28] MEDS: BORTEZOMIB SUBQ 2.5 mg/ml 2.1 MG SUBCUT (15:16)
[2024-10-29 12:31] LABS: Immunoglobulin A 41 mg/dL (68-408); Immunoglobulin G 369 mg/dL (768-1632); Immunoglobulin M 15 mg/dL (35-263)
[2024-11-11 11:06] VITALS: BP 142/72; PULSE 65; TEMP 36.8; O2SAT 96
[2024-11-11 11:36] LABS: Potassium* 3.6 mmol/L (3.6-5.1)
[2024-11-11] MEDS: BORTEZOMIB SUBQ 2.5 mg/ml 2.1 MG SUBCUT (12:10)
--- NOTE | 2024-11-11 15:49 | ONC.NURNOTE ---
K recheck 3.6 today. Pt notes she felt better, had more energy while on oral potassium x [address] Grover. Pt to continue 20 mEq KCl daily.
--- NOTE | 2024-11-17 11:34 | ONC.NURNOTE ---
Addendum entered by Rocío Chan RN 11/20/24 11:05: Contacted Dr. Mac today and MD states no appeal at this time so we will not proceed with PA for IVIG. Pt contacted and updated. Original Note: PA placed for IVIG but denial was received wanting more documentation or [id number] to be done. Dr. Grover wanted notice and request be sent to Dr. Rea -risk and compliance analytics director from [facility] who originally suggested this. There has been no documentation of frequent infections so unsure if continues to need per new guidelines. Denial and Dr. Grover's last note faxed to Dr. Rea at [facility]-Fax [phone]
[2024-11-25 09:44] LABS: Hematocrit* 36.9 % (33.0-51.0); Hemoglobin* 12.2 gm/dL (12.0-16.0); Immature Granulocytes Abs Auto 0.00 K/uL (0.00-0.30); Immature Granulocytes Pct Auto 0.0 %; Mean Corpuscular HGB Conc 33 gm/dL (32-36); Mean Corpuscular Hemoglobin 31 pg (26-34); Mean Corpuscular Volume 95 fL (80-100); RDW Coefficient of Variation % 14.1 % (11.5-15.5); Red Blood Count* 3.89 m/uL (4.00-5.20); White Blood Count* 3.84 K/uL (4.50-11.00)
[2024-11-25 09:50] VITALS: BP 116/71; PULSE 71; RESP 15; TEMP 37.2; O2SAT 93
[2024-11-25 09:53] LABS: Lymphocytes Absolute Auto 1.10 K/uL (0.90-2.90); Slide Review Reflex No
[2024-11-25 09:55] LABS: Chloride* 104 mmol/L (96-114)
[2024-11-25 09:56] LABS: Albumin* 3.9 g/dL (3.3-5.0); Potassium* 4.8 mmol/L (3.6-5.1); Sodium* 138 mmol/L (135-149)
[2024-11-25 09:59] LABS: Alanine Aminotransferase* 12 U/L (4-35); Alkaline Phosphatase* 64 U/L (40-150); Anion Gap 5 mEq/L (7-15); Aspartate Amino Transferase* 22 U/L (12-35); Bilirubin Total* 0.2 mg/dL (0.1-1.5); Blood Urea Nitrogen* 20 mg/dL (7-30); Calcium* 9.0 mg/dL (8.4-10.6); Carbon Dioxide* 29 mmol/L (20-32); Creatinine* 0.9 mg/dL (0.5-1.5); Est. Creatinine Clearance* 38.68; Estimated Glomerular Filt Rate 70 ml/min; Glucose* 84 mg/dL (60-115); Total Protein* 6.4 g/dL (6.0-8.3)
[2024-11-25] MEDS: BORTEZOMIB SUBQ 2.5 mg/ml 2.1 MG SUBCUT (10:46)
[2024-11-28 08:36] LABS: Albumin 3.78 g/dL (3.75-5.01); Immunoglobulin A 32 mg/dL (68-408); Immunoglobulin G 391 mg/dL (768-1632); Immunoglobulin M <10 mg/dL (35-263)
[2024-12-09] MEDS: BORTEZOMIB SUBQ 2.5 mg/ml 2.1 MG SUBCUT (11:39)
[2024-12-23 10:19] VITALS: BP 130/72; PULSE 64; RESP 17; TEMP 36.7; O2SAT 95
[2024-12-23 10:19] LABS: Hematocrit* 31.5 % (33.0-51.0); Hemoglobin* 10.9 gm/dL (12.0-16.0); Immature Granulocytes Abs Auto 0.00 K/uL (0.00-0.30); Immature Granulocytes Pct Auto 0.0 %; Lymphocytes Absolute Auto 0.60 K/uL (0.90-2.90); Mean Corpuscular HGB Conc 35 gm/dL (32-36); Mean Corpuscular Hemoglobin 32 pg (26-34); Mean Corpuscular Volume 92 fL (80-100); RDW Coefficient of Variation % 14.1 % (11.5-15.5); Red Blood Count* 3.42 m/uL (4.00-5.20); Slide Review Reflex No; White Blood Count* 2.88 K/uL (4.50-11.00)
[2024-12-23 10:31] LABS: Albumin* 3.7 g/dL (3.3-5.0); Chloride* 103 mmol/L (96-114); Sodium* 137 mmol/L (135-149)
[2024-12-23 10:32] LABS: Potassium* 4.2 mmol/L (3.6-5.1)
[2024-12-23 10:34] LABS: Alanine Aminotransferase* 11 U/L (4-35); Anion Gap 2 mEq/L (7-15); Aspartate Amino Transferase* 20 U/L (12-35); Blood Urea Nitrogen* 9 mg/dL (7-30); Carbon Dioxide* 32 mmol/L (20-32); Creatinine* 0.8 mg/dL (0.5-1.5); Est. Creatinine Clearance* 38.68; Estimated Glomerular Filt Rate 80 ml/min; Total Protein* 5.8 g/dL (6.0-8.3)
[2024-12-23 10:35] LABS: Alkaline Phosphatase* 56 U/L (40-150); Bilirubin Total* 0.3 mg/dL (0.1-1.5); Calcium* 9.1 mg/dL (8.4-10.6); Glucose* 102 mg/dL (60-115)
[2024-12-23] MEDS: BORTEZOMIB SUBQ 2.5 mg/ml 2.1 MG SUBCUT (11:20)
[2025-01-06 10:03] VITALS: BP 119/71; PULSE 67; RESP 16; TEMP 36.4; O2SAT 95
[2025-01-06] MEDS: BORTEZOMIB SUBQ 2.5 mg/ml 2.1 MG SUBCUT (11:04)
--- NOTE | 2025-01-06 11:13 | ONC.NURNOTE ---
Pt present at [facility] for Velcade injection. Pt's shared that last week on 12/28/2024, pt was at [facility] for her recommended screening colonoscopy. They shared with the MD about her cancer treatment so labs were done (CBC & BMP). Lab results showed ANC 1.0 and plt 64k. They opted to NOT to the scope and asked that she re-schedule and coordinate with her cancer treatment so timing would be safer with regards to her labs. Communicated all of this to BIANCA Berumen NN who will help coordinate. Pt aware and agrees with the plan.
--- NOTE | 2025-01-07 11:26 | ONC.NURNOTE ---
Screening colonoscopy schedule needed per Adalgisa's PCP- see previous note on canceled appt due to low WBC timing is preferred right before restarting on monthly revlimid dosing, after Adalgisa has had 5-6 days rest from 21 day on dates given to [facility] Scheduling and discussed with Adalgisa 02/16, 03/16, 04/13/25 Dr Mary Han is the provider on for these dates, and was the one scheduled to do the procedure that was canceled will plan for lab the day before scheduling ph # [phone]
== END 2025-01-18 23:59 | disposition home or self-care (01) ==
LOC: CCIC 10:00
PROVIDERS: PCP Family Medicine; Referring Provider Family Medicine; Visit Provider Internal Medicine Hematology & Oncology
DX: C90.00 Multiple myeloma not having achieved remission (principal)
CPT/HCPCS: 36415; 80053; 82784; 83520; 84132; 84155; 84165; 85025; 86334; 96361; 96365; 96366; 96375; 96401; 99215; G0463; A9270; J1459; J2919; J3480; J7050; J9041